=== PATIENT | female | born 1960 | race Caucasian/White ===

== ENCOUNTER 2019-02-24 19:37 | Emergency (ER) | payer OTHER ==
[2019-02-24 19:48] VITALS: BMI 23.4
[2019-02-24] MEDS ORDERED: MIDAZOLAM HCL 2 MG/2 ML SINGLE DOSE VIAL IVPUSH ONE (20:06)
--- NOTE | 2019-02-24 20:06 | PDOC ---
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 A [facility] aide is at bedside but was not present during the incidient. Per her report, the day program told her this evening that the pt had 2 episodes of vaginal bleeding this morning that have since resolved, and the program recommended calling an ambulance. The aide is not aware of the patient's history. Ms Foster's legal guardian, Julianna Howell ([phone]) was contacted via phone. She reports that the pt was recently diagnosed with bladder cancer, and she has not yet started treatment. Other than the CA and the TBI, she is unaware of any underlying medical conditions. Past History - Past Medical History Allergies/Adverse Reactions: Allergies Allergy/AdvReac Type Severity Reaction Status Date / Time No Known Allergies Allergy Verified 02/24/19 19:39 Home Medications: Ambulatory Orders Unobtainable Home Med List 0 dose .ROUTE UTDICT 03/06/12 Cephalexin [Keflex Suspension] 500 mg PO Q8H 10 Days #300 ml 02/24/19 - Psycho Social/Smoking Cessation Hx Smoking Status: No Smoking History: Unknown if ever smoked Have you smoked in the past 12 months: No Number of Cigarettes Smoked Daily: 0 Information on smoking cessation initiated: No Hx Alcohol Use: No Drug/Substance Use Hx: No Review of Systems - Review of Systems Comments:: Patient minimally verbal, s/p TBI, could not obtain *Physical Exam - Vital Signs Last Vital Signs Temp Pulse Resp BP Pulse Ox 97.9 F 110 H 18 138/70 96 02/24/19 19:39 02/24/19 19:39 02/24/19 19:39 02/24/19 19:39 02/24/19 19:39 - Physical Exam General: Comfortable, no acute distress. Brown-tinged urine soaking bedsheets HEENT: Atraumatic, PERRL, EOMI, adentulous Cards: RRR, no murmur appreciated Pulm: Comfortable on room air, clear to auscultation bilaterally Abd: Soft, nontender, nondistended : Normal external genitalia, no active bleeding or lesions. Blood-tinged physiologic discharge in vaginal canal without obvious source. Os not well visualized as pt became upset during exam. Rectal: Normal tone, no blood noted, no perianal lesions Ext: Atraumatic. No LE edema. Extremities contracted. WWP. Skin: Normal color, no rashes or lesions Neuro: Awake, nonverbal, CN grossly intact, extremities contracted. 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 The bleeding has since resolved. Ms Foster's legal guardian, Julianna Howell ([phone]) was contacted via phone for history. - Slightly tachycardic, but BP and temp WNL - No active bleeding noted externally; will attempt vaginal exam. - CBC to check H/H - Pt has follow up for her known bladder cancer arranged. If no active bleeding or significant anemia, will likely d/c home to follow up with her outpatient physicians 02/24/19 21:29 - Vaginal exam completed w/ aide at bedside. Blood-tinged discharge in vaginal canal. No obvious source. Os not well visualized - Diaper and bed soaked in brownish urine. Likely hematuria from known bladder CA but will check UA and culture to evaluate for possible infection - CBC w/ HBG 10.3. No baseline, but does not require intervention. No active bleeding appreciated on exam, unlikely to drop. 02/24/19 23:46 - UA grossly positive - Bleeding most likely due to hemorrhagic cystitis secondary to bladder cancer rather than vaginal bleeding - Will give keflex in ED - Written prescription for keflex TID for 10 days given as pharmacy is unknown; as pt is nonverbal cannot rule out pyelonephritis so will give longer course of antibiotics - Detailed instructions given to home appliance installer Discussed with Dr Dianna Dumont PGY2 Discharge - Discharge Information Problems reviewed: Yes Clinical Impression/Diagnosis: Hematuria Qualifiers: Hematuria type: gross Qualified Code(s): R31.0 - Gross hematuria UTI (urinary tract infection) Qualifiers: Urinary tract infection type: site unspecified Hematuria presence: with hematuria Qualified Code(s): N39.0 - Urinary tract infection, site not specified Condition: Stable Disposition: HOME - Admission No - Additional Discharge Information Prescriptions: Cephalexin [Keflex Suspension] 500 mg PO Q8H 10 Days #300 ml - Follow up/Referral Referrals: Sid Albrecht MD [Staff Physician] - - Patient Discharge Instructions Patient Printed Discharge Instructions: DI for Hematuria Additional Instructions: Discharge Instructions: You were seen in the emergency department for bloody urine. This may be related to your bladder cancer. You were also found to have a urinary tract infection and have been prescribed antibiotics. Home Care and follow up: - You have been precsribed an antibiotic called Keflex. This should be taken every 8 hours for 10 days total. Do not stop taking the antibiotic early. - Please follow up with your urologist as soon as possible. If you need a urologist, you have been given contact information for Dr Albrecht at [facility]. - Continue to take all medications at home as previously prescribed. - Seek immediate medical care for worsening symptoms, fever to 101F or higher, continued bleeding or bright red urine, or any other medical emergency. - Post Discharge Activity
--- NOTE | 2019-02-24 20:43 | PDOC ---
Attending Attestation - Resident Resident Name: Saniya Dumont - ED Attending Attestation I have performed the following: I have examined & evaluated the patient, The case was reviewed & discussed with the resident, I agree w/resident's findings & plan - HPI HPI: 02/24/19 20:41 Elsy Foster 58 YOF with TBI from correction, baseline nonverbal and contractures, bladder CA (planned for radiation tx) presenting with vaginal bleeding today. Pt is currently undergoing workup for bladder cancer. Per her report, the day program told her this evening that the pt had 2 episodes of vaginal bleeding this morning that have since resolved, and the program recommended calling an ambulance. The aide is not aware of the patient' s history. Ms Foster's legal guardian, Julianna Howell ([phone]) was contacted via phone. She reports that the pt was recently diagnosed with bladder cancer, and she has not yet started treatment. 02/24/19 23:46 02/24/19 23:52 02/25/19 00:59 - Physicial Exam PE: 02/24/19 20:41 Agree with the resident's HPI and PE as documented in the electronic medical record. NAD, nonverbal, EOMI, PERRL, nl conjunctiva, anicteric; neck supple. lungs clear, RRR, abdomen soft nontender. no rebound, guarding. Back nontender. DENNISON x4 , contracted extremities x4. No peripheral edema. normal color for ethnicity, WWP. malodorous urine no active bleeding. leaking brown urine onto sheet. normal external genitalia. 02/24/19 21:46 02/25/19 00:57 - Medical Decision Making 02/24/19 20:42 Vital Signs Temp Pulse Resp BP Pulse Ox 99.7 F H 110 H 18 138/70 96 02/24/19 20:36 02/24/19 19:39 02/24/19 19:39 02/24/19 19:39 02/24/19 19:39 Vital signs notable for tachycardia 110 bpm, no fevers, hemodynamically appropriate. nontoxic, not septic appearing. check CBC/H/H with mild anemia, not significant to warrant transfusion. leukocytosis noted 14K, no baseline. pelvic exam limited, no gross bleeding, suspecting hematuria. sedation as needed no significant bleeding/active bleed here. has outpatient workup pending for possible bladder ca. check UA for possible UTI with odorous urine, hematuria 02/24/19 23:34 Urinalysis with positive nitrites and copious leuk esterase as well as WBCs and RBCs treat with hemorrhagic cystitis, treat with Keflex x10-day course. repeat VS, HR down to 90s, afebrile at baseline status wbc ct likely from hemorrhagic cystitis. Discharged in stable condition, follow-up on the urine cultures. Continue with adequate hydration rx keflex written out with proper dosing for treatment. pcp followup return precautions 02/24/19 23:35 02/25/19 00:58 02/25/19 00:58
[2019-02-24 20:49] LABS: BASO % 0.3 % (0-2.0); EOS % 5.7 % (0-4.5); HEMATOCRIT 32.4 % (32.4-45.2); HEMOGLOBIN 10.3 GM/dL (10.7-15.3); LYMPH % 15.2 % (8-40); MCH 27.1 pg (25.7-33.7); MCHC 31.9 g/dl (32.0-36.0); MEAN PLT VOLUME 7.6 fl (7.5-11.1); MONO % 9.5 % (3.8-10.2); NEUT % 69.3 % (42.8-82.8); PLATELET COUNT 184 K/MM3 (134-434); RBC 3.81 M/mm3 (3.60-5.2); RDW 14.9 % (11.6-15.6)
[2019-02-24 21:31] VITALS: TEMP 99.7
[2019-02-24 22:55] LABS: URINE APPEARANCE CLOUDY; URINE COLOR RED
[2019-02-24 22:57] LABS: PH,URINE 6.5 (5.0-8.0); URINE BILIRUBIN LARGE (NEGATIVE); URINE GLUCOSE (UA) NEGATIVE (NEGATIVE); URINE KETONE NEGATIVE (NEGATIVE)
[2019-02-24 22:58] LABS: URINE LEUK ESTERASE 4+ (NEGATIVE); URINE NITRITE POSITIVE (NEGATIVE); URINE PROTEIN 100 (NEGATIVE); URINE UROBILINOGEN 0.2 mg/dL (0.2-1.0)
[2019-02-24 22:59] LABS: URINE RBC 1220 /hpf (0-4)
[2019-02-24 23:00] LABS: EPI CELLS 80.3 /HPF (0-5/HPF); HYALINE CASTS 2715.39 /lpf (0-8); URINE BACTERIA 459.9 /hpf (NEGATIVE); URINE WBC 1994.5 /hpf (0-5)
[2019-02-24] MEDS ORDERED: CEPHALEXIN 250 MG/5 ML ORAL SUSPENSION PEG ONE (23:26)
[2019-02-24 23:35] VITALS: BP 99/64; PULSE 76
[2019-02-24] MEDS ORDERED: PRESCRIPTION PAD 1 EACH EACH NR ONE (23:42)
[2019-02-25] MEDS ORDERED: CEPHALEXIN MONOHYDRATE 500 MG CAPSULE (UD) ONE (00:07)
--- NOTE | 2019-02-25 12:15 | PDOC ---
Patient Follow-up (Call Back) - Post ED Follow - Up Chief Complaint: RX Refill Condition at time of discharge: Stable Disposition at time of original discharge: HOME - Disposition Additional Instructions/Notes: recieved phone call from pt Guardian from family social work specialist of [facility], [facility] pt with h/o bladder cancer. did not get paper prescription. will send prescription for keflex over to [facility].
== END 2019-02-25 00:33 | disposition home or self-care (01) ==
LOC: JER 19:37
DX: R31.0 Gross hematuria (principal); N39.0 Urinary tract infection, site not specified
CPT/HCPCS: 36415; 81003; 85025; 87086; 87186; 99284-25

== ENCOUNTER 2019-03-14 09:27 | Inpatient (IN) | payer OTHER ==
[2019-03-14] MEDS ORDERED: SODIUM CHLORIDE 1,361 ML IV ONE (10:03)
--- NOTE | 2019-03-14 10:20 | PDOC ---
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 hx limited due to patients verbal difficulties at baseline. No other changes per aide at bedside. pt coming in with fever and tachycardia. 03/14/19 12:16 03/31/19 19:35 03/31/19 19:40 Past History - Past Medical History Allergies/Adverse Reactions: Allergies Allergy/AdvReac Type Severity Reaction Status Date / Time No Known Allergies Allergy Verified 02/24/19 19:39 Home Medications: Ambulatory Orders Calcium 250Mg/Vit-D 125 Units [Oscal 250 mg+D -] 1 combo PO BID 03/16/19 Carbidopa/Levodopa *Cr* 50/200 03/16/19 Divalproex Sodium [Depakote] 250 mg PO BID 03/16/19 Quetiapine Fumarate [Seroquel -] 50 mg PO TID 03/16/19 Ranitidine Oral Solution [Zantac Oral Solution -] 150 tab DAILY 03/16/19 Acetaminophen [Tylenol .Regular Strength -] 650 mg PO Q6H PRN tablet 03/24/19 Calcium 250Mg/Vit-D 125 Units [Oscal 250 mg+D -] 2 tab PO DAILY tab 03/24/19 Carbidopa/Levodopa *Cr* 50/200 [Sinemet *Cr* 50/200 -] 1 combo PO TID tablet.er 03/24/19 LORazepam [Ativan] 0.5 mg PO TID PRN #60 tablet MDD 1.5mg 03/24/19 Polyethylene Glycol 3350 [Miralax 119 gm Btl -] 17 gm PO DAILY #6 bottle Quetiapine Fumarate [Seroquel -] 50 mg PO TID tablet 03/24/19 Amox-Tr/K Cl [Augmentin 500-125mg Tablet -] 1 tab PO BID@0800,1730 #14 tablet - Reproductive History Cervical CA: Yes - Psycho Social/Smoking Cessation Hx Smoking Status: No Smoking History: Unknown if ever smoked Have you smoked in the past 12 months: No Number of Cigarettes Smoked Daily: 0 Information on smoking cessation initiated: No Hx Alcohol Use: No Drug/Substance Use Hx: No Review of Systems - Review of Systems Able to Perform ROS?: No (neurological deficits) *Physical Exam - Vital Signs Last Vital Signs Temp Pulse Resp BP Pulse Ox 102.6 F H 107 H 16 109/86 97 03/14/19 09:39 03/14/19 09:39 03/14/19 09:39 03/14/19 09:39 03/14/19 09:39 - Physical Exam General Appearance: Yes: Appropriately Dressed. No: Apparent Distress, Disheveled HEENT: negative: Scleral Icterus (R), Scleral Icterus (L), Lesions, Thibodeaux Neck: negative: Tender, Rigid Respiratory/Chest: positive: Lungs Clear, Normal Breath Sounds. negative: Respiratory Distress, Wheezing Cardiovascular: positive: Regular Rhythm, Regular Rate, S1, S2 Vascular Pulses: Dorsalis-Pedis (R): 2+, Doralis-Pedis (L): 2+ Gastrointestinal/Abdominal: positive: Normal Bowel Sounds, Soft. negative: Pulsatile Mass, Tenderness Musculoskeletal: positive: Other (contracted upper and lower extremities) Integumentary: positive: Normal Color, Dry, Warm Neurologic: positive: Alert, Other (hx of traumatic brain injury. 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 sepsis workup initiated EKG normal sinus rhythm, normal EKG Pt admitted for further management. received empiric antibiotics 03/31/19 19:41 04/21/19 12:16 Discharge - Discharge Information Problems reviewed: Yes Clinical Impression/Diagnosis: Hematuria Qualifiers: Hematuria type: gross Qualified Code(s): R31.0 - Gross hematuria Condition: Worsened Disposition: TRANSFER ACUTE CARE/OTHER HOSP - Follow up/Referral - Patient Discharge Instructions - Post Discharge Activity
[2019-03-14] MEDS ORDERED: ACETAMINOPHEN 1000 MG/100 ML VIAL (NON FORMULARY) IVPB ONE (10:25)
[2019-03-14] MEDS ORDERED: ACETAMINOPHEN INJECTION 100 ML IVPB ONE (10:25)
[2019-03-14] MEDS ORDERED: CEFEPIME HCL/D5W 1 GM/50 ML BAG IVPB ONE (10:30)
[2019-03-14] MEDS ORDERED: VANCOMYCIN 1,000 MG in DEXTROSE 5%-WATER - 250 ML IVPB ONE (10:36)
[2019-03-14] MEDS ORDERED: VANCOMYCIN 1 GRAM (PRE-DOCKED) 1,000 MG/250 ML BAG IVPB ONE (10:39)
[2019-03-14] MEDS ORDERED: CEFEPIME 1 GM/100 ML BAG IVPB ONE (10:40)
[2019-03-14 10:48] LABS: BASO % 0.2 % (0-2.0); EOS % 0.2 % (0-4.5); HEMATOCRIT 31.5 % (32.4-45.2); HEMOGLOBIN 10.2 GM/dL (10.7-15.3); LYMPH % 6.7 % (8-40); MCH 27.1 pg (25.7-33.7); MCHC 32.3 g/dl (32.0-36.0); MEAN CELL VOLUME 83.9 fl (80-96); MEAN PLT VOLUME 7.5 fl (7.5-11.1); MONO % 11.9 % (3.8-10.2); PLATELET COUNT 175 K/MM3 (134-434); RBC 3.76 M/mm3 (3.60-5.2); RDW 15.8 % (11.6-15.6); WHITE BLOOD COUNT 22.7 K/mm3 (4.0-10.0)
[2019-03-14 11:01] LABS: INR 1.18 (0.83-1.09)
[2019-03-14 11:04] LABS: ACTIVATED PTT 30.6 SECONDS (25.2-36.5)
[2019-03-14 11:24] LABS: ALBUMIN 2.7 g/dl (3.4-5.0); ALK PHOS 74 U/L (45-117); ANION GAP 6 MMOL/L (8-16); BILIRUBIN,TOTAL 0.4 mg/dL (0.2-1); BLOOD UREA NITROGEN 12.7 mg/dL (7-18); CHLORIDE 104 mmol/L (98-107); CO2 28 mmol/L (21-32); CREATININE 1.2 mg/dL (0.55-1.3); GLUCOSE,RANDOM 100 mg/dL (74-106); POTASSIUM 4.3 mmol/L (3.5-5.1); SGOT/AST 26 U/L (15-37); SGPT/ALT 11 U/L (13-61); SODIUM 139 mmol/L (136-145); TOT PROT 6.4 g/dl (6.4-8.2)
[2019-03-14 11:36] LABS: URINE APPEARANCE CLOUDY; URINE COLOR YELLOW
[2019-03-14 11:37] LABS: URINE BILIRUBIN NEGATIVE (NEGATIVE); URINE GLUCOSE (UA) NEGATIVE (NEGATIVE); URINE KETONE NEGATIVE (NEGATIVE)
[2019-03-14 11:39] LABS: URINE NITRITE NEGATIVE (NEGATIVE); URINE PROTEIN 3+ (NEGATIVE)
[2019-03-14 11:40] LABS: EPI CELLS 232.8 /HPF (0-5/HPF); HYALINE CASTS 1822.22 /lpf (0-8); URINE LEUK ESTERASE 3+ (NEGATIVE); URINE RBC 440.6 /hpf (0-4); URINE WBC 2443.5 /hpf (0-5)
--- NOTE | 2019-03-14 11:42 | PDOC ---
Documentation entered by Cuauhtemoc Simon SCRIBE, acting as scribe for Jose M Nava MD. Jose M Nava MD: This documentation has been prepared by the Alfred velez Daniel, SCRIBE, under my direction and personally reviewed by me in its entirety. I confirm that the documentation accurately reflects all work, treatment, procedures, and medical decision making performed by me. Attending Attestation - Resident Resident Name: RossDeon - ED Attending Attestation I have performed the following: I have examined & evaluated the patient, The case was reviewed & discussed with the resident, I agree w/resident's findings & plan, Exceptions are as noted - HPI HPI: 03/14/19 10:56 The patient is a 58 year old female with a past medical history of traumatic brain injury (baseline non verbal, contracted extremities) and bladder cancer ( on chemotherapy) here today for evaluation of unresponsiveness last night. As per patients aide, the patient was unresponsive last night. Patient unable to provide much history due to being non verbal. Allergies: NKA - Physicial Exam PE: 03/14/19 10:56 Agree with resident exam - Medical Decision Making 03/14/19 11:36 58-year-old female with a history of traumatic brain injury, resides in a skilled nursing, recent diagnosis of bladder cancer now on chemotherapy presents to the emergency department with report of unresponsiveness at the skilled nursing last night. Vitals on arrival remarkable for fever and tachycardia Unknown last chemo, aide at bed side no longer here Sepsis w/u initiated, given possible neutropenia, pt covered with Vanc and cefepime REcent barlow-sensitive UTI, pt was treated with keflex, unknown compliance as pt can not tell us Like UTI given cloudy appearance at bedside Anticipate admission 03/14/19 12:20 Case discussed in detail with admitting physician including history, physical exam and ancillary studies. Admitting physician has assumed care for the patient, will follow all pending diagnostics and will complete the evaluation and treatment. Heart Score/ECG Review #1 03/14/19 11:41 EKG read and int by me: NSR, rate 95, normal axis and intervals. No ISABELLE
--- NOTE | 2019-03-14 12:02 | HP ---
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: Other (TBI) Renal/: Yes: Cancer (bladder on chemotherapy) - Smoking History Smoking history: Unknown if ever smoked Have you smoked in the past 12 months: No Aproximately how many cigarettes per day: 0 - Alcohol/Substance Use Hx Alcohol Use: No - Social History Usual Living Arrangement: Yes: Other ([facility]) ADL: Support Services History of Recent Travel: No Home Medications - Allergies Allergies/Adverse Reactions: Allergies Allergy/AdvReac Type Severity Reaction Status Date / Time No Known Allergies Allergy Verified 02/24/19 19:39 - Home Medications Home Medications: Ambulatory Orders Unobtainable Home Med List 0 dose .ROUTE UTDICT 03/06/12 Cephalexin [Keflex Suspension] 500 mg PO Q8H 10 Days #300 ml 02/24/19 Family Medical History Family History: Unable to Obtain Review of Systems - Review of Systems Constitutional: reports: Fever Eyes: reports: No Symptoms HENT: reports: No Symptoms Neck: reports: No Symptoms Cardiovascular: reports: No Symptoms Respiratory: reports: No Symptoms Gastrointestinal: reports: No Symptoms Genitourinary: reports: No Symptoms Breasts: reports: No Symptoms Reported Musculoskeletal: reports: No Symptoms Integumentary: reports: No Symptoms Neurological: reports: Change in LOC (as per [facility]) Endocrine: reports: No Symptoms Hematology/Lymphatic: reports: No Symptoms Psychiatric: reports: No Symptoms Physical Examination Vital Signs: Vital Signs Temperature 102.6 F H 03/14/19 09:39 Pulse Rate 107 H 03/14/19 09:39 Respiratory Rate 16 03/14/19 09:39 Blood Pressure 109/86 03/14/19 09:39 O2 Sat by Pulse Oximetry (%) 97 03/14/19 09:39 Constitutional: Yes: Mild Distress, Thin Eyes: Yes: WNL, Conjunctiva Clear, EOM Intact HENT: Yes: WNL, Atraumatic, Normocephalic Neck: Yes: WNL, Supple, Trachea Midline Cardiovascular: Yes: Regular Rate and Rhythm, Tachycardia Respiratory: Yes: Regular, CTA Bilaterally, Diminished (at bases) Gastrointestinal: Yes: WNL, Normal Bowel Sounds ...Rectal Exam: Yes: Deferred Renal/: Yes: Thao Present Breast(s): Yes: WNL Musculoskeletal: Yes: Joint Stiffness, Muscle Weakness, Other (contractures to UE/LE BL) Extremities: Yes: WNL Edema: Yes Edema: LLE: Trace, RLE: Trace Peripheral Pulses WNL: Yes Peripheral Pulses: Left Radial: 2+, Right Radial: 2+, Left Doralis Pedis: 2+, Right Dorsalis Pedis: 2+, Left Femoral: 2+, Right Femoral: 2+ Integumentary: Yes: WNL Neurological: Yes: Alert, Aphasia ...Motor Strength: LUE, LLE, RUE, RLE (all extrem weak, UE stregth 3/5, LE 1/5) Psychiatric: Yes: Alert Labs: CBC, BMP 03/14/19 10:00 03/14/19 10:00 Imaging - Results Chest X-ray: Image Reviewed (NO EFFUSION/INFILTRATES) Problem List - Problems (1) TBI (traumatic brain injury) Assessment/Plan: TBI since Code(s): S06.9X9A - UNSP INTRACRANIAL INJURY W LOC OF UNSP DURATION, INIT (2) Bladder cancer Assessment/Plan: recent dx of bladder Ca started Chemotherapy-last treatment last weak UI APPLICATION DEVELOPER unsure where she receives treatment Code(s): C67.9 - MALIGNANT NEOPLASM OF BLADDER, UNSPECIFIED (3) Fever Assessment/Plan: Febrile to 102.6 defervesed with tylenol WBC 22.6 barlow cx decreased LOC reported by UI APPLICATION DEVELOPER, now awake and alert abx vanco/cefipime in ED ID consultation appreciates c/w cefipime pending cx trend temp/wbc Code(s): R50.9 - FEVER, UNSPECIFIED (4) Leukocytosis Code(s): D72.829 - ELEVATED WHITE BLOOD CELL COUNT, UNSPECIFIED (5) Hematuria Assessment/Plan: as reported by UI APPLICATION DEVELOPER urine clear here continue to monitor Code(s): R31.9 - HEMATURIA, UNSPECIFIED Qualifiers: Hematuria type: gross Qualified Code(s): R31.0 - Gross hematuria (6) UTI (urinary tract infection) Assessment/Plan: recent UTI with 2 weeks keflex most likely cause of fever/lekocutosis is urine source c/w cefipime penind cx cont to monitor Code(s): N39.0 - URINARY TRACT INFECTION, SITE NOT SPECIFIED Qualifiers: Urinary tract infection type: site unspecified Hematuria presence: with hematuria Qualified Code(s): N39.0 - Urinary tract infection, site not specified; R31.9 - Hematuria, unspecified (7) Prophylactic measure Assessment/Plan: FEN Fluids: adequate PO intake as per UI APPLICATION DEVELOPER Electrolytes: monitor & replete as needed Nutrition:soft diet, aspiration precautions DVT moderate risk sq heparin Dispo Maintain as inpatient full code discharge planning to home with services in place Code(s): Z29.9 - ENCOUNTER FOR PROPHYLACTIC MEASURES, UNSPECIFIED Visit type - Emergency Visit Emergency Visit: Yes ED Registration Date: 03/14/19 Care time: The patient presented to the Emergency Department on the above date and was hospitalized for further evaluation of their emergent condition. - New Patient This patient is new to me today: Yes Date on this admission: 03/14/19 - Critical Care Critical Care patient: No
[2019-03-14] MEDS ORDERED: ACETAMINOPHEN 1000 MG/100 ML VIAL (NON FORMULARY) IVPB PRN (12:06)
[2019-03-14 13:24] LABS: ANISOCYTOSIS 1+; MACROCYTOSIS 0; OVALOCYTE 1+; PLATELET ESTIMATE NORMAL
[2019-03-14 13:31] LABS: VENOUS PC02 43.9 mmHg (38-52); VENOUS PH 7.41 (7.31-7.41); VENOUS PO2 < 49 mmHg (28-48)
[2019-03-14 13:39] LABS: URINE BACTERIA MANY /hpf (NEGATIVE)
[2019-03-14 13:42] LABS: URINE CRYSTALS MODERATE /hpf
--- NOTE | 2019-03-14 15:25 | CON.ID ---
Consult - History of Present Illness History of Present Illness: 58 y.o. female with PMH of traumatic brain injury and bladder CA on chemotherapy was transferred from a senior care last night when she was found unresponsive. Reported that the patient was alert during the day but last night became lethargic. The patient is not a source of history. Last chemotherapy session was possibly about one week ago but where it is administered is unclear. In the ER Pt was found to be febrile with temp of 102.6F and noted to have leukocytosis with wbc of 22.7K. Currently she is alert and responsive and without distress. - History Source History Provided By: Medical Record Limitations to Obtaining History: Clinical Condition - Past Medical History TALENT REP: Yes: Other (TBI) Renal/: Yes: Cancer (bladder on chemotherapy) - Alcohol/Substance Use Hx Alcohol Use: No - Smoking History Smoking history: Unknown if ever smoked Have you smoked in the past 12 months: No Aproximately how many cigarettes per day: 0 - Social History ADL: Support Services History of Recent Travel: No Home Medications - Allergies Allergies/Adverse Reactions: Allergies Allergy/AdvReac Type Severity Reaction Status Date / Time No Known Allergies Allergy Verified 02/24/19 19:39 - Home Medications Home Medications: Ambulatory Orders Unobtainable Home Med List 0 dose .ROUTE UTDICT 03/06/12 Cephalexin [Keflex Suspension] 500 mg PO Q8H 10 Days #300 ml 02/24/19 Review of Systems Unable to obtain ROS, reason: pt with brain injury Physical Exam Vital Signs: Vital Signs Temperature 98.8 F 03/14/19 13:41 Pulse Rate 85 03/14/19 13:41 Respiratory Rate 18 03/14/19 13:41 Blood Pressure 101/84 03/14/19 13:41 O2 Sat by Pulse Oximetry (%) 98 03/14/19 13:41 Constitutional: Yes: No Distress, Calm. No: Well Nourished, Anxious, Ashen, Cachectic, Diaphoresis, Mild Distress, Moderate Distress, Severe Distress, Obese , Pallor, Poor Hygeine, Thin, Other Eyes: Yes: Conjunctiva Clear, EOM Intact HENT: Yes: Atraumatic Neck: Yes: Supple, Trachea Midline. No: WNL, Decreased ROM, Lymphadenopathy, Rigid, Tenderness, Thyromegaly, Other Cardiovascular: Yes: Regular Rate and Rhythm. No: WNL, Bradycardia, Tachycardia , Pulse Irregular, Bruit, JVD, Gallop, Murmur, Rub, S1, S2, S3, S4, Varicosities , Other Respiratory: Yes: CTA Bilaterally Gastrointestinal: Yes: Normal Bowel Sounds, Soft Renal/: Yes: WNL Musculoskeletal: Yes: Other (contracted) Edema: No Peripheral Pulses WNL: Yes Integumentary: Yes: WNL Neurological: Yes: Alert Psychiatric: Yes: Alert Labs: CBC, BMP 03/14/19 10:00 03/14/19 10:00 Laboratory Tests 03/14/19 03/14/19 03/14/19 10:00 10:00 10:00 WBC 22.7 H RBC 3.76 Hgb 10.2 L Hct 31.5 L MCV 83.9 MCH 27.1 MCHC 32.3 RDW 15.8 H Plt Count 175 MPV 7.5 Absolute Neuts (auto) 18.4 H Neutrophils % 81.0 Neutrophils % (Manual) 73.2 Band Neutrophils % 5.2 Lymphocytes % 6.7 L D Lymphocytes % (Manual) 5.2 L Monocytes % 11.9 H Monocytes % (Manual) 11 H Eosinophils % 0.2 D Eosinophils % (Manual) 0.0 Basophils % 0.2 Basophils % (Manual) 1.0 Myelocytes % (Man) 0 Promyelocytes % (Man) 0 Blast Cells % (Manual) 0 Nucleated RBC % 0 Metamyelocytes 0 Hypochromia 0 Platelet Estimate Normal Polychromasia 1+ Poikilocytosis 1+ Anisocytosis 1+ Microcytosis 1+ Macrocytosis 0 Ovalocytes 1+ Ruth Cells 1+ PT with INR 14.00 H INR 1.18 H PTT (Actin FS) 30.6 VBG pH POC VBG pCO2 POC VBG pO2 VBG HCO3 VBG O2 Sat (Maximo) VBG Base Excess Sodium Potassium Chloride Carbon Dioxide Anion Gap BUN Creatinine Est GFR (CKD-EPI)AfAm Est GFR (CKD-EPI)NonAf Random Glucose Lactic Acid Calcium Total Bilirubin AST ALT Alkaline Phosphatase Troponin I Total Protein Albumin Urine Color Yellow Urine Appearance Cloudy Urine pH 8.0 D Ur Specific [place] 1.011 Urine Protein 3+ H Urine Glucose (UA) Negative Urine Ketones Negative Urine Blood 3+ H Urine Nitrite Negative Urine Bilirubin Negative Urine Urobilinogen 1.0 Ur Leukocyte Esterase 3+ H Urine WBC (Auto) 2443.5 Urine RBC (Auto) 440.6 Urine Casts (Auto) 1822.22 U Epithel Cells (Auto) 232.8 Urine Crystals (Auto) Moderate Urine Bacteria (Auto) Many Calcium Oxalate Crystal Cancelled Uric Acid Crystals Cancelled Triple Phos Crystals Cancelled Amorphous Phosphates Cancelled Amorphous Urates Cancelled Amorphous Sediment Cancelled Hyaline Casts Cancelled Granular Casts Cancelled Waxy Casts Cancelled RBC Casts Cancelled WBC Casts Cancelled Urine Mucus Cancelled Urine Other Cancelled Urine Trichomonas Cancelled Influenza A (Rapid) Influenza B (Rapid) 03/14/19 03/14/19 03/14/19 10:00 10:00 13:00 WBC RBC Hgb Hct MCV MCH MCHC RDW Plt Count MPV Absolute Neuts (auto) Neutrophils % Neutrophils % (Manual) Band Neutrophils % Lymphocytes % Lymphocytes % (Manual) Monocytes % Monocytes % (Manual) Eosinophils % Eosinophils % (Manual) Basophils % Basophils % (Manual) Myelocytes % (Man) Promyelocytes % (Man) Blast Cells % (Manual) Nucleated RBC % Metamyelocytes Hypochromia Platelet Estimate Polychromasia Poikilocytosis Anisocytosis Microcytosis Macrocytosis Ovalocytes Ruth Cells PT with INR INR PTT (Actin FS) VBG pH 7.41 POC VBG pCO2 43.9 POC VBG pO2 < 49 H VBG HCO3 27.5 VBG O2 Sat (Maximo) 50.1 L VBG Base Excess 3.1 H Sodium 139 Potassium 4.3 Chloride 104 Carbon Dioxide 28 Anion Gap 6 L BUN 12.7 Creatinine 1.2 Est GFR (CKD-EPI)AfAm 57.29 Est GFR (CKD-EPI)NonAf 49.43 Random Glucose 100 Lactic Acid 2.3 H* Calcium 9.0 Total Bilirubin 0.4 AST 26 ALT 11 L Alkaline Phosphatase 74 Troponin I < 0.02 Total Protein 6.4 Albumin 2.7 L Urine Color Urine Appearance Urine pH Ur Specific [place] Urine Protein Urine Glucose (UA) Urine Ketones Urine Blood Urine Nitrite Urine Bilirubin Urine Urobilinogen Ur Leukocyte Esterase Urine WBC (Auto) Urine RBC (Auto) Urine Casts (Auto) U Epithel Cells (Auto) Urine Crystals (Auto) Urine Bacteria (Auto) Calcium Oxalate Crystal Uric Acid Crystals Triple Phos Crystals Amorphous Phosphates Amorphous Urates Amorphous Sediment Hyaline Casts Granular Casts Waxy Casts RBC Casts WBC Casts Urine Mucus Urine Other Urine Trichomonas Influenza A (Rapid) Influenza B (Rapid) 03/14/19 03/14/19 13:00 13:40 WBC RBC Hgb Hct MCV MCH MCHC RDW Plt Count MPV Absolute Neuts (auto) Neutrophils % Neutrophils % (Manual) Band Neutrophils % Lymphocytes % Lymphocytes % (Manual) Monocytes % Monocytes % (Manual) Eosinophils % Eosinophils % (Manual) Basophils % Basophils % (Manual) Myelocytes % (Man) Promyelocytes % (Man) Blast Cells % (Manual) Nucleated RBC % Metamyelocytes Hypochromia Platelet Estimate Polychromasia Poikilocytosis Anisocytosis Microcytosis Macrocytosis Ovalocytes Ruth Cells PT with INR INR PTT (Actin FS) VBG pH POC VBG pCO2 POC VBG pO2 VBG HCO3 VBG O2 Sat (Maximo) VBG Base Excess Sodium Potassium Chloride Carbon Dioxide Anion Gap BUN Creatinine Est GFR (CKD-EPI)AfAm Est GFR (CKD-EPI)NonAf Random Glucose Lactic Acid 1.6 Calcium Total Bilirubin AST ALT Alkaline Phosphatase Troponin I Total Protein Albumin Urine Color Urine Appearance Urine pH Ur Specific [place] Urine Protein Urine Glucose (UA) Urine Ketones Urine Blood Urine Nitrite Urine Bilirubin Urine Urobilinogen Ur Leukocyte Esterase Urine WBC (Auto) Urine RBC (Auto) Urine Casts (Auto) U Epithel Cells (Auto) Urine Crystals (Auto) Urine Bacteria (Auto) Calcium Oxalate Crystal Uric Acid Crystals Triple Phos Crystals Amorphous Phosphates Amorphous Urates Amorphous Sediment Hyaline Casts Granular Casts Waxy Casts RBC Casts WBC Casts Urine Mucus Urine Other Urine Trichomonas Influenza A (Rapid) Negative Influenza B (Rapid) Negative Imaging - Results Chest X-ray: Report Reviewed Problem List - Problems (1) Bladder cancer Code(s): C67.9 - MALIGNANT NEOPLASM OF BLADDER, UNSPECIFIED (2) Fever Code(s): R50.9 - FEVER, UNSPECIFIED (3) Leukocytosis Code(s): D72.829 - ELEVATED WHITE BLOOD CELL COUNT, UNSPECIFIED (4) TBI (traumatic brain injury) Code(s): S06.9X9A - UNSP INTRACRANIAL INJURY W LOC OF UNSP DURATION, INIT (5) Hematuria Code(s): R31.9 - HEMATURIA, UNSPECIFIED Qualifiers: Hematuria type: gross Qualified Code(s): R31.0 - Gross hematuria Assessment/Plan 58 y.o. female resident of a senior care with PMH of traumatic brain injury and bladder CA on chemotherapy sent to ER for unresponsiveness and found to be febrile and have an elevated wbc Fever Leukocytosis AMS R/O UTI Hx of TBI Bladder CA on chemotherapy -- continue Cefepime for now -- Urine/Blood cultures pending -- Influenza testing neg -- monitor wbc/temp trends -- Pt is currently alert, without distress Will follow Thank you
[2019-03-14] MEDS: HEPARIN NA (PORCINE) 5,000 UNITS/ML 1ML VIAL SQ SCH (21:47)
[2019-03-15 08:21] LABS: BASO % 0.3 % (0-2.0); EOS % 0.1 % (0-4.5); HEMATOCRIT 25.2 % (32.4-45.2); HEMOGLOBIN 8.2 GM/dL (10.7-15.3); MCH 27.1 pg (25.7-33.7); MCHC 32.3 g/dl (32.0-36.0); MEAN CELL VOLUME 83.8 fl (80-96); MEAN PLT VOLUME 7.3 fl (7.5-11.1); MONO % 11.3 % (3.8-10.2); NEUT % 78.3 % (42.8-82.8); PLATELET COUNT 118 K/MM3 (134-434); RBC 3.01 M/mm3 (3.60-5.2); RDW 15.5 % (11.6-15.6); WHITE BLOOD COUNT 16.8 K/mm3 (4.0-10.0)
[2019-03-15 08:35] LABS: ALBUMIN 2.2 g/dl (3.4-5.0); BILIRUBIN,TOTAL 0.6 mg/dL (0.2-1); BLOOD UREA NITROGEN 16.3 mg/dL (7-18); CALCIUM 8.3 mg/dL (8.5-10.1); CREATININE 1.1 mg/dL (0.55-1.3); MAGNESIUM 1.9 mg/dL (1.8-2.4); POTASSIUM 3.7 mmol/L (3.5-5.1); TOT PROT 5.2 g/dl (6.4-8.2)
[2019-03-15] MEDS ORDERED: CEFEPIME HCL 1 GM VIAL (RESTRICTED TO ID) ONE (09:37)
[2019-03-15] MEDS ORDERED: DEXTROSE 5%-WATER 100 ML IVPB ONE (09:37)
[2019-03-15] MEDS: HEPARIN NA (PORCINE) 5,000 UNITS/ML 1ML VIAL SQ SCH ×2 (09:56→21:26)
[2019-03-15] MEDS: ACETAMINOPHEN 1000 MG/100 ML VIAL (NON FORMULARY) IVPB PRN (09:56)
--- NOTE | 2019-03-15 10:03 | EKG ---
Test Reason : Blood Pressure : / mmHG Vent. Rate : 095 BPM Atrial Rate : 095 BPM P-R Int : 126 ms QRS Dur : 074 ms QT Int : 344 ms P-R-T Axes : 049 040 038 degrees QTc Int : 432 ms NORMAL SINUS RHYTHM NORMAL ECG WHEN COMPARED WITH ECG OF 21-JAN-2000 12:38, T-WAVE INVERSION IN ANTERIOR LEADS Confirmed by KATHERINE HOOVER MD ([id number]) on 03/15/2019 10:02:39 AM Referred By: Confirmed By:KATHERINE HOOVER MD
--- NOTE | 2019-03-15 10:04 | PN ---
Physical Exam: SUBJECTIVE: Patient seen and examined at the bedside. in no distress, looks comfortable, smiles and follows commands to move extremities. OBJECTIVE: Patient is a 58 year old female with a significant past medical history of TBI, with contractures and dysarthria at baseline, bladder cancer on chemotherapy, presents to the ED after aide had difficulty arousing patient and was brought in for altered mental status and unresponsiveness at the longterm. uc with non lactose ferment, awaiting sensititives blood cultures pending organism, will repeat blood cultures Vital Signs Period Temp Pulse Resp BP Sys/Morris Pulse Ox Last 24 Hr 98.6 F-100.3 F 71-116 14-20 82-125/48-84 94-99 GENERAL: The patient is awake, alert, in no acute distress. HEAD: Normal with no signs of trauma. EYES: PERRL, extraocular movements intact, sclera anicteric, conjunctiva clear. No ptosis. ENT: Ears normal, nares patent, oropharynx clear without exudates, moist mucous membranes. NECK: Trachea midline, full range of motion, supple. LUNGS: Breath sounds equal, clear to auscultation bilaterally, no wheezes HEART: Regular rate and rhythm ABDOMEN: Soft, nontender, nondistended, normoactive bowel sounds, no guarding, old healed surgical scar EXTREMITIES: no edema. NEUROLOGICAL: awake, alert, calm PSYCH: Normal mood, normal affect. SKIN: Warm, dry, normal turgor, no rashes or lesions noted Laboratory Results - last 24 hr 03/14/19 03/14/19 03/14/19 10:00 10:00 10:00 WBC 22.7 H RBC 3.76 Hgb 10.2 L Hct 31.5 L MCV 83.9 MCH 27.1 MCHC 32.3 RDW 15.8 H Plt Count 175 MPV 7.5 Absolute Neuts (auto) 18.4 H Neutrophils % 81.0 Neutrophils % (Manual) 73.2 Band Neutrophils % 5.2 Lymphocytes % 6.7 L D Lymphocytes % (Manual) 5.2 L Monocytes % 11.9 H Monocytes % (Manual) 11 H Eosinophils % 0.2 D Eosinophils % (Manual) 0.0 Basophils % 0.2 Basophils % (Manual) 1.0 Myelocytes % (Man) 0 Promyelocytes % (Man) 0 Blast Cells % (Manual) 0 Nucleated RBC % 0 Metamyelocytes 0 Hypochromia 0 Platelet Estimate Normal Polychromasia 1+ Poikilocytosis 1+ Anisocytosis 1+ Microcytosis 1+ Macrocytosis 0 Ovalocytes 1+ Wiseman Cells 1+ PT with INR 14.00 H INR 1.18 H PTT (Actin FS) 30.6 VBG pH POC VBG pCO2 POC VBG pO2 VBG HCO3 VBG O2 Sat (Maximo) VBG Base Excess Sodium Potassium Chloride Carbon Dioxide Anion Gap BUN Creatinine Est GFR (CKD-EPI)AfAm Est GFR (CKD-EPI)NonAf Random Glucose Lactic Acid Calcium Magnesium Total Bilirubin AST ALT Alkaline Phosphatase Troponin I Total Protein Albumin Urine Color Yellow Urine Appearance Cloudy Urine pH 8.0 D Ur Specific [place] 1.011 Urine Protein 3+ H Urine Glucose (UA) Negative Urine Ketones Negative Urine Blood 3+ H Urine Nitrite Negative Urine Bilirubin Negative Urine Urobilinogen 1.0 Ur Leukocyte Esterase 3+ H Urine WBC (Auto) 2443.5 Urine RBC (Auto) 440.6 Urine Casts (Auto) 1822.22 U Epithel Cells (Auto) 232.8 Urine Crystals (Auto) Moderate Urine Bacteria (Auto) Many Calcium Oxalate Crystal Cancelled Uric Acid Crystals Cancelled Triple Phos Crystals Cancelled Amorphous Phosphates Cancelled Amorphous Urates Cancelled Amorphous Sediment Cancelled Hyaline Casts Cancelled Granular Casts Cancelled Waxy Casts Cancelled RBC Casts Cancelled WBC Casts Cancelled Urine Mucus Cancelled Urine Other Cancelled Urine Trichomonas Cancelled Influenza A (Rapid) Influenza B (Rapid) 03/14/19 03/14/19 03/14/19 10:00 10:00 13:00 WBC RBC Hgb Hct MCV MCH MCHC RDW Plt Count MPV Absolute Neuts (auto) Neutrophils % Neutrophils % (Manual) Band Neutrophils % Lymphocytes % Lymphocytes % (Manual) Monocytes % Monocytes % (Manual) Eosinophils % Eosinophils % (Manual) Basophils % Basophils % (Manual) Myelocytes % (Man) Promyelocytes % (Man) Blast Cells % (Manual) Nucleated RBC % Metamyelocytes Hypochromia Platelet Estimate Polychromasia Poikilocytosis Anisocytosis Microcytosis Macrocytosis Ovalocytes Ruth Cells PT with INR INR PTT (Actin FS) VBG pH 7.41 POC VBG pCO2 43.9 POC VBG pO2 < 49 H VBG HCO3 27.5 VBG O2 Sat (Maximo) 50.1 L VBG Base Excess 3.1 H Sodium 139 Potassium 4.3 Chloride 104 Carbon Dioxide 28 Anion Gap 6 L BUN 12.7 Creatinine 1.2 Est GFR (CKD-EPI)AfAm 57.29 Est GFR (CKD-EPI)NonAf 49.43 Random Glucose 100 Lactic Acid 2.3 H* Calcium 9.0 Magnesium Total Bilirubin 0.4 AST 26 ALT 11 L Alkaline Phosphatase 74 Troponin I < 0.02 Total Protein 6.4 Albumin 2.7 L Urine Color Urine Appearance Urine pH Ur Specific [place] Urine Protein Urine Glucose (UA) Urine Ketones Urine Blood Urine Nitrite Urine Bilirubin Urine Urobilinogen Ur Leukocyte Esterase Urine WBC (Auto) Urine RBC (Auto) Urine Casts (Auto) U Epithel Cells (Auto) Urine Crystals (Auto) Urine Bacteria (Auto) Calcium Oxalate Crystal Uric Acid Crystals Triple Phos Crystals Amorphous Phosphates Amorphous Urates Amorphous Sediment Hyaline Casts Granular Casts Waxy Casts RBC Casts WBC Casts Urine Mucus Urine Other Urine Trichomonas Influenza A (Rapid) Influenza B (Rapid) 03/14/19 03/14/19 03/15/19 13:00 13:40 07:38 WBC 16.8 H RBC 3.01 L Hgb 8.2 L Hct 25.2 L D MCV 83.8 MCH 27.1 MCHC 32.3 RDW 15.5 Plt Count 118 L D MPV 7.3 L Absolute Neuts (auto) 13.1 H Neutrophils % 78.3 Neutrophils % (Manual) Band Neutrophils % Lymphocytes % 10.0 D Lymphocytes % (Manual) Monocytes % 11.3 H Monocytes % (Manual) Eosinophils % 0.1 Eosinophils % (Manual) Basophils % 0.3 Basophils % (Manual) Myelocytes % (Man) Promyelocytes % (Man) Blast Cells % (Manual) Nucleated RBC % 0 Metamyelocytes Hypochromia Platelet Estimate Polychromasia Poikilocytosis Anisocytosis Microcytosis Macrocytosis Ovalocytes Wiseman Cells PT with INR INR PTT (Actin FS) VBG pH POC VBG pCO2 POC VBG pO2 VBG HCO3 VBG O2 Sat (Maximo) VBG Base Excess Sodium Potassium Chloride Carbon Dioxide Anion Gap BUN Creatinine Est GFR (CKD-EPI)AfAm Est GFR (CKD-EPI)NonAf Random Glucose Lactic Acid 1.6 Calcium Magnesium Total Bilirubin AST ALT Alkaline Phosphatase Troponin I Total Protein Albumin Urine Color Urine Appearance Urine pH Ur Specific [place] Urine Protein Urine Glucose (UA) Urine Ketones Urine Blood Urine Nitrite Urine Bilirubin Urine Urobilinogen Ur Leukocyte Esterase Urine WBC (Auto) Urine RBC (Auto) Urine Casts (Auto) U Epithel Cells (Auto) Urine Crystals (Auto) Urine Bacteria (Auto) Calcium Oxalate Crystal Uric Acid Crystals Triple Phos Crystals Amorphous Phosphates Amorphous Urates Amorphous Sediment Hyaline Casts Granular Casts Waxy Casts RBC Casts WBC Casts Urine Mucus Urine Other Urine Trichomonas Influenza A (Rapid) Negative Influenza B (Rapid) Negative 03/15/19 07:38 WBC RBC Hgb Hct MCV MCH MCHC RDW Plt Count MPV Absolute Neuts (auto) Neutrophils % Neutrophils % (Manual) Band Neutrophils % Lymphocytes % Lymphocytes % (Manual) Monocytes % Monocytes % (Manual) Eosinophils % Eosinophils % (Manual) Basophils % Basophils % (Manual) Myelocytes % (Man) Promyelocytes % (Man) Blast Cells % (Manual) Nucleated RBC % Metamyelocytes Hypochromia Platelet Estimate Polychromasia Poikilocytosis Anisocytosis Microcytosis Macrocytosis Ovalocytes Wiseman Cells PT with INR INR PTT (Actin FS) VBG pH POC VBG pCO2 POC VBG pO2 VBG HCO3 VBG O2 Sat (Maximo) VBG Base Excess Sodium 141 Potassium 3.7 Chloride 110 H Carbon Dioxide 24 Anion Gap 7 L BUN 16.3 Creatinine 1.1 Est GFR (CKD-EPI)AfAm 63.64 Est GFR (CKD-EPI)NonAf 54.91 Random Glucose 86 Lactic Acid Calcium 8.3 L Magnesium 1.9 Total Bilirubin 0.6 AST 25 ALT 17 Alkaline Phosphatase 58 Troponin I Total Protein 5.2 L Albumin 2.2 L Urine Color Urine Appearance Urine pH Ur Specific [place] Urine Protein Urine Glucose (UA) Urine Ketones Urine Blood Urine Nitrite Urine Bilirubin Urine Urobilinogen Ur Leukocyte Esterase Urine WBC (Auto) Urine RBC (Auto) Urine Casts (Auto) U Epithel Cells (Auto) Urine Crystals (Auto) Urine Bacteria (Auto) Calcium Oxalate Crystal Uric Acid Crystals Triple Phos Crystals Amorphous Phosphates Amorphous Urates Amorphous Sediment Hyaline Casts Granular Casts Waxy Casts RBC Casts WBC Casts Urine Mucus Urine Other Urine Trichomonas Influenza A (Rapid) Influenza B (Rapid) Active Medications Generic Name Dose Route Start Last Admin Trade Name Freq PRN Reason Stop Dose Admin Acetaminophen 750 mg 03/14/19 14:28 03/15/19 09:56 Ofirmev Injection - IVPB 750 mg Q6H PRN Administration FEVER Heparin Sodium (Porcine) 5,000 unit 03/14/19 22:00 03/15/19 09:56 Heparin - SQ 5,000 unit BID [facility] Administration Cefepime HCl 1 gm/ Dextrose 100 mls @ 100 mls/hr 03/15/19 10:00 IVPB DAILY [facility] Protocol ASSESSMENT/PLAN: Problem List - Problems (1) Bacteremia Assessment/Plan: on cefepime repeated blood cultures pending ID following Code(s): R78.81 - BACTEREMIA (2) Fever Assessment/Plan: continues with fevers, leukocytosis blood cultures pending organism mental status improving abx vanco/cefipime in ED ID following monitor labs, vitals, fever curve Code(s): R50.9 - FEVER, UNSPECIFIED (3) Bladder cancer Assessment/Plan: recent dx of bladder Ca started Chemotherapy-last treatment last weak Code(s): C67.9 - MALIGNANT NEOPLASM OF BLADDER, UNSPECIFIED (4) Leukocytosis Assessment/Plan: wbc 22>16. now with pending organisms in blood culture blood cultures repeated to confirm continue antibiotics per ID (on cefepime) Code(s): D72.829 - ELEVATED WHITE BLOOD CELL COUNT, UNSPECIFIED (5) TBI (traumatic brain injury) Code(s): S06.9X9A - UNSP INTRACRANIAL INJURY W LOC OF UNSP DURATION, INIT (6) Hematuria Assessment/Plan: Code(s): R31.9 - HEMATURIA, UNSPECIFIED Qualifiers: Hematuria type: gross Qualified Code(s): R31.0 - Gross hematuria (7) UTI (urinary tract infection) Assessment/Plan: low colony count on urine culture, non lactuse fermenting per urine culture ( gram negative) blood cultures pending organism Code(s): N39.0 - URINARY TRACT INFECTION, SITE NOT SPECIFIED Qualifiers: Urinary tract infection type: site unspecified Hematuria presence: with hematuria Qualified Code(s): N39.0 - Urinary tract infection, site not specified; R31.9 - Hematuria, unspecified (8) Prophylactic measure Assessment/Plan: FEN Fluids: ns @ 42cc/hr Electrolytes: monitor & replete as needed Nutrition:soft diet, aspiration precautions DVT moderate risk sq heparin Dispo Maintain as inpatient full code discharge planning to home with services in place Code(s): Z29.9 - ENCOUNTER FOR PROPHYLACTIC MEASURES, UNSPECIFIED Visit type - Emergency Visit Emergency Visit: Yes ED Registration Date: 03/14/19 Care time: The patient presented to the Emergency Department on the above date and was hospitalized for further evaluation of their emergent condition. - New Patient This patient is new to me today: No - Critical Care Critical Care patient: No - Discharge Referral Referred to [facility] Med P.C.: No
[2019-03-15] MEDS: CEFEPIME 1 GM in DEXTROSE 5%-WATER 100 ML IVPB SCH (10:30)
--- NOTE | 2019-03-15 13:05 | PN ---
Progress Note, Physician History of Present Illness: complain of pain in the thumb - Current Medication List Current Medications: Active Medications Acetaminophen (Ofirmev Injection -) 750 mg IVPB Q6H PRN PRN Reason: FEVER Last Admin: 03/15/19 09:56 Dose: 750 mg Heparin Sodium (Porcine) (Heparin -) 5,000 unit SQ BID [facility] Last Admin: 03/15/19 09:56 Dose: 5,000 unit Cefepime HCl 1 gm/ Dextrose 100 mls @ 100 mls/hr IVPB DAILY [facility]; Protocol - Objective Vital Signs: Vital Signs Temperature 99.6 F 03/15/19 06:00 Pulse Rate 96 H 03/15/19 06:00 Respiratory Rate 18 03/15/19 06:00 Blood Pressure 103/58 L 03/15/19 06:00 O2 Sat by Pulse Oximetry (%) 97 03/15/19 04:00 Constitutional: Yes: Calm, Mild Distress Cardiovascular: Yes: S1, S2 Respiratory: Yes: Regular, CTA Bilaterally Gastrointestinal: Yes: Normal Bowel Sounds, Soft Musculoskeletal: Yes: WNL Extremities: Yes: WNL Neurological: Yes: Alert, Other Psychiatric: Yes: Alert, Other Labs: CBC, BMP 03/15/19 07:38 03/15/19 07:38 INR, PTT INR 1.18 (0.83-1.09) H 03/14/19 10:00 Assessment/Plan Problem List - Problems (1) Bladder cancer Code(s): C67.9 - MALIGNANT NEOPLASM OF BLADDER, UNSPECIFIED (2) Fever Code(s): R50.9 - FEVER, UNSPECIFIED (3) Leukocytosis Code(s): D72.829 - ELEVATED WHITE BLOOD CELL COUNT, UNSPECIFIED (4) TBI (traumatic brain injury) Code(s): S06.9X9A - UNSP INTRACRANIAL INJURY W LOC OF UNSP DURATION, INIT (5) Hematuria Code(s): R31.9 - HEMATURIA, UNSPECIFIED Qualifiers: Hematuria type: gross Qualified Code(s): R31.0 - Gross hematuria uti gm negative bacteremia Assessment/Plan 58 y.o. female resident of a senior living with PMH of traumatic brain injury and bladder CA on chemotherapy sent to ER for unresponsiveness and found to be febrile and have an elevated wbc Fever Leukocytosis AMS R/O UTI Hx of TBI Bladder CA on chemotherapy gm negative bacteremia plan continue abx will order repeat cx tomorrow rest as per the team
[2019-03-15] MEDS: SODIUM CHLORIDE 1,000 ML IV SCH (21:26)
[2019-03-16] MEDS: ACETAMINOPHEN 1000 MG/100 ML VIAL (NON FORMULARY) IVPB PRN (05:52)
[2019-03-16 08:31] LABS: BASO % 0.3 % (0-2.0); EOS % 1.7 % (0-4.5); HEMATOCRIT 22.9 % (32.4-45.2); HEMOGLOBIN 7.5 GM/dL (10.7-15.3); LYMPH % 10.2 % (8-40); MCH 27.4 pg (25.7-33.7); MCHC 32.9 g/dl (32.0-36.0); MEAN CELL VOLUME 83.2 fl (80-96); MEAN PLT VOLUME 7.6 fl (7.5-11.1); MONO % 10.9 % (3.8-10.2); NEUT % 76.9 % (42.8-82.8); PLATELET COUNT 131 K/MM3 (134-434); RBC 2.75 M/mm3 (3.60-5.2); RDW 15.7 % (11.6-15.6); WHITE BLOOD COUNT 12.7 K/mm3 (4.0-10.0)
[2019-03-16 08:59] LABS: BLOOD UREA NITROGEN 17.6 mg/dL (7-18); CALCIUM 8.3 mg/dL (8.5-10.1); CREATININE 0.9 mg/dL (0.55-1.3); POTASSIUM 3.5 mmol/L (3.5-5.1)
[2019-03-16] MEDS ORDERED: CEFEPIME HCL 1 GM VIAL (RESTRICTED TO ID) ONE (09:14)
[2019-03-16] MEDS ORDERED: DEXTROSE 5%-WATER 100 ML IVPB ONE (09:15)
[2019-03-16] MEDS: CEFEPIME 1 GM in DEXTROSE 5%-WATER 100 ML IVPB SCH (09:50)
[2019-03-16] MEDS: PANTOPRAZOLE 40 MG TABLET PO SCH (09:50)
[2019-03-16] MEDS: HEPARIN NA (PORCINE) 5,000 UNITS/ML 1ML VIAL SQ SCH ×2 (09:50→21:05)
--- NOTE | 2019-03-16 11:15 | PN ---
Progress Note, Physician History of Present Illness: stable generalized complaints - Current Medication List Current Medications: Active Medications Acetaminophen (Ofirmev Injection -) 750 mg IVPB Q6H PRN PRN Reason: FEVER Last Admin: 03/16/19 05:52 Dose: 750 mg Heparin Sodium (Porcine) (Heparin -) 5,000 unit SQ BID [facility] Last Admin: 03/16/19 09:50 Dose: 5,000 unit Cefepime HCl 1 gm/ Dextrose 100 mls @ 100 mls/hr IVPB DAILY [facility]; Protocol Last Admin: 03/16/19 09:50 Dose: 100 mls/hr Sodium Chloride (Normal Saline -) 1,000 mls @ 42 mls/hr IV ASDIR [facility] Last Admin: 03/15/19 21:26 Dose: 42 mls/hr Pantoprazole Sodium (Protonix -) 40 mg PO DAILY [facility] Last Admin: 03/16/19 09:50 Dose: 40 mg - Objective Vital Signs: Vital Signs Temperature 98.7 F 03/16/19 10:00 Pulse Rate 72 03/16/19 10:00 Respiratory Rate 03/16/19 10:00 Blood Pressure 99/55 L 03/16/19 10:00 O2 Sat by Pulse Oximetry (%) 99 03/16/19 09:00 Constitutional: Yes: Calm, Mild Distress Cardiovascular: Yes: S1, S2 Respiratory: Yes: Regular, CTA Bilaterally Gastrointestinal: Yes: Normal Bowel Sounds, Soft Musculoskeletal: Yes: WNL Extremities: Yes: Other Neurological: Yes: Alert, Other Psychiatric: Yes: Other Labs: CBC, BMP 03/16/19 07:33 03/16/19 07:33 INR, PTT INR 1.18 (0.83-1.09) H 03/14/19 10:00 Assessment/Plan Problem List - Problems (1) Bladder cancer Code(s): C67.9 - MALIGNANT NEOPLASM OF BLADDER, UNSPECIFIED (2) Fever Code(s): R50.9 - FEVER, UNSPECIFIED (3) Leukocytosis Code(s): D72.829 - ELEVATED WHITE BLOOD CELL COUNT, UNSPECIFIED (4) TBI (traumatic brain injury) Code(s): S06.9X9A - UNSP INTRACRANIAL INJURY W LOC OF UNSP DURATION, INIT (5) Hematuria Code(s): R31.9 - HEMATURIA, UNSPECIFIED Qualifiers: Hematuria type: gross Qualified Code(s): R31.0 - Gross hematuria uti gm negative bacteremia Assessment/Plan 58 y.o. female [facility] with PMH of traumatic brain injury and bladder CA on chemotherapy sent to ER for unresponsiveness and found to be febrile and have an elevated wbc Fever Leukocytosis AMS R/O UTI Hx of TBI Bladder CA on chemotherapy gm negative bacteremia plan continue abx await for identification of the organism monitor closely await for repeat cx rest as per the team
--- NOTE | 2019-03-16 11:18 | PN ---
Physical Exam: SUBJECTIVE: Patient seen and examined. awake and alert and able to verbalize her needs. denies pain. OBJECTIVE: Spoke to Meera Sarah RN at [employer] [phone]. This agency provides 16/09 home care for patient. medication list sent over to us by Meera and now have been reconciled in to our EMR. 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 Her other history includes seizures (on depakote), parkinsons (on levodopa) and found to have bladder cancer (started on RT). She had mapping 1 week ago and a small dose of radiation started. RT scheduled to start this week. Patient has not received chemotherapy. Per Meera, patient had a cat scan for bladder cancer but is not aware of results. For any consents, patient is under guardianship of [facility]. Guardian is Julianna Adhikari . Another contact at this facility is Josiane Villeda (reports to HCP). Patient's home services are through [facility]. ------- hmg/hct trending down, will repeat. iron panel ordered. send stool for occult blood and repeat ua/uc. can straight cath for samples. diet changed to soft medications reconciled will send for depakote levels Vital Signs Period Temp Pulse Resp BP Sys/Morris Pulse Ox Last 24 Hr 98.7 F-100.5 F 72-95 18-20 96-123/44-66 96-99 GENERAL: The patient is awake, alert, in no acute distress and able to answer questions appropriately. HEAD: Normal with no signs of trauma. EYES: PERRL, extraocular movements intact, sclera anicteric, conjunctiva clear. No ptosis. ENT: Ears normal, nares patent, oropharynx clear without exudates, moist mucous membranes. NECK: Trachea midline, full range of motion, supple. LUNGS: Breath sounds equal, clear to auscultation bilaterally, no wheezes HEART: Regular rate and rhythm ABDOMEN: Soft, nontender, nondistended, normoactive bowel sounds, no guarding, old healed surgical scar EXTREMITIES: no edema. NEUROLOGICAL: awake, alert, calm PSYCH: Normal mood, normal affect. SKIN: Warm, dry, normal turgor, no rashes or lesions noted Laboratory Results - last 24 hr 03/16/19 03/16/19 07:33 07:33 WBC 12.7 H RBC 2.75 L Hgb 7.5 L Hct 22.9 L MCV 83.2 MCH 27.4 MCHC 32.9 RDW 15.7 H Plt Count 131 L MPV 7.6 Absolute Neuts (auto) 9.8 H Neutrophils % 76.9 Lymphocytes % 10.2 Monocytes % 10.9 H Eosinophils % 1.7 D Basophils % 0.3 Nucleated RBC % 0 Sodium 139 Potassium 3.5 Chloride 108 H Carbon Dioxide 26 Anion Gap 6 L BUN 17.6 Creatinine 0.9 Est GFR (CKD-EPI)AfAm 81.11 Est GFR (CKD-EPI)NonAf 69.99 Random Glucose 84 Calcium 8.3 L Magnesium 2.0 Iron 8 L TIBC 184 L Iron Saturation 4 L Unsaturated IBC 176 L Ferritin 147.5 Total Bilirubin 1.0 AST 25 ALT 17 Alkaline Phosphatase 57 Total Protein 5.0 L Albumin 2.0 L Active Medications Generic Name Dose Route Start Last Admin Trade Name Freq PRN Reason Stop Dose Admin Acetaminophen 750 mg 03/14/19 14:28 03/16/19 05:52 Ofirmev Injection - IVPB 750 mg Q6H PRN Administration FEVER Heparin Sodium (Porcine) 5,000 unit 03/14/19 22:00 03/16/19 09:50 Heparin - SQ 5,000 unit BID [facility]RISTIAN Administration Cefepime HCl 1 gm/ Dextrose 100 mls @ 100 mls/hr 03/15/19 10:00 03/16/19 09: 50 IVPB 100 mls/hr DAILY [facility]STIAN Administration Protocol Sodium Chloride 1,000 mls @ 42 mls/hr 03/15/19 18:30 03/15/19 21:26 Normal Saline - IV 42 mls/hr ASDIR [facility]RISTIAN Administration Pantoprazole Sodium 40 mg 03/16/19 10:00 03/16/19 09:50 Protonix - PO 40 mg DAILY [facility]RISTIAN Administration ASSESSMENT/PLAN: Problem List - Problems (1) Bacteremia Assessment/Plan: on cefepime repeated blood cultures pending ID following Code(s): R78.81 - BACTEREMIA (2) Fever Assessment/Plan: continues with fevers, leukocytosis blood cultures pending organism mental status improving abx vanco/cefipime in ED ID following monitor labs, vitals, fever curve Code(s): R50.9 - FEVER, UNSPECIFIED (3) Bladder cancer Assessment/Plan: recent dx of bladder Ca started Chemotherapy-last treatment last weak Code(s): C67.9 - MALIGNANT NEOPLASM OF BLADDER, UNSPECIFIED (4) Leukocytosis Assessment/Plan: wbc trending down now with pending organisms in blood culture, urine cultures also with pending organism. blood cultures repeated to confirm continue antibiotics per ID (on cefepime) Code(s): D72.829 - ELEVATED WHITE BLOOD CELL COUNT, UNSPECIFIED (5) TBI (traumatic brain injury) Code(s): S06.9X9A - UNSP INTRACRANIAL INJURY W LOC OF UNSP DURATION, INIT (6) Hematuria Assessment/Plan: Code(s): R31.9 - HEMATURIA, UNSPECIFIED Qualifiers: Hematuria type: gross Qualified Code(s): R31.0 - Gross hematuria (7) UTI (urinary tract infection) Assessment/Plan: low colony count on urine culture, non lactuse fermenting per urine culture ( gram negative) blood/urine cultures pending organism Code(s): N39.0 - URINARY TRACT INFECTION, SITE NOT SPECIFIED Qualifiers: Urinary tract infection type: site unspecified Hematuria presence: with hematuria Qualified Code(s): N39.0 - Urinary tract infection, site not specified; R31.9 - Hematuria, unspecified (8) Functional quadriplegia Assessment/Plan: requires complete assistance with adls and has contractures. unable to feed herself and needs assistances with turning and positioning Code(s): R53.2 - FUNCTIONAL QUADRIPLEGIA (9) Parkinsons disease Assessment/Plan: on levadopa TID per home records Code(s): G20 - PARKINSON'S DISEASE (10) Seizures Assessment/Plan: on depakote bid low valporic acid levels patient did not get dose of depakote yesterday (meds reconciled today) Code(s): R56.9 - UNSPECIFIED CONVULSIONS (11) Anemia Assessment/Plan: hmg/hct down trending. stool for occult blood sent and pending given venofer one dose repeat hmg/hct today to confirm, but patient refused blood draw daily cbc no signs of bleeding and patient is asymptomatic and bed bound appreciate heme/oncology recommendations Code(s): D64.9 - ANEMIA, UNSPECIFIED (12) Prophylactic measure Assessment/Plan: FEN Fluids: ns @ 42cc/hr Electrolytes: monitor & replete as needed Nutrition:soft diet, aspiration precautions DVT moderate risk sq heparin Dispo Maintain as inpatient full code discharge planning to home with services in place Code(s): Z29.9 - ENCOUNTER FOR PROPHYLACTIC MEASURES, UNSPECIFIED Visit type - Emergency Visit Emergency Visit: Yes ED Registration Date: 03/14/19 Care time: The patient presented to the Emergency Department on the above date and was hospitalized for further evaluation of their emergent condition. - New Patient This patient is new to me today: No - Critical Care Critical Care patient: No - Discharge Referral Referred to [facility] Med P.C.: No
[2019-03-16] MEDS: MULTIVITAMINS (DAILY MVI) TABLET (FP) PO SCH (12:06)
[2019-03-16] MEDS: CALCIUM 250MG/VIT-D 125 UNITS 1 COMBO TABLET PO SCH (12:06)
[2019-03-16] MEDS: DIVALPROEX SODIUM 250 MG TABLET E.C. PO SCH ×2 (12:06→21:05)
[2019-03-16] MEDS ORDERED: IRON SUCROSE INJECTION 100 MG in SODIUM CHLORIDE 95 ML IVPB ONE (12:07)
[2019-03-16] MEDS ORDERED: PT OWN MED DRAWER 7, Y5N ONE ×2 (13:28→20:34)
[2019-03-16] MEDS: QUEtiapine FUMARATE 50 MG TABLET PO SCH ×2 (13:31→21:05)
[2019-03-16] MEDS: ACETAMINOPHEN 500 MG TABLET (FP) PO PRN (18:25)
[2019-03-16] MEDS: SODIUM CHLORIDE 1,000 ML IV SCH ×2 (18:51)
[2019-03-17] MEDS: QUEtiapine FUMARATE 50 MG TABLET PO SCH ×3 (05:02→22:05)
[2019-03-17] MEDS: ACETAMINOPHEN 500 MG TABLET (FP) PO PRN ×2 (05:02→15:27)
[2019-03-17 07:45] LABS: BASO % 0.4 % (0-2.0); EOS % 6.3 % (0-4.5); HEMATOCRIT 23.4 % (32.4-45.2); HEMOGLOBIN 7.7 GM/dL (10.7-15.3); LYMPH % 10.2 % (8-40); MCH 27.3 pg (25.7-33.7); MCHC 32.8 g/dl (32.0-36.0); MEAN CELL VOLUME 83.3 fl (80-96); MEAN PLT VOLUME 7.4 fl (7.5-11.1); MONO % 10.4 % (3.8-10.2); NEUT % 72.7 % (42.8-82.8); PLATELET COUNT 153 K/MM3 (134-434); RBC 2.81 M/mm3 (3.60-5.2); RDW 15.7 % (11.6-15.6); WHITE BLOOD COUNT 9.9 K/mm3 (4.0-10.0)
[2019-03-17 08:21] LABS: ALBUMIN 1.9 g/dl (3.4-5.0); ALK PHOS 60 U/L (45-117); ANION GAP 6 MMOL/L (8-16); BILIRUBIN,TOTAL 0.5 mg/dL (0.2-1); BLOOD UREA NITROGEN 15.6 mg/dL (7-18); CALCIUM 8.2 mg/dL (8.5-10.1); CHLORIDE 110 mmol/L (98-107); CO2 26 mmol/L (21-32); CREATININE 0.8 mg/dL (0.55-1.3); GLUCOSE,RANDOM 96 mg/dL (74-106); MAGNESIUM 1.8 mg/dL (1.8-2.4); POTASSIUM 3.6 mmol/L (3.5-5.1); SGOT/AST 23 U/L (15-37); SGPT/ALT < 6 U/L (13-61); SODIUM 141 mmol/L (136-145); TOT PROT 4.8 g/dl (6.4-8.2)
[2019-03-17] MEDS ORDERED: CEFEPIME HCL 1 GM VIAL (RESTRICTED TO ID) ONE (09:00)
[2019-03-17] MEDS ORDERED: DEXTROSE 5%-WATER 100 ML IVPB ONE (09:01)
[2019-03-17] MEDS: MULTIVITAMINS (DAILY MVI) TABLET (FP) PO SCH (09:26)
[2019-03-17] MEDS: DIVALPROEX SODIUM 250 MG TABLET E.C. PO SCH ×2 (09:26→22:06)
[2019-03-17] MEDS: CALCIUM 250MG/VIT-D 125 UNITS 1 COMBO TABLET PO SCH (09:26)
[2019-03-17] MEDS: CEFEPIME 1 GM in DEXTROSE 5%-WATER 100 ML IVPB SCH (09:27)
[2019-03-17] MEDS: PANTOPRAZOLE 40 MG TABLET PO SCH (09:27)
[2019-03-17] MEDS: HEPARIN NA (PORCINE) 5,000 UNITS/ML 1ML VIAL SQ SCH ×2 (09:28→22:06)
--- NOTE | 2019-03-17 10:08 | PN ---
Progress Note, Physician History of Present Illness: stable no new issues - Current Medication List Current Medications: Active Medications Acetaminophen (Tylenol -) 750 mg PO Q6H PRN PRN Reason: FEVER Last Admin: 03/17/19 05:02 Dose: 750 mg Calcium/Vitamin D (Oscal 250 Mg+D -) 2 tab PO DAILY [facility] Last Admin: 03/17/19 09:26 Dose: 2 tab Carbidopa/Levodopa (Sinemet *Cr* 50/200 -) 1 combo PO TID [facility] Last Admin: 03/17/19 05:02 Dose: 1 combo Divalproex Sodium (Depakote -) 250 mg PO BID [facility] Last Admin: 03/17/19 09:26 Dose: 250 mg Heparin Sodium (Porcine) (Heparin -) 5,000 unit SQ BID [facility] Last Admin: 03/17/19 09:28 Dose: 5,000 unit Cefepime HCl 1 gm/ Dextrose 100 mls @ 100 mls/hr IVPB DAILY [facility]; Protocol Last Admin: 03/17/19 09:27 Dose: 100 mls/hr Sodium Chloride (Normal Saline -) 1,000 mls @ 75 mls/hr IV ASDIR [facility] Last Admin: 03/16/19 18:51 Dose: 75 mls/hr Multivitamins/Minerals/Vitamin C (Tab-A-Vit -) 1 tab PO DAILY [facility] Last Admin: 03/17/19 09:26 Dose: 1 tab Pantoprazole Sodium (Protonix -) 40 mg PO DAILY [facility] Last Admin: 03/17/19 09:27 Dose: 40 mg Quetiapine Fumarate (Seroquel -) 50 mg PO TID [facility] Last Admin: 03/17/19 05:02 Dose: 50 mg - Objective Vital Signs: Vital Signs Temperature 101.2 F H 03/17/19 06:00 Pulse Rate 114 H 03/17/19 04:00 Respiratory Rate 18 03/17/19 04:00 Blood Pressure 102/63 03/17/19 04:00 O2 Sat by Pulse Oximetry (%) 95 03/16/19 21:00 Constitutional: Yes: No Distress, Calm Cardiovascular: Yes: S1, S2 Respiratory: Yes: Regular, CTA Bilaterally Gastrointestinal: Yes: Normal Bowel Sounds, Soft Musculoskeletal: Yes: Other Extremities: Yes: Other (contracted) Neurological: Yes: Alert, Other Labs: CBC, BMP 03/17/19 07:03 03/17/19 07:03 INR, PTT INR 1.18 (0.83-1.09) H 03/14/19 10:00 Assessment/Plan Problem List - Problems (1) Bladder cancer Code(s): C67.9 - MALIGNANT NEOPLASM OF BLADDER, UNSPECIFIED (2) Fever Code(s): R50.9 - FEVER, UNSPECIFIED (3) Leukocytosis Code(s): D72.829 - ELEVATED WHITE BLOOD CELL COUNT, UNSPECIFIED (4) TBI (traumatic brain injury) Code(s): S06.9X9A - UNSP INTRACRANIAL INJURY W LOC OF UNSP DURATION, INIT (5) Hematuria Code(s): R31.9 - HEMATURIA, UNSPECIFIED Qualifiers: Hematuria type: gross Qualified Code(s): R31.0 - Gross hematuria uti gm negative bacteremia Assessment/Plan 58 y.o. female resident of a senior living with PMH of traumatic brain injury and bladder CA on chemotherapy sent to ER for unresponsiveness and found to be febrile and have an elevated wbc Fever Leukocytosis AMS R/O UTI Hx of TBI Bladder CA on chemotherapy gm negative bacteremia plan continue abx await for identification of the organism monitor closely repeat cx noted rest as per the team
--- NOTE | 2019-03-17 10:55 | CONSULT ---
Consultation: REQUESTING PROVIDER:primary team CONSULT REQUEST: We have been asked to medically evaluate this patient for ( anemia , bladder cancer ). HISTORY OF PRESENT ILLNESS:history is taking from the chart as pt is not able yo provide history due to TBI 58 y.o. female with PMH of traumatic brain injury and bladder CA on chemotherapy was [place] last night when she was found unresponsive. Reported that the patient was alert during the day but last night became lethargic. The patient is not a source of history. Last radiation session was possibly last got only one session , but where it is administered at [facility] . In the ER Pt was found to be febrile with temp of 102.6F and noted to have leukocytosis with wbc of 22.7K. Currently she is alert and responsive and without distress. REVIEW OF SYSTEMS: not able to obtain PHYSICAL EXAMINATION Vital Signs - 24 hr 03/16/19 03/16/19 03/16/19 15:00 18:00 20:56 Temperature 99.2 F 102 F H 98.9 F Pulse Rate 83 91 H 84 Respiratory 20 20 18 Rate Blood Pressure 94/64 106/54 L 98/46 L O2 Sat by Pulse Oximetry (%) 03/16/19 03/17/19 03/17/19 21:00 04:00 06:00 Temperature 102.5 F H 101.2 F H Pulse Rate 114 H Respiratory 18 18 Rate Blood Pressure 102/63 O2 Sat by Pulse 95 Oximetry (%) 03/17/19 09:00 Temperature 100.0 F H Pulse Rate 89 Respiratory 18 Rate Blood Pressure 90/51 L O2 Sat by Pulse 95 Oximetry (%) GENERAL: Awake, alert, HEAD: Normal with no signs of trauma. former tarcheostomy scar EYES: Pupils equal, round and reactive to light, not able to open R eye ENT: dry mucous membranes. no teeth , no oral thrush NECK: supple without lymphadenopathy, left breast surgery scar , no masses was palpated , no axillat lymph node palptaed , start cryning when examine left side LUNGS: weak inspiratory efforts HEART: sinus tachy , normal S1 and S2 without murmur ABDOMEN: Soft, nontender, mild distended, normoactive bowel sounds, former PEG scar , longitudinal surgical scar upper ext : contracted hands B/L with some fingers defromity LOWER EXTREMITIES: 2+ pulses, warm, well-perfused. No calf tenderness. No peripheral edema.left ankle surgery scar NEUROLOGICAL: awake alert . Laboratory Results - last 24 hr 03/16/19 03/17/19 03/17/19 13:30 07:03 07:03 WBC 9.9 RBC 2.81 L Hgb 7.7 L Hct 23.4 L MCV 83.3 MCH 27.3 MCHC 32.8 RDW 15.7 H Plt Count 153 MPV 7.4 L Absolute Neuts (auto) 7.2 Neutrophils % 72.7 Lymphocytes % 10.2 Monocytes % 10.4 H Eosinophils % 6.3 H D Basophils % 0.4 Nucleated RBC % 0 Sodium 141 Potassium 3.6 Chloride 110 H Carbon Dioxide 26 Anion Gap 6 L BUN 15.6 Creatinine 0.8 Est GFR (CKD-EPI)AfAm 93.53 Est GFR (CKD-EPI)NonAf 80.70 Random Glucose 96 Calcium 8.2 L Magnesium 1.8 Total Bilirubin 0.5 AST 23 ALT < 6 L Alkaline Phosphatase 60 Total Protein 4.8 L Albumin 1.9 L Valproic Acid 22.5 L Active Medications Generic Name Dose Route Start Last Admin Trade Name Freq PRN Reason Stop Dose Admin Acetaminophen 750 mg 03/16/19 16:53 03/17/19 05:02 Tylenol - PO 750 mg Q6H PRN Administration FEVER Calcium/Vitamin D 2 tab 03/16/19 11:30 03/17/19 09:26 Oscal 250 Mg+D - PO 2 tab DAILY CHRISTIAN Administration Carbidopa/Levodopa 1 combo 03/16/19 14:00 03/17/19 05:02 Sinemet *Cr* 50/200 - PO 1 combo TID CHRISTIAN Administration Divalproex Sodium 250 mg 03/16/19 11:30 03/17/19 09:26 Depakote - PO 250 mg BID CHRISTIAN Administration Heparin Sodium (Porcine) 5,000 unit 03/14/19 22:00 03/17/19 09:28 Heparin - SQ 5,000 unit BID CHRISTIAN Administration Cefepime HCl 1 gm/ Dextrose 100 mls @ 100 mls/hr 03/15/19 10:00 03/17/19 09: 27 IVPB 100 mls/hr DAILY [facility]STIAN Administration Protocol Sodium Chloride 1,000 mls @ 75 mls/hr 03/16/19 18:45 03/16/19 18:51 Normal Saline - IV 75 mls/hr ASDIR CHRISTIAN Administration Multivitamins/Minerals/Vitamin C 1 tab 03/16/19 11:30 03/17/19 09:26 Tab-A-Vit - PO 1 tab DAILY [facility]IAN Administration Pantoprazole Sodium 40 mg 03/16/19 10:00 03/17/19 09:27 Protonix - PO 40 mg DAILY [facility]STIAN Administration Quetiapine Fumarate 50 mg 03/16/19 14:00 03/17/19 05:02 Seroquel - PO 50 mg TID CHRISTIAN Administration CBC, BMP 03/17/19 07:03 03/17/19 07:03 ASSESSMENT/PLAN: 58 y.o. female resident of [place] with PMH of traumatic brain injury and bladder CA on radiation therapy sent to ER for unresponsiveness and found to be febrile and have an elevated wbc Fever Leukocytosis follow up cx, cont abx , ID on case AMS R/O UTI Hx of TBI Bladder CA on radiation therapy plan Anemia normocytic normochromic likely due to chronic disease , R.O bleeding will send basic blood work , iron studies , ferritin very low iron will strat venofer every other day for 3 doses total and then iron oral , TSH , occult blood , b12, FA , monitor H/H daily maintain HGb > 7 transfuse as needed type and screen Bladder cancer started on radiation last week last week consider GI consult Dispo: We will continue to follow the patient. Thank you for this consultative opportunity. Visit type - Emergency Visit Emergency Visit: Yes ED Registration Date: 03/14/19 Care time: The patient presented to the Emergency Department on the above date and was hospitalized for further evaluation of their emergent condition. - New Patient This patient is new to me today: Yes Date on this admission: 03/16/19 - Critical Care Critical Care patient: No ATTENDING PHYSICIAN STATEMENT I saw and evaluated the patient. I reviewed the resident's note and discussed the case with the resident. I agree with the resident's findings and plan as documented. SUBJECTIVE: OBJECTIVE: ASSESSMENT AND PLAN:
--- NOTE | 2019-03-17 11:52 | PN ---
Physical Exam: SUBJECTIVE: Patient seen and examined at the bedside. anxious today and refused re-placement of iv site despite encouragement. OBJECTIVE: important phone numbers: Meera Sarah RN at [employer] [phone] (this agency provides 16/09 home care for patient). 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 Before age 17, patient was ambulatory and without any neurological deficits. Her other history includes seizures (on depakote), parkinsons (on levodopa) and found to have bladder cancer (started on RT). She had mapping 1 week ago and a small dose of radiation started. RT was to be scheduled to start this week. Patient has not yet received chemotherapy. Per Meera, patient had a cat scan for bladder cancer but is not aware of results. ------- Period Temp Pulse Resp BP Sys/Morris Pulse Ox Last 24 Hr 98.7 F-102.5 F 83-114 18-20 90-106/46-64 95-95 GENERAL: The patient is awake, alert, in no acute distress and able to answer questions appropriately. has episodes of anxiety. HEAD: Normal with no signs of trauma. EYES: PERRL, extraocular movements intact, sclera anicteric, conjunctiva clear. No ptosis. ENT: Ears normal, nares patent, oropharynx clear without exudates, moist mucous membranes. NECK: Trachea midline, full range of motion, supple. LUNGS: Breath sounds equal, clear to auscultation bilaterally, no wheezes HEART: Regular rate and rhythm ABDOMEN: Soft, nontender, nondistended, normoactive bowel sounds, no guarding, old healed surgical scar EXTREMITIES: no edema. NEUROLOGICAL: awake, alert, calm PSYCH: Normal mood, normal affect. SKIN: Warm, dry, normal turgor, no rashes or lesions noted Laboratory Results - last 24 hr 03/16/19 03/17/19 03/17/19 13:30 07:03 07:03 WBC 9.9 RBC 2.81 L Hgb 7.7 L Hct 23.4 L MCV 83.3 MCH 27.3 MCHC 32.8 RDW 15.7 H Plt Count 153 MPV 7.4 L Absolute Neuts (auto) 7.2 Neutrophils % 72.7 Lymphocytes % 10.2 Monocytes % 10.4 H Eosinophils % 6.3 H D Basophils % 0.4 Nucleated RBC % 0 Sodium 141 Potassium 3.6 Chloride 110 H Carbon Dioxide 26 Anion Gap 6 L BUN 15.6 Creatinine 0.8 Est GFR (CKD-EPI)AfAm 93.53 Est GFR (CKD-EPI)NonAf 80.70 Random Glucose 96 Calcium 8.2 L Magnesium 1.8 Total Bilirubin 0.5 AST 23 ALT < 6 L Alkaline Phosphatase 60 Total Protein 4.8 L Albumin 1.9 L Valproic Acid 22.5 L Active Medications Generic Name Dose Route Start Last Admin Trade Name Freq PRN Reason Stop Dose Admin Acetaminophen 750 mg 03/16/19 16:53 03/17/19 05:02 Tylenol - PO 750 mg Q6H PRN Administration FEVER Calcium/Vitamin D 2 tab 03/16/19 11:30 03/17/19 09:26 Oscal 250 Mg+D - PO 2 tab DAILY [facility]RISTIAN Administration Carbidopa/Levodopa 1 combo 03/16/19 14:00 03/17/19 05:02 Sinemet *Cr* 50/200 - PO 1 combo TID [facility]STIAN Administration Divalproex Sodium 250 mg 03/16/19 11:30 03/17/19 09:26 Depakote - PO 250 mg BID CHRISTIAN Administration Heparin Sodium (Porcine) 5,000 unit 03/14/19 22:00 03/17/19 09:28 Heparin - SQ 5,000 unit BID CH[facility]STIAN Administration Cefepime HCl 1 gm/ Dextrose 100 mls @ 100 mls/hr 03/15/19 10:00 03/17/19 09: 27 IVPB 100 mls/hr DAILY [facility]IAN Administration Protocol Sodium Chloride 1,000 mls @ 75 mls/hr 03/16/19 18:45 03/16/19 18:51 Normal Saline - IV 75 mls/hr ASDIR CHRISTIAN Administration Multivitamins/Minerals/Vitamin C 1 tab 03/16/19 11:30 03/17/19 09:26 Tab-A-Vit - PO 1 tab DAILY [facility] Administration Pantoprazole Sodium 40 mg 03/16/19 10:00 03/17/19 09:27 Protonix - PO 40 mg DAILY [facility]IAN Administration Quetiapine Fumarate 50 mg 03/16/19 14:00 03/17/19 05:02 Seroquel - PO 50 mg TID CHRISTIAN Administration ASSESSMENT/PLAN: Problem List - Problems (1) Bacteremia Assessment/Plan: on cefepime per ID repeated blood cultures with no growth to day elevated fevers at 102.5 today ID following Code(s): R78.81 - BACTEREMIA (2) Fever Assessment/Plan: Bacteriemia and UTI (ecoli) continues with high grade fevers, leukocytosis repeat blood cultures with no growth to date. monitor labs, vitals, fever curve Code(s): R50.9 - FEVER, UNSPECIFIED (3) Bladder cancer Assessment/Plan: recent dx of bladder Cancer. received RT last but only a small initial dose. Was to start RT this week and establish a schedule but has not been able to secondary to this hospitalization. Heme/onc consulted. Patient has only received one small dose of RT as outpatient. Has not received chemotherapy Code(s): C67.9 - MALIGNANT NEOPLASM OF BLADDER, UNSPECIFIED (4) Leukocytosis Assessment/Plan: resolved on today's labs. repeat cbc in a.m. Code(s): D72.829 - ELEVATED WHITE BLOOD CELL COUNT, UNSPECIFIED (5) TBI (traumatic brain injury) Code(s): S06.9X9A - UNSP INTRACRANIAL INJURY W LOC OF UNSP DURATION, INIT (6) Hematuria Assessment/Plan: repeat ua Code(s): R31.9 - HEMATURIA, UNSPECIFIED Qualifiers: Hematuria type: gross Qualified Code(s): R31.0 - Gross hematuria (7) UTI (urinary tract infection) Assessment/Plan: low colony count on urine culture but found to have ecoli. Code(s): N39.0 - URINARY TRACT INFECTION, SITE NOT SPECIFIED Qualifiers: Urinary tract infection type: site unspecified Hematuria presence: with hematuria Qualified Code(s): N39.0 - Urinary tract infection, site not specified; R31.9 - Hematuria, unspecified (8) Functional quadriplegia Assessment/Plan: requires complete assistance with adls and has contractures. unable to feed herself and needs assistances with turning and positioning turn and position q 2 to protect bony prominences Code(s): R53.2 - FUNCTIONAL QUADRIPLEGIA (9) Parkinsons disease Assessment/Plan: on levadopa TID per home records Code(s): G20 - PARKINSON'S DISEASE (10) Seizures Assessment/Plan: on depakote bid low valporic acid levels Code(s): R56.9 - UNSPECIFIED CONVULSIONS (11) Anemia Assessment/Plan: hmg/hct down trending. stool for occult blood sent and pending given venofer one dose no signs of bleeding and patient is asymptomatic and bed bound appreciate heme/oncology recommendations Code(s): D64.9 - ANEMIA, UNSPECIFIED (12) Prophylactic measure Assessment/Plan: FEN Fluids: ns @ 75cc/hr Electrolytes: monitor & replete as needed Nutrition:soft diet, aspiration precautions DVT moderate risk sq heparin Dispo Maintain as inpatient full code discharge planning to home with services in place Code(s): Z29.9 - ENCOUNTER FOR PROPHYLACTIC MEASURES, UNSPECIFIED Visit type - Emergency Visit Emergency Visit: Yes ED Registration Date: 03/14/19 Care time: The patient presented to the Emergency Department on the above date and was hospitalized for further evaluation of their emergent condition. - New Patient This patient is new to me today: No - Critical Care Critical Care patient: No - Discharge Referral Referred to [facility] Med P.C[facility] No
[2019-03-17] MEDS ORDERED: PT OWN MED DRAWER 7, Y5N ONE ×2 (14:21→22:02)
[2019-03-17] MEDS: LORazepam 0.5 MG TABLET PO PRN (17:07)
--- NOTE | 2019-03-17 18:56 | PN ---
Teaching Attending Note Name of Resident: Axel Bryan ATTENDING PHYSICIAN STATEMENT I saw and evaluated the patient. I reviewed the resident's note and discussed the case with the resident. I agree with the resident's findings and plan as documented. SUBJECTIVE: Patient seen and examined Reviewed notes from [facility] on 02/24/19 and 02/25/19. Presented to ER at that time which was felt to be vaginal bleeding. Had diaper filled with bronish urine and u/a with strongly positive blood noted. In view of bladder ca conclusion was that patient likely had hematuria rather than vaginal bleeding . On 02/24/19, pt had Hct 32% . Now presents with Hct of 23%. Has serum Fe++---> 8! TIBC -184 . Picture compatible with blood loss and chronic disease. Last Vital Signs Temp Pulse Resp BP Pulse Ox 100.0 F H 110 H 18 100/55 L 95 03/17/19 18:11 03/17/19 16:45 03/17/19 16:45 03/17/19 16:45 03/17/19 09:00 HEENT: [place], EOM Intact Oropharynx: No thrush, No mucositis Nodes: Without adenopathy Breasts: Without masses, surgical scar left breast Cor: RSR, No murmurs, No gallops Lungs: Clear to P&A Abd: Soft, Normal bowel sounds, No organomegaly, vertical scar mid abdomen Ext:No significant edema, contractures Skin: No rashes, Integument intact CBC, BMP 03/17/19 07:03 03/17/19 07:03 Current Medications Generic Name Dose Route Start Last Admin Trade Name Kennethq PRN Reason Stop Dose Admin Acetaminophen 650 mg 03/17/19 16:12 Tylenol - PO Q6H PRN FEVER Calcium/Vitamin D 2 tab 03/16/19 11:30 03/17/19 09:26 Oscal 250 Mg+D - PO 2 tab DAILY [facility]IAN Administration Carbidopa/Levodopa 1 combo 03/16/19 14:00 03/17/19 14:23 Sinemet *Cr* 50/200 - PO 1 combo TID [facility]STIAN Administration Divalproex Sodium 250 mg 03/16/19 11:30 03/17/19 09:26 Depakote - PO 250 mg BID [facility]IAN Administration Heparin Sodium (Porcine) 5,000 unit 03/14/19 22:00 03/17/19 09:28 Heparin - SQ 5,000 unit BID [facility]IAN Administration Cefepime HCl 1 gm/ Dextrose 100 mls @ 100 mls/hr 03/15/19 10:00 03/17/19 09: 27 IVPB 100 mls/hr DAILY [facility]IAN Administration Protocol Sodium Chloride 1,000 mls @ 75 mls/hr 03/16/19 18:45 03/16/19 18:51 Normal Saline - IV 75 mls/hr ASDIR [facility]RISTIAN Administration Iron Sucrose 200 mg/ Sodium 100 mls @ 100 mls/hr 03/18/19 10:00 Chloride IVPB 03/18/19 10:59 ONCE ONE Lorazepam 0.5 mg 03/17/19 16:52 03/17/19 17:07 Ativan - PO 0.5 mg BID PRN Administration ANXIETY Multivitamins/Minerals/Vitamin C 1 tab 03/16/19 11:30 03/17/19 09:26 Tab-A-Vit - PO 1 tab DAILY [facility]RISTIAN Administration Pantoprazole Sodium 40 mg 03/16/19 10:00 03/17/19 09:27 Protonix - PO 40 mg DAILY CHRISTIAN Administration Quetiapine Fumarate 50 mg 03/16/19 14:00 03/17/19 14:23 Seroquel - PO 50 mg TID CHRISTIAN Administration Impression: See above history February 24--Hct 32% Likely hematuria on several occasions rather than vaginal bleeding noted based upon u/a 02/24/2019 with gross blood and diaper filled with brownish colored urine. Hct has fallen over 3 weeks from 32% to 23%. Serum Fe++ ---8! This suggests component of blood loss. Not clear if this is bladder related/, vaginal bleeding which was initially thought or occult GI bleeding . For stool guaics. Will order hemolytic work up to exclude fall in Hct related to hemolysis rather than blood loss. Consider GI and follow up. RT apparently ongoing - need details. OBJECTIVE: ASSESSMENT AND PLAN:
[2019-03-17] MEDS ORDERED: INSULIN (NOVOLOG) ASPART 100 UNITS/ML 10ML VIAL ONE (20:56)
[2019-03-18] MEDS: ACETAMINOPHEN 325 MG TABLET (FP) PO PRN ×2 (01:03→17:17)
[2019-03-18 01:42] LABS: EPI CELLS 1.5 /HPF (0-5/HPF); HYALINE CASTS 487 /lpf (0-8); PH,URINE 6.5 (5.0-8.0); URINE APPEARANCE Cloudy; URINE BACTERIA 29.9 /hpf (NEGATIVE); URINE BILIRUBIN Negative (NEGATIVE); URINE COLOR Yellow; URINE GLUCOSE (UA) Negative (NEGATIVE); URINE KETONE Negative (NEGATIVE); URINE LEUK ESTERASE Moderate (NEGATIVE); URINE NITRITE Negative (NEGATIVE); URINE PROTEIN 100 (NEGATIVE); URINE RBC 2 /hpf (0-4); URINE UROBILINOGEN 0.2 mg/dL (0.2-1.0); URINE WBC 95 /hpf (0-5)
[2019-03-18] MEDS: QUEtiapine FUMARATE 50 MG TABLET PO SCH ×3 (05:50→21:14)
[2019-03-18 08:25] LABS: BASO % 0.4 % (0-2.0); EOS % 8.9 % (0-4.5); HEMATOCRIT 23.1 % (32.4-45.2); HEMOGLOBIN 7.6 GM/dL (10.7-15.3); LYMPH % 14.3 % (8-40); MCH 27.6 pg (25.7-33.7); MEAN CELL VOLUME 83.6 fl (80-96); MEAN PLT VOLUME 7.8 fl (7.5-11.1); MONO % 13.9 % (3.8-10.2); NEUT % 62.5 % (42.8-82.8); PLATELET COUNT 175 K/MM3 (134-434); RBC 2.76 M/mm3 (3.60-5.2); RDW 15.5 % (11.6-15.6); WHITE BLOOD COUNT 9.4 K/mm3 (4.0-10.0)
[2019-03-18] MEDS ORDERED: CEFEPIME HCL 1 GM VIAL (RESTRICTED TO ID) ONE (08:52)
[2019-03-18] MEDS ORDERED: DEXTROSE 5%-WATER 100 ML IVPB ONE (08:52)
[2019-03-18 09:13] LABS: ALBUMIN 1.9 g/dl (3.4-5.0); ALK PHOS 68 U/L (45-117); ANION GAP 6 MMOL/L (8-16); BILIRUBIN,TOTAL 0.4 mg/dL (0.2-1); BLOOD UREA NITROGEN 13.2 mg/dL (7-18); CALCIUM 7.8 mg/dL (8.5-10.1); CHLORIDE 106 mmol/L (98-107); CO2 27 mmol/L (21-32); CREATININE 0.8 mg/dL (0.55-1.3); GLUCOSE,RANDOM 83 mg/dL (74-106); MAGNESIUM 1.9 mg/dL (1.8-2.4); POTASSIUM 3.7 mmol/L (3.5-5.1); SGOT/AST 26 U/L (15-37); SGPT/ALT < 6 U/L (13-61); SODIUM 139 mmol/L (136-145); TOT PROT 4.9 g/dl (6.4-8.2)
--- NOTE | 2019-03-18 09:41 | PN ---
Progress Note, Physician History of Present Illness: stable no new issues - Current Medication List Current Medications: Active Medications Acetaminophen (Tylenol -) 650 mg PO Q6H PRN PRN Reason: FEVER Last Admin: 03/18/19 01:03 Dose: 650 mg Calcium/Vitamin D (Oscal 250 Mg+D -) 2 tab PO DAILY [facility] Last Admin: 03/17/19 09:26 Dose: 2 tab Carbidopa/Levodopa (Sinemet *Cr* 50/200 -) 1 combo PO TID [facility] Last Admin: 03/18/19 05:50 Dose: 1 combo Divalproex Sodium (Depakote -) 250 mg PO BID [facility] Last Admin: 03/17/19 22:06 Dose: 250 mg Heparin Sodium (Porcine) (Heparin -) 5,000 unit SQ BID [facility] Last Admin: 03/17/19 22:06 Dose: 5,000 unit Cefepime HCl 1 gm/ Dextrose 100 mls @ 100 mls/hr IVPB DAILY [facility]; Protocol Last Admin: 03/17/19 09:27 Dose: 100 mls/hr Sodium Chloride (Normal Saline -) 1,000 mls @ 75 mls/hr IV ASDIR CHRISTIAN Last Admin: 03/16/19 18:51 Dose: 75 mls/hr Iron Sucrose 200 mg/ Sodium (Chloride) 100 mls @ 100 mls/hr IVPB ONCE ONE Stop: 03/18/19 10:59 Lorazepam (Ativan -) 0.5 mg PO BID PRN PRN Reason: ANXIETY Last Admin: 03/17/19 17:07 Dose: 0.5 mg Multivitamins/Minerals/Vitamin C (Tab-A-Vit -) 1 tab PO DAILY [facility] Last Admin: 03/17/19 09:26 Dose: 1 tab Pantoprazole Sodium (Protonix -) 40 mg PO DAILY [facility] Last Admin: 03/17/19 09:27 Dose: 40 mg Quetiapine Fumarate (Seroquel -) 50 mg PO TID [facility] Last Admin: 03/18/19 05:50 Dose: 50 mg - Objective Vital Signs: Vital Signs Temperature 98.3 F 03/18/19 09:03 Pulse Rate 85 03/18/19 09:03 Respiratory Rate 20 03/18/19 09:03 Blood Pressure 99/55 L 03/18/19 09:03 O2 Sat by Pulse Oximetry (%) 97 03/17/19 21:00 Constitutional: Yes: No Distress, Calm Cardiovascular: Yes: S1, S2 Respiratory: Yes: Regular, CTA Bilaterally Gastrointestinal: Yes: Normal Bowel Sounds, Soft Musculoskeletal: Yes: WNL Extremities: Yes: Other Neurological: Yes: Alert, Other Labs: CBC, BMP 03/18/19 07:07 03/18/19 07:07 INR, PTT INR 1.18 (0.83-1.09) H 03/14/19 10:00 Assessment/Plan Problem List - Problems (1) Bladder cancer Code(s): C67.9 - MALIGNANT NEOPLASM OF BLADDER, UNSPECIFIED (2) Fever Code(s): R50.9 - FEVER, UNSPECIFIED (3) Leukocytosis Code(s): D72.829 - ELEVATED WHITE BLOOD CELL COUNT, UNSPECIFIED (4) TBI (traumatic brain injury) Code(s): S06.9X9A - UNSP INTRACRANIAL INJURY W LOC OF UNSP DURATION, INIT (5) Hematuria Code(s): R31.9 - HEMATURIA, UNSPECIFIED Qualifiers: Hematuria type: gross Qualified Code(s): R31.0 - Gross hematuria uti gm negative bacteremia Assessment/Plan 58 y.o. female [facility] a [facility] with PMH of traumatic brain injury and bladder CA on chemotherapy sent to ER for unresponsiveness and found to be febrile and have an elevated wbc Fever Leukocytosis AMS R/O UTI Hx of TBI Bladder CA on chemotherapy gm negative bacteremia plan continue abx rest as per the team
[2019-03-18] MEDS ORDERED: IRON SUCROSE INJECTION 200 MG in SODIUM CHLORIDE 90 ML IVPB ONE (10:00)
[2019-03-18] MEDS: HEPARIN NA (PORCINE) 5,000 UNITS/ML 1ML VIAL SQ SCH ×2 (10:13→21:13)
[2019-03-18] MEDS: LORazepam 0.5 MG TABLET PO PRN ×2 (10:14→21:14)
[2019-03-18] MEDS: MULTIVITAMINS (DAILY MVI) TABLET (FP) PO SCH (10:14)
[2019-03-18] MEDS: CALCIUM 250MG/VIT-D 125 UNITS 1 COMBO TABLET PO SCH (10:14)
[2019-03-18] MEDS: PANTOPRAZOLE 40 MG TABLET PO SCH ×2 (10:14→21:14)
[2019-03-18] MEDS: DIVALPROEX SODIUM 250 MG TABLET E.C. PO SCH ×2 (10:15→21:14)
[2019-03-18] MEDS: SODIUM CHLORIDE 1,000 ML IV SCH ×2 (10:17→21:15)
[2019-03-18] MEDS: CEFEPIME 1 GM in DEXTROSE 5%-WATER 100 ML IVPB SCH (10:41)
[2019-03-18] MEDS: AMOX TR/POT CLAV 875MG/125MG TABLETS (FP) PO SCH ×2 (11:25→16:35)
--- NOTE | 2019-03-18 11:25 | PN ---
Physical Exam: SUBJECTIVE: Patient seen and examined fever 101 over night refused IV line per nurse seems comfortable follow commands start on Augmentine per ID OBJECTIVE: Vital Signs Period Temp Pulse Resp BP Sys/Morris Pulse Ox Last 24 Hr 98.3 F-102.8 F 84-116 18-24 94-108/52-64 97 GENERAL: Awake, alert, HEAD: Normal with no signs of trauma. former tarcheostomy scar EYES: Pupils equal, round and reactive to light, not able to open R eye ENT: dry mucous membranes. no teeth , no oral thrush NECK: supple without lymphadenopathy, left breast surgery scar , no masses was palpated , no axillaary lymph node palptaed , start cryning when examine left side LUNGS: weak inspirator efforts CTA HEART: sinus tachy , normal S1 and S2 without murmur ABDOMEN: Soft, nontender, mild distended, normoactive bowel sounds, former PEG scar , longitudinal surgical scar upper ext : contracted hands B/L with some fingers defromity LOWER EXTREMITIES: 2+ pulses, warm, well-perfused. No calf tenderness. No peripheral edema.left ankle surgery scar NEUROLOGICAL: awake alert . Laboratory Results - last 24 hr 03/18/19 03/18/19 03/18/19 00:50 07:07 07:07 WBC 9.4 RBC 2.76 L Hgb 7.6 L Hct 23.1 L MCV 83.6 MCH 27.6 MCHC 33.0 RDW 15.5 Plt Count 175 MPV 7.8 Absolute Neuts (auto) 5.9 Neutrophils % 62.5 Lymphocytes % 14.3 D Monocytes % 13.9 H Eosinophils % 8.9 H Basophils % 0.4 Nucleated RBC % 0 Retic Count Sodium 139 Potassium 3.7 Chloride 106 Carbon Dioxide 27 Anion Gap 6 L BUN 13.2 Creatinine 0.8 Est GFR (CKD-EPI)AfAm 93.53 Est GFR (CKD-EPI)NonAf 80.70 Random Glucose 83 Calcium 7.8 L Magnesium 1.9 Iron TIBC Iron Saturation Unsaturated IBC Ferritin Total Bilirubin 0.4 AST 26 ALT < 6 L Alkaline Phosphatase 68 LD Total Total Protein 4.9 L Albumin 1.9 L Vitamin B12 Serum Folate TSH 4.40 H Urine Color Yellow Urine Appearance Cloudy Urine pH 6.5 Ur Specific [place] 1.010 Urine Protein 100 Urine Glucose (UA) Negative Urine Ketones Negative Urine Blood Moderate Urine Nitrite Negative Urine Bilirubin Negative Urine Urobilinogen 0.2 Ur Leukocyte Esterase Moderate Urine WBC (Auto) 95 Urine RBC (Auto) 2 Urine Casts (Auto) 487 U Pathogenic Cast Auto None seen U Epithel Cells (Auto) 1.5 Urine Bacteria (Auto) 29.9 03/18/19 03/18/19 03/18/19 07:07 07:07 07:07 WBC RBC Hgb Hct MCV MCH MCHC RDW Plt Count MPV Absolute Neuts (auto) Neutrophils % Lymphocytes % Monocytes % Eosinophils % Basophils % Nucleated RBC % Retic Count 1.62 H Sodium Potassium Chloride Carbon Dioxide Anion Gap BUN Creatinine Est GFR (CKD-EPI)AfAm Est GFR (CKD-EPI)NonAf Random Glucose Calcium Magnesium Iron 9 L TIBC 175 L Iron Saturation 5 L Unsaturated IBC 166 L Ferritin 255.5 Total Bilirubin AST ALT Alkaline Phosphatase LD Total 178 Total Protein Albumin Vitamin B12 1312 H Serum Folate 20 H TSH Urine Color Urine Appearance Urine pH Ur Specific [place] Urine Protein Urine Glucose (UA) Urine Ketones Urine Blood Urine Nitrite Urine Bilirubin Urine Urobilinogen Ur Leukocyte Esterase Urine WBC (Auto) Urine RBC (Auto) Urine Casts (Auto) U Pathogenic Cast Auto U Epithel Cells (Auto) Urine Bacteria (Auto) Active Medications Generic Name Dose Route Start Last Admin Trade Name Freq PRN Reason Stop Dose Admin Acetaminophen 650 mg 03/17/19 16:12 03/18/19 01:03 Tylenol - PO 650 mg Q6H PRN Administration FEVER Amoxicillin/Clavulanate Potassium 1 tab 03/18/19 10:45 Augmentin - 875mg Tablet PO BID@0800,1730 [facility]IAN Calcium/Vitamin D 2 tab 03/16/19 11:30 03/18/19 10:14 Oscal 250 Mg+D - PO 2 tab DAILY [facility] Administration Carbidopa/Levodopa 1 combo 03/16/19 14:00 03/18/19 05:50 Sinemet *Cr* 50/200 - PO 1 combo TID [facility] Administration Divalproex Sodium 250 mg 03/16/19 11:30 03/18/19 10:15 Depakote - PO 250 mg BID [facility] Administration Heparin Sodium (Porcine) 5,000 unit 03/14/19 22:00 03/18/19 10:13 Heparin - SQ 5,000 unit BID [facility] Administration Sodium Chloride 1,000 mls @ 75 mls/hr 03/16/19 18:45 03/18/19 10:17 Normal Saline - IV Not Given ASDIR CHRISTIAN Lorazepam 0.5 mg 03/17/19 16:52 03/18/19 10:14 Ativan - PO 0.5 mg BID PRN Administration ANXIETY Multivitamins/Minerals/Vitamin C 1 tab 03/16/19 11:30 03/18/19 10:14 Tab-A-Vit - PO 1 tab DAILY [facility]IAN Administration Pantoprazole Sodium 40 mg 03/18/19 22:00 Protonix - PO BID [facility]IAN Quetiapine Fumarate 50 mg 03/16/19 14:00 03/18/19 05:50 Seroquel - PO 50 mg TID [facility]RISTIAN Administration CBC, BMP 03/18/19 07:07 03/18/19 07:07 ASSESSMENT/PLAN: 58 y.o. female resident of a [facility] with PMH of traumatic brain injury and bladder CA on radiation therapy x1 session last sent to ER for unresponsiveness and found to be febrile and have an elevated wbc and UTI gram negative bacteremia Fever Leukocytosis follow up cx, cont abx , ID on case , wbc trening down AMS, UTI Gram negative bacteremia Hx of TBI Bladder CA on radiation therapy x1 session last week plan Anemia normocytic normochromic likely due to chronic disease , R.O bleeding will send basic blood work , iron studies , ferritin very low iron will strat venofer every other day for 3 doses total and then iron oral , TSH 4.5 , occult blood pending , b12, FA elevated , reticulocytes 1.6 monitor H/H daily maintain HGb > 7 transfuse as needed type and screen Bladder cancer started on radiation last week x1 session , at [facility] [phone] .... [phone].....[phone] radiation oncology and oncology clinic she follow up with , number got from Josiane the certified social workers in health care at her facility [phone] consider GI consult Dispo: We will continue to follow the patient. Thank you for this consultative opportunity. Visit type - Emergency Visit Emergency Visit: Yes ED Registration Date: 03/14/19 Care time: The patient presented to the Emergency Department on the above date and was hospitalized for further evaluation of their emergent condition. - New Patient This patient is new to me today: No - Critical Care Critical Care patient: No - Discharge Referral Referred to [facility] Med P.C.: No ATTENDING PHYSICIAN STATEMENT I saw and evaluated the patient. I reviewed the resident's note and discussed the case with the resident. I agree with the resident's findings and plan as documented. SUBJECTIVE: OBJECTIVE: ASSESSMENT AND PLAN:
--- NOTE | 2019-03-18 13:09 | PN ---
Physical Exam: SUBJECTIVE: Patient seen and examined at the bedside. refuses iv placement and gets very anxious and fearful. discussed with ID and per Dr. Muhammad, can switch to oral antibiotics. OBJECTIVE: important phone numbers: Meera Sarah RN at [facility] [phone] (this agency provides 16/09 home care for patient). Julianna Adhikari HCP and Guardian/or Josiane Abreur - [facility] (call to obtain any consents) Patient is a 58 year old female with a significant past medical history of TBI, seizures, parkinsons and recent bladder cancer diagnosis. Patient presents to the ED on 03/14/2019 from home after [employer] found patient to have worsening mental status. Patient found to have bacteremia on admission and was being treated with Cefepime IV. Period Temp Pulse Resp BP Sys/Morris Pulse Ox Last 24 Hr 98.3 F-102.8 F 84-116 18-24 94-108/52-64 97-98 GENERAL: The patient is awake, alert, in no acute distress and able to answer questions appropriately. has episodes of anxiety and at times can be combative with care. HEAD: Normal with no signs of trauma. EYES: PERRL, extraocular movements intact, sclera anicteric, conjunctiva clear. No ptosis. ENT: Ears normal, nares patent, oropharynx clear without exudates, moist mucous membranes. NECK: Trachea midline, full range of motion, supple. LUNGS: Breath sounds equal, clear to auscultation bilaterally, no wheezes HEART: Regular rate and rhythm ABDOMEN: Soft, nontender, nondistended, normoactive bowel sounds, no guarding, old healed surgical scar EXTREMITIES: no edema. NEUROLOGICAL: awake, alert, calm PSYCH: Normal mood, normal affect. SKIN: Warm, dry, normal turgor, no rashes or lesions noted Laboratory Results - last 24 hr 03/18/19 03/18/19 03/18/19 00:50 07:07 07:07 WBC 9.4 RBC 2.76 L Hgb 7.6 L Hct 23.1 L MCV 83.6 MCH 27.6 MCHC 33.0 RDW 15.5 Plt Count 175 MPV 7.8 Absolute Neuts (auto) 5.9 Neutrophils % 62.5 Lymphocytes % 14.3 D Monocytes % 13.9 H Eosinophils % 8.9 H Basophils % 0.4 Nucleated RBC % 0 Retic Count Sodium 139 Potassium 3.7 Chloride 106 Carbon Dioxide 27 Anion Gap 6 L BUN 13.2 Creatinine 0.8 Est GFR (CKD-EPI)AfAm 93.53 Est GFR (CKD-EPI)NonAf 80.70 Random Glucose 83 Calcium 7.8 L Magnesium 1.9 Iron TIBC Iron Saturation Unsaturated IBC Ferritin Total Bilirubin 0.4 AST 26 ALT < 6 L Alkaline Phosphatase 68 LD Total Total Protein 4.9 L Albumin 1.9 L Vitamin B12 Serum Folate TSH 4.40 H Urine Color Yellow Urine Appearance Cloudy Urine pH 6.5 Ur Specific [place] 1.010 Urine Protein 100 Urine Glucose (UA) Negative Urine Ketones Negative Urine Blood Moderate Urine Nitrite Negative Urine Bilirubin Negative Urine Urobilinogen 0.2 Ur Leukocyte Esterase Moderate Urine WBC (Auto) 95 Urine RBC (Auto) 2 Urine Casts (Auto) 487 U Pathogenic Cast Auto None seen U Epithel Cells (Auto) 1.5 Urine Bacteria (Auto) 29.9 03/18/19 03/18/19 03/18/19 07:07 07:07 07:07 WBC RBC Hgb Hct MCV MCH MCHC RDW Plt Count MPV Absolute Neuts (auto) Neutrophils % Lymphocytes % Monocytes % Eosinophils % Basophils % Nucleated RBC % Retic Count 1.62 H Sodium Potassium Chloride Carbon Dioxide Anion Gap BUN Creatinine Est GFR (CKD-EPI)AfAm Est GFR (CKD-EPI)NonAf Random Glucose Calcium Magnesium Iron 9 L TIBC 175 L Iron Saturation 5 L Unsaturated IBC 166 L Ferritin 255.5 Total Bilirubin AST ALT Alkaline Phosphatase LD Total 178 Total Protein Albumin Vitamin B12 1312 H Serum Folate 20 H TSH Urine Color Urine Appearance Urine pH Ur Specific [place] Urine Protein Urine Glucose (UA) Urine Ketones Urine Blood Urine Nitrite Urine Bilirubin Urine Urobilinogen Ur Leukocyte Esterase Urine WBC (Auto) Urine RBC (Auto) Urine Casts (Auto) U Pathogenic Cast Auto U Epithel Cells (Auto) Urine Bacteria (Auto) Active Medications Generic Name Dose Route Start Last Admin Trade Name Freq PRN Reason Stop Dose Admin Acetaminophen 650 mg 03/17/19 16:12 03/18/19 01:03 Tylenol - PO 650 mg Q6H PRN Administration FEVER Amoxicillin/Clavulanate Potassium 1 tab 03/18/19 10:45 03/18/19 11:25 Augmentin - 875mg Tablet PO 1 tab BID@0800,1730 CHRISTIAN Administration Calcium/Vitamin D 2 tab 03/16/19 11:30 03/18/19 10:14 Oscal 250 Mg+D - PO 2 tab DAILY [facility] Administration Carbidopa/Levodopa 1 combo 03/16/19 14:00 03/18/19 05:50 Sinemet *Cr* 50/200 - PO 1 combo TID [facility]STIAN Administration Divalproex Sodium 250 mg 03/16/19 11:30 03/18/19 10:15 Depakote - PO 250 mg BID [facility]IAN Administration Heparin Sodium (Porcine) 5,000 unit 03/14/19 22:00 03/18/19 10:13 Heparin - SQ 5,000 unit BID [facility]STIAN Administration Sodium Chloride 1,000 mls @ 75 mls/hr 03/16/19 18:45 03/18/19 10:17 Normal Saline - IV Not Given ASDIR CHRISTIAN Lorazepam 0.5 mg 03/17/19 16:52 03/18/19 10:14 Ativan - PO 0.5 mg BID PRN Administration ANXIETY Multivitamins/Minerals/Vitamin C 1 tab 03/16/19 11:30 03/18/19 10:14 Tab-A-Vit - PO 1 tab DAILY [facility]IAN Administration Pantoprazole Sodium 40 mg 03/18/19 22:00 Protonix - PO BID [facility]IAN Quetiapine Fumarate 50 mg 03/16/19 14:00 03/18/19 05:50 Seroquel - PO 50 mg TID CHRISTIAN Administration ASSESSMENT/PLAN: Problem List - Problems (1) Bacteremia Assessment/Plan: on cefepime per ID and switched to augmentin 875mg BID today since patient adamantly refuses iv placement. Repeat blood cultures negative. still febrile with a tmax 101F ID following monitor fever curve, vitals and labs. Code(s): R78.81 - BACTEREMIA (2) Fever Assessment/Plan: Bacteriemia and UTI (ecoli) continues with fevers, leukocytosis now resolved. repeat blood cultures with no growth to date. monitor labs, vitals, fever curve Code(s): R50.9 - FEVER, UNSPECIFIED (3) Bladder cancer Assessment/Plan: recent dx of bladder Cancer. received RT last but only a small initial dose. Was to start RT this week and establish a schedule but has not been able to secondary to this hospitalization. Heme/onc consulted. Patient has only received one small dose of RT as outpatient. Has not received chemotherapy Code(s): C67.9 - MALIGNANT NEOPLASM OF BLADDER, UNSPECIFIED (4) Leukocytosis Assessment/Plan: resolved on today's labs. repeat cbc in a.m. Code(s): D72.829 - ELEVATED WHITE BLOOD CELL COUNT, UNSPECIFIED (5) TBI (traumatic brain injury) Code(s): S06.9X9A - UNSP INTRACRANIAL INJURY W LOC OF UNSP DURATION, INIT (6) Hematuria Assessment/Plan: UA negative for blood Code(s): R31.9 - HEMATURIA, UNSPECIFIED Qualifiers: Hematuria type: gross Qualified Code(s): R31.0 - Gross hematuria (7) UTI (urinary tract infection) Assessment/Plan: low colony count on urine culture but found to have ecoli. on Augmenin 875mg bid Code(s): N39.0 - URINARY TRACT INFECTION, SITE NOT SPECIFIED Qualifiers: Urinary tract infection type: site unspecified Hematuria presence: with hematuria Qualified Code(s): N39.0 - Urinary tract infection, site not specified; R31.9 - Hematuria, unspecified (8) Functional quadriplegia Assessment/Plan: requires complete assistance with adls and has contractures. unable to feed herself and needs assistances with turning and positioning turn and position q 2 to protect bony prominences Code(s): R53.2 - FUNCTIONAL QUADRIPLEGIA (9) Parkinsons disease Assessment/Plan: on levadopa TID per home records Code(s): G20 - PARKINSON'S DISEASE (10) Seizures Assessment/Plan: on depakote bid low valporic acid levels Code(s): R56.9 - UNSPECIFIED CONVULSIONS (11) Anemia Assessment/Plan: hmg/hct down trending. stool for occult blood pending has received two doses of venofer appreciate heme/oncology recommendations GI consulted Code(s): D64.9 - ANEMIA, UNSPECIFIED (12) Prophylactic measure Assessment/Plan: FEN Fluids: tolerating po Electrolytes: monitor & replete as needed Nutrition:soft diet, aspiration precautions DVT moderate risk sq heparin Dispo Maintain as inpatient full code discharge planning to home with services in place Code(s): Z29.9 - ENCOUNTER FOR PROPHYLACTIC MEASURES, UNSPECIFIED Visit type - Emergency Visit Emergency Visit: Yes ED Registration Date: 03/14/19 Care time: The patient presented to the Emergency Department on the above date and was hospitalized for further evaluation of their emergent condition. - New Patient This patient is new to me today: No - Critical Care Critical Care patient: No - Discharge Referral Referred to [facility] Med P.C.: No
[2019-03-18] MEDS: POLYETHYLENE GLYCOL 3350 119 GM BTL PO SCH (17:27)
--- NOTE | 2019-03-18 18:53 | CON.GI ---
Consult Consult Specialty:: GI Referred by:: Hospitalist Service Reason for Consultation:: Anemia - History of Present Illness Chief Complaint: Patient was unresponsive at care home History of Present Illness: History from chart as patient unable to give history. 58 y.o. female with was transferred from a care home when she was found unresponsive. Recently diagnosed bladder Ca, Last chemotherapy session was possibly about one week ago but where it is administered is unclear. In the ER Pt was found to be febrile with temp of 102.6F and noted to have leukocytosis with wbc of 22.7K. Asked to evaluate anemia. Had recent ER visit erlier this month for vaginal bleeding. No melena/rectal bleeding reported. 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) Renal/: Yes: Cancer (bladder on chemotherapy) - Past Surgical History Additional Surgical History: Unclear but has long vertical midline surgical scar - Alcohol/Substance Use Hx Alcohol Use: No - Smoking History Smoking history: Unknown if ever smoked Have you smoked in the past 12 months: No Aproximately how many cigarettes per day: 0 - Social History ADL: Support Services History of Recent Travel: No Home Medications - Allergies Allergies/Adverse Reactions: Allergies Allergy/AdvReac Type Severity Reaction Status Date / Time No Known Allergies Allergy Verified 02/24/19 19:39 - Home Medications Home Medications: Ambulatory Orders Unobtainable Home Med List 0 dose .ROUTE UTDICT 03/06/12 Cephalexin [Keflex Suspension] 500 mg PO Q8H 10 Days #300 ml 02/24/19 Calcium 250Mg/Vit-D 125 Units [Oscal 250 mg+D -] 1 combo PO BID 03/16/19 Carbidopa/Levodopa *Cr* 50/200 03/16/19 Divalproex Sodium [Depakote] 250 mg PO BID 03/16/19 Quetiapine Fumarate [Seroquel -] 50 mg PO TID 03/16/19 Ranitidine Oral Solution [Zantac Oral Solution -] 150 tab DAILY 03/16/19 Family Medical History Family History: Unable to Obtain Review of Systems - Review of Systems Constitutional: reports: Fever Gastrointestinal: denies: Diarrhea, Melena, Rectal Bleeding, Vomiting, Vomiting Blood Physical Exam-GI Vital Signs: Vital Signs Temperature 98.8 F 03/18/19 18:26 Pulse Rate 99 H 03/18/19 17:12 Respiratory Rate 18 03/18/19 17:12 Blood Pressure 92/54 L 03/18/19 17:12 O2 Sat by Pulse Oximetry (%) 98 03/18/19 09:00 Constitutional: Yes: Calm Eyes: No: Sclera Icterus Cardiovascular: Yes: Regular Rate and Rhythm. No: Murmur Respiratory: Yes: Diminished (at bases bilaterally) Gastrointestinal Inspection: Yes: Scars (long midline vertical surgical scar) ...Auscultate: Yes: Normoactive Bowel Sounds ...Palpate: No: Hepatomegaly, Splenomegaly, Tenderness ...Percussion: No: Tympanitic ...Rectal Exam: Yes: Other (Formed light brown stool, guaiac negative. No masses palpated.) Edema: No (No LE edema) Neurological: Yes: Alert Labs: CBC, BMP 03/18/19 07:07 03/18/19 07:07 INR, PTT INR 1.18 (0.83-1.09) H 03/14/19 10:00 Problem List - Problems (1) Anemia Assessment/Plan: Normocytic No evidence of overt of occult GI bleeding Still with fevers of unclear etiology Evaluate for alternate sources of anemia per primary team. Heme eval Fever work-up per primary team No GI procedures plannned at this time. Can be referred for elective evaluation when acute issues are resolved with decision maker involved in conversation regarding endoscopic evaluations. Recall as needed. Will sign off. Code(s): D64.9 - ANEMIA, UNSPECIFIED
--- NOTE | 2019-03-18 20:00 | PN ---
Progress Note (short form) - Note Progress Note: Pt seen and examined with Dr. Esparza. Agree with note and plan SUBJECTIVE: Pleasant. Non verbal. Cannot provide history Febrile 101 ON. refused IV line per nurse seems comfortable follow commands start on Augmentine per ID OBJECTIVE: Last Vital Signs Temp Pulse Resp BP Pulse Ox 98.8 F 99 H 18 92/54 L 98 03/18/19 18:26 03/18/19 17:12 03/18/19 17:12 03/18/19 17:12 03/18/19 09:00 General: NAD. Pleasant HEENT. MMM CVS: S1, S2 Lungs: Ant CTAB Extremities: Hands with significant contractures ASSESSMENT/PLAN: 58 y.o. lady resident of a snf with PMH of traumatic brain injury and bladder CA on radiation therapy x1 session last sent to ER for unresponsiveness and found to be febrile and have an elevated wbc and UTI gram negative bacteremia Recommend: 1) Leukocytosis. Antibiotic therapy. 2) Anemia, Iron deficiency. Significant ferropenia. Plan for Iron Sucrose for 3 doses on alternative days and oral ferrous sulfate afterwards. FOBT and GI evaluation. UA 3+ and later moderate blood present in urine. 3) Bladder Cancer. S/p 1 session of RT at [facility]. Will continue to follow-up with them upon discharge. 4) Rest per Dr. Esparza's note.
[2019-03-19] MEDS: QUEtiapine FUMARATE 50 MG TABLET PO SCH ×3 (06:32→23:40)
[2019-03-19] MEDS: ACETAMINOPHEN 325 MG TABLET (FP) PO PRN ×2 (06:33→16:48)
[2019-03-19 06:57] LABS: BASO % 0.5 % (0-2.0); EOS % 9.5 % (0-4.5); HEMATOCRIT 27.7 % (32.4-45.2); HEMOGLOBIN 8.8 GM/dL (10.7-15.3); MCH 26.6 pg (25.7-33.7); MCHC 31.7 g/dl (32.0-36.0); MEAN CELL VOLUME 83.7 fl (80-96); MEAN PLT VOLUME 7.6 fl (7.5-11.1); MONO % 10.9 % (3.8-10.2); NEUT % 70.1 % (42.8-82.8); PLATELET COUNT 216 K/MM3 (134-434); RBC 3.31 M/mm3 (3.60-5.2); RDW 16.2 % (11.6-15.6); WHITE BLOOD COUNT 13.9 K/mm3 (4.0-10.0)
[2019-03-19 07:27] LABS: ALBUMIN 2.3 g/dl (3.4-5.0); ALK PHOS 85 U/L (45-117); ANION GAP 9 MMOL/L (8-16); BILIRUBIN,TOTAL 0.6 mg/dL (0.2-1); CALCIUM 8.8 mg/dL (8.5-10.1); CHLORIDE 104 mmol/L (98-107); CO2 26 mmol/L (21-32); CREATININE 0.9 mg/dL (0.55-1.3); GLUCOSE,RANDOM 83 mg/dL (74-106); MAGNESIUM 2.1 mg/dL (1.8-2.4); POTASSIUM 3.9 mmol/L (3.5-5.1); SGOT/AST 28 U/L (15-37); SGPT/ALT < 6 U/L (13-61); SODIUM 140 mmol/L (136-145); TOT PROT 6.1 g/dl (6.4-8.2)
--- NOTE | 2019-03-19 10:18 | PN ---
Physical Exam: SUBJECTIVE: Patient seen and examined. in no acute distress. OBJECTIVE: important phone numbers: Meera Sarah RN at [employer] [phone] (this agency provides 16/09 home care for patient). Julianna Adhikari HCP and Guardian/or Josiane Villeda - [facility] (call to obtain any consents) Patient is a 58 year old female with a significant past medical history of TBI, seizures, parkinsons and recent bladder cancer diagnosis. Patient presents to the ED on 03/14/2019 from home after TENT ASSEMBLER found patient to have worsening mental status. Patient found to have bacteremia on admission and was being treated with Cefepime IV. resumed iv cefepime as patient has IV established. was given augmentin overnight after she lost iv access and refused re-placement. continues to have high grade fevers. Vital Signs Period Temp Pulse Resp BP Sys/Morris Pulse Ox Last 24 Hr 97.2 F-102.3 F 67-103 18-20 87-106/54-70 98-98 GENERAL: The patient is awake, alert, in no acute distress and able to answer questions appropriately. has episodes of anxiety and at times can be combative with care. HEAD: Normal with no signs of trauma. EYES: PERRL, extraocular movements intact, sclera anicteric, conjunctiva clear. No ptosis. ENT: Ears normal, nares patent, oropharynx clear without exudates, moist mucous membranes. NECK: Trachea midline, full range of motion, supple. LUNGS: Breath sounds equal, clear to auscultation bilaterally, no wheezes HEART: Regular rate and rhythm ABDOMEN: Soft, nontender, nondistended, normoactive bowel sounds, no guarding, old healed surgical scar EXTREMITIES: no edema. NEUROLOGICAL: awake, alert, calm PSYCH: Normal mood, normal affect. SKIN: Warm, dry, normal turgor, no rashes or lesions noted Laboratory Results - last 24 hr 03/18/19 03/19/19 03/19/19 07:07 02:00 06:00 WBC 13.9 H RBC 3.31 L Hgb 8.8 L Hct 27.7 L D MCV 83.7 MCH 26.6 MCHC 31.7 L RDW 16.2 H Plt Count 216 D MPV 7.6 Absolute Neuts (auto) 9.7 H Neutrophils % 70.1 Lymphocytes % 9.0 D Monocytes % 10.9 H Eosinophils % 9.5 H Basophils % 0.5 Nucleated RBC % 0 Haptoglobin 258 Sodium Potassium Chloride Carbon Dioxide Anion Gap BUN Creatinine Est GFR (CKD-EPI)AfAm Est GFR (CKD-EPI)NonAf Random Glucose Calcium Magnesium Total Bilirubin AST ALT Alkaline Phosphatase Total Protein Albumin Stool Occult Blood Negative 03/19/19 06:00 WBC RBC Hgb Hct MCV MCH MCHC RDW Plt Count MPV Absolute Neuts (auto) Neutrophils % Lymphocytes % Monocytes % Eosinophils % Basophils % Nucleated RBC % Haptoglobin Sodium 140 Potassium 3.9 Chloride 104 Carbon Dioxide 26 Anion Gap 9 BUN 17.0 Creatinine 0.9 Est GFR (CKD-EPI)AfAm 81.11 Est GFR (CKD-EPI)NonAf 69.99 Random Glucose 83 Calcium 8.8 Magnesium 2.1 Total Bilirubin 0.6 AST 28 ALT < 6 L Alkaline Phosphatase 85 Total Protein 6.1 L Albumin 2.3 L Stool Occult Blood Active Medications Generic Name Dose Route Start Last Admin Trade Name Freq PRN Reason Stop Dose Admin Acetaminophen 650 mg 03/17/19 16:12 03/19/19 06:33 Tylenol - PO 650 mg Q6H PRN Administration FEVER Amoxicillin/Clavulanate Potassium 1 tab 03/18/19 10:45 03/18/19 16:35 Augmentin - 875mg Tablet PO 1 tab BID@0800,1730 [facility]STIAN Administration Calcium/Vitamin D 2 tab 03/16/19 11:30 03/18/19 10:14 Oscal 250 Mg+D - PO 2 tab DAILY [facility]IAN Administration Carbidopa/Levodopa 1 combo 03/16/19 14:00 03/19/19 06:32 Sinemet *Cr* 50/200 - PO 1 combo TID [facility]STIAN Administration Divalproex Sodium 250 mg 03/16/19 11:30 03/18/19 21:14 Depakote - PO 250 mg BID [facility]STIAN Administration Heparin Sodium (Porcine) 5,000 unit 03/14/19 22:00 03/18/19 21:13 Heparin - SQ 5,000 unit BID [facility]STIAN Administration Sodium Chloride 1,000 mls @ 75 mls/hr 03/16/19 18:45 03/18/19 21:15 Normal Saline - IV Not Given ASDIR [facility]IAN Lorazepam 0.5 mg 03/17/19 16:52 03/18/19 21:14 Ativan - PO 0.5 mg BID PRN Administration ANXIETY Multivitamins/Minerals/Vitamin C 1 tab 03/16/19 11:30 03/18/19 10:14 Tab-A-Vit - PO 1 tab DAILY [facility]STIAN Administration Pantoprazole Sodium 40 mg 03/18/19 22:00 03/18/19 21:14 Protonix - PO 40 mg BID [facility]STIAN Administration Polyethylene Glycol 17 gm 03/18/19 17:15 03/18/19 17:27 Miralax (For Daily Use) - PO 17 grams DAILY [facility]IAN Administration Quetiapine Fumarate 50 mg 03/16/19 14:00 03/19/19 06:32 Seroquel - PO 50 mg TID CH[facility]STIAN Administration ASSESSMENT/PLAN: Problem List - Problems (1) Bacteremia Assessment/Plan: on cefepime per ID Repeat blood cultures negative. still febrile with a tmax 101F ID following monitor fever curve, vitals and labs. Code(s): R78.81 - BACTEREMIA (2) Fever Assessment/Plan: Bacteriemia and UTI (ecoli) continues with fevers, leukocytosis now resolved. repeat blood cultures with no growth to date. monitor labs, vitals, fever curve Code(s): R50.9 - FEVER, UNSPECIFIED (3) Bladder cancer Assessment/Plan: recent dx of bladder Cancer. received RT last but only a small initial dose. Was to start RT this week and establish a schedule but has not been able to secondary to this hospitalization. Heme/onc consulted. Patient has only received one small dose of RT as outpatient. Has not received chemotherapy Code(s): C67.9 - MALIGNANT NEOPLASM OF BLADDER, UNSPECIFIED (4) Leukocytosis Assessment/Plan: resolved on today's labs. repeat cbc in a.m. Code(s): D72.829 - ELEVATED WHITE BLOOD CELL COUNT, UNSPECIFIED (5) TBI (traumatic brain injury) Code(s): S06.9X9A - UNSP INTRACRANIAL INJURY W LOC OF UNSP DURATION, INIT (6) Hematuria Assessment/Plan: UA negative for blood Code(s): R31.9 - HEMATURIA, UNSPECIFIED Qualifiers: Hematuria type: gross Qualified Code(s): R31.0 - Gross hematuria (7) UTI (urinary tract infection) Assessment/Plan: on cefepime. Code(s): N39.0 - URINARY TRACT INFECTION, SITE NOT SPECIFIED Qualifiers: Urinary tract infection type: site unspecified Hematuria presence: with hematuria Qualified Code(s): N39.0 - Urinary tract infection, site not specified; R31.9 - Hematuria, unspecified (8) Functional quadriplegia Assessment/Plan: requires complete assistance with adls and has contractures. unable to feed herself and needs assistances with turning and positioning turn and position q 2 to protect bony prominences Code(s): R53.2 - FUNCTIONAL QUADRIPLEGIA (9) Parkinsons disease Assessment/Plan: on levadopa TID per home records Code(s): G20 - PARKINSON'S DISEASE (10) Seizures Assessment/Plan: on depakote bid low valporic acid levels Code(s): R56.9 - UNSPECIFIED CONVULSIONS (11) Anemia Assessment/Plan: hmg/hct down trending. stool for occult blood negative. has received two doses of venofer appreciate heme/oncology recommendations GI consulted, note reviewed and appreciated stool for occult blood negative Code(s): D64.9 - ANEMIA, UNSPECIFIED (12) Prophylactic measure Assessment/Plan: FEN Fluids: tolerating po Electrolytes: monitor & replete as needed Nutrition:soft diet, aspiration precautions DVT moderate risk sq heparin Dispo Maintain as inpatient full code discharge planning to home with services in place Code(s): Z29.9 - ENCOUNTER FOR PROPHYLACTIC MEASURES, UNSPECIFIED Visit type - Emergency Visit Emergency Visit: Yes ED Registration Date: 03/14/19 Care time: The patient presented to the Emergency Department on the above date and was hospitalized for further evaluation of their emergent condition. - New Patient This patient is new to me today: No - Critical Care Critical Care patient: No - Discharge Referral Referred to [facility] No
--- NOTE | 2019-03-19 10:49 | PN ---
Progress Note, Physician History of Present Illness: stable no new issues retaining urine - Current Medication List Current Medications: Active Medications Acetaminophen (Tylenol -) 650 mg PO Q6H PRN PRN Reason: FEVER Last Admin: 03/19/19 06:33 Dose: 650 mg Calcium/Vitamin D (Oscal 250 Mg+D -) 2 tab PO DAILY [facility] Last Admin: 03/18/19 10:14 Dose: 2 tab Carbidopa/Levodopa (Sinemet *Cr* 50/200 -) 1 combo PO TID [facility] Last Admin: 03/19/19 06:32 Dose: 1 combo Divalproex Sodium (Depakote -) 250 mg PO BID [facility] Last Admin: 03/18/19 21:14 Dose: 250 mg Heparin Sodium (Porcine) (Heparin -) 5,000 unit SQ BID [facility] Last Admin: 03/18/19 21:13 Dose: 5,000 unit Sodium Chloride (Normal Saline -) 1,000 mls @ 75 mls/hr IV ASDIR [facility] Last Admin: 03/18/19 21:15 Dose: Not Given Cefepime HCl 1 gm/ Dextrose 100 mls @ 100 mls/hr IVPB Q8H-IV CHRISTIAN; Protocol Lorazepam (Ativan -) 0.5 mg PO BID PRN PRN Reason: ANXIETY Last Admin: 03/18/19 21:14 Dose: 0.5 mg Multivitamins/Minerals/Vitamin C (Tab-A-Vit -) 1 tab PO DAILY [facility] Last Admin: 03/18/19 10:14 Dose: 1 tab Pantoprazole Sodium (Protonix -) 40 mg PO BID [facility] Last Admin: 03/18/19 21:14 Dose: 40 mg Polyethylene Glycol (Miralax (For Daily Use) -) 17 gm PO DAILY [facility] Last Admin: 03/18/19 17:27 Dose: 17 grams Quetiapine Fumarate (Seroquel -) 50 mg PO TID [facility] Last Admin: 03/19/19 06:32 Dose: 50 mg - Objective Vital Signs: Vital Signs Temperature 102.3 F H 03/19/19 06:18 Pulse Rate 97 H 03/19/19 06:18 Respiratory Rate 20 03/19/19 08:29 Blood Pressure 97/70 03/19/19 06:18 O2 Sat by Pulse Oximetry (%) 98 03/19/19 08:29 Constitutional: Yes: No Distress, Calm Cardiovascular: Yes: S1, S2 Respiratory: Yes: Regular, CTA Bilaterally Gastrointestinal: Yes: Normal Bowel Sounds, Soft Genitourinary: Yes: Other (bladder distension) Musculoskeletal: Yes: WNL Extremities: Yes: WNL Neurological: Yes: Alert Labs: CBC, BMP 03/19/19 06:00 03/19/19 06:00 INR, PTT INR 1.18 (0.83-1.09) H 03/14/19 10:00 Assessment/Plan Problem List - Problems (1) Bladder cancer Code(s): C67.9 - MALIGNANT NEOPLASM OF BLADDER, UNSPECIFIED (2) Fever Code(s): R50.9 - FEVER, UNSPECIFIED (3) Leukocytosis Code(s): D72.829 - ELEVATED WHITE BLOOD CELL COUNT, UNSPECIFIED (4) TBI (traumatic brain injury) Code(s): S06.9X9A - UNSP INTRACRANIAL INJURY W LOC OF UNSP DURATION, INIT (5) Hematuria Code(s): R31.9 - HEMATURIA, UNSPECIFIED Qualifiers: Hematuria type: gross Qualified Code(s): R31.0 - Gross hematuria uti gm negative bacteremia Assessment/Plan 58 y.o. female resident of a correction with PMH of traumatic brain injury and bladder CA on chemotherapy sent to ER for unresponsiveness and found to be febrile and have an elevated wbc Fever Leukocytosis AMS R/O UTI Hx of TBI Bladder CA on chemotherapy gm negative bacteremia plan continue abx rest as per the team monitor fevers rest as per the team foleys if needed
[2019-03-19] MEDS: AMOX TR/POT CLAV 875MG/125MG TABLETS (FP) PO SCH (11:05)
[2019-03-19] MEDS ORDERED: PT OWN MED DRAWER 7, Y5N ONE ×2 (11:16→20:32)
[2019-03-19] MEDS: PANTOPRAZOLE 40 MG TABLET PO SCH ×2 (11:27→23:40)
[2019-03-19] MEDS: DIVALPROEX SODIUM 250 MG TABLET E.C. PO SCH ×2 (11:27→23:39)
[2019-03-19] MEDS: MULTIVITAMINS (DAILY MVI) TABLET (FP) PO SCH (11:28)
[2019-03-19] MEDS: CALCIUM 250MG/VIT-D 125 UNITS 1 COMBO TABLET PO SCH (11:28)
[2019-03-19] MEDS: HEPARIN NA (PORCINE) 5,000 UNITS/ML 1ML VIAL SQ SCH (11:29)
--- NOTE | 2019-03-19 11:58 | PN ---
Progress Note (short form) - Note Progress Note: Patient seen and examined Urosepsis with E.Coli etiology of leucocytosis Last Vital Signs Temp Pulse Resp BP Pulse Ox 102.3 F H 97 H 20 97/70 98 03/19/19 06:18 03/19/19 06:18 03/19/19 08:29 03/19/19 06:18 03/19/19 08:29 Lungs clear Cor-RSR Abd- soft Ext- upper contracted CBC, BMP 03/19/19 06:00 03/19/19 06:00 Microbiology 03/16/19 07:33 Blood - Peripheral Venous Blood Culture - Preliminary NO GROWTH OBTAINED AFTER 72 HOURS, INCUBATION TO CONTINUE FOR 2 DAYS. 03/16/19 07:40 Blood - Peripheral Venous Blood Culture - Preliminary NO GROWTH OBTAINED AFTER 72 HOURS, INCUBATION TO CONTINUE FOR 2 DAYS. 03/14/19 10:00 Blood - Peripheral Venous Blood Culture - Final Non Lactose Fermenting Gnb 03/14/19 10:30 Blood - Peripheral Venous Blood Culture - Final Escherichia Coli 03/14/19 10:00 Urine - Urine - Catheterized Urine Culture - Final Escherichia Coli Current Medications Generic Name Dose Route Start Last Admin Trade Name Freq PRN Reason Stop Dose Admin Acetaminophen 650 mg 03/17/19 16:12 03/19/19 06:33 Tylenol - PO 650 mg Q6H PRN Administration FEVER Calcium/Vitamin D 2 tab 03/16/19 11:30 03/19/19 11:28 Oscal 250 Mg+D - PO 2 tab DAILY [facility] Administration Carbidopa/Levodopa 1 combo 03/16/19 14:00 03/19/19 06:32 Sinemet *Cr* 50/200 - PO 1 combo TID [facility]IAN Administration Divalproex Sodium 250 mg 03/16/19 11:30 03/19/19 11:27 Depakote - PO Not Given BID [facility] Heparin Sodium (Porcine) 5,000 unit 03/14/19 22:00 03/19/19 11:29 Heparin - SQ 5,000 unit BID [facility] Administration Sodium Chloride 1,000 mls @ 75 mls/hr 03/16/19 18:45 03/18/19 21:15 Normal Saline - IV Not Given ASDIR [facility]STIAN Cefepime HCl 1 gm/ Dextrose 100 mls @ 100 mls/hr 03/19/19 10:30 IVPB Q8H-IV [facility] Protocol Lorazepam 0.5 mg 03/17/19 16:52 03/18/19 21:14 Ativan - PO 0.5 mg BID PRN Administration ANXIETY Multivitamins/Minerals/Vitamin C 1 tab 03/16/19 11:30 03/19/19 11:28 Tab-A-Vit - PO 1 tab DAILY [facility] Administration Pantoprazole Sodium 40 mg 03/18/19 22:00 03/19/19 11:27 Protonix - PO Not Given BID [facility] Polyethylene Glycol 17 gm 03/18/19 17:15 03/18/19 17:27 Miralax (For Daily Use) - PO 17 grams DAILY [facility] Administration Quetiapine Fumarate 50 mg 03/16/19 14:00 03/19/19 06:32 Seroquel - PO 50 mg TID [facility]STIAN Administration Impression Leucocytosi- urosepsis with E.coli Anemia- component of Fe++ deficiency and chronic disease.
[2019-03-19] MEDS: POLYETHYLENE GLYCOL 3350 119 GM BTL PO SCH (12:10)
[2019-03-19] MEDS ORDERED: CEFEPIME HCL 1 GM VIAL (RESTRICTED TO ID) ONE ×2 (12:12→16:46)
[2019-03-19] MEDS ORDERED: DEXTROSE 5%-WATER 100 ML IVPB ONE ×2 (12:12→16:46)
[2019-03-19] MEDS: CEFEPIME 1 GM in DEXTROSE 5%-WATER 100 ML IVPB SCH ×2 (12:13→18:10)
[2019-03-19] MEDS: SODIUM CHLORIDE 1,000 ML IV SCH ×2 (16:50→23:38)
[2019-03-19 20:35] LABS: BASO % 0.3 % (0-2.0); EOS % 6.9 % (0-4.5); HEMATOCRIT 21.2 % (32.4-45.2); LYMPH % 13.2 % (8-40); MCH 27.3 pg (25.7-33.7); MCHC 32.5 g/dl (32.0-36.0); MEAN CELL VOLUME 83.9 fl (80-96); MEAN PLT VOLUME 8.3 fl (7.5-11.1); MONO % 13.1 % (3.8-10.2); NEUT % 66.5 % (42.8-82.8); PLATELET COUNT 172 K/MM3 (134-434); RBC 2.52 M/mm3 (3.60-5.2); RDW 15.8 % (11.6-15.6); WHITE BLOOD COUNT 9.5 K/mm3 (4.0-10.0)
[2019-03-19 20:39] LABS: HEMOGLOBIN 6.9 GM/dL (10.7-15.3)
[2019-03-20] MEDS ORDERED: CEFEPIME HCL 1 GM VIAL (RESTRICTED TO ID) ONE ×3 (03:04→17:56)
[2019-03-20] MEDS ORDERED: DEXTROSE 5%-WATER 100 ML IVPB ONE ×3 (03:04→17:56)
[2019-03-20] MEDS: CEFEPIME 1 GM in DEXTROSE 5%-WATER 100 ML IVPB SCH ×3 (03:14→17:59)
[2019-03-20] MEDS: QUEtiapine FUMARATE 50 MG TABLET PO SCH ×3 (05:49→23:18)
[2019-03-20] MEDS ORDERED: PT OWN MED DRAWER 7, Y5N ONE ×2 (09:27→11:08)
[2019-03-20] MEDS: DIVALPROEX SODIUM 250 MG TABLET E.C. PO SCH (09:48)
[2019-03-20] MEDS: POLYETHYLENE GLYCOL 3350 119 GM BTL PO SCH (09:49)
[2019-03-20] MEDS: MULTIVITAMINS (DAILY MVI) TABLET (FP) PO SCH (09:49)
[2019-03-20] MEDS: PANTOPRAZOLE 40 MG TABLET PO SCH (09:49)
--- NOTE | 2019-03-20 09:49 | PN ---
Physical Exam: SUBJECTIVE: Patient seen and examined at the bedside. bean inserted overnight and now with gross hematuria. had to be transfused 2 units of prbc overnight. OBJECTIVE: Meera Sarah RN at [facility] [phone] (this agency provides 16/09 home care for patient). Julianna Adhikari HCP and Guardian/or Josiane Villeda - [facility] (call to obtain any consents) Patient is a 58 year old female with a significant past medical history of TBI, seizures, parkinsons and recent bladder cancer diagnosis. 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 Patient found to have bacteremia on admission and was being treated with Cefepime IV. resumed iv cefepime as patient has IV established. overnght she developed gross hematuria, given 2 units of prbc will consult urology Vital Signs Period Temp Pulse Resp BP Sys/Morris Pulse Ox Last 24 Hr 99.0 F-102.4 F 88-100 18-18 100-112/53-65 98-98 GENERAL: The patient is awake, alert, in no acute distress HEAD: Normal with no signs of trauma. EYES: PERRL, extraocular movements intact, sclera anicteric, conjunctiva clear. No ptosis. ENT: Ears normal, nares patent, oropharynx clear without exudates, moist mucous membranes. NECK: Trachea midline, full range of motion, supple. LUNGS: Breath sounds equal, clear to auscultation bilaterally, no wheezes HEART: Regular rate and rhythm ABDOMEN: Soft, nontender, nondistended, normoactive bowel sounds, no guarding, old healed surgical scar EXTREMITIES: no edema. NEUROLOGICAL: awake, alert, calm PSYCH: Normal mood, normal affect. SKIN: Warm, dry, normal turgor, no rashes or lesions noted Laboratory Results - last 24 hr 03/19/19 03/19/19 19:45 22:10 WBC 9.5 RBC 2.52 L Hgb 6.9 L* Hct 21.2 L D MCV 83.9 MCH 27.3 MCHC 32.5 RDW 15.8 H Plt Count 172 D MPV 8.3 Absolute Neuts (auto) 6.3 Neutrophils % 66.5 Lymphocytes % 13.2 D Monocytes % 13.1 H Eosinophils % 6.9 H Basophils % 0.3 Nucleated RBC % 0 Blood Type O POSITIVE Antibody Screen Negative Crossmatch See Detail Active Medications Generic Name Dose Route Start Last Admin Trade Name Freq PRN Reason Stop Dose Admin Acetaminophen 650 mg 03/17/19 16:12 03/19/19 16:48 Tylenol - PO 650 mg Q6H PRN Administration FEVER Calcium/Vitamin D 2 tab 03/16/19 11:30 03/19/19 11:28 Oscal 250 Mg+D - PO 2 tab DAILY [facility] Administration Carbidopa/Levodopa 1 combo 03/16/19 14:00 03/20/19 05:50 Sinemet *Cr* 50/200 - PO 1 combo TID [facility] Administration Sodium Chloride 1,000 mls @ 75 mls/hr 03/16/19 18:45 03/19/19 23:38 Normal Saline - IV Not Given ASDIR [facility] Cefepime HCl 1 gm/ Dextrose 100 mls @ 100 mls/hr 03/19/19 10:30 03/20/19 03: 14 IVPB 100 mls/hr Q8H-IV [facility] Administration Protocol Lorazepam 0.5 mg 03/17/19 16:52 03/18/19 21:14 Ativan - PO 0.5 mg BID PRN Administration ANXIETY Multivitamins/Minerals/Vitamin C 1 tab 03/16/19 11:30 03/19/19 11:28 Tab-A-Vit - PO 1 tab DAILY [facility] Administration Pantoprazole Sodium 40 mg 03/18/19 22:00 03/19/19 23:40 Protonix - PO 40 mg BID [facility] Administration Pantoprazole Sodium 40 mg 03/20/19 10:00 Protonix Iv IVPUSH DAILY [facility] Polyethylene Glycol 17 gm 03/18/19 17:15 03/19/19 12:10 Miralax (For Daily Use) - PO Not Given DAILY [facility] Quetiapine Fumarate 50 mg 03/16/19 14:00 03/20/19 05:49 Seroquel - PO 50 mg TID [facility] Administration Valproate Sodium 250 mg 03/20/19 10:00 Depacon Injection - IVPB BID [facility] ASSESSMENT/PLAN: Problem List - Problems (1) Bacteremia Assessment/Plan: on cefepime per ID Repeat blood cultures negative. still febrile with a tmax 101F ID following monitor fever curve, vitals and labs. Code(s): R78.81 - BACTEREMIA (2) Fever Assessment/Plan: Bacteriemia and UTI (ecoli) continues with fevers, leukocytosis now resolved. repeat blood cultures with no growth to date. monitor labs, vitals, fever curve Code(s): R50.9 - FEVER, UNSPECIFIED (3) Bladder cancer Assessment/Plan: recent dx of bladder Cancer. received RT last but only a small initial dose. Was to start RT this week and establish a schedule but has not been able to secondary to this hospitalization. Heme/onc consulted. Patient has only received one small dose of RT as outpatient. Has not received chemotherapy Code(s): C67.9 - MALIGNANT NEOPLASM OF BLADDER, UNSPECIFIED (4) Leukocytosis Assessment/Plan: resolved on today's labs. repeat cbc in a.m. Code(s): D72.829 - ELEVATED WHITE BLOOD CELL COUNT, UNSPECIFIED (5) TBI (traumatic brain injury) Code(s): S06.9X9A - UNSP INTRACRANIAL INJURY W LOC OF UNSP DURATION, INIT (6) Hematuria Assessment/Plan: developed gross hematuria after bean placed, some clots noted for renal pelvic ultrasound s/p 2 units of prbc overnight urology consulted Code(s): R31.9 - HEMATURIA, UNSPECIFIED Qualifiers: Hematuria type: gross Qualified Code(s): R31.0 - Gross hematuria (7) UTI (urinary tract infection) Assessment/Plan: on cefepime. Code(s): N39.0 - URINARY TRACT INFECTION, SITE NOT SPECIFIED Qualifiers: Urinary tract infection type: site unspecified Hematuria presence: with hematuria Qualified Code(s): N39.0 - Urinary tract infection, site not specified; R31.9 - Hematuria, unspecified (8) Functional quadriplegia Assessment/Plan: requires complete assistance with adls and has contractures. unable to feed herself and needs assistances with turning and positioning turn and position q 2 to protect bony prominences Code(s): R53.2 - FUNCTIONAL QUADRIPLEGIA (9) Parkinsons disease Assessment/Plan: on levadopa TID per home records Code(s): G20 - PARKINSON'S DISEASE (10) Seizures Assessment/Plan: on depakote bid low valporic acid levels Code(s): R56.9 - UNSPECIFIED CONVULSIONS (11) Anemia Assessment/Plan: hmg/hct down trending. stool for occult blood negative. has received two doses of venofer appreciate heme/oncology recommendations GI consulted, note reviewed and appreciated stool for occult blood negative Code(s): D64.9 - ANEMIA, UNSPECIFIED (12) Acute blood loss anemia Assessment/Plan: s/p 2 unit of prbc overnight repeat cbc Code(s): D62 - ACUTE POSTHEMORRHAGIC ANEMIA (13) Prophylactic measure Assessment/Plan: FEN Fluids: tolerating po/start ivf Electrolytes: monitor & replete as needed Nutrition:soft diet, aspiration precautions DVT moderate risk, scds. heparin d/c after developed hematuria Dispo Maintain as inpatient full code Code(s): Z29.9 - ENCOUNTER FOR PROPHYLACTIC MEASURES, UNSPECIFIED Visit type - Emergency Visit Emergency Visit: Yes ED Registration Date: 03/14/19 Care time: The patient presented to the Emergency Department on the above date and was hospitalized for further evaluation of their emergent condition. - New Patient This patient is new to me today: No - Critical Care Critical Care patient: No - Discharge Referral Referred to [facility] Med P.C.: No
[2019-03-20] MEDS: CALCIUM 250MG/VIT-D 125 UNITS 1 COMBO TABLET PO SCH (09:50)
--- NOTE | 2019-03-20 10:33 | PN ---
Progress Note, Physician History of Present Illness: had urinary retention fole[facility] place hematuria noted drop in h and h was transfused 2 units still with some hematuria - Current Medication List Current Medications: Active Medications Acetaminophen (Tylenol -) 650 mg PO Q6H PRN PRN Reason: FEVER Last Admin: 03/19/19 16:48 Dose: 650 mg Calcium/Vitamin D (Oscal 250 Mg+D -) 2 tab PO DAILY [facility] Last Admin: 03/20/19 09:50 Dose: 2 tab Carbidopa/Levodopa (Sinemet *Cr* 50/200 -) 1 combo PO TID [facility] Last Admin: 03/20/19 05:50 Dose: 1 combo Cefepime HCl 1 gm/ Dextrose 100 mls @ 100 mls/hr IVPB Q8H-IV [facility]; Protocol Last Admin: 03/20/19 09:50 Dose: 100 mls/hr Sodium Chloride (Normal Saline -) 1,000 mls @ 100 mls/hr IV ASDIR [facility] Lorazepam (Ativan -) 0.5 mg PO BID PRN PRN Reason: ANXIETY Last Admin: 03/18/19 21:14 Dose: 0.5 mg Multivitamins/Minerals/Vitamin C (Tab-A-Vit -) 1 tab PO DAILY [facility] Last Admin: 03/20/19 09:49 Dose: 1 tab Pantoprazole Sodium (Protonix Iv) 40 mg IVPUSH DAILY [facility] Polyethylene Glycol (Miralax (For Daily Use) -) 17 gm PO DAILY [facility] Last Admin: 03/20/19 09:49 Dose: 17 grams Quetiapine Fumarate (Seroquel -) 50 mg PO TID [facility] Last Admin: 03/20/19 05:49 Dose: 50 mg Valproate Sodium (Depacon Injection -) 250 mg IVPB BID [facility] - Objective Vital Signs: Vital Signs Temperature 97.9 F 03/20/19 09:53 Pulse Rate 91 H 03/20/19 09:53 Respiratory Rate 18 03/20/19 09:53 Blood Pressure 91/49 L 03/20/19 09:53 O2 Sat by Pulse Oximetry (%) 98 03/20/19 08:54 Constitutional: Yes: Calm, Mild Distress Cardiovascular: Yes: S1, S2 Respiratory: Yes: Regular, CTA Bilaterally Genitourinary: Yes: Thao Present, Hematuria Musculoskeletal: Yes: WNL Extremities: Yes: WNL Neurological: Yes: Alert, Oriented Psychiatric: Yes: Alert, Oriented Labs: CBC, BMP 03/19/19 19:45 03/19/19 06:00 INR, PTT INR 1.18 (0.83-1.09) H 03/14/19 10:00 Assessment/Plan Problem List - Problems (1) Bladder cancer Code(s): C67.9 - MALIGNANT NEOPLASM OF BLADDER, UNSPECIFIED (2) Fever Code(s): R50.9 - FEVER, UNSPECIFIED (3) Leukocytosis Code(s): D72.829 - ELEVATED WHITE BLOOD CELL COUNT, UNSPECIFIED (4) TBI (traumatic brain injury) Code(s): S06.9X9A - UNSP INTRACRANIAL INJURY W LOC OF UNSP DURATION, INIT (5) Hematuria Code(s): R31.9 - HEMATURIA, UNSPECIFIED Qualifiers: Hematuria type: gross Qualified Code(s): R31.0 - Gross hematuria uti gm negative bacteremia Assessment/Plan 58 y.o. female resident of a [facility] with PMH of traumatic brain injury and bladder CA on chemotherapy sent to ER for unresponsiveness and found to be febrile and have an elevated wbc Fever Leukocytosis AMS R/O UTI Hx of TBI Bladder CA on chemotherapy gm negative bacteremia plan continue abx urine culture monitor h and h rest as per the team
[2019-03-20] MEDS: PANTOPRAZOLE SODIUM 40 MG VIAL IVPUSH SCH (11:11)
[2019-03-20] MEDS: VALPROATE SODIUM 500 MG/5 ML VIAL IVPB SCH ×2 (11:12→23:19)
[2019-03-20] MEDS: SODIUM CHLORIDE 1,000 ML IV SCH (11:13)
[2019-03-20 11:35] LABS: BASO % 0.4 % (0-2.0); EOS % 7.1 % (0-4.5); HEMATOCRIT 28.2 % (32.4-45.2); HEMOGLOBIN 9.1 GM/dL (10.7-15.3); MCH 27.6 pg (25.7-33.7); MCHC 32.4 g/dl (32.0-36.0); MEAN CELL VOLUME 85.4 fl (80-96); MEAN PLT VOLUME 7.9 fl (7.5-11.1); NEUT % 63.5 % (42.8-82.8); PLATELET COUNT 179 K/MM3 (134-434); RDW 16.1 % (11.6-15.6); WHITE BLOOD COUNT 8.5 K/mm3 (4.0-10.0)
[2019-03-20 12:01] LABS: ALBUMIN 1.9 g/dl (3.4-5.0); BILIRUBIN,TOTAL 0.3 mg/dL (0.2-1); BLOOD UREA NITROGEN 15.4 mg/dL (7-18); CALCIUM 8.4 mg/dL (8.5-10.1); CREATININE 0.8 mg/dL (0.55-1.3); MAGNESIUM 2.2 mg/dL (1.8-2.4); TOT PROT 5.1 g/dl (6.4-8.2)
[2019-03-20] MEDS: ACETAMINOPHEN 325 MG TABLET (FP) PO PRN (18:21)
[2019-03-21] MEDS ORDERED: CEFEPIME HCL 1 GM VIAL (RESTRICTED TO ID) ONE ×3 (01:08→17:04)
[2019-03-21] MEDS ORDERED: DEXTROSE 5%-WATER 100 ML IVPB ONE ×3 (01:08→17:05)
[2019-03-21] MEDS: CEFEPIME 1 GM in DEXTROSE 5%-WATER 100 ML IVPB SCH ×3 (01:46→17:30)
[2019-03-21] MEDS: QUEtiapine FUMARATE 50 MG TABLET PO SCH ×3 (05:41→21:35)
[2019-03-21] MEDS: SODIUM CHLORIDE 1,000 ML IV SCH ×3 (06:30→21:34)
[2019-03-21 07:00] LABS: BASO % 0.4 % (0-2.0); EOS % 9.5 % (0-4.5); HEMATOCRIT 32.5 % (32.4-45.2); HEMOGLOBIN 10.8 GM/dL (10.7-15.3); MCH 28.2 pg (25.7-33.7); MCHC 33.2 g/dl (32.0-36.0); MEAN CELL VOLUME 84.9 fl (80-96); MEAN PLT VOLUME 7.7 fl (7.5-11.1); MONO % 11.8 % (3.8-10.2); NEUT % 64.3 % (42.8-82.8); PLATELET COUNT 217 K/MM3 (134-434); RBC 3.82 M/mm3 (3.60-5.2); RDW 15.9 % (11.6-15.6); WHITE BLOOD COUNT 12.6 K/mm3 (4.0-10.0)
[2019-03-21 07:31] LABS: ALBUMIN 1.9 g/dl (3.4-5.0); ALK PHOS 74 U/L (45-117); ANION GAP 5 MMOL/L (8-16); BILIRUBIN,TOTAL 0.6 mg/dL (0.2-1); BLOOD UREA NITROGEN 13.6 mg/dL (7-18); CALCIUM 8.4 mg/dL (8.5-10.1); CHLORIDE 105 mmol/L (98-107); CO2 27 mmol/L (21-32); CREATININE 0.8 mg/dL (0.55-1.3); GLUCOSE,RANDOM 85 mg/dL (74-106); MAGNESIUM 1.9 mg/dL (1.8-2.4); POTASSIUM 4.6 mmol/L (3.5-5.1); SGOT/AST 51 U/L (15-37); SGPT/ALT < 6 U/L (13-61); SODIUM 136 mmol/L (136-145); TOT PROT 5.4 g/dl (6.4-8.2)
[2019-03-21] MEDS: VALPROATE SODIUM 500 MG/5 ML VIAL IVPB SCH ×2 (10:24→21:54)
[2019-03-21] MEDS: POLYETHYLENE GLYCOL 3350 119 GM BTL PO SCH (10:25)
[2019-03-21] MEDS: PANTOPRAZOLE SODIUM 40 MG VIAL IVPUSH SCH (10:25)
[2019-03-21] MEDS: MULTIVITAMINS (DAILY MVI) TABLET (FP) PO SCH (10:25)
[2019-03-21] MEDS: CALCIUM 250MG/VIT-D 125 UNITS 1 COMBO TABLET PO SCH (10:25)
--- NOTE | 2019-03-21 11:09 | PN ---
Physical Exam: SUBJECTIVE: Patient seen and examined at the bedside. comfortable at rest. OBJECTIVE: important phone numbers: Meera Sarah RN at [facility] [phone] (this agency provides 16/09 home care for patient). Julianna Adhikari HCP and Guardian/or Josiane Villeda - [facility] Services [facility] (call to obtain any consents) Patient is a 58 year old female with a significant past medical history of TBI, seizures, parkinsons and recent bladder cancer diagnosis. Patient presents to the ED on 03/14/2019 from home after FORMULATION TECHNICIAN found patient to have worsening mental status. Patient found to have bacteremia on admission and was being treated with Cefepime IV. Patient now with bean and gross hematuria. s/p 2 units of prbc with urology consult. fever curve improving. Vital Signs Period Temp Pulse Resp BP Sys/Morris Pulse Ox Last 24 Hr 98.0 F-100.3 F 75-79 20-20 97-120/61-73 98 GENERAL: The patient is awake, alert, in no acute distress HEAD: Normal with no signs of trauma. EYES: PERRL, extraocular movements intact, sclera anicteric, conjunctiva clear. No ptosis. ENT: Ears normal, nares patent, oropharynx clear without exudates, moist mucous membranes. NECK: Trachea midline, full range of motion, supple. LUNGS: Breath sounds equal, clear to auscultation bilaterally, no wheezes HEART: Regular rate and rhythm ABDOMEN: Soft, nontender, nondistended, normoactive bowel sounds, no guarding, old healed surgical scar EXTREMITIES: no edema. NEUROLOGICAL: awake, alert, calm PSYCH: Normal mood, normal affect. SKIN: Warm, dry, normal turgor, no rashes or lesions noted Laboratory Results - last 24 hr 03/19/19 03/20/19 03/20/19 22:10 10:15 10:15 WBC 8.5 RBC 3.30 L Hgb 9.1 L Hct 28.2 L D MCV 85.4 MCH 27.6 MCHC 32.4 RDW 16.1 H Plt Count 179 MPV 7.9 Absolute Neuts (auto) 5.4 Neutrophils % 63.5 Lymphocytes % 16.0 D Monocytes % 13.0 H Eosinophils % 7.1 H Basophils % 0.4 Nucleated RBC % 0 Sodium 139 Potassium 4.0 Chloride 106 Carbon Dioxide 27 Anion Gap 6 L BUN 15.4 Creatinine 0.8 Est GFR (CKD-EPI)AfAm 93.53 Est GFR (CKD-EPI)NonAf 80.70 Random Glucose 129 H Calcium 8.4 L Magnesium 2.2 Total Bilirubin 0.3 AST 55 H ALT 8 L Alkaline Phosphatase 70 Total Protein 5.1 L Albumin 1.9 L Blood Type O POSITIVE Antibody Screen Negative Crossmatch See Detail 03/21/19 03/21/19 06:00 06:00 WBC 12.6 H RBC 3.82 Hgb 10.8 Hct 32.5 D MCV 84.9 MCH 28.2 MCHC 33.2 RDW 15.9 H Plt Count 217 D MPV 7.7 Absolute Neuts (auto) 8.1 H Neutrophils % 64.3 Lymphocytes % 14.0 Monocytes % 11.8 H Eosinophils % 9.5 H Basophils % 0.4 Nucleated RBC % 0 Sodium 136 Potassium 4.6 Chloride 105 Carbon Dioxide 27 Anion Gap 5 L BUN 13.6 Creatinine 0.8 Est GFR (CKD-EPI)AfAm 93.53 Est GFR (CKD-EPI)NonAf 80.70 Random Glucose 85 Calcium 8.4 L Magnesium 1.9 Total Bilirubin 0.6 AST 51 H ALT < 6 L Alkaline Phosphatase 74 Total Protein 5.4 L Albumin 1.9 L Blood Type Antibody Screen Crossmatch Active Medications Generic Name Dose Route Start Last Admin Trade Name Freq PRN Reason Stop Dose Admin Acetaminophen 650 mg 03/17/19 16:12 03/20/19 18:21 Tylenol - PO 650 mg Q6H PRN Administration FEVER Calcium/Vitamin D 2 tab 03/16/19 11:30 03/21/19 10:25 Oscal 250 Mg+D - PO 2 tab DAILY [facility] Administration Carbidopa/Levodopa 1 combo 03/16/19 14:00 03/21/19 05:41 Sinemet *Cr* 50/200 - PO 1 combo TID [facility] Administration Cefepime HCl 1 gm/ Dextrose 100 mls @ 100 mls/hr 03/19/19 10:30 03/21/19 10: 24 IVPB 100 mls/hr Q8H-IV [facility] Administration Protocol Sodium Chloride 1,000 mls @ 100 mls/hr 03/20/19 09:53 03/21/19 10:24 Normal Saline - IV 100 mls/hr ASDIR [facility] Administration Lorazepam 0.5 mg 03/17/19 16:52 03/18/19 21:14 Ativan - PO 0.5 mg BID PRN Administration ANXIETY Multivitamins/Minerals/Vitamin C 1 tab 03/16/19 11:30 03/21/19 10:25 Tab-A-Vit - PO 1 tab DAILY [facility] Administration Pantoprazole Sodium 40 mg 03/20/19 10:00 03/21/19 10:25 Protonix Iv IVPUSH 40 mg DAILY [facility] Administration Polyethylene Glycol 17 gm 03/18/19 17:15 03/21/19 10:25 Miralax (For Daily Use) - PO 17 grams DAILY [facility] Administration Quetiapine Fumarate 50 mg 03/16/19 14:00 03/21/19 05:41 Seroquel - PO 50 mg TID [facility] Administration Valproate Sodium 250 mg 03/20/19 10:00 03/21/19 10:24 Depacon Injection - IVPB 250 mg BID [facility] Administration ASSESSMENT/PLAN: Problem List - Problems (1) Bacteremia Assessment/Plan: on cefepime per ID Repeat blood cultures negative. fever curve improving ID following monitor fever curve, vitals and labs. Code(s): R78.81 - BACTEREMIA (2) Fever Assessment/Plan: Bacteriemia and UTI (ecoli) continues with fevers, leukocytosis now resolved. repeat blood cultures with no growth to date. monitor labs, vitals, fever curve Code(s): R50.9 - FEVER, UNSPECIFIED (3) Bladder cancer Assessment/Plan: recent dx of bladder Cancer. received RT last but only a small initial dose. Was to start RT this week and establish a schedule but has not been able to secondary to this hospitalization. Heme/onc consulted. Patient has only received one small dose of RT as outpatient. Has not received chemotherapy Code(s): C67.9 - MALIGNANT NEOPLASM OF BLADDER, UNSPECIFIED (4) Leukocytosis Assessment/Plan: slightly trending up, on cefepime. daily labs Code(s): D72.829 - ELEVATED WHITE BLOOD CELL COUNT, UNSPECIFIED (5) TBI (traumatic brain injury) Assessment/Plan: supportive care Code(s): S06.9X9A - UNSP INTRACRANIAL INJURY W LOC OF UNSP DURATION, INIT (6) Hematuria Assessment/Plan: developed gross hematuria after bean placed, some clots noted for renal pelvic ultrasound s/p 2 units of prbc urology consulted for further workup/recommendations d/c anticoagulation Code(s): R31.9 - HEMATURIA, UNSPECIFIED Qualifiers: Hematuria type: gross Qualified Code(s): R31.0 - Gross hematuria (7) UTI (urinary tract infection) Assessment/Plan: on cefepime. Code(s): N39.0 - URINARY TRACT INFECTION, SITE NOT SPECIFIED Qualifiers: Urinary tract infection type: site unspecified Hematuria presence: with hematuria Qualified Code(s): N39.0 - Urinary tract infection, site not specified; R31.9 - Hematuria, unspecified (8) Functional quadriplegia Assessment/Plan: requires complete assistance with adls and has contractures. unable to feed herself and needs assistances with turning and positioning turn and position q 2 to protect bony prominences Code(s): R53.2 - FUNCTIONAL QUADRIPLEGIA (9) Parkinsons disease Assessment/Plan: on levadopa TID per home records Code(s): G20 - PARKINSON'S DISEASE (10) Seizures Assessment/Plan: on depakote bid low valporic acid levels Code(s): R56.9 - UNSPECIFIED CONVULSIONS (11) Anemia Assessment/Plan: hmg/hct down trending. stool for occult blood negative. has received two doses of venofer appreciate heme/oncology recommendations GI consulted, note reviewed and appreciated stool for occult blood negative Code(s): D64.9 - ANEMIA, UNSPECIFIED (12) Acute blood loss anemia Assessment/Plan: s/p 2 unit of prbc overnight repeat cbc Code(s): D62 - ACUTE POSTHEMORRHAGIC ANEMIA (13) Prophylactic measure Assessment/Plan: FEN Fluids: tolerating po/start ivf Electrolytes: monitor & replete as needed Nutrition:soft diet, aspiration precautions DVT moderate risk, scds. heparin d/c after developed hematuria Dispo Maintain as inpatient full code Code(s): Z29.9 - ENCOUNTER FOR PROPHYLACTIC MEASURES, UNSPECIFIED Visit type - Emergency Visit Emergency Visit: Yes ED Registration Date: 03/14/19 Care time: The patient presented to the Emergency Department on the above date and was hospitalized for further evaluation of their emergent condition. - New Patient This patient is new to me today: No - Critical Care Critical Care patient: No - Discharge Referral Referred to [facility] Med P.C.: No
--- NOTE | 2019-03-21 11:21 | PN ---
Progress Note, Physician History of Present Illness: stable low grade fever still with hematuria - Current Medication List Current Medications: Active Medications Acetaminophen (Tylenol -) 650 mg PO Q6H PRN PRN Reason: FEVER Last Admin: 03/20/19 18:21 Dose: 650 mg Calcium/Vitamin D (Oscal 250 Mg+D -) 2 tab PO DAILY [facility] Last Admin: 03/21/19 10:25 Dose: 2 tab Carbidopa/Levodopa (Sinemet *Cr* 50/200 -) 1 combo PO TID [facility] Last Admin: 03/21/19 05:41 Dose: 1 combo Cefepime HCl 1 gm/ Dextrose 100 mls @ 100 mls/hr IVPB Q8H-IV [facility]; Protocol Last Admin: 03/21/19 10:24 Dose: 100 mls/hr Sodium Chloride (Normal Saline -) 1,000 mls @ 100 mls/hr IV ASDIR [facility] Last Admin: 03/21/19 10:24 Dose: 100 mls/hr Lorazepam (Ativan -) 0.5 mg PO BID PRN PRN Reason: ANXIETY Last Admin: 03/18/19 21:14 Dose: 0.5 mg Multivitamins/Minerals/Vitamin C (Tab-A-Vit -) 1 tab PO DAILY [facility] Last Admin: 03/21/19 10:25 Dose: 1 tab Pantoprazole Sodium (Protonix Iv) 40 mg IVPUSH DAILY [facility] Last Admin: 03/21/19 10:25 Dose: 40 mg Polyethylene Glycol (Miralax (For Daily Use) -) 17 gm PO DAILY [facility] Last Admin: 03/21/19 10:25 Dose: 17 grams Quetiapine Fumarate (Seroquel -) 50 mg PO TID [facility] Last Admin: 03/21/19 05:41 Dose: 50 mg Valproate Sodium (Depacon Injection -) 250 mg IVPB BID [facility] Last Admin: 03/21/19 10:24 Dose: 250 mg - Objective Vital Signs: Vital Signs Temperature 98.2 F 03/21/19 06:00 Pulse Rate 76 03/21/19 06:00 Respiratory Rate 20 03/21/19 06:00 Blood Pressure 102/62 03/21/19 06:00 O2 Sat by Pulse Oximetry (%) 98 03/20/19 21:00 Constitutional: Yes: No Distress, Calm Cardiovascular: Yes: S1, S2 Respiratory: Yes: Regular, CTA Bilaterally Gastrointestinal: Yes: Normal Bowel Sounds, Soft Genitourinary: Yes: Thao Present, Hematuria Musculoskeletal: Yes: WNL Extremities: Yes: WNL Neurological: Yes: Alert, Oriented Psychiatric: Yes: Alert, Oriented Labs: CBC, BMP 03/21/19 06:00 03/21/19 06:00 INR, PTT INR 1.18 (0.83-1.09) H 03/14/19 10:00 Assessment/Plan Problem List - Problems (1) Bladder cancer Code(s): C67.9 - MALIGNANT NEOPLASM OF BLADDER, UNSPECIFIED (2) Fever Code(s): R50.9 - FEVER, UNSPECIFIED (3) Leukocytosis Code(s): D72.829 - ELEVATED WHITE BLOOD CELL COUNT, UNSPECIFIED (4) TBI (traumatic brain injury) Code(s): S06.9X9A - UNSP INTRACRANIAL INJURY W LOC OF UNSP DURATION, INIT (5) Hematuria Code(s): R31.9 - HEMATURIA, UNSPECIFIED Qualifiers: Hematuria type: gross Qualified Code(s): R31.0 - Gross hematuria uti gm negative bacteremia Assessment/Plan 58 y.o. female resident of a nursing home with PMH of traumatic brain injury and bladder CA on chemotherapy sent to ER for unresponsiveness and found to be febrile and have an elevated wbc Fever Leukocytosis AMS R/O UTI Hx of TBI Bladder CA on chemotherapy gm negative bacteremia plan continue abx await for urology rest as per team
[2019-03-21] MEDS ORDERED: PT OWN MED DRAWER 7, Y5N ONE (15:35)
[2019-03-22] MEDS ORDERED: DEXTROSE 5%-WATER 100 ML IVPB ONE ×3 (01:54→17:34)
[2019-03-22] MEDS ORDERED: CEFEPIME HCL 1 GM VIAL (RESTRICTED TO ID) ONE ×3 (01:54→17:34)
[2019-03-22] MEDS: CEFEPIME 1 GM in DEXTROSE 5%-WATER 100 ML IVPB SCH ×3 (02:05→17:38)
[2019-03-22] MEDS: QUEtiapine FUMARATE 50 MG TABLET PO SCH ×3 (05:13→21:10)
[2019-03-22 07:55] LABS: BASO % 0.4 % (0-2.0); EOS % 9.5 % (0-4.5); HEMATOCRIT 32.1 % (32.4-45.2); HEMOGLOBIN 10.2 GM/dL (10.7-15.3); LYMPH % 12.9 % (8-40); MCH 27.8 pg (25.7-33.7); MCHC 31.9 g/dl (32.0-36.0); MEAN CELL VOLUME 87.4 fl (80-96); MEAN PLT VOLUME 7.8 fl (7.5-11.1); MONO % 11.2 % (3.8-10.2); PLATELET COUNT 219 K/MM3 (134-434); RBC 3.68 M/mm3 (3.60-5.2); RDW 16.1 % (11.6-15.6); WHITE BLOOD COUNT 14.2 K/mm3 (4.0-10.0)
--- NOTE | 2019-03-22 08:05 | PN ---
Progress Note, Physician Chief Complaint: Pt states she wants to go home. Pending urology evaluation. History of Present Illness: Patient is a 58 year old female with a significant past medical history of TBI, seizures, parkinsons and recent bladder cancer diagnosis. Patient presents to the ED on 03/14/2019 from home after CONSULTANT DIETITIAN found patient to have worsening mental status. Patient found to have bacteremia on admission and was being treated with Cefepime IV. Meera Sarah RN at [facility] [phone] (this agency provides 16/09 home care for patient). Julianna Adhikari HCP and Guardian/or Josiane Villeda - [facility] (call to obtain any consents) - Current Medication List Current Medications: Active Medications Acetaminophen (Tylenol -) 650 mg PO Q6H PRN PRN Reason: FEVER Last Admin: 03/20/19 18:21 Dose: 650 mg Calcium/Vitamin D (Oscal 250 Mg+D -) 2 tab PO DAILY [facility] Last Admin: 03/21/19 10:25 Dose: 2 tab Carbidopa/Levodopa (Sinemet *Cr* 50/200 -) 1 combo PO TID [facility] Last Admin: 03/22/19 05:13 Dose: 1 combo Cefepime HCl 1 gm/ Dextrose 100 mls @ 100 mls/hr IVPB Q8H-IV [facility]; Protocol Last Admin: 03/22/19 02:05 Dose: 100 mls/hr Sodium Chloride (Normal Saline -) 1,000 mls @ 100 mls/hr IV ASDIR [facility] Last Admin: 03/21/19 21:34 Dose: 100 mls/hr Lorazepam (Ativan -) 0.5 mg PO BID PRN PRN Reason: ANXIETY Last Admin: 03/18/19 21:14 Dose: 0.5 mg Multivitamins/Minerals/Vitamin C (Tab-A-Vit -) 1 tab PO DAILY [facility] Last Admin: 03/21/19 10:25 Dose: 1 tab Pantoprazole Sodium (Protonix Iv) 40 mg IVPUSH DAILY [facility] Last Admin: 03/21/19 10:25 Dose: 40 mg Polyethylene Glycol (Miralax (For Daily Use) -) 17 gm PO DAILY [facility] Last Admin: 03/21/19 10:25 Dose: 17 grams Quetiapine Fumarate (Seroquel -) 50 mg PO TID [facility] Last Admin: 03/22/19 05:13 Dose: 50 mg Valproate Sodium (Depacon Injection -) 250 mg IVPB BID [facility] Last Admin: 03/21/19 21:54 Dose: 250 mg - Objective Vital Signs: Vital Signs Temperature 99.8 F H 03/22/19 06:00 Pulse Rate 102 H 03/22/19 06:00 Respiratory Rate 03/22/19 06:00 Blood Pressure 123/65 03/22/19 06:00 O2 Sat by Pulse Oximetry (%) 96 03/21/19 21:00 Additional Findings/Remarks: Constitutional: Yes: Mild Distress, Thin Eyes: Yes: WNL, Conjunctiva Clear, EOM Intact HENT: Yes: WNL, Atraumatic, Normocephalic Neck: Yes: WNL, Supple, Trachea Midline Cardiovascular: Yes: Regular Rate and Rhythm, Tachycardia Respiratory: Yes: Regular, CTA Bilaterally, Diminished (at bases) Gastrointestinal: Yes: WNL, Normal Bowel Sounds ...Rectal Exam: Yes: Deferred Renal/: Yes: Bean Present with sediment Breast(s): Yes: WNL Musculoskeletal: Yes: Joint Stiffness, Muscle Weakness, Other (contractures to UE/LE BL) Extremities: Yes: WNL Edema: Yes Edema: LLE: Trace, RLE: Trace Peripheral Pulses WNL: Yes Peripheral Pulses: Left Radial: 2+, Right Radial: 2+, Left Doralis Pedis: 2+, Right Dorsalis Pedis: 2+, Left Femoral: 2+, Right Femoral: 2+ Integumentary: Yes: WNL Neurological: Yes: Alert, Aphasia ...Motor Strength: LUE, LLE, RUE, RLE (all extrem weak, UE stregth 3/5, LE 1/5) Psychiatric: Yes: Alert Labs: CBC, BMP 03/22/19 07:17 INR, PTT INR 1.18 (0.83-1.09) H 03/14/19 10:00 Problem List - Problems (1) TBI (traumatic brain injury) Assessment/Plan: TBI since Code(s): S06.9X9A - UNSP INTRACRANIAL INJURY W LOC OF UNSP DURATION, INIT (2) Bladder cancer Assessment/Plan: recent dx of bladder Ca started Chemotherapy-last treatment 1 week prior to admission will resume care at [facility] on dc home Code(s): C67.9 - MALIGNANT NEOPLASM OF BLADDER, UNSPECIFIED (3) Fever Assessment/Plan: afebrile, last spike 03/21 @ 1630 ID consultation appreciates c/w cefipime Bacteriemia and UTI (ecoli) repeat blood cultures with no growth to date. monitor labs, vitals, fever curve Code(s): R50.9 - FEVER, UNSPECIFIED (4) Leukocytosis Assessment/Plan: WBC 14.2 ID following c/w cefipime Code(s): D72.829 - ELEVATED WHITE BLOOD CELL COUNT, UNSPECIFIED (5) Hematuria Assessment/Plan: urine clear with some sediment seen by and no intervention at this time bean recently chamged will keep current bean in place as per Dr Rojas recommendation unless spikes again then will change flush bean PRN continue to monitor Code(s): R31.9 - HEMATURIA, UNSPECIFIED Qualifiers: Hematuria type: gross Qualified Code(s): R31.0 - Gross hematuria (6) UTI (urinary tract infection) Assessment/Plan: c/w cefipime cont to monitor Code(s): N39.0 - URINARY TRACT INFECTION, SITE NOT SPECIFIED Qualifiers: Urinary tract infection type: site unspecified Hematuria presence: with hematuria Qualified Code(s): N39.0 - Urinary tract infection, site not specified; R31.9 - Hematuria, unspecified (7) Prophylactic measure Assessment/Plan: FEN Fluids: adequate PO intake Electrolytes: monitor & replete as needed Nutrition:soft diet, aspiration precautions DVT moderate risk scds, no heparin given hematuria Dispo Maintain as inpatient full code discharge planning to home with services in place after completion on IV abx Code(s): Z29.9 - ENCOUNTER FOR PROPHYLACTIC MEASURES, UNSPECIFIED (8) Functional quadriplegia Assessment/Plan: r/t TBI requires assistance with all ADLs turn and reposition q 2h c/w speciality mattress Code(s): R53.2 - FUNCTIONAL QUADRIPLEGIA Visit type - Emergency Visit Emergency Visit: Yes ED Registration Date: 03/14/19 Care time: The patient presented to the Emergency Department on the above date and was hospitalized for further evaluation of their emergent condition. - New Patient This patient is new to me today: No - Critical Care Critical Care patient: No - Discharge Referral Referred to [facility] Med P.C.: No
[2019-03-22 08:24] LABS: ALBUMIN 1.9 g/dl (3.4-5.0); ALK PHOS 74 U/L (45-117); ANION GAP 7 MMOL/L (8-16); BILIRUBIN,TOTAL 0.6 mg/dL (0.2-1); BLOOD UREA NITROGEN 13.6 mg/dL (7-18); CALCIUM 8.5 mg/dL (8.5-10.1); CHLORIDE 106 mmol/L (98-107); CO2 26 mmol/L (21-32); CREATININE 0.7 mg/dL (0.55-1.3); GLUCOSE,RANDOM 82 mg/dL (74-106); MAGNESIUM 2.1 mg/dL (1.8-2.4); POTASSIUM 4.3 mmol/L (3.5-5.1); SGOT/AST 42 U/L (15-37); SGPT/ALT < 6 U/L (13-61); SODIUM 138 mmol/L (136-145); TOT PROT 5.5 g/dl (6.4-8.2)
[2019-03-22] MEDS: MULTIVITAMINS (DAILY MVI) TABLET (FP) PO SCH ×2 (08:44→11:04)
[2019-03-22] MEDS: CALCIUM 250MG/VIT-D 125 UNITS 1 COMBO TABLET PO SCH (09:57)
--- NOTE | 2019-03-22 10:34 | PN ---
Progress Note, Physician History of Present Illness: stable still with hematuria wbc trending up - Current Medication List Current Medications: Active Medications Acetaminophen (Tylenol -) 650 mg PO Q6H PRN PRN Reason: FEVER Last Admin: 03/20/19 18:21 Dose: 650 mg Calcium/Vitamin D (Oscal 250 Mg+D -) 2 tab PO DAILY [facility] Last Admin: 03/22/19 09:57 Dose: 2 tab Carbidopa/Levodopa (Sinemet *Cr* 50/200 -) 1 combo PO TID [facility] Last Admin: 03/22/19 05:13 Dose: 1 combo Cefepime HCl 1 gm/ Dextrose 100 mls @ 100 mls/hr IVPB Q8H-IV [facility]; Protocol Last Admin: 03/22/19 02:05 Dose: 100 mls/hr Sodium Chloride (Normal Saline -) 1,000 mls @ 100 mls/hr IV ASDIR [facility] Last Admin: 03/21/19 21:34 Dose: 100 mls/hr Lorazepam (Ativan -) 0.5 mg PO BID PRN PRN Reason: ANXIETY Last Admin: 03/18/19 21:14 Dose: 0.5 mg Multivitamins/Minerals/Vitamin C (Tab-A-Vit -) 1 tab PO DAILY [facility] Last Admin: 03/22/19 08:44 Dose: 1 tab Pantoprazole Sodium (Protonix Iv) 40 mg IVPUSH DAILY [facility] Last Admin: 03/21/19 10:25 Dose: 40 mg Polyethylene Glycol (Miralax (For Daily Use) -) 17 gm PO DAILY [facility] Last Admin: 03/21/19 10:25 Dose: 17 grams Quetiapine Fumarate (Seroquel -) 50 mg PO TID [facility] Last Admin: 03/22/19 05:13 Dose: 50 mg Valproate Sodium (Depacon Injection -) 250 mg IVPB BID [facility] Last Admin: 03/21/19 21:54 Dose: 250 mg - Objective Vital Signs: Vital Signs Temperature 97.6 F 03/22/19 09:29 Pulse Rate 77 03/22/19 09:29 Respiratory Rate 16 03/22/19 09:29 Blood Pressure 125/58 L 03/22/19 09:29 O2 Sat by Pulse Oximetry (%) 96 03/21/19 21:00 Constitutional: Yes: Calm Eyes: Yes: Conjunctiva Clear Cardiovascular: Yes: Regular Rate and Rhythm Respiratory: Yes: Regular, CTA Bilaterally Gastrointestinal: Yes: Normal Bowel Sounds, Soft Genitourinary: Yes: Thao Present, Hematuria Musculoskeletal: Yes: WNL Extremities: Yes: WNL Labs: CBC, BMP 03/22/19 07:17 03/22/19 07:17 INR, PTT INR 1.18 (0.83-1.09) H 03/14/19 10:00 Assessment/Plan Problem List - Problems (1) Bladder cancer Code(s): C67.9 - MALIGNANT NEOPLASM OF BLADDER, UNSPECIFIED (2) Fever Code(s): R50.9 - FEVER, UNSPECIFIED (3) Leukocytosis Code(s): D72.829 - ELEVATED WHITE BLOOD CELL COUNT, UNSPECIFIED (4) TBI (traumatic brain injury) Code(s): S06.9X9A - UNSP INTRACRANIAL INJURY W LOC OF UNSP DURATION, INIT (5) Hematuria Code(s): R31.9 - HEMATURIA, UNSPECIFIED Qualifiers: Hematuria type: gross Qualified Code(s): R31.0 - Gross hematuria uti gm negative bacteremia Assessment/Plan 58 y.o. female resident of a skilled nursing with PMH of traumatic brain injury and bladder CA on chemotherapy sent to ER for unresponsiveness and found to be febrile and have an elevated wbc Fever Leukocytosis AMS R/O UTI Hx of TBI Bladder CA on chemotherapy gm negative bacteremia plan continue abx await for urology rest as per team change to foleys catheter
--- NOTE | 2019-03-22 10:41 | CONS ---
DATE OF CONSULTATION: DATE OF DICTATION: 03/21/2019 HISTORY: Patient is a 58-year-old female admitted via the emergency room on March 14, 2019. She does have history of traumatic brain injury. Also has history of bladder cancer for which she is undergoing chemotherapy at [facility]. The patient was unresponsive at a [facility] and was brought to the emergency room in a lethargic state. She did have 1 course of chemotherapy 1 week prior to coming to the emergency room. She was found to be febrile with a temperature of 102.6. She also had a white count of 22,700. 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 There is no history of diabetes or chemical exposure. There is no history of any allergies. PHYSICAL EXAMINATION: General: In the emergency room, she is 98.8, blood pressure 105/84. Abdomen: Soft. There is no CVA tenderness. Her white count was 22,700, BUN 12.7, creatinine 1.2. IMPRESSION: The patient is admitted to the hospital with history of invasive bladder cancer, fever, elevated white count, intracranial injury with loss of consciousness, and hematuria. Must rule out urosepsis. PLAN: We will continue patient on IV cefepime. We will obtain a renal and pelvic ultrasound. We will see if there is any active tumor in the bladder. If this is the case, patient should undergo a transurethral resection of tumor for debulking reasons. We will follow with you. PANCHO PUGA M.D. [id number]
[2019-03-22] MEDS: PANTOPRAZOLE SODIUM 40 MG VIAL IVPUSH SCH (11:37)
[2019-03-22] MEDS: VALPROATE SODIUM 500 MG/5 ML VIAL IVPB SCH ×2 (11:37→21:09)
[2019-03-22] MEDS: ACETAMINOPHEN 325 MG TABLET (FP) PO PRN (13:46)
--- NOTE | 2019-03-22 14:45 | PN ---
Progress Note (short form) - Note Progress Note: Patient seen and examined Feels ok Last Vital Signs Temp Pulse Resp BP Pulse Ox 97.6 F 77 16 125/58 L 94 L 03/22/19 09:29 03/22/19 09:29 03/22/19 09:29 03/22/19 09:29 03/22/19 09:00 Cor: RSR, No murmurs, No gallops Lungs: Clear to P&A Abd: Soft, Normal bowel sounds, No organomegaly Ext:No significant edema Skin: No rashes, Integument intact Abnormal Lab Results 03/22/19 03/22/19 07:17 07:17 WBC 14.2 H Hgb 10.2 L Hct 32.1 L MCHC 31.9 L RDW 16.1 H Absolute Neuts (auto) 9.3 H Monocytes % 11.2 H Eosinophils % 9.5 H Anion Gap 7 L AST 42 H ALT < 6 L Total Protein 5.5 L Albumin 1.9 L Active Medications Generic Name Dose Route Start Last Admin Trade Name Freq PRN Reason Stop Dose Admin Acetaminophen 650 mg 03/17/19 16:12 03/22/19 13:46 Tylenol - PO 650 mg Q6H PRN Administration FEVER Calcium/Vitamin D 2 tab 03/16/19 11:30 03/22/19 09:57 Oscal 250 Mg+D - PO 2 tab DAILY [facility] Administration Carbidopa/Levodopa 1 combo 03/16/19 14:00 03/22/19 05:13 Sinemet *Cr* 50/200 - PO 1 combo TID [facility] Administration Cefepime HCl 1 gm/ Dextrose 100 mls @ 100 mls/hr 03/19/19 10:30 03/22/19 11: 04 IVPB 100 mls/hr Q8H-IV [facility] Administration Protocol Sodium Chloride 1,000 mls @ 100 mls/hr 03/20/19 09:53 03/21/19 21:34 Normal Saline - IV 100 mls/hr ASDIR [facility] Administration Lorazepam 0.5 mg 03/17/19 16:52 03/18/19 21:14 Ativan - PO 0.5 mg BID PRN Administration ANXIETY Multivitamins/Minerals/Vitamin C 1 tab 03/16/19 11:30 03/22/19 11:04 Tab-A-Vit - PO Not Given DAILY [facility] Pantoprazole Sodium 40 mg 03/20/19 10:00 03/22/19 11:37 Protonix Iv IVPUSH 40 mg DAILY [facility] Administration Polyethylene Glycol 17 gm 03/18/19 17:15 03/21/19 10:25 Miralax (For Daily Use) - PO 17 grams DAILY [facility] Administration Quetiapine Fumarate 50 mg 03/16/19 14:00 03/22/19 05:13 Seroquel - PO 50 mg TID [facility] Administration Valproate Sodium 250 mg 03/20/19 10:00 03/22/19 11:37 Depacon Injection - IVPB 250 mg BID [facility] Administration A/P 58 y.o. lady [facility] with PMH of traumatic brain injury and bladder CA on radiation therapy x1 session last sent to ER for unresponsiveness and found to be febrile and have an elevated wbc and UTI E.coli bacteremia Recommend: 1) Leukocytosis. Antibiotic therapy. 2) Anemia, Iron deficiency. Plan for Iron Sucrose for 3 doses on alternative days and oral ferrous sulfate afterwards. FOBT and GI evaluation. UA 3+ and later moderate blood present in urine. 3) Bladder Cancer. S/p 1 session of RT at [facility]. Will need to coordinaate follow- up with them upon discharge. discussed with Dr. Tony Rojas from urology
[2019-03-22] MEDS: POLYETHYLENE GLYCOL 3350 119 GM BTL PO SCH (17:03)
[2019-03-22] MEDS: SODIUM CHLORIDE 1,000 ML IV SCH (17:04)
[2019-03-22] MEDS ORDERED: PT OWN MED DRAWER 7, Y5N ONE (17:35)
[2019-03-22] MEDS: LORazepam 0.5 MG TABLET PO PRN (21:10)
[2019-03-23] MEDS ORDERED: DEXTROSE 5%-WATER 100 ML IVPB ONE ×3 (00:15→17:15)
[2019-03-23] MEDS ORDERED: CEFEPIME HCL 1 GM VIAL (RESTRICTED TO ID) ONE ×3 (00:15→17:14)
[2019-03-23] MEDS: CEFEPIME 1 GM in DEXTROSE 5%-WATER 100 ML IVPB SCH ×3 (01:33→17:20)
[2019-03-23] MEDS: QUEtiapine FUMARATE 50 MG TABLET PO SCH ×3 (05:26→21:08)
[2019-03-23] MEDS: SODIUM CHLORIDE 1,000 ML IV SCH ×3 (05:26→17:35)
[2019-03-23 07:09] LABS: BASO % 0.2 % (0-2.0); LYMPH % 11.8 % (8-40); MCH 27.9 pg (25.7-33.7); MCHC 32.3 g/dl (32.0-36.0); MEAN CELL VOLUME 86.5 fl (80-96); MONO % 8.4 % (3.8-10.2); NEUT % 68.6 % (42.8-82.8); RBC 3.93 M/mm3 (3.60-5.2); RDW 15.8 % (11.6-15.6)
[2019-03-23 07:28] LABS: BILIRUBIN,TOTAL 0.9 mg/dL (0.2-1); BLOOD UREA NITROGEN 11.3 mg/dL (7-18); CALCIUM 8.8 mg/dL (8.5-10.1); CREATININE 0.8 mg/dL (0.55-1.3); MAGNESIUM 2.2 mg/dL (1.8-2.4); POTASSIUM 4.9 mmol/L (3.5-5.1); TOT PROT 5.7 g/dl (6.4-8.2)
--- NOTE | 2019-03-23 09:19 | CONS ---
DATE OF CONSULTATION: 03/22/2019 DATE OF DICTATION: 03/22/2019 The patient is a 58-year-old female with a history of traumatic brain injury, also has history of bladder cancer for which she is undergoing chemotherapy at [facility]. Patient presents with gross hematuria pelvic ultrasound revealed an 8 x 5 cm vascular mass in the bladder. This most likely is recurrent bladder tumor. If patient continues to bleed, will recommend a TUR bladder tumor and fulguration of bleeders to control her hemoglobin, hematocrit. PANCHO PUGA M.D. [id number]
--- NOTE | 2019-03-23 09:44 | OP ---
DATE OF DICTATION: 03/21/2019 Patient has a Thao catheter. The urine is bloody. The abdomen is soft. An ultrasound of the bladder reveals an 8-cm x 7.5-cm x 4.8-cm of a moderate, vascular mass within the posterior wall of the bladder. With the history of bladder cancer, this most likely is a transitional cell carcinoma. Due to the persistent hematuria, patient should undergo TUR of bladder tumor when medically stable. We will follow with you. Hood [id number]
[2019-03-23] MEDS: VALPROATE SODIUM 500 MG/5 ML VIAL IVPB SCH ×2 (09:55→21:09)
[2019-03-23] MEDS: PANTOPRAZOLE SODIUM 40 MG VIAL IVPUSH SCH (09:55)
[2019-03-23] MEDS: CALCIUM 250MG/VIT-D 125 UNITS 1 COMBO TABLET PO SCH (09:56)
[2019-03-23] MEDS: MULTIVITAMINS (DAILY MVI) TABLET (FP) PO SCH (09:57)
[2019-03-23] MEDS: POLYETHYLENE GLYCOL 3350 119 GM BTL PO SCH (10:45)
--- NOTE | 2019-03-23 11:38 | PN ---
Progress Note, Physician History of Present Illness: stable remained afebrile wbc still increasing - Current Medication List Current Medications: Active Medications Acetaminophen (Tylenol -) 650 mg PO Q6H PRN PRN Reason: FEVER Last Admin: 03/22/19 13:46 Dose: 650 mg Calcium/Vitamin D (Oscal 250 Mg+D -) 2 tab PO DAILY [facility] Last Admin: 03/23/19 09:56 Dose: 2 tab Carbidopa/Levodopa (Sinemet *Cr* 50/200 -) 1 combo PO TID [facility] Last Admin: 03/23/19 05:26 Dose: 1 combo Cefepime HCl 1 gm/ Dextrose 100 mls @ 100 mls/hr IVPB Q8H-IV [facility]; Protocol Last Admin: 03/23/19 09:53 Dose: 100 mls/hr Sodium Chloride (Normal Saline -) 1,000 mls @ 100 mls/hr IV ASDIR [facility] Last Admin: 03/23/19 09:57 Dose: Not Given Lorazepam (Ativan -) 0.5 mg PO BID PRN PRN Reason: ANXIETY Last Admin: 03/22/19 21:10 Dose: 0.5 mg Multivitamins/Minerals/Vitamin C (Tab-A-Vit -) 1 tab PO DAILY [facility] Last Admin: 03/23/19 09:57 Dose: 1 tab Pantoprazole Sodium (Protonix Iv) 40 mg IVPUSH DAILY [facility] Last Admin: 03/23/19 09:55 Dose: 40 mg Polyethylene Glycol (Miralax (For Daily Use) -) 17 gm PO DAILY [facility] Last Admin: 03/23/19 10:45 Dose: 17 grams Quetiapine Fumarate (Seroquel -) 50 mg PO TID [facility] Last Admin: 03/23/19 05:26 Dose: 50 mg Valproate Sodium (Depacon Injection -) 250 mg IVPB BID [facility] Last Admin: 03/23/19 09:55 Dose: 250 mg - Objective Vital Signs: Vital Signs Temperature 99.0 F 03/23/19 09:07 Pulse Rate 79 03/23/19 09:07 Respiratory Rate 18 03/23/19 09:07 Blood Pressure 97/56 L 03/23/19 09:07 O2 Sat by Pulse Oximetry (%) 95 03/22/19 21:00 Constitutional: Yes: No Distress, Calm Cardiovascular: Yes: S1, S2 Respiratory: Yes: Regular, CTA Bilaterally Gastrointestinal: Yes: Normal Bowel Sounds, Soft Genitourinary: Yes: Thao Present Musculoskeletal: Yes: WNL Extremities: Yes: Other Neurological: Yes: Alert Labs: CBC, BMP 03/23/19 06:20 03/23/19 06:20 INR, PTT INR 1.18 (0.83-1.09) H 03/14/19 10:00 Assessment/Plan Problem List - Problems (1) Bladder cancer Code(s): C67.9 - MALIGNANT NEOPLASM OF BLADDER, UNSPECIFIED (2) Fever Code(s): R50.9 - FEVER, UNSPECIFIED (3) Leukocytosis Code(s): D72.829 - ELEVATED WHITE BLOOD CELL COUNT, UNSPECIFIED (4) TBI (traumatic brain injury) Code(s): S06.9X9A - UNSP INTRACRANIAL INJURY W LOC OF UNSP DURATION, INIT (5) Hematuria Code(s): R31.9 - HEMATURIA, UNSPECIFIED Qualifiers: Hematuria type: gross Qualified Code(s): R31.0 - Gross hematuria uti gm negative bacteremia Assessment/Plan 58 y.o. female [facility] with PMH of traumatic brain injury and bladder CA on chemotherapy sent to ER for unresponsiveness and found to be febrile and have an elevated wbc Fever Leukocytosis AMS R/O UTI Hx of TBI Bladder CA on chemotherapy gm negative bacteremia plan continue abx urology monitor wbc await for repeat blood cx
[2019-03-23 13:15] LABS: MEAN PLT VOLUME 8.7 fl (7.5-11.1); PLATELET COUNT 201 K/MM3 (134-434)
--- NOTE | 2019-03-23 16:56 | PN ---
Physical Exam: SUBJECTIVE: Patient seen and examined at the bedside. tells me she wants to go home. reassured her that we are working on a d/c plan once she is medically cleared. OBJECTIVE: Meera Sarah RN at [employer] [phone] (this agency provides 16/09 home care for patient). Julianna Adhikari HCP and Guardian/or Josiane Abreur - [facility] (call to obtain any consents) Patient is a 58 year old female with a significant past medical history of TBI, seizures, parkinsons and recent bladder cancer diagnosis. Patient presents to the ED on 03/14/2019 from home after DIESEL BUS MECHANIC found patient to have worsening mental status. Patient found to have bacteremia on admission and was being treated with Cefepime IV. Vital Signs Period Temp Pulse Resp BP Sys/Morris Pulse Ox Last 24 Hr 98.8 F-99.6 F 59-79 18-20 84-111/50-68 95-96 GENERAL: The patient is awake, alert, in no acute distress HEAD: Normal with no signs of trauma. EYES: PERRL, extraocular movements intact, sclera anicteric, conjunctiva clear. No ptosis. ENT: Ears normal, nares patent, oropharynx clear without exudates, moist mucous membranes. NECK: Trachea midline, full range of motion, supple. LUNGS: Breath sounds equal, clear to auscultation bilaterally, no wheezes HEART: Regular rate and rhythm ABDOMEN: Soft, nontender, nondistended, normoactive bowel sounds, no guarding, old healed surgical scar EXTREMITIES: no edema. NEUROLOGICAL: awake, alert, calm PSYCH: Normal mood, normal affect. SKIN: Warm, dry, normal turgor, no rashes or lesions noted Laboratory Results - last 24 hr 03/19/19 03/23/19 03/23/19 22:10 06:20 06:20 WBC 17.0 H RBC 3.93 Hgb 11.0 Hct 34.0 MCV 86.5 MCH 27.9 MCHC 32.3 RDW 15.8 H Plt Count 201 MPV 8.7 D Absolute Neuts (auto) 11.7 H Neutrophils % 68.6 Lymphocytes % 11.8 Monocytes % 8.4 Eosinophils % 11.0 H Basophils % 0.2 Nucleated RBC % 0 Sodium 138 Potassium 4.9 Chloride 106 Carbon Dioxide 26 Anion Gap 6 L BUN 11.3 Creatinine 0.8 Est GFR (CKD-EPI)AfAm 93.53 Est GFR (CKD-EPI)NonAf 80.70 Random Glucose 83 Calcium 8.8 Magnesium 2.2 Total Bilirubin 0.9 AST 41 H ALT 24 Alkaline Phosphatase 82 Total Protein 5.7 L Albumin 2.0 L Blood Type O POSITIVE Antibody Screen Negative Crossmatch See Detail Active Medications Generic Name Dose Route Start Last Admin Trade Name Freq PRN Reason Stop Dose Admin Acetaminophen 650 mg 03/17/19 16:12 03/22/19 13:46 Tylenol - PO 650 mg Q6H PRN Administration FEVER Calcium/Vitamin D 2 tab 03/16/19 11:30 03/23/19 09:56 Oscal 250 Mg+D - PO 2 tab DAILY [facility] Administration Carbidopa/Levodopa 1 combo 03/16/19 14:00 03/23/19 14:26 Sinemet *Cr* 50/200 - PO 1 combo TID [facility] Administration Cefepime HCl 1 gm/ Dextrose 100 mls @ 100 mls/hr 03/19/19 10:30 03/23/19 09: 53 IVPB 100 mls/hr Q8H-IV [facility] Administration Protocol Sodium Chloride 1,000 mls @ 100 mls/hr 03/20/19 09:53 03/23/19 09:57 Normal Saline - IV Not Given ASDIR [facility] Lorazepam 0.5 mg 03/17/19 16:52 03/22/19 21:10 Ativan - PO 0.5 mg BID PRN Administration ANXIETY Multivitamins/Minerals/Vitamin C 1 tab 03/16/19 11:30 03/23/19 09:57 Tab-A-Vit - PO 1 tab DAILY [facility] Administration Pantoprazole Sodium 40 mg 03/20/19 10:00 03/23/19 09:55 Protonix Iv IVPUSH 40 mg DAILY [facility] Administration Polyethylene Glycol 17 gm 03/18/19 17:15 03/23/19 10:45 Miralax (For Daily Use) - PO 17 grams DAILY [facility] Administration Quetiapine Fumarate 50 mg 03/16/19 14:00 03/23/19 14:26 Seroquel - PO 50 mg TID [facility] Administration Valproate Sodium 250 mg 03/20/19 10:00 03/23/19 09:55 Depacon Injection - IVPB 250 mg BID [facility] Administration ASSESSMENT/PLAN: Problem List - Problems (1) Hematuria Assessment/Plan: bean with hematuria pelvic ultrasound revealed a 8x5cm vascular mass in the bladder. per urology, patient may need a TUR bladder tumor and filguration of bleeder. maintain bean and monitor output further plans per urology Code(s): R31.9 - HEMATURIA, UNSPECIFIED Qualifiers: Hematuria type: gross Qualified Code(s): R31.0 - Gross hematuria (2) Bacteremia Assessment/Plan: on cefepime per ID, blood cultures repeated for increase of WBC. no fevers ID following and notes appreciated. Code(s): R78.81 - BACTEREMIA (3) Fever Assessment/Plan: Bacteriemia and UTI (ecoli) on cefepime blood cultures repeated for elevated WBC Code(s): R50.9 - FEVER, UNSPECIFIED (4) Bladder cancer Assessment/Plan: recent dx of bladder Cancer. received RT last but only a small initial dose. Was to start RT this week and establish a schedule but has not been able to secondary to this hospitalization. Heme/onc consulted. Patient has only received one small dose of RT as outpatient. Has not received chemotherapy Code(s): C67.9 - MALIGNANT NEOPLASM OF BLADDER, UNSPECIFIED (5) Leukocytosis Assessment/Plan: repeated blood cultures Code(s): D72.829 - ELEVATED WHITE BLOOD CELL COUNT, UNSPECIFIED (6) TBI (traumatic brain injury) Assessment/Plan: supportive care Code(s): S06.9X9A - UNSP INTRACRANIAL INJURY W LOC OF UNSP DURATION, INIT (7) UTI (urinary tract infection) Assessment/Plan: on cefepime. Code(s): N39.0 - URINARY TRACT INFECTION, SITE NOT SPECIFIED Qualifiers: Urinary tract infection type: site unspecified Hematuria presence: with hematuria Qualified Code(s): N39.0 - Urinary tract infection, site not specified; R31.9 - Hematuria, unspecified (8) Functional quadriplegia Assessment/Plan: requires complete assistance with adls and has contractures. unable to feed herself and needs assistances with turning and positioning turn and position q 2 to protect bony prominences Code(s): R53.2 - FUNCTIONAL QUADRIPLEGIA (9) Parkinsons disease Assessment/Plan: on levadopa TID per home records Code(s): G20 - PARKINSON'S DISEASE (10) Seizures Assessment/Plan: on depakote bid low valporic acid levels Code(s): R56.9 - UNSPECIFIED CONVULSIONS (11) Anemia Assessment/Plan: hmg/hct down trending. stool for occult blood negative. has received two doses of venofer appreciate heme/oncology recommendations GI consulted, note reviewed and appreciated stool for occult blood negative Code(s): D64.9 - ANEMIA, UNSPECIFIED (12) Acute blood loss anemia Assessment/Plan: s/p 2 unit of prbc overnight repeat cbc Code(s): D62 - ACUTE POSTHEMORRHAGIC ANEMIA (13) Prophylactic measure Assessment/Plan: FEN Fluids: tolerating po/start ivf Electrolytes: monitor & replete as needed Nutrition:soft diet, aspiration precautions DVT moderate risk, scds. heparin d/c after developed hematuria Dispo Maintain as inpatient full code Code(s): Z29.9 - ENCOUNTER FOR PROPHYLACTIC MEASURES, UNSPECIFIED Visit type - Emergency Visit Emergency Visit: Yes ED Registration Date: 03/14/19 Care time: The patient presented to the Emergency Department on the above date and was hospitalized for further evaluation of their emergent condition. - New Patient This patient is new to me today: No - Critical Care Critical Care patient: No - Discharge Referral Referred to [facility] Med P.C.: No
[2019-03-23] MEDS: LORazepam 0.5 MG TABLET PO PRN (21:07)
[2019-03-24] MEDS ORDERED: CEFEPIME HCL 1 GM VIAL (RESTRICTED TO ID) ONE ×3 (01:18→16:47)
[2019-03-24] MEDS ORDERED: DEXTROSE 5%-WATER 100 ML IVPB ONE ×3 (01:18→16:48)
[2019-03-24] MEDS: CEFEPIME 1 GM in DEXTROSE 5%-WATER 100 ML IVPB SCH ×3 (01:51→17:01)
[2019-03-24] MEDS: QUEtiapine FUMARATE 50 MG TABLET PO SCH ×3 (05:19→21:40)
--- NOTE | 2019-03-24 08:21 | PN ---
Progress Note, Physician Chief Complaint: Pt states she wants to go home. Remains on abx. Asking for ice cream. History of Present Illness: Patient is a 58 year old female with a significant past medical history of TBI, seizures, parkinsons and recent bladder cancer diagnosis. Patient presents to the ED on 03/14/2019 from home after PILLOWCASE MAKER found patient to have worsening mental status. Patient found to have bacteremia on admission and was being treated with Cefepime IV. Meera Sarah RN at [employer] [phone] (this agency provides 16/09 home care for patient). Julianna Adhikari HCP and Guardian/or Josiane Villeda - [facility] (call to obtain any consents) - Current Medication List Current Medications: Active Medications Acetaminophen (Tylenol -) 650 mg PO Q6H PRN PRN Reason: FEVER Last Admin: 03/22/19 13:46 Dose: 650 mg Calcium/Vitamin D (Oscal 250 Mg+D -) 2 tab PO DAILY [facility] Last Admin: 03/23/19 09:56 Dose: 2 tab Carbidopa/Levodopa (Sinemet *Cr* 50/200 -) 1 combo PO TID [facility] Last Admin: 03/24/19 05:19 Dose: 1 combo Cefepime HCl 1 gm/ Dextrose 100 mls @ 100 mls/hr IVPB Q8H-IV [facility]; Protocol Last Admin: 03/24/19 01:51 Dose: 100 mls/hr Sodium Chloride (Normal Saline -) 1,000 mls @ 100 mls/hr IV ASDIR [facility] Last Admin: 03/23/19 17:35 Dose: 100 mls/hr Lorazepam (Ativan -) 0.5 mg PO BID PRN PRN Reason: ANXIETY Last Admin: 03/23/19 21:07 Dose: 0.5 mg Multivitamins/Minerals/Vitamin C (Tab-A-Vit -) 1 tab PO DAILY [facility] Last Admin: 03/23/19 09:57 Dose: 1 tab Pantoprazole Sodium (Protonix Iv) 40 mg IVPUSH DAILY [facility] Last Admin: 03/23/19 09:55 Dose: 40 mg Polyethylene Glycol (Miralax (For Daily Use) -) 17 gm PO DAILY [facility] Last Admin: 03/23/19 10:45 Dose: 17 grams Quetiapine Fumarate (Seroquel -) 50 mg PO TID [facility] Last Admin: 03/24/19 05:19 Dose: 50 mg Valproate Sodium (Depacon Injection -) 250 mg IVPB BID [facility] Last Admin: 03/23/19 21:09 Dose: 250 mg - Objective Vital Signs: Vital Signs Temperature 98.2 F 03/24/19 08:18 Pulse Rate 75 03/24/19 08:18 Respiratory Rate 18 03/24/19 08:18 Blood Pressure 109/65 03/24/19 08:18 O2 Sat by Pulse Oximetry (%) 96 03/23/19 21:00 Additional Findings/Remarks: Constitutional: Yes: Mild Distress, Thin Eyes: Yes: WNL, Conjunctiva Clear, EOM Intact HENT: Yes: WNL, Atraumatic, Normocephalic Neck: Yes: WNL, Supple, Trachea Midline Cardiovascular: Yes: Regular Rate and Rhythm, Tachycardia Respiratory: Yes: Regular, CTA Bilaterally Gastrointestinal: Yes: WNL, Normal Bowel Sounds ...Rectal Exam: Yes: Deferred Renal/: Yes: Bean Present with sediment, no hematuria Breast(s): Yes: WNL Musculoskeletal: Yes: Joint Stiffness, Muscle Weakness, Other (contractures to UE/LE BL) Extremities: Yes: WNL Edema: Yes Edema: LLE: Trace, RLE: Trace Peripheral Pulses WNL: Yes Peripheral Pulses: Left Radial: 2+, Right Radial: 2+, Left Doralis Pedis: 2+, Right Dorsalis Pedis: 2+, Left Femoral: 2+, Right Femoral: 2+ Integumentary: Yes: WNL Neurological: Yes: Alert, Aphasia ...Motor Strength: LUE, LLE, RUE, RLE (all extrem weak, UE stregth 3/5, LE 1/5) Psychiatric: Yes: Alert Labs: CBC, BMP 03/23/19 06:20 03/23/19 06:20 INR, PTT INR 1.18 (0.83-1.09) H 03/14/19 10:00 Problem List - Problems (1) TBI (traumatic brain injury) Assessment/Plan: TBI since Code(s): S06.9X9A - UNSP INTRACRANIAL INJURY W LOC OF UNSP DURATION, INIT (2) Bladder cancer Assessment/Plan: recent dx of bladder Ca Had radiation mapping but no treatments as of yet will resume care at [facility] on dc home Code(s): C67.9 - MALIGNANT NEOPLASM OF BLADDER, UNSPECIFIED (3) Fever Assessment/Plan: afebrile, last spike 03/21 @ 1630 ID consultation appreciates c/w cefipime Bacteriemia and UTI (ecoli) repeat blood cultures with no growth to date. monitor labs, vitals, fever curve Code(s): R50.9 - FEVER, UNSPECIFIED (4) Leukocytosis Assessment/Plan: WBC 17.0 ID following c/w cefipime Code(s): D72.829 - ELEVATED WHITE BLOOD CELL COUNT, UNSPECIFIED (5) Hematuria Assessment/Plan: urine madi color with some sediment seen by and no intervention at this time bean recently chamged flush bean PRN continue to monitor f/u with [facility] as outpt Code(s): R31.9 - HEMATURIA, UNSPECIFIED Qualifiers: Hematuria type: gross Qualified Code(s): R31.0 - Gross hematuria (6) UTI (urinary tract infection) Assessment/Plan: c/w cefipime cont to monitor can by Dc'd when abx complete Code(s): N39.0 - URINARY TRACT INFECTION, SITE NOT SPECIFIED Qualifiers: Urinary tract infection type: site unspecified Hematuria presence: with hematuria Qualified Code(s): N39.0 - Urinary tract infection, site not specified; R31.9 - Hematuria, unspecified (7) Prophylactic measure Assessment/Plan: FEN Fluids: adequate PO intake Electrolytes: monitor & replete as needed Nutrition:soft diet, aspiration precautions DVT moderate risk scds, no heparin given hematuria Dispo Maintain as inpatient full code discharge planning to home with services in place after completion on IV abx Code(s): Z29.9 - ENCOUNTER FOR PROPHYLACTIC MEASURES, UNSPECIFIED (8) Functional quadriplegia Assessment/Plan: r/t TBI requires assistance with all ADLs turn and reposition q 2h c/w speciality mattress Code(s): R53.2 - FUNCTIONAL QUADRIPLEGIA Visit type - Emergency Visit Emergency Visit: Yes ED Registration Date: 03/14/19 Care time: The patient presented to the Emergency Department on the above date and was hospitalized for further evaluation of their emergent condition. - New Patient This patient is new to me today: No - Critical Care Critical Care patient: No - Discharge Referral Referred to [facility] Med P.C.: No
[2019-03-24] MEDS ORDERED: PT OWN MED DRAWER 7, Y5N ONE ×3 (09:07→21:37)
[2019-03-24] MEDS: PANTOPRAZOLE SODIUM 40 MG VIAL IVPUSH SCH (09:16)
--- NOTE | 2019-03-24 09:58 | PN ---
Progress Note, Physician History of Present Illness: stable no new issues still wiht hematuria - Current Medication List Current Medications: Active Medications Acetaminophen (Tylenol -) 650 mg PO Q6H PRN PRN Reason: FEVER Last Admin: 03/22/19 13:46 Dose: 650 mg Calcium/Vitamin D (Oscal 250 Mg+D -) 2 tab PO DAILY [facility] Last Admin: 03/23/19 09:56 Dose: 2 tab Carbidopa/Levodopa (Sinemet *Cr* 50/200 -) 1 combo PO TID [facility] Last Admin: 03/24/19 05:19 Dose: 1 combo Cefepime HCl 1 gm/ Dextrose 100 mls @ 100 mls/hr IVPB Q8H-IV [facility]; Protocol Last Admin: 03/24/19 09:16 Dose: 100 mls/hr Sodium Chloride (Normal Saline -) 1,000 mls @ 100 mls/hr IV ASDIR [facility] Last Admin: 03/23/19 17:35 Dose: 100 mls/hr Lorazepam (Ativan -) 0.5 mg PO BID PRN PRN Reason: ANXIETY Last Admin: 03/23/19 21:07 Dose: 0.5 mg Multivitamins/Minerals/Vitamin C (Tab-A-Vit -) 1 tab PO DAILY [facility] Last Admin: 03/23/19 09:57 Dose: 1 tab Pantoprazole Sodium (Protonix Iv) 40 mg IVPUSH DAILY [facility] Last Admin: 03/24/19 09:16 Dose: 40 mg Polyethylene Glycol (Miralax (For Daily Use) -) 17 gm PO DAILY [facility] Last Admin: 03/23/19 10:45 Dose: 17 grams Quetiapine Fumarate (Seroquel -) 50 mg PO TID [facility] Last Admin: 03/24/19 05:19 Dose: 50 mg Valproate Sodium (Depacon Injection -) 250 mg IVPB BID [facility] Last Admin: 03/23/19 21:09 Dose: 250 mg - Objective Vital Signs: Vital Signs Temperature 98.2 F 03/24/19 08:18 Pulse Rate 75 03/24/19 08:18 Respiratory Rate 18 03/24/19 08:18 Blood Pressure 109/65 03/24/19 08:18 O2 Sat by Pulse Oximetry (%) 95 03/24/19 08:28 Constitutional: Yes: No Distress, Calm Cardiovascular: Yes: S1, S2 Respiratory: Yes: Regular, CTA Bilaterally Gastrointestinal: Yes: Normal Bowel Sounds, Soft Genitourinary: Yes: Thao Present, Hematuria Musculoskeletal: Yes: WNL Extremities: Yes: WNL Neurological: Yes: Alert, Oriented Psychiatric: Yes: Alert, Oriented Labs: CBC, BMP 03/23/19 06:20 03/23/19 06:20 INR, PTT INR 1.18 (0.83-1.09) H 03/14/19 10:00 Assessment/Plan Problem List - Problems (1) Bladder cancer Code(s): C67.9 - MALIGNANT NEOPLASM OF BLADDER, UNSPECIFIED (2) Fever Code(s): R50.9 - FEVER, UNSPECIFIED (3) Leukocytosis Code(s): D72.829 - ELEVATED WHITE BLOOD CELL COUNT, UNSPECIFIED (4) TBI (traumatic brain injury) Code(s): S06.9X9A - UNSP INTRACRANIAL INJURY W LOC OF UNSP DURATION, INIT (5) Hematuria Code(s): R31.9 - HEMATURIA, UNSPECIFIED Qualifiers: Hematuria type: gross Qualified Code(s): R31.0 - Gross hematuria uti gm negative bacteremia Assessment/Plan 58 y.o. female resident of a intermediate with PMH of traumatic brain injury and bladder CA on chemotherapy sent to ER for unresponsiveness and found to be febrile and have an elevated wbc Fever Leukocytosis AMS R/O UTI Hx of TBI Bladder CA on chemotherapy gm negative bacteremia plan continue abx urology monitor wbc await for repeat repeat cbc
[2019-03-24] MEDS: LORazepam 0.5 MG TABLET PO PRN ×2 (10:01→21:40)
[2019-03-24] MEDS: MULTIVITAMINS (DAILY MVI) TABLET (FP) PO SCH (10:02)
[2019-03-24] MEDS: SODIUM CHLORIDE 1,000 ML IV SCH ×2 (10:26→14:51)
[2019-03-24] MEDS: VALPROATE SODIUM 500 MG/5 ML VIAL IVPB SCH ×2 (10:28→21:41)
[2019-03-24] MEDS: POLYETHYLENE GLYCOL 3350 119 GM BTL PO SCH (10:28)
[2019-03-24] MEDS: CALCIUM 250MG/VIT-D 125 UNITS 1 COMBO TABLET PO SCH (10:29)
[2019-03-24 14:34] LABS: HEMATOCRIT 32.6 % (32.4-45.2); HEMOGLOBIN 10.5 GM/dL (10.7-15.3); MCH 27.9 pg (25.7-33.7); MCHC 32.1 g/dl (32.0-36.0); MEAN CELL VOLUME 86.8 fl (80-96); MEAN PLT VOLUME 7.9 fl (7.5-11.1); PLATELET COUNT 195 K/MM3 (134-434); RBC 3.76 M/mm3 (3.60-5.2); WHITE BLOOD COUNT 14.4 K/mm3 (4.0-10.0)
[2019-03-25] MEDS ORDERED: CEFEPIME HCL 1 GM VIAL (RESTRICTED TO ID) ONE ×2 (01:05→08:48)
[2019-03-25] MEDS ORDERED: DEXTROSE 5%-WATER 100 ML IVPB ONE ×2 (01:06→08:48)
[2019-03-25] MEDS: CEFEPIME 1 GM in DEXTROSE 5%-WATER 100 ML IVPB SCH ×2 (01:08→09:50)
[2019-03-25] MEDS: SODIUM CHLORIDE 1,000 ML IV SCH (01:08)
[2019-03-25] MEDS: QUEtiapine FUMARATE 50 MG TABLET PO SCH ×3 (05:21→22:13)
[2019-03-25 07:44] LABS: BASO % 0.2 % (0-2.0); HEMATOCRIT 33.1 % (32.4-45.2); HEMOGLOBIN 10.7 GM/dL (10.7-15.3); MCHC 32.5 g/dl (32.0-36.0); MEAN CELL VOLUME 86.1 fl (80-96); MONO % 6.6 % (3.8-10.2); NEUT % 73.2 % (42.8-82.8); PLATELET COUNT 199 K/MM3 (134-434); RBC 3.84 M/mm3 (3.60-5.2); RDW 16.4 % (11.6-15.6); WHITE BLOOD COUNT 14.7 K/mm3 (4.0-10.0)
[2019-03-25 08:04] LABS: ALBUMIN 2.1 g/dl (3.4-5.0); ALK PHOS 79 U/L (45-117); ANION GAP 6 MMOL/L (8-16); BILIRUBIN,TOTAL 0.7 mg/dL (0.2-1); BLOOD UREA NITROGEN 12.6 mg/dL (7-18); CALCIUM 8.6 mg/dL (8.5-10.1); CHLORIDE 104 mmol/L (98-107); CO2 25 mmol/L (21-32); CREATININE 0.8 mg/dL (0.55-1.3); GLUCOSE,RANDOM 79 mg/dL (74-106); MAGNESIUM 2.3 mg/dL (1.8-2.4); POTASSIUM 4.3 mmol/L (3.5-5.1); SGOT/AST 32 U/L (15-37); SGPT/ALT < 6 U/L (13-61); SODIUM 135 mmol/L (136-145); TOT PROT 5.6 g/dl (6.4-8.2)
[2019-03-25] MEDS: POLYETHYLENE GLYCOL 3350 119 GM BTL PO SCH (09:50)
[2019-03-25] MEDS: PANTOPRAZOLE SODIUM 40 MG VIAL IVPUSH SCH (09:51)
[2019-03-25] MEDS: MULTIVITAMINS (DAILY MVI) TABLET (FP) PO SCH (09:53)
[2019-03-25] MEDS: CALCIUM 250MG/VIT-D 125 UNITS 1 COMBO TABLET PO SCH (09:57)
[2019-03-25] MEDS: VALPROATE SODIUM 500 MG/5 ML VIAL IVPB SCH (11:25)
--- NOTE | 2019-03-25 11:50 | PN ---
Progress Note, Physician History of Present Illness: stable still with hematuria calm afebrile wbc still high - Current Medication List Current Medications: Active Medications Acetaminophen (Tylenol -) 650 mg PO Q6H PRN PRN Reason: FEVER Last Admin: 03/22/19 13:46 Dose: 650 mg Amoxicillin/Clavulanate Potassium (Augmentin - 500mg Tablet) 1 tab PO BID@0800, 1730 [facility] Calcium/Vitamin D (Oscal 250 Mg+D -) 2 tab PO DAILY [facility] Last Admin: 03/25/19 09:57 Dose: 2 tab Carbidopa/Levodopa (Sinemet *Cr* 50/200 -) 1 combo PO TID [facility] Last Admin: 03/25/19 05:21 Dose: 1 combo Lorazepam (Ativan -) 0.5 mg PO TID PRN PRN Reason: ANXIETY Last Admin: 03/24/19 21:40 Dose: 0.5 mg Multivitamins/Minerals/Vitamin C (Tab-A-Vit -) 1 tab PO DAILY [facility] Last Admin: 03/25/19 09:53 Dose: 1 tab Pantoprazole Sodium (Protonix Iv) 40 mg IVPUSH DAILY [facility] Last Admin: 03/25/19 09:51 Dose: 40 mg Polyethylene Glycol (Miralax (For Daily Use) -) 17 gm PO DAILY [facility] Last Admin: 03/25/19 09:50 Dose: 17 grams Quetiapine Fumarate (Seroquel -) 50 mg PO TID [facility] Last Admin: 03/25/19 05:21 Dose: 50 mg Valproate Sodium (Depacon Injection -) 250 mg IVPB BID [facility] Last Admin: 03/25/19 11:25 Dose: 250 mg - Objective Vital Signs: Vital Signs Temperature 98.9 F 03/25/19 10:00 Pulse Rate 73 03/25/19 10:00 Respiratory Rate 20 03/25/19 10:00 Blood Pressure 90/59 L 03/25/19 10:00 O2 Sat by Pulse Oximetry (%) 96 03/25/19 09:00 Constitutional: Yes: No Distress, Calm Cardiovascular: Yes: S1, S2 Respiratory: Yes: Regular, CTA Bilaterally Gastrointestinal: Yes: Normal Bowel Sounds, Soft Genitourinary: Yes: Thao Present, Hematuria Musculoskeletal: Yes: WNL Extremities: Yes: WNL Neurological: Yes: Alert, Oriented Psychiatric: Yes: Alert, Oriented Labs: CBC, BMP 03/25/19 06:41 03/25/19 06:00 INR, PTT INR 1.18 (0.83-1.09) H 03/14/19 10:00 Assessment/Plan Problem List - Problems (1) Bladder cancer Code(s): C67.9 - MALIGNANT NEOPLASM OF BLADDER, UNSPECIFIED (2) Fever Code(s): R50.9 - FEVER, UNSPECIFIED (3) Leukocytosis Code(s): D72.829 - ELEVATED WHITE BLOOD CELL COUNT, UNSPECIFIED (4) TBI (traumatic brain injury) Code(s): S06.9X9A - UNSP INTRACRANIAL INJURY W LOC OF UNSP DURATION, INIT (5) Hematuria Code(s): R31.9 - HEMATURIA, UNSPECIFIED Qualifiers: Hematuria type: gross Qualified Code(s): R31.0 - Gross hematuria uti gm negative bacteremia Assessment/Plan 58 y.o. female resident of a nursing home with PMH of traumatic brain injury and bladder CA on chemotherapy sent to ER for unresponsiveness and found to be febrile and have an elevated wbc Fever Leukocytosis AMS R/O UTI Hx of TBI Bladder CA on chemotherapy gm negative bacteremia plan will change to oral and see urology monitor wbc await for repeat repeat cbc
--- NOTE | 2019-03-25 12:19 | DS ---
Physical Exam: SUBJECTIVE: Patient seen and examined Patient is a 58 year old female with a significant past medical history of TBI, seizures, parkinsons and recent bladder cancer diagnosis. Patient presents to the ED on 03/14/2019 from home after PROPOSAL REP found patient to have worsening mental status. Patient found to have bacteremia on admission and was being treated with Cefepime IV. Meera Sarah RN at [facility] [phone] (this agency provides 24/ home care for patient). Julianna Adhikari HCP and Guardian/or Josiane Abreur - [facility] (call to obtain any consents) OBJECTIVE: Vital Signs Period Temp Pulse Resp BP Sys/Morris Pulse Ox Last 24 Hr 98.3 F-100.3 F 73-84 18-20 90-122/57-86 95-96 PHYSICAL EXAM Constitutional: Yes: Mild Distress, Thin Eyes: Yes: WNL, Conjunctiva Clear, EOM Intact HENT: Yes: WNL, Atraumatic, Normocephalic Neck: Yes: WNL, Supple, Trachea Midline Cardiovascular: Yes: Regular Rate and Rhythm, Tachycardia Respiratory: Yes: Regular, CTA Bilaterally Gastrointestinal: Yes: WNL, Normal Bowel Sounds ...Rectal Exam: Yes: Deferred Renal/: Yes: Bean Present with sediment, no hematuria Breast(s): Yes: WNL Musculoskeletal: Yes: Joint Stiffness, Muscle Weakness, Other (contractures to UE/LE BL) Extremities: Yes: WNL Edema: Yes Edema: LLE: Trace, RLE: Trace Peripheral Pulses WNL: Yes Peripheral Pulses: Left Radial: 2+, Right Radial: 2+, Left Doralis Pedis: 2+, Right Dorsalis Pedis: 2+, Left Femoral: 2+, Right Femoral: 2+ Integumentary: Yes: WNL Neurological: Yes: Alert, Aphasia ...Motor Strength: LUE, LLE, RUE, RLE (all extrem weak, UE stregth 3/5, LE 1/5) Psychiatric: Yes: Alert LABS Laboratory Results - last 24 hr 03/24/19 03/25/19 03/25/19 13:30 06:00 06:41 WBC 14.4 H 14.7 H RBC 3.76 3.84 Hgb 10.5 L 10.7 Hct 32.6 33.1 MCV 86.8 86.1 MCH 27.9 28.0 MCHC 32.1 32.5 RDW 16.0 H 16.4 H Plt Count 195 199 MPV 7.9 8.0 Absolute Neuts (auto) 10.7 H Neutrophils % 73.2 Lymphocytes % 11.0 Monocytes % 6.6 Eosinophils % 9.0 H Basophils % 0.2 Nucleated RBC % 0 Sodium 135 L Potassium 4.3 Chloride 104 Carbon Dioxide 25 Anion Gap 6 L BUN 12.6 Creatinine 0.8 Est GFR (CKD-EPI)AfAm 93.53 Est GFR (CKD-EPI)NonAf 80.70 Random Glucose 79 Calcium 8.6 Magnesium 2.3 Total Bilirubin 0.7 AST 32 ALT < 6 L Alkaline Phosphatase 79 Total Protein 5.6 L Albumin 2.1 L HOSPITAL COURSE: Date of Admission:03/14/19 Date of Discharge: 03/25/19 Problem List - Problems (1) TBI (traumatic brain injury) Assessment/Plan: TBI since Code(s): S06.9X9A - UNSP INTRACRANIAL INJURY W LOC OF UNSP DURATION, INIT (2) Bladder cancer Assessment/Plan: recent dx of bladder Ca Had radiation mapping but no treatments as of yet will resume care at [facility] on dc home follow up with /oncologist at home on removal of bean Code(s): C67.9 - MALIGNANT NEOPLASM OF BLADDER, UNSPECIFIED (3) Fever Assessment/Plan: afebrile, last spike 03/21 @ 1630 completed course of cefipime. To c/w augmentin x 7 days Bacteriemia and UTI (ecoli) repeat blood cultures with no growth to date, Ucx ngtd (4) Leukocytosis Assessment/Plan: stable afebrile Code(s): D72.829 - ELEVATED WHITE BLOOD CELL COUNT, UNSPECIFIED (5) Hematuria Assessment/Plan: urine madi color with some sediment seen by and no intervention at this time bean recently changed flush bean PRN continue to monitor f/u with [facility] as outpt Code(s): R31.9 - HEMATURIA, UNSPECIFIED Qualifiers: Hematuria type: gross Qualified Code(s): R31.0 - Gross hematuria (6) UTI (urinary tract infection) Assessment/Plan: c/w augmentin Code(s): N39.0 - URINARY TRACT INFECTION, SITE NOT SPECIFIED Qualifiers: Urinary tract infection type: site unspecified Hematuria presence: with hematuria Qualified Code(s): N39.0 - Urinary tract infection, site not specified; R31.9 - Hematuria, unspecified (7) Prophylactic measure Assessment/Plan: FEN Fluids: adequate PO intake Electrolytes: stable Nutrition:soft diet, aspiration precautions DVT no s/s of dvt Dispo diascharge to home with services in place Code(s): Z29.9 - ENCOUNTER FOR PROPHYLACTIC MEASURES, UNSPECIFIED (8) Functional quadriplegia Assessment/Plan: r/t TBI requires assistance with all ADLs turn and reposition q 2h c/w speciality mattress Code(s): R53.2 - FUNCTIONAL QUADRIPLEGIA Minutes to complete discharge: 45 Discharge Summary Problems reviewed: Yes Reason For Visit: SEPSIS Current Active Problems Acute blood loss anemia (Acute) Anemia (Acute) Bacteremia (Acute) Bladder cancer (Acute) Fever (Acute) Functional quadriplegia (Acute) Leukocytosis (Acute) Parkinsons disease (Acute) Prophylactic measure (Acute) Seizures (Acute) TBI (traumatic brain injury) (Acute) Hospital Course: HOSPITAL COURSE: Date of Admission:03/14/19 Date of Discharge: 03/25/19 Problem List - Problems (1) TBI (traumatic brain injury) Assessment/Plan: TBI since Code(s): S06.9X9A - UNSP INTRACRANIAL INJURY W LOC OF UNSP DURATION, INIT (2) Bladder cancer Assessment/Plan: recent dx of bladder Ca Had radiation mapping but no treatments as of yet will resume care at [facility] home follow up with /oncologist at home on removal of bean Code(s): C67.9 - MALIGNANT NEOPLASM OF BLADDER, UNSPECIFIED (3) Fever Assessment/Plan: afebrile, last spike 03/21 @ 1630 completed course of cefipime. To c/w augmentin x 7 days Bacteriemia and UTI (ecoli) repeat blood cultures with no growth to date, Ucx ngtd (4) Leukocytosis Assessment/Plan: stable afebrile Code(s): D72.829 - ELEVATED WHITE BLOOD CELL COUNT, UNSPECIFIED (5) Hematuria Assessment/Plan: urine madi color with some sediment seen by and no intervention at this time bean recently changed flush bean PRN continue to monitor f/u with [facility] as outpt Code(s): R31.9 - HEMATURIA, UNSPECIFIED Qualifiers: Hematuria type: gross Qualified Code(s): R31.0 - Gross hematuria (6) UTI (urinary tract infection) Assessment/Plan: c/w augmentin Code(s): N39.0 - URINARY TRACT INFECTION, SITE NOT SPECIFIED Qualifiers: Urinary tract infection type: site unspecified Hematuria presence: with hematuria Qualified Code(s): N39.0 - Urinary tract infection, site not specified; R31.9 - Hematuria, unspecified (7) Prophylactic measure Assessment/Plan: FEN Fluids: adequate PO intake Electrolytes: stable Nutrition:soft diet, aspiration precautions DVT no s/s of dvt Dispo diascharge to home with services in place Code(s): Z29.9 - ENCOUNTER FOR PROPHYLACTIC MEASURES, UNSPECIFIED (8) Functional quadriplegia Assessment/Plan: r/t TBI requires assistance with all ADLs turn and reposition q 2h c/w speciality mattress Code(s): R53.2 - FUNCTIONAL QUADRIPLEGIA Condition: Improved - Instructions Diet, Activity, Other Instructions: DISCHARGE YOUR VISIT You came to the hospital because you had fevers and your home health aid could not wake you up. You were found to have an infection in your blood and was treated with antiobiotics. The urologist saw you and a urine catheter was placed. Follow uo with your oncologist/ doctor on when it can be removed. MEDICATIONS Please continue to take your home medications as prescribed. There was no changes Continue taking: Oscol Sinemet Multivitamins Zantac Seroquel Depakote Miralax DIET Continue your home diet ADDITIONAL CARE Please make an appointment to see your primary care provider, Dr Fu 1 week from today. ADDITIONAL INFORMATION Please call 911 or come directly to the emergency department if you experience unusual headache, vision change, shortness of breath, chest pain, numbness, tingling, loss of alertness/awareness, loss of function, unusual bleeding or any alarming symptoms. Thank you for allowing me to care for you. Omar Hsieh, WESLYP, [facility] [phone] Referrals: Varsha Fu MD [Staff Physician] - 1 Week Disposition: VNS/HOME HEALTH CARE - Home Medications Comprehensive Discharge Medication List: Ambulatory Orders Calcium 250Mg/Vit-D 125 Units [Oscal 250 mg+D -] 1 combo PO BID 03/16/19 Carbidopa/Levodopa *Cr* 50/200 03/16/19 Divalproex Sodium [Depakote] 250 mg PO BID 03/16/19 Quetiapine Fumarate [Seroquel -] 50 mg PO TID 03/16/19 Ranitidine Oral Solution [Zantac Oral Solution -] 150 tab DAILY 03/16/19 Acetaminophen [Tylenol .Regular Strength -] 650 mg PO Q6H PRN tablet 03/24/19 Calcium 250Mg/Vit-D 125 Units [Oscal 250 mg+D -] 2 tab PO DAILY tab 03/24/19 Carbidopa/Levodopa *Cr* 50/200 [Sinemet *Cr* 50/200 -] 1 combo PO TID tablet.er 03/24/19 LORazepam [Ativan] 0.5 mg PO TID PRN #60 tablet MDD 1.5mg 03/24/19 Polyethylene Glycol 3350 [Miralax 119 gm Btl -] 17 gm PO DAILY #6 bottle Quetiapine Fumarate [Seroquel -] 50 mg PO TID tablet 03/24/19 Problem List - Problems (1) TBI (traumatic brain injury) Code(s): S06.9X9A - UNSP INTRACRANIAL INJURY W LOC OF UNSP DURATION, INIT (2) Bladder cancer Code(s): C67.9 - MALIGNANT NEOPLASM OF BLADDER, UNSPECIFIED (3) Fever Code(s): R50.9 - FEVER, UNSPECIFIED (4) Leukocytosis Code(s): D72.829 - ELEVATED WHITE BLOOD CELL COUNT, UNSPECIFIED (5) Hematuria Code(s): R31.9 - HEMATURIA, UNSPECIFIED Qualifiers: Hematuria type: gross Qualified Code(s): R31.0 - Gross hematuria (6) UTI (urinary tract infection) Code(s): N39.0 - URINARY TRACT INFECTION, SITE NOT SPECIFIED Qualifiers: Urinary tract infection type: site unspecified Hematuria presence: with hematuria Qualified Code(s): N39.0 - Urinary tract infection, site not specified; R31.9 - Hematuria, unspecified (7) Prophylactic measure Code(s): Z29.9 - ENCOUNTER FOR PROPHYLACTIC MEASURES, UNSPECIFIED (8) Functional quadriplegia Code(s): R53.2 - FUNCTIONAL QUADRIPLEGIA This patient is new to me today: No Emergency Visit: Yes ED Registration Date: 03/14/19 Care time: The patient presented to the Emergency Department on the above date and was hospitalized for further evaluation of their emergent condition. Critical Care patient: No - Discharge Referral Referred to [facility] Med P.C.: No
[2019-03-25 13:45] LABS: URINE APPEARANCE TURBID; URINE BILIRUBIN NEGATIVE (NEGATIVE); URINE COLOR RED; URINE GLUCOSE (UA) NEGATIVE (NEGATIVE)
[2019-03-25 13:46] LABS: URINE KETONE NEGATIVE (NEGATIVE)
[2019-03-25 13:47] LABS: URINE LEUK ESTERASE MODERATE (NEGATIVE); URINE NITRITE NEGATIVE (NEGATIVE); URINE RBC 733.3 /hpf (0-4); URINE UROBILINOGEN 0.2 mg/dL (0.2-1.0); URINE WBC 868.4 /hpf (0-5)
[2019-03-25 13:48] LABS: EPI CELLS 16.4 /HPF (0-5/HPF); HYALINE CASTS 403.22 /lpf (0-8); URINE BACTERIA 28.2 /hpf (NEGATIVE); URINE PROTEIN 300 (NEGATIVE)
[2019-03-25] MEDS: ACETAMINOPHEN 325 MG TABLET (FP) PO PRN (16:36)
[2019-03-25] MEDS ORDERED: CEFAZOLIN 1 GM/D5W 1 GM/50 ML BAG IVPB SCH (17:00)
--- NOTE | 2019-03-25 17:00 | HOSP ---
Subjective - Review of Symptoms Events since last encounter: Fever to 101.2. Discharge on hold General: Yes: Chills Physical Examination Vital Signs: Vital Signs Temperature 101.2 F H 03/25/19 16:36 Pulse Rate 79 03/25/19 14:22 Respiratory Rate 20 03/25/19 14:22 Blood Pressure 119/69 03/25/19 14:22 O2 Sat by Pulse Oximetry (%) 96 03/25/19 09:00 Constitutional: Yes: No Distress, Calm Cardiovascular: Yes: WNL, Regular Rate and Rhythm Respiratory: Yes: WNL, Regular, CTA Bilaterally Gastrointestinal: Yes: WNL Renal/: Yes: Thao Present Labs: CBC, BMP 03/25/19 06:41 03/25/19 06:00 Hospitalist Encounter Assessment: Kd to 101.2. Discharge on hold. Cole cultured. Cefipime restarted.
[2019-03-25] MEDS ORDERED: AMOX TR/POT CLAV 500MG/125MG TABLETS (FP) PO SCH (17:30)
[2019-03-25] MEDS ORDERED: DEXTROSE 5%-WATER - 50 ML IVPB ONE (17:30)
[2019-03-25] MEDS ORDERED: ceFAZolin SODIUM 1 GM VIAL ONE (17:30)
[2019-03-25] MEDS: CEFAZOLIN 1 GM in DEXTROSE 5%-WATER - 50 ML IVPB SCH (17:34)
[2019-03-25] MEDS ORDERED: PT OWN MED DRAWER 7, Y5N ONE (21:45)
[2019-03-25] MEDS: LORazepam 0.5 MG TABLET PO PRN (22:13)
[2019-03-25] MEDS: DIVALPROEX SODIUM 250 MG TABLET E.C. PO SCH (22:14)
[2019-03-26] MEDS ORDERED: ceFAZolin SODIUM 1 GM VIAL ONE (01:48)
[2019-03-26] MEDS ORDERED: DEXTROSE 5%-WATER - 50 ML IVPB ONE ×3 (01:49→17:18)
[2019-03-26] MEDS: CEFAZOLIN 1 GM in DEXTROSE 5%-WATER - 50 ML IVPB SCH (02:00)
[2019-03-26] MEDS ORDERED: PT OWN MED DRAWER 7, Y5N ONE ×4 (05:27→21:40)
[2019-03-26] MEDS: QUEtiapine FUMARATE 50 MG TABLET PO SCH ×3 (05:33→22:06)
[2019-03-26] MEDS: ACETAMINOPHEN 325 MG TABLET (FP) PO PRN ×2 (05:33→18:40)
[2019-03-26] MEDS ORDERED: SODIUM CHLORIDE 0.9% 1000 ML INFUS.BAG IV SCH (09:30)
[2019-03-26] MEDS ORDERED: CEFTRIAXONE 1,000 MG in DEXTROSE 5%-WATER - 50 ML IVPB SCH (10:00)
--- NOTE | 2019-03-26 10:25 | PN ---
Progress Note, Physician History of Present Illness: started spiking again repeat cx send - Current Medication List Current Medications: Active Medications Acetaminophen (Tylenol -) 650 mg PO Q6H PRN PRN Reason: FEVER Last Admin: 03/26/19 05:33 Dose: 650 mg Calcium/Vitamin D (Oscal 250 Mg+D -) 2 tab PO DAILY [facility] Last Admin: 03/25/19 09:57 Dose: 2 tab Carbidopa/Levodopa (Sinemet *Cr* 50/200 -) 1 combo PO TID [facility] Last Admin: 03/26/19 05:33 Dose: 1 combo Divalproex Sodium (Depakote -) 250 mg PO BID [facility] Last Admin: 03/25/19 22:14 Dose: 250 mg Piperacillin Sod/Tazobactam (Sod 3.375 gm/ Dextrose) 50 mls @ 100 mls/hr IVPB Q8H-IV [facility]IAN; Protocol Multivitamins/Minerals/Vitamin C (Tab-A-Vit -) 1 tab PO DAILY [facility] Last Admin: 03/25/19 09:53 Dose: 1 tab Pantoprazole Sodium (Protonix Iv) 40 mg IVPUSH DAILY [facility] Last Admin: 03/25/19 09:51 Dose: 40 mg Polyethylene Glycol (Miralax (For Daily Use) -) 17 gm PO DAILY [facility] Last Admin: 03/25/19 09:50 Dose: 17 grams Quetiapine Fumarate (Seroquel -) 50 mg PO TID [facility] Last Admin: 03/26/19 05:33 Dose: 50 mg Sodium Chloride (Normal Saline -) 100 ml IV NOW [facility] - Objective Vital Signs: Vital Signs Temperature 100.1 F H 03/26/19 06:39 Pulse Rate 90 03/26/19 06:00 Respiratory Rate 18 03/26/19 06:00 Blood Pressure 105/60 03/26/19 06:00 O2 Sat by Pulse Oximetry (%) 97 03/25/19 21:00 Constitutional: Yes: No Distress, Calm Cardiovascular: Yes: S1, S2 Respiratory: Yes: Regular, CTA Bilaterally Gastrointestinal: Yes: Normal Bowel Sounds, Soft Genitourinary: Yes: Thao Present Musculoskeletal: Yes: WNL Extremities: Yes: WNL Neurological: Yes: Alert Psychiatric: Yes: Alert, Other Labs: CBC, BMP 03/25/19 06:41 03/25/19 06:00 INR, PTT INR 1.18 (0.83-1.09) H 03/14/19 10:00 Assessment/Plan Problem List - Problems (1) Bladder cancer Code(s): C67.9 - MALIGNANT NEOPLASM OF BLADDER, UNSPECIFIED (2) Fever Code(s): R50.9 - FEVER, UNSPECIFIED (3) Leukocytosis Code(s): D72.829 - ELEVATED WHITE BLOOD CELL COUNT, UNSPECIFIED (4) TBI (traumatic brain injury) Code(s): S06.9X9A - UNSP INTRACRANIAL INJURY W LOC OF UNSP DURATION, INIT (5) Hematuria Code(s): R31.9 - HEMATURIA, UNSPECIFIED Qualifiers: Hematuria type: gross Qualified Code(s): R31.0 - Gross hematuria uti gm negative bacteremia Assessment/Plan 58 y.o. female resident of a skilled nursing with PMH of traumatic brain injury and bladder CA on chemotherapy sent to ER for unresponsiveness and found to be febrile and have an elevated wbc Fever Leukocytosis AMS R/O UTI Hx of TBI Bladder CA on chemotherapy gm negative bacteremia plan continue current mgmt monitor fevers await for cx reports rest as per the team
[2019-03-26] MEDS: MULTIVITAMINS (DAILY MVI) TABLET (FP) PO SCH (10:28)
[2019-03-26] MEDS: DIVALPROEX SODIUM 250 MG TABLET E.C. PO SCH ×2 (10:28→22:06)
[2019-03-26] MEDS: CALCIUM 250MG/VIT-D 125 UNITS 1 COMBO TABLET PO SCH (10:28)
[2019-03-26] MEDS: PANTOPRAZOLE SODIUM 40 MG VIAL IVPUSH SCH (10:29)
[2019-03-26] MEDS: POLYETHYLENE GLYCOL 3350 119 GM BTL PO SCH (10:35)
[2019-03-26] MEDS ORDERED: PIPERACILLIN/TAZOBACTAM 3.375 GM VIAL IVPB ONE ×2 (10:42→17:18)
[2019-03-26] MEDS: PIPERACILLIN/TAZOB 3.375 GM 3.375 GM in DEXTROSE 5%-WATER - 50 ML IVPB SCH ×2 (10:46→17:30)
[2019-03-26] MEDS: SODIUM CHLORIDE 1,000 ML IV SCH (14:00)
[2019-03-26] MEDS ORDERED: HEPARIN NA (PORCINE) 5,000 UNITS/ML 1ML VIAL SQ SCH (14:15)
--- NOTE | 2019-03-26 14:16 | PN ---
Physical Exam: 58 F h/o TBI, seizures, bedbound, Parkinsons and recent bladder cancer diagnosis. Patient presents to the ED on 03/14/2019 from home after TRANSCRIPT EVALUATOR found patient to have worsening mental status. Patient found to have bacteremia on admission and was being treated with Cefepime IV for urosepsis due to bladder mass. Patient was scheduled for discharged to SNF yesterday until she spiked fevers Tmax 101.8F. Currently active, restarted on Zosyn, barlow-cultures sent. PE Constitutional: Yes: Mild Distress, Thin Eyes: Yes: WNL, Conjunctiva Clear, EOM Intact HENT: Yes: WNL, Atraumatic, Normocephalic Neck: Yes: WNL, Supple, Trachea Midline Cardiovascular: Yes: Regular Rate and Rhythm, Tachycardia Respiratory: Yes: Regular, CTA Bilaterally Gastrointestinal: Yes: WNL, Normal Bowel Sounds Renal/: Yes: Bean Present with sediment, no hematuria Breast(s): Yes: WNL Musculoskeletal: Yes: Joint Stiffness, Muscle Weakness, Other (contractures to UE/LE BL) Extremities: Yes: WNL Edema: Yes Edema: LLE: Trace, RLE: Trace Peripheral Pulses WNL: Yes Peripheral Pulses: Left Radial: 2+, Right Radial: 2+, Left Doralis Pedis: 2+, Right Dorsalis Pedis: 2+, Left Femoral: 2+, Right Femoral: 2+ Integumentary: Yes: WNL Neurological: Yes: Alert, Aphasia ...Motor Strength: LUE, LLE, RUE, RLE (all extrem weak, UE stregth 3/5, LE 1/5) Psychiatric: Yes: Alert Vital Signs - 24 hr 03/25/19 03/25/19 03/25/19 14:22 16:36 17:53 Temperature 98.5 F 101.2 F H 99.9 F H Pulse Rate 79 Respiratory 20 Rate Blood Pressure 119/69 O2 Sat by Pulse Oximetry (%) 03/25/19 03/25/19 03/25/19 18:00 21:00 22:00 Temperature 98.0 F Pulse Rate Respiratory 20 18 17 Rate Blood Pressure 98/61 90/60 O2 Sat by Pulse 97 Oximetry (%) 03/26/19 03/26/19 03/26/19 02:00 06:00 06:39 Temperature 99.4 F 101.8 F H 100.1 F H Pulse Rate 90 Respiratory 18 18 Rate Blood Pressure 96/57 L 105/60 O2 Sat by Pulse Oximetry (%) 03/26/19 10:00 Temperature 98.2 F Pulse Rate 70 Respiratory 20 Rate Blood Pressure 93/58 L O2 Sat by Pulse 97 Oximetry (%) Microbiology 03/23/19 08:20 Blood - Peripheral Venous Blood Culture - Preliminary NO GROWTH OBTAINED AFTER 72 HOURS, INCUBATION TO CONTINUE FOR 2 DAYS. 03/23/19 08:20 Blood - Peripheral Venous Blood Culture - Preliminary NO GROWTH OBTAINED AFTER 72 HOURS, INCUBATION TO CONTINUE FOR 2 DAYS. 03/25/19 08:30 Urine - Urine Bean Urine Culture - Final NO GROWTH OBTAINED 03/16/19 07:33 Blood - Peripheral Venous Blood Culture - Final NO GROWTH AFTER 5 DAYS INCUBATION 03/16/19 07:40 Blood - Peripheral Venous Blood Culture - Final NO GROWTH AFTER 5 DAYS INCUBATION 03/14/19 10:00 Blood - Peripheral Venous Blood Culture - Final Non Lactose Fermenting Gnb 03/14/19 10:30 Blood - Peripheral Venous Blood Culture - Final Escherichia Coli 03/14/19 10:00 Urine - Urine - Catheterized Urine Culture - Final Escherichia Coli Home Medications Medication Instructions Recorded Calcium 250Mg/Vit-D 125 Units 1 combo PO BID 03/16/19 [Oscal 250 mg+D -] Carbidopa/Levodopa *Cr* 50/200 03/16/19 Divalproex Sodium [Depakote] 250 mg PO BID 03/16/19 Quetiapine Fumarate [Seroquel -] 50 mg PO TID 03/16/19 Ranitidine Oral Solution [Zantac 150 tab DAILY 03/16/19 Oral Solution -] Acetaminophen [Tylenol .Regular 650 mg PO Q6H PRN tablet 03/24/19 Strength -] Calcium 250Mg/Vit-D 125 Units 2 tab PO DAILY tab 03/24/19 [Oscal 250 mg+D -] Carbidopa/Levodopa *Cr* 50/200 1 combo PO TID tablet.er 03/24/19 [Sinemet *Cr* 50/200 -] LORazepam [Ativan] 0.5 mg PO TID PRN #60 tablet MDD 03/24/19 1.5mg Polyethylene Glycol 3350 [Miralax 17 gm PO DAILY #6 bottle 03/24/19 119 gm Btl -] Quetiapine Fumarate [Seroquel -] 50 mg PO TID tablet 03/24/19 Amox-Tr/K Cl [Augmentin 500-125mg 1 tab PO BID@0800,1730 #14 tablet 03/25/19 Tablet -] Current Medications Generic Name Dose Route Start Last Admin Trade Name Freq PRN Reason Stop Dose Admin Acetaminophen 650 mg 03/17/19 16:12 03/26/19 05:33 Tylenol - PO 650 mg Q6H PRN Administration FEVER Calcium/Vitamin D 2 tab 03/16/19 11:30 03/26/19 10:28 Oscal 250 Mg+D - PO 2 tab DAILY [facility] Administration Carbidopa/Levodopa 1 combo 03/16/19 14:00 03/26/19 05:33 Sinemet *Cr* 50/200 - PO 1 combo TID [facility] Administration Divalproex Sodium 250 mg 03/25/19 22:00 03/26/19 10:28 Depakote - PO 250 mg BID [facility] Administration Heparin Sodium (Porcine) 5,000 unit 03/26/19 14:15 Heparin - SQ TID [facility] Piperacillin Sod/Tazobactam 50 mls @ 100 mls/hr 03/26/19 10:00 Sod 3.375 gm/ Dextrose IVPB Q8H-IV [facility] Protocol Piperacillin Sod/Tazobactam 50 mls @ 100 mls/hr 03/26/19 10:30 03/26/19 10:46 Sod 3.375 gm/ Dextrose IVPB 03/27/19 10:29 100 mls/hr Q8H-IV [facility] Administration Protocol Multivitamins/Minerals/Vitamin C 1 tab 03/16/19 11:30 03/26/19 10:28 Tab-A-Vit - PO 1 tab DAILY [facility] Administration Pantoprazole Sodium 40 mg 03/20/19 10:00 03/26/19 10:29 Protonix Iv IVPUSH 40 mg DAILY [facility] Administration Polyethylene Glycol 17 gm 03/18/19 17:15 03/26/19 10:35 Miralax (For Daily Use) - PO 17 grams DAILY [facility] Administration Quetiapine Fumarate 50 mg 03/16/19 14:00 03/26/19 05:33 Seroquel - PO 50 mg TID [facility] Administration Sodium Chloride 100 ml 03/26/19 09:30 Normal Saline - IV NOW [facility] A/P: 58 F h/o TBI, seizures, bedbound, Parkinsons and recent bladder cancer diagnosis admitted for urosepsis, resolved, now spiking fevers again since last night. Zosyn started, pending barlow-culture. Urosepsis IVF, restart abx with Zosyn pending cultures, obtain barlow-cultures, repeat CXR showing ?LLL infiltrate v.s. atelectasis change bean catheter if more than [address] Muhammad Bladder cancer has follow up at [facility] prone to repeat UTIs in view of bladder tumor Urology consult: Dr. Mik Rojas TBI with seizure disorder Cont. Seizure meds, no active seizures during admission Parkinson's disease cont. Sinemet 50/200mg daily DVT ppx: SCD/ESPERANZA for now until hematuria clears FEN IVF/daily lytes/soft diet Visit type - Emergency Visit Emergency Visit: Yes ED Registration Date: 03/14/19 Care time: The patient presented to the Emergency Department on the above date and was hospitalized for further evaluation of their emergent condition. - New Patient This patient is new to me today: Yes Date on this admission: 03/26/19 - Critical Care Critical Care patient: No - Discharge Referral Referred to [facility] Med P.C.: No
[2019-03-26] MEDS ORDERED: LORazepam 0.5 MG TABLET PO PRN (18:48)
[2019-03-27] MEDS ORDERED: PIPERACILLIN/TAZOBACTAM 3.375 GM VIAL IVPB ONE ×3 (00:09→20:46)
[2019-03-27] MEDS ORDERED: DEXTROSE 5%-WATER - 50 ML IVPB ONE ×3 (00:09→20:47)
[2019-03-27] MEDS: PIPERACILLIN/TAZOB 3.375 GM 3.375 GM in DEXTROSE 5%-WATER - 50 ML IVPB SCH ×4 (02:08→20:58)
[2019-03-27] MEDS: QUEtiapine FUMARATE 50 MG TABLET PO SCH ×3 (06:41→21:03)
[2019-03-27] MEDS: ACETAMINOPHEN 325 MG TABLET (FP) PO PRN ×2 (07:44→22:24)
[2019-03-27] MEDS: SODIUM CHLORIDE 1,000 ML IV SCH ×2 (07:44→11:49)
[2019-03-27] MEDS: PANTOPRAZOLE SODIUM 40 MG VIAL IVPUSH SCH (09:42)
[2019-03-27] MEDS: MULTIVITAMINS (DAILY MVI) TABLET (FP) PO SCH (09:42)
[2019-03-27] MEDS: CALCIUM 250MG/VIT-D 125 UNITS 1 COMBO TABLET PO SCH (09:43)
[2019-03-27] MEDS: DIVALPROEX SODIUM 250 MG TABLET E.C. PO SCH ×2 (09:43→21:03)
[2019-03-27] MEDS: POLYETHYLENE GLYCOL 3350 119 GM BTL PO SCH (09:44)
--- NOTE | 2019-03-27 17:32 | PN ---
Progress Note, Physician History of Present Illness: Pt is arousable, without distress. Temp of 101.5F this a.m. but afebrile since. +bloody urine in bean. - Current Medication List Current Medications: Active Medications Acetaminophen (Tylenol -) 650 mg PO Q6H PRN PRN Reason: FEVER Last Admin: 03/27/19 07:44 Dose: 650 mg Calcium/Vitamin D (Oscal 250 Mg+D -) 2 tab PO DAILY [facility] Last Admin: 03/27/19 09:43 Dose: 2 tab Carbidopa/Levodopa (Sinemet *Cr* 50/200 -) 1 combo PO TID [facility] Last Admin: 03/27/19 14:48 Dose: 1 combo Divalproex Sodium (Depakote -) 250 mg PO BID [facility] Last Admin: 03/27/19 09:43 Dose: 250 mg Piperacillin Sod/Tazobactam (Sod 3.375 gm/ Dextrose) 50 mls @ 100 mls/hr IVPB Q8H-IV [facility]; Protocol Sodium Chloride (Normal Saline -) 1,000 mls @ 125 mls/hr IV ASDIR [facility] Last Admin: 03/27/19 11:49 Dose: 125 mls/hr Multivitamins/Minerals/Vitamin C (Tab-A-Vit -) 1 tab PO DAILY [facility] Last Admin: 03/27/19 09:42 Dose: 1 tab Pantoprazole Sodium (Protonix Iv) 40 mg IVPUSH DAILY [facility] Last Admin: 03/27/19 09:42 Dose: 40 mg Polyethylene Glycol (Miralax (For Daily Use) -) 17 gm PO DAILY [facility] Last Admin: 03/27/19 09:44 Dose: 17 grams Quetiapine Fumarate (Seroquel -) 50 mg PO TID [facility] Last Admin: 03/27/19 14:48 Dose: 50 mg - Objective Vital Signs: Vital Signs Temperature 98.0 F 03/27/19 14:41 Pulse Rate 76 03/27/19 14:41 Respiratory Rate 18 03/27/19 14:41 Blood Pressure 94/58 L 03/27/19 14:41 O2 Sat by Pulse Oximetry (%) 97 03/27/19 09:00 Constitutional: Yes: No Distress Cardiovascular: Yes: Regular Rate and Rhythm Respiratory: Yes: Other (poor inspiratory effort, anterior clear) Gastrointestinal: Yes: Normal Bowel Sounds, Soft Genitourinary: Yes: Bean Present, Hematuria Edema: No Integumentary: Yes: WNL Neurological: Yes: Alert Labs: CBC, BMP 03/25/19 06:41 03/25/19 06:00 INR, PTT INR 1.18 (0.83-1.09) H 03/14/19 10:00 Microbiology 03/23/19 08:20 Blood - Peripheral Venous Blood Culture - Preliminary NO GROWTH OBTAINED AFTER 96 HOURS, INCUBATION TO CONTINUE FOR 1 DAYS. 03/23/19 08:20 Blood - Peripheral Venous Blood Culture - Preliminary NO GROWTH OBTAINED AFTER 96 HOURS, INCUBATION TO CONTINUE FOR 1 DAYS. 03/25/19 18:40 Blood - Peripheral Venous Blood Culture - Preliminary NO GROWTH OBTAINED AFTER 24 HOURS, INCUBATION TO CONTINUE FOR 4 DAYS. 03/25/19 18:40 Blood - Peripheral Venous Blood Culture - Preliminary NO GROWTH OBTAINED AFTER 24 HOURS, INCUBATION TO CONTINUE FOR 4 DAYS. 03/25/19 08:30 Urine - Urine Bean Urine Culture - Final NO GROWTH OBTAINED 03/16/19 07:33 Blood - Peripheral Venous Blood Culture - Final NO GROWTH AFTER 5 DAYS INCUBATION 03/16/19 07:40 Blood - Peripheral Venous Blood Culture - Final NO GROWTH AFTER 5 DAYS INCUBATION 03/14/19 10:00 Blood - Peripheral Venous Blood Culture - Final Non Lactose Fermenting Gnb 03/14/19 10:30 Blood - Peripheral Venous Blood Culture - Final Escherichia Coli 03/14/19 10:00 Urine - Urine - Catheterized Urine Culture - Final Escherichia Coli - ....Imaging Chest X-ray: Report Reviewed (? Lt basilar atelectasis vs infiltrate) Problem List - Problems (1) Bladder cancer Code(s): C67.9 - MALIGNANT NEOPLASM OF BLADDER, UNSPECIFIED (2) Fever Code(s): R50.9 - FEVER, UNSPECIFIED (3) Leukocytosis Code(s): D72.829 - ELEVATED WHITE BLOOD CELL COUNT, UNSPECIFIED (4) TBI (traumatic brain injury) Code(s): S06.9X9A - UNSP INTRACRANIAL INJURY W LOC OF UNSP DURATION, INIT (5) Hematuria Code(s): R31.9 - HEMATURIA, UNSPECIFIED Qualifiers: Hematuria type: gross Qualified Code(s): R31.0 - Gross hematuria Assessment/Plan Fever Leukocytosis AMS R/O UTI Hx of TBI Bladder CA on chemotherapy hematuria -- Pt with recurrence of fever yesterday, wbc elevated -- started on Zosyn empirically -- ? developing PNA -- blood cultures neg 24h, urine culture neg -- monitor wbc/temp trends, monitor vitals closely, currently on IVFs
--- NOTE | 2019-03-27 18:13 | PN ---
Physical Exam: 58 F h/o TBI, seizures, bedbound, Parkinsons and recent bladder cancer diagnosis. Patient presents to the ED on 03/14/2019 from home after MATERNAL FETAL PHYSICIAN found patient to have worsening mental status. Patient found to have bacteremia on admission and was being treated with Cefepime IV for urosepsis due to bladder mass. Patient was scheduled for discharged to SNF until she spiked fevers Tmax 101.8F. Currently active, restarted on Zosyn for ?developing PNA, barlow-cultures negative so far. VS otherwise stable. PE Constitutional: Yes: thin, deconditioned, contracted Eyes: Yes: WNL, Conjunctiva Clear, EOM Intact HENT: Yes: WNL, Atraumatic, Normocephalic Neck: Yes: WNL, Supple, Trachea Midline Cardiovascular: Yes: Regular Rate and Rhythm, Tachycardia Respiratory: Yes: Regular, CTA Bilaterally Gastrointestinal: Yes: WNL, Normal Bowel Sounds Renal/: Yes: Bean Present with sediment, no hematuria Breast(s): Yes: WNL Musculoskeletal: Yes: Joint Stiffness, Muscle Weakness, Other (contractures to UE/LE BL) Extremities: Yes: WNL Edema: Yes Edema: LLE: Trace, RLE: Trace Peripheral Pulses WNL: Yes Peripheral Pulses: Left Radial: 2+, Right Radial: 2+, Left Doralis Pedis: 2+, Right Dorsalis Pedis: 2+, Left Femoral: 2+, Right Femoral: 2+ Integumentary: Yes: WNL Neurological: Yes: Alert, Aphasia ...Motor Strength: LUE, LLE, RUE, RLE (all extrem weak, UE stregth 3/5, LE 1/5) Psychiatric: Yes: Alert Vital Signs - 24 hr 03/26/19 03/27/19 03/27/19 21:00 01:52 06:00 Temperature 98.7 F 101.5 F H Pulse Rate 79 94 H Respiratory 20 20 20 Rate Blood Pressure 97/61 94/58 L O2 Sat by Pulse 97 Oximetry (%) 03/27/19 03/27/19 03/27/19 09:00 09:40 14:41 Temperature 98.8 F 98.0 F Pulse Rate 81 76 Respiratory 18 18 18 Rate Blood Pressure 84/52 L 94/58 L O2 Sat by Pulse 97 Oximetry (%) Microbiology 03/23/19 08:20 Blood - Peripheral Venous Blood Culture - Preliminary NO GROWTH OBTAINED AFTER 96 HOURS, INCUBATION TO CONTINUE FOR 1 DAYS. 03/23/19 08:20 Blood - Peripheral Venous Blood Culture - Preliminary NO GROWTH OBTAINED AFTER 96 HOURS, INCUBATION TO CONTINUE FOR 1 DAYS. 03/25/19 18:40 Blood - Peripheral Venous Blood Culture - Preliminary NO GROWTH OBTAINED AFTER 24 HOURS, INCUBATION TO CONTINUE FOR 4 DAYS. 03/25/19 18:40 Blood - Peripheral Venous Blood Culture - Preliminary NO GROWTH OBTAINED AFTER 24 HOURS, INCUBATION TO CONTINUE FOR 4 DAYS. 03/25/19 08:30 Urine - Urine Bean Urine Culture - Final NO GROWTH OBTAINED 03/16/19 07:33 Blood - Peripheral Venous Blood Culture - Final NO GROWTH AFTER 5 DAYS INCUBATION 03/16/19 07:40 Blood - Peripheral Venous Blood Culture - Final NO GROWTH AFTER 5 DAYS INCUBATION 03/14/19 10:00 Blood - Peripheral Venous Blood Culture - Final Non Lactose Fermenting Gnb 03/14/19 10:30 Blood - Peripheral Venous Blood Culture - Final Escherichia Coli 03/14/19 10:00 Urine - Urine - Catheterized Urine Culture - Final Escherichia Coli Laboratory Tests 03/14/19 03/14/19 03/14/19 10:00 10:00 10:00 WBC 22.7 H RBC 3.76 Hgb 10.2 L Hct 31.5 L MCV 83.9 MCH 27.1 MCHC 32.3 RDW 15.8 H Plt Count 175 MPV 7.5 Absolute Neuts (auto) 18.4 H Neutrophils % 81.0 Neutrophils % (Manual) 73.2 Band Neutrophils % 5.2 Lymphocytes % 6.7 L D Lymphocytes % (Manual) 5.2 L Monocytes % 11.9 H Monocytes % (Manual) 11 H Eosinophils % 0.2 D Eosinophils % (Manual) 0.0 Basophils % 0.2 Basophils % (Manual) 1.0 Myelocytes % (Man) 0 Promyelocytes % (Man) 0 Blast Cells % (Manual) 0 Nucleated RBC % 0 Metamyelocytes 0 Hypochromia 0 Platelet Estimate Normal Polychromasia 1+ Poikilocytosis 1+ Anisocytosis 1+ Microcytosis 1+ Macrocytosis 0 Ovalocytes 1+ [place] Cells 1+ Retic Count Haptoglobin PT with INR 14.00 H INR 1.18 H PTT (Actin FS) 30.6 VBG pH POC VBG pCO2 POC VBG pO2 VBG HCO3 VBG O2 Sat (Maximo) VBG Base Excess Sodium Potassium Chloride Carbon Dioxide Anion Gap BUN Creatinine Est GFR (CKD-EPI)AfAm Est GFR (CKD-EPI)NonAf Random Glucose Lactic Acid Calcium Magnesium Iron TIBC Iron Saturation Unsaturated IBC Ferritin Total Bilirubin AST ALT Alkaline Phosphatase LD Total Troponin I Total Protein Albumin Vitamin B12 Serum Folate TSH Urine Color Yellow Urine Appearance Cloudy Urine pH 8.0 D Ur Specific [place] 1.011 Urine Protein 3+ H Urine Glucose (UA) Negative Urine Ketones Negative Urine Blood 3+ H Urine Nitrite Negative Urine Bilirubin Negative Urine Urobilinogen 1.0 Ur Leukocyte Esterase 3+ H Urine WBC (Auto) 2443.5 Urine RBC (Auto) 440.6 Urine Casts (Auto) 1822.22 U Pathogenic Cast Auto U Epithel Cells (Auto) 232.8 Urine Crystals (Auto) Moderate Urine Bacteria (Auto) Many Calcium Oxalate Crystal Cancelled Uric Acid Crystals Cancelled Triple Phos Crystals Cancelled Amorphous Phosphates Cancelled Amorphous Urates Cancelled Amorphous Sediment Cancelled Hyaline Casts Cancelled Granular Casts Cancelled Waxy Casts Cancelled RBC Casts Cancelled WBC Casts Cancelled Urine Mucus Cancelled Urine Other Cancelled Urine Trichomonas Cancelled Stool Occult Blood Valproic Acid Influenza A (Rapid) Influenza B (Rapid) Blood Type Antibody Screen Crossmatch 03/14/19 03/14/19 03/14/19 10:00 10:00 13:00 WBC RBC Hgb Hct MCV MCH MCHC RDW Plt Count MPV Absolute Neuts (auto) Neutrophils % Neutrophils % (Manual) Band Neutrophils % Lymphocytes % Lymphocytes % (Manual) Monocytes % Monocytes % (Manual) Eosinophils % Eosinophils % (Manual) Basophils % Basophils % (Manual) Myelocytes % (Man) Promyelocytes % (Man) Blast Cells % (Manual) Nucleated RBC % Metamyelocytes Hypochromia Platelet Estimate Polychromasia Poikilocytosis Anisocytosis Microcytosis Macrocytosis Ovalocytes [place] Cells Retic Count Haptoglobin PT with INR INR PTT (Actin FS) VBG pH 7.41 POC VBG pCO2 43.9 POC VBG pO2 < 49 H VBG HCO3 27.5 VBG O2 Sat (Maximo) 50.1 L VBG Base Excess 3.1 H Sodium 139 Potassium 4.3 Chloride 104 Carbon Dioxide 28 Anion Gap 6 L BUN 12.7 Creatinine 1.2 Est GFR (CKD-EPI)AfAm 57.29 Est GFR (CKD-EPI)NonAf 49.43 Random Glucose 100 Lactic Acid 2.3 H* Calcium 9.0 Magnesium Iron TIBC Iron Saturation Unsaturated IBC Ferritin Total Bilirubin 0.4 AST 26 ALT 11 L Alkaline Phosphatase 74 LD Total Troponin I < 0.02 Total Protein 6.4 Albumin 2.7 L Vitamin B12 Serum Folate TSH Urine Color Urine Appearance Urine pH Ur Specific [place] Urine Protein Urine Glucose (UA) Urine Ketones Urine Blood Urine Nitrite Urine Bilirubin Urine Urobilinogen Ur Leukocyte Esterase Urine WBC (Auto) Urine RBC (Auto) Urine Casts (Auto) U Pathogenic Cast Auto U Epithel Cells (Auto) Urine Crystals (Auto) Urine Bacteria (Auto) Calcium Oxalate Crystal Uric Acid Crystals Triple Phos Crystals Amorphous Phosphates Amorphous Urates Amorphous Sediment Hyaline Casts Granular Casts Waxy Casts RBC Casts WBC Casts Urine Mucus Urine Other Urine Trichomonas Stool Occult Blood Valproic Acid Influenza A (Rapid) Influenza B (Rapid) Blood Type Antibody Screen Crossmatch 03/14/19 03/14/19 03/15/19 13:00 13:40 07:38 WBC 16.8 H RBC 3.01 L Hgb 8.2 L Hct 25.2 L D MCV 83.8 MCH 27.1 MCHC 32.3 RDW 15.5 Plt Count 118 L D MPV 7.3 L Absolute Neuts (auto) 13.1 H Neutrophils % 78.3 Neutrophils % (Manual) Band Neutrophils % Lymphocytes % 10.0 D Lymphocytes % (Manual) Monocytes % 11.3 H Monocytes % (Manual) Eosinophils % 0.1 Eosinophils % (Manual) Basophils % 0.3 Basophils % (Manual) Myelocytes % (Man) Promyelocytes % (Man) Blast Cells % (Manual) Nucleated RBC % 0 Metamyelocytes Hypochromia Platelet Estimate Polychromasia Poikilocytosis Anisocytosis Microcytosis Macrocytosis Ovalocytes [place] Cells Retic Count Haptoglobin PT with INR INR PTT (Actin FS) VBG pH POC VBG pCO2 POC VBG pO2 VBG HCO3 VBG O2 Sat (Maximo) VBG Base Excess Sodium Potassium Chloride Carbon Dioxide Anion Gap BUN Creatinine Est GFR (CKD-EPI)AfAm Est GFR (CKD-EPI)NonAf Random Glucose Lactic Acid 1.6 Calcium Magnesium Iron TIBC Iron Saturation Unsaturated IBC Ferritin Total Bilirubin AST ALT Alkaline Phosphatase LD Total Troponin I Total Protein Albumin Vitamin B12 Serum Folate TSH Urine Color Urine Appearance Urine pH Ur Specific [place] Urine Protein Urine Glucose (UA) Urine Ketones Urine Blood Urine Nitrite Urine Bilirubin Urine Urobilinogen Ur Leukocyte Esterase Urine WBC (Auto) Urine RBC (Auto) Urine Casts (Auto) U Pathogenic Cast Auto U Epithel Cells (Auto) Urine Crystals (Auto) Urine Bacteria (Auto) Calcium Oxalate Crystal Uric Acid Crystals Triple Phos Crystals Amorphous Phosphates Amorphous Urates Amorphous Sediment Hyaline Casts Granular Casts Waxy Casts RBC Casts WBC Casts Urine Mucus Urine Other Urine Trichomonas Stool Occult Blood Valproic Acid Influenza A (Rapid) Negative Influenza B (Rapid) Negative Blood Type Antibody Screen Crossmatch 03/15/19 03/16/19 03/16/19 07:38 07:33 07:33 WBC 12.7 H RBC 2.75 L Hgb 7.5 L Hct 22.9 L MCV 83.2 MCH 27.4 MCHC 32.9 RDW 15.7 H Plt Count 131 L MPV 7.6 Absolute Neuts (auto) 9.8 H Neutrophils % 76.9 Neutrophils % (Manual) Band Neutrophils % Lymphocytes % 10.2 Lymphocytes % (Manual) Monocytes % 10.9 H Monocytes % (Manual) Eosinophils % 1.7 D Eosinophils % (Manual) Basophils % 0.3 Basophils % (Manual) Myelocytes % (Man) Promyelocytes % (Man) Blast Cells % (Manual) Nucleated RBC % 0 Metamyelocytes Hypochromia Platelet Estimate Polychromasia Poikilocytosis Anisocytosis Microcytosis Macrocytosis Ovalocytes [place] Cells Retic Count Haptoglobin PT with INR INR PTT (Actin FS) VBG pH POC VBG pCO2 POC VBG pO2 VBG HCO3 VBG O2 Sat (Maximo) VBG Base Excess Sodium 141 139 Potassium 3.7 3.5 Chloride 110 H 108 H Carbon Dioxide 24 26 Anion Gap 7 L 6 L BUN 16.3 17.6 Creatinine 1.1 0.9 Est GFR (CKD-EPI)AfAm 63.64 81.11 Est GFR (CKD-EPI)NonAf 54.91 69.99 Random Glucose 86 84 Lactic Acid Calcium 8.3 L 8.3 L Magnesium 1.9 2.0 Iron 8 L TIBC 184 L Iron Saturation 4 L Unsaturated IBC 176 L Ferritin 147.5 Total Bilirubin 0.6 1.0 AST 25 25 ALT 17 17 Alkaline Phosphatase 58 57 LD Total Troponin I Total Protein 5.2 L 5.0 L Albumin 2.2 L 2.0 L Vitamin B12 Serum Folate TSH Urine Color Urine Appearance Urine pH Ur Specific [place] Urine Protein Urine Glucose (UA) Urine Ketones Urine Blood Urine Nitrite Urine Bilirubin Urine Urobilinogen Ur Leukocyte Esterase Urine WBC (Auto) Urine RBC (Auto) Urine Casts (Auto) U Pathogenic Cast Auto U Epithel Cells (Auto) Urine Crystals (Auto) Urine Bacteria (Auto) Calcium Oxalate Crystal Uric Acid Crystals Triple Phos Crystals Amorphous Phosphates Amorphous Urates Amorphous Sediment Hyaline Casts Granular Casts Waxy Casts RBC Casts WBC Casts Urine Mucus Urine Other Urine Trichomonas Stool Occult Blood Valproic Acid Influenza A (Rapid) Influenza B (Rapid) Blood Type Antibody Screen Crossmatch 03/16/19 03/17/19 03/17/19 13:30 07:03 07:03 WBC 9.9 RBC 2.81 L Hgb 7.7 L Hct 23.4 L MCV 83.3 MCH 27.3 MCHC 32.8 RDW 15.7 H Plt Count 153 MPV 7.4 L Absolute Neuts (auto) 7.2 Neutrophils % 72.7 Neutrophils % (Manual) Band Neutrophils % Lymphocytes % 10.2 Lymphocytes % (Manual) Monocytes % 10.4 H Monocytes % (Manual) Eosinophils % 6.3 H D Eosinophils % (Manual) Basophils % 0.4 Basophils % (Manual) Myelocytes % (Man) Promyelocytes % (Man) Blast Cells % (Manual) Nucleated RBC % 0 Metamyelocytes Hypochromia Platelet Estimate Polychromasia Poikilocytosis Anisocytosis Microcytosis Macrocytosis Ovalocytes [place] Cells Retic Count Haptoglobin PT with INR INR PTT (Actin FS) VBG pH POC VBG pCO2 POC VBG pO2 VBG HCO3 VBG O2 Sat (Maximo) VBG Base Excess Sodium 141 Potassium 3.6 Chloride 110 H Carbon Dioxide 26 Anion Gap 6 L BUN 15.6 Creatinine 0.8 Est GFR (CKD-EPI)AfAm 93.53 Est GFR (CKD-EPI)NonAf 80.70 Random Glucose 96 Lactic Acid Calcium 8.2 L Magnesium 1.8 Iron TIBC Iron Saturation Unsaturated IBC Ferritin Total Bilirubin 0.5 AST 23 ALT < 6 L Alkaline Phosphatase 60 LD Total Troponin I Total Protein 4.8 L Albumin 1.9 L Vitamin B12 Serum Folate TSH Urine Color Urine Appearance Urine pH Ur Specific [place] Urine Protein Urine Glucose (UA) Urine Ketones Urine Blood Urine Nitrite Urine Bilirubin Urine Urobilinogen Ur Leukocyte Esterase Urine WBC (Auto) Urine RBC (Auto) Urine Casts (Auto) U Pathogenic Cast Auto U Epithel Cells (Auto) Urine Crystals (Auto) Urine Bacteria (Auto) Calcium Oxalate Crystal Uric Acid Crystals Triple Phos Crystals Amorphous Phosphates Amorphous Urates Amorphous Sediment Hyaline Casts Granular Casts Waxy Casts RBC Casts WBC Casts Urine Mucus Urine Other Urine Trichomonas Stool Occult Blood Valproic Acid 22.5 L Influenza A (Rapid) Influenza B (Rapid) Blood Type Antibody Screen Crossmatch 03/18/19 03/18/19 03/18/19 00:50 07:07 07:07 WBC 9.4 RBC 2.76 L Hgb 7.6 L Hct 23.1 L MCV 83.6 MCH 27.6 MCHC 33.0 RDW 15.5 Plt Count 175 MPV 7.8 Absolute Neuts (auto) 5.9 Neutrophils % 62.5 Neutrophils % (Manual) Band Neutrophils % Lymphocytes % 14.3 D Lymphocytes % (Manual) Monocytes % 13.9 H Monocytes % (Manual) Eosinophils % 8.9 H Eosinophils % (Manual) Basophils % 0.4 Basophils % (Manual) Myelocytes % (Man) Promyelocytes % (Man) Blast Cells % (Manual) Nucleated RBC % 0 Metamyelocytes Hypochromia Platelet Estimate Polychromasia Poikilocytosis Anisocytosis Microcytosis Macrocytosis Ovalocytes Ruth Cells Retic Count Haptoglobin PT with INR INR PTT (Actin FS) VBG pH POC VBG pCO2 POC VBG pO2 VBG HCO3 VBG O2 Sat (Maximo) VBG Base Excess Sodium 139 Potassium 3.7 Chloride 106 Carbon Dioxide 27 Anion Gap 6 L BUN 13.2 Creatinine 0.8 Est GFR (CKD-EPI)AfAm 93.53 Est GFR (CKD-EPI)NonAf 80.70 Random Glucose 83 Lactic Acid Calcium 7.8 L Magnesium 1.9 Iron TIBC Iron Saturation Unsaturated IBC Ferritin Total Bilirubin 0.4 AST 26 ALT < 6 L Alkaline Phosphatase 68 LD Total Troponin I Total Protein 4.9 L Albumin 1.9 L Vitamin B12 Serum Folate TSH 4.40 H Urine Color Yellow Urine Appearance Cloudy Urine pH 6.5 Ur Specific [place] 1.010 Urine Protein 100 Urine Glucose (UA) Negative Urine Ketones Negative Urine Blood Moderate Urine Nitrite Negative Urine Bilirubin Negative Urine Urobilinogen 0.2 Ur Leukocyte Esterase Moderate Urine WBC (Auto) 95 Urine RBC (Auto) 2 Urine Casts (Auto) 487 U Pathogenic Cast Auto None seen U Epithel Cells (Auto) 1.5 Urine Crystals (Auto) Urine Bacteria (Auto) 29.9 Calcium Oxalate Crystal Uric Acid Crystals Triple Phos Crystals Amorphous Phosphates Amorphous Urates Amorphous Sediment Hyaline Casts Granular Casts Waxy Casts RBC Casts WBC Casts Urine Mucus Urine Other Urine Trichomonas Stool Occult Blood Valproic Acid Influenza A (Rapid) Influenza B (Rapid) Blood Type Antibody Screen Crossmatch 03/18/19 03/18/19 03/18/19 07:07 07:07 07:07 WBC RBC Hgb Hct MCV MCH MCHC RDW Plt Count MPV Absolute Neuts (auto) Neutrophils % Neutrophils % (Manual) Band Neutrophils % Lymphocytes % Lymphocytes % (Manual) Monocytes % Monocytes % (Manual) Eosinophils % Eosinophils % (Manual) Basophils % Basophils % (Manual) Myelocytes % (Man) Promyelocytes % (Man) Blast Cells % (Manual) Nucleated RBC % Metamyelocytes Hypochromia Platelet Estimate Polychromasia Poikilocytosis Anisocytosis Microcytosis Macrocytosis Ovalocytes Ruth Cells Retic Count 1.62 H Haptoglobin PT with INR INR PTT (Actin FS) VBG pH POC VBG pCO2 POC VBG pO2 VBG HCO3 VBG O2 Sat (Maximo) VBG Base Excess Sodium Potassium Chloride Carbon Dioxide Anion Gap BUN Creatinine Est GFR (CKD-EPI)AfAm Est GFR (CKD-EPI)NonAf Random Glucose Lactic Acid Calcium Magnesium Iron 9 L TIBC 175 L Iron Saturation 5 L Unsaturated IBC 166 L Ferritin 255.5 Total Bilirubin AST ALT Alkaline Phosphatase LD Total 178 Troponin I Total Protein Albumin Vitamin B12 1312 H Serum Folate 20 H TSH Urine Color Urine Appearance Urine pH Ur Specific [place] Urine Protein Urine Glucose (UA) Urine Ketones Urine Blood Urine Nitrite Urine Bilirubin Urine Urobilinogen Ur Leukocyte Esterase Urine WBC (Auto) Urine RBC (Auto) Urine Casts (Auto) U Pathogenic Cast Auto U Epithel Cells (Auto) Urine Crystals (Auto) Urine Bacteria (Auto) Calcium Oxalate Crystal Uric Acid Crystals Triple Phos Crystals Amorphous Phosphates Amorphous Urates Amorphous Sediment Hyaline Casts Granular Casts Waxy Casts RBC Casts WBC Casts Urine Mucus Urine Other Urine Trichomonas Stool Occult Blood Valproic Acid Influenza A (Rapid) Influenza B (Rapid) Blood Type Antibody Screen Crossmatch 03/18/19 03/19/19 03/19/19 07:07 02:00 06:00 WBC 13.9 H RBC 3.31 L Hgb 8.8 L Hct 27.7 L D MCV 83.7 MCH 26.6 MCHC 31.7 L RDW 16.2 H Plt Count 216 D MPV 7.6 Absolute Neuts (auto) 9.7 H Neutrophils % 70.1 Neutrophils % (Manual) Band Neutrophils % Lymphocytes % 9.0 D Lymphocytes % (Manual) Monocytes % 10.9 H Monocytes % (Manual) Eosinophils % 9.5 H Eosinophils % (Manual) Basophils % 0.5 Basophils % (Manual) Myelocytes % (Man) Promyelocytes % (Man) Blast Cells % (Manual) Nucleated RBC % 0 Metamyelocytes Hypochromia Platelet Estimate Polychromasia Poikilocytosis Anisocytosis Microcytosis Macrocytosis Ovalocytes [place] Cells Retic Count Haptoglobin 258 PT with INR INR PTT (Actin FS) VBG pH POC VBG pCO2 POC VBG pO2 VBG HCO3 VBG O2 Sat (Maximo) VBG Base Excess Sodium Potassium Chloride Carbon Dioxide Anion Gap BUN Creatinine Est GFR (CKD-EPI)AfAm Est GFR (CKD-EPI)NonAf Random Glucose Lactic Acid Calcium Magnesium Iron TIBC Iron Saturation Unsaturated IBC Ferritin Total Bilirubin AST ALT Alkaline Phosphatase LD Total Troponin I Total Protein Albumin Vitamin B12 Serum Folate TSH Urine Color Urine Appearance Urine pH Ur Specific [place] Urine Protein Urine Glucose (UA) Urine Ketones Urine Blood Urine Nitrite Urine Bilirubin Urine Urobilinogen Ur Leukocyte Esterase Urine WBC (Auto) Urine RBC (Auto) Urine Casts (Auto) U Pathogenic Cast Auto U Epithel Cells (Auto) Urine Crystals (Auto) Urine Bacteria (Auto) Calcium Oxalate Crystal Uric Acid Crystals Triple Phos Crystals Amorphous Phosphates Amorphous Urates Amorphous Sediment Hyaline Casts Granular Casts Waxy Casts RBC Casts WBC Casts Urine Mucus Urine Other Urine Trichomonas Stool Occult Blood Negative Valproic Acid Influenza A (Rapid) Influenza B (Rapid) Blood Type Antibody Screen Crossmatch 03/19/19 03/19/19 03/19/19 06:00 19:45 22:10 WBC 9.5 RBC 2.52 L Hgb 6.9 L* Hct 21.2 L D MCV 83.9 MCH 27.3 MCHC 32.5 RDW 15.8 H Plt Count 172 D MPV 8.3 Absolute Neuts (auto) 6.3 Neutrophils % 66.5 Neutrophils % (Manual) Band Neutrophils % Lymphocytes % 13.2 D Lymphocytes % (Manual) Monocytes % 13.1 H Monocytes % (Manual) Eosinophils % 6.9 H Eosinophils % (Manual) Basophils % 0.3 Basophils % (Manual) Myelocytes % (Man) Promyelocytes % (Man) Blast Cells % (Manual) Nucleated RBC % 0 Metamyelocytes Hypochromia Platelet Estimate Polychromasia Poikilocytosis Anisocytosis Microcytosis Macrocytosis Ovalocytes Ruth Cells Retic Count Haptoglobin PT with INR INR PTT (Actin FS) VBG pH POC VBG pCO2 POC VBG pO2 VBG HCO3 VBG O2 Sat (Maximo) VBG Base Excess Sodium 140 Potassium 3.9 Chloride 104 Carbon Dioxide 26 Anion Gap 9 BUN 17.0 Creatinine 0.9 Est GFR (CKD-EPI)AfAm 81.11 Est GFR (CKD-EPI)NonAf 69.99 Random Glucose 83 Lactic Acid Calcium 8.8 Magnesium 2.1 Iron TIBC Iron Saturation Unsaturated IBC Ferritin Total Bilirubin 0.6 AST 28 ALT < 6 L Alkaline Phosphatase 85 LD Total Troponin I Total Protein 6.1 L Albumin 2.3 L Vitamin B12 Serum Folate TSH Urine Color Urine Appearance Urine pH Ur Specific [place] Urine Protein Urine Glucose (UA) Urine Ketones Urine Blood Urine Nitrite Urine Bilirubin Urine Urobilinogen Ur Leukocyte Esterase Urine WBC (Auto) Urine RBC (Auto) Urine Casts (Auto) U Pathogenic Cast Auto U Epithel Cells (Auto) Urine Crystals (Auto) Urine Bacteria (Auto) Calcium Oxalate Crystal Uric Acid Crystals Triple Phos Crystals Amorphous Phosphates Amorphous Urates Amorphous Sediment Hyaline Casts Granular Casts Waxy Casts RBC Casts WBC Casts Urine Mucus Urine Other Urine Trichomonas Stool Occult Blood Valproic Acid Influenza A (Rapid) Influenza B (Rapid) Blood Type O POSITIVE Antibody Screen Negative Crossmatch See Detail 03/20/19 03/20/19 03/21/19 10:15 10:15 06:00 WBC 8.5 12.6 H RBC 3.30 L 3.82 Hgb 9.1 L 10.8 Hct 28.2 L D 32.5 D MCV 85.4 84.9 MCH 27.6 28.2 MCHC 32.4 33.2 RDW 16.1 H 15.9 H Plt Count 179 217 D MPV 7.9 7.7 Absolute Neuts (auto) 5.4 8.1 H Neutrophils % 63.5 64.3 Neutrophils % (Manual) Band Neutrophils % Lymphocytes % 16.0 D 14.0 Lymphocytes % (Manual) Monocytes % 13.0 H 11.8 H Monocytes % (Manual) Eosinophils % 7.1 H 9.5 H Eosinophils % (Manual) Basophils % 0.4 0.4 Basophils % (Manual) Myelocytes % (Man) Promyelocytes % (Man) Blast Cells % (Manual) Nucleated RBC % 0 0 Metamyelocytes Hypochromia Platelet Estimate Polychromasia Poikilocytosis Anisocytosis Microcytosis Macrocytosis Ovalocytes Ruth Cells Retic Count Haptoglobin PT with INR INR PTT (Actin FS) VBG pH POC VBG pCO2 POC VBG pO2 VBG HCO3 VBG O2 Sat (Maximo) VBG Base Excess Sodium 139 Potassium 4.0 Chloride 106 Carbon Dioxide 27 Anion Gap 6 L BUN 15.4 Creatinine 0.8 Est GFR (CKD-EPI)AfAm 93.53 Est GFR (CKD-EPI)NonAf 80.70 Random Glucose 129 H Lactic Acid Calcium 8.4 L Magnesium 2.2 Iron TIBC Iron Saturation Unsaturated IBC Ferritin Total Bilirubin 0.3 AST 55 H ALT 8 L Alkaline Phosphatase 70 LD Total Troponin I Total Protein 5.1 L Albumin 1.9 L Vitamin B12 Serum Folate TSH Urine Color Urine Appearance Urine pH Ur Specific [place] Urine Protein Urine Glucose (UA) Urine Ketones Urine Blood Urine Nitrite Urine Bilirubin Urine Urobilinogen Ur Leukocyte Esterase Urine WBC (Auto) Urine RBC (Auto) Urine Casts (Auto) U Pathogenic Cast Auto U Epithel Cells (Auto) Urine Crystals (Auto) Urine Bacteria (Auto) Calcium Oxalate Crystal Uric Acid Crystals Triple Phos Crystals Amorphous Phosphates Amorphous Urates Amorphous Sediment Hyaline Casts Granular Casts Waxy Casts RBC Casts WBC Casts Urine Mucus Urine Other Urine Trichomonas Stool Occult Blood Valproic Acid Influenza A (Rapid) Influenza B (Rapid) Blood Type Antibody Screen Crossmatch 03/21/19 03/22/19 03/22/19 06:00 07:17 07:17 WBC 14.2 H RBC 3.68 Hgb 10.2 L Hct 32.1 L MCV 87.4 MCH 27.8 MCHC 31.9 L RDW 16.1 H Plt Count 219 MPV 7.8 Absolute Neuts (auto) 9.3 H Neutrophils % 66.0 Neutrophils % (Manual) Band Neutrophils % Lymphocytes % 12.9 Lymphocytes % (Manual) Monocytes % 11.2 H Monocytes % (Manual) Eosinophils % 9.5 H Eosinophils % (Manual) Basophils % 0.4 Basophils % (Manual) Myelocytes % (Man) Promyelocytes % (Man) Blast Cells % (Manual) Nucleated RBC % 0 Metamyelocytes Hypochromia Platelet Estimate Polychromasia Poikilocytosis Anisocytosis Microcytosis Macrocytosis Ovalocytes Ruth Cells Retic Count Haptoglobin PT with INR INR PTT (Actin FS) VBG pH POC VBG pCO2 POC VBG pO2 VBG HCO3 VBG O2 Sat (Maximo) VBG Base Excess Sodium 136 138 Potassium 4.6 4.3 Chloride 105 106 Carbon Dioxide 27 26 Anion Gap 5 L 7 L BUN 13.6 13.6 Creatinine 0.8 0.7 Est GFR (CKD-EPI)AfAm 93.53 109.91 Est GFR (CKD-EPI)NonAf 80.70 94.84 Random Glucose 85 82 Lactic Acid Calcium 8.4 L 8.5 Magnesium 1.9 2.1 Iron TIBC Iron Saturation Unsaturated IBC Ferritin Total Bilirubin 0.6 0.6 AST 51 H 42 H ALT < 6 L < 6 L Alkaline Phosphatase 74 74 LD Total Troponin I Total Protein 5.4 L 5.5 L Albumin 1.9 L 1.9 L Vitamin B12 Serum Folate TSH Urine Color Urine Appearance Urine pH Ur Specific [place] Urine Protein Urine Glucose (UA) Urine Ketones Urine Blood Urine Nitrite Urine Bilirubin Urine Urobilinogen Ur Leukocyte Esterase Urine WBC (Auto) Urine RBC (Auto) Urine Casts (Auto) U Pathogenic Cast Auto U Epithel Cells (Auto) Urine Crystals (Auto) Urine Bacteria (Auto) Calcium Oxalate Crystal Uric Acid Crystals Triple Phos Crystals Amorphous Phosphates Amorphous Urates Amorphous Sediment Hyaline Casts Granular Casts Waxy Casts RBC Casts WBC Casts Urine Mucus Urine Other Urine Trichomonas Stool Occult Blood Valproic Acid Influenza A (Rapid) Influenza B (Rapid) Blood Type Antibody Screen Crossmatch 03/23/19 03/23/19 03/24/19 06:20 06:20 13:30 WBC 17.0 H 14.4 H RBC 3.93 3.76 Hgb 11.0 10.5 L Hct 34.0 32.6 MCV 86.5 86.8 MCH 27.9 27.9 MCHC 32.3 32.1 RDW 15.8 H 16.0 H Plt Count 201 195 MPV 8.7 D 7.9 Absolute Neuts (auto) 11.7 H Neutrophils % 68.6 Neutrophils % (Manual) Band Neutrophils % Lymphocytes % 11.8 Lymphocytes % (Manual) Monocytes % 8.4 Monocytes % (Manual) Eosinophils % 11.0 H Eosinophils % (Manual) Basophils % 0.2 Basophils % (Manual) Myelocytes % (Man) Promyelocytes % (Man) Blast Cells % (Manual) Nucleated RBC % 0 Metamyelocytes Hypochromia Platelet Estimate Polychromasia Poikilocytosis Anisocytosis Microcytosis Macrocytosis Ovalocytes [place] Cells Retic Count Haptoglobin PT with INR INR PTT (Actin FS) VBG pH POC VBG pCO2 POC VBG pO2 VBG HCO3 VBG O2 Sat (Maximo) VBG Base Excess Sodium 138 Potassium 4.9 Chloride 106 Carbon Dioxide 26 Anion Gap 6 L BUN 11.3 Creatinine 0.8 Est GFR (CKD-EPI)AfAm 93.53 Est GFR (CKD-EPI)NonAf 80.70 Random Glucose 83 Lactic Acid Calcium 8.8 Magnesium 2.2 Iron TIBC Iron Saturation Unsaturated IBC Ferritin Total Bilirubin 0.9 AST 41 H ALT 24 Alkaline Phosphatase 82 LD Total Troponin I Total Protein 5.7 L Albumin 2.0 L Vitamin B12 Serum Folate TSH Urine Color Urine Appearance Urine pH Ur Specific [place] Urine Protein Urine Glucose (UA) Urine Ketones Urine Blood Urine Nitrite Urine Bilirubin Urine Urobilinogen Ur Leukocyte Esterase Urine WBC (Auto) Urine RBC (Auto) Urine Casts (Auto) U Pathogenic Cast Auto U Epithel Cells (Auto) Urine Crystals (Auto) Urine Bacteria (Auto) Calcium Oxalate Crystal Uric Acid Crystals Triple Phos Crystals Amorphous Phosphates Amorphous Urates Amorphous Sediment Hyaline Casts Granular Casts Waxy Casts RBC Casts WBC Casts Urine Mucus Urine Other Urine Trichomonas Stool Occult Blood Valproic Acid Influenza A (Rapid) Influenza B (Rapid) Blood Type Antibody Screen Crossmatch 03/25/19 03/25/19 03/25/19 06:00 06:41 08:30 WBC 14.7 H RBC 3.84 Hgb 10.7 Hct 33.1 MCV 86.1 MCH 28.0 MCHC 32.5 RDW 16.4 H Plt Count 199 MPV 8.0 Absolute Neuts (auto) 10.7 H Neutrophils % 73.2 Neutrophils % (Manual) Band Neutrophils % Lymphocytes % 11.0 Lymphocytes % (Manual) Monocytes % 6.6 Monocytes % (Manual) Eosinophils % 9.0 H Eosinophils % (Manual) Basophils % 0.2 Basophils % (Manual) Myelocytes % (Man) Promyelocytes % (Man) Blast Cells % (Manual) Nucleated RBC % 0 Metamyelocytes Hypochromia Platelet Estimate Polychromasia Poikilocytosis Anisocytosis Microcytosis Macrocytosis Ovalocytes [place] Cells Retic Count Haptoglobin PT with INR INR PTT (Actin FS) VBG pH POC VBG pCO2 POC VBG pO2 VBG HCO3 VBG O2 Sat (Maximo) VBG Base Excess Sodium 135 L Potassium 4.3 Chloride 104 Carbon Dioxide 25 Anion Gap 6 L BUN 12.6 Creatinine 0.8 Est GFR (CKD-EPI)AfAm 93.53 Est GFR (CKD-EPI)NonAf 80.70 Random Glucose 79 Lactic Acid Calcium 8.6 Magnesium 2.3 Iron TIBC Iron Saturation Unsaturated IBC Ferritin Total Bilirubin 0.7 AST 32 ALT < 6 L Alkaline Phosphatase 79 LD Total Troponin I Total Protein 5.6 L Albumin 2.1 L Vitamin B12 Serum Folate TSH Urine Color Red Urine Appearance Turbid Urine pH 6.0 Ur Specific [place] 1.014 Urine Protein 300 Urine Glucose (UA) Negative Urine Ketones Negative Urine Blood Large Urine Nitrite Negative Urine Bilirubin Negative Urine Urobilinogen 0.2 Ur Leukocyte Esterase Moderate Urine WBC (Auto) 868.4 Urine RBC (Auto) 733.3 Urine Casts (Auto) 403.22 U Pathogenic Cast Auto U Epithel Cells (Auto) 16.4 Urine Crystals (Auto) Urine Bacteria (Auto) 28.2 Calcium Oxalate Crystal Uric Acid Crystals Triple Phos Crystals Amorphous Phosphates Amorphous Urates Amorphous Sediment Hyaline Casts Granular Casts Waxy Casts RBC Casts WBC Casts Urine Mucus Urine Other Urine Trichomonas Stool Occult Blood Valproic Acid Influenza A (Rapid) Influenza B (Rapid) Blood Type Antibody Screen Crossmatch Current Medications Generic Name Dose Route Start Last Admin Trade Name Freq PRN Reason Stop Dose Admin Acetaminophen 650 mg 03/17/19 16:12 03/27/19 07:44 Tylenol - PO 650 mg Q6H PRN Administration FEVER Calcium/Vitamin D 2 tab 03/16/19 11:30 03/27/19 09:43 Oscal 250 Mg+D - PO 2 tab DAILY [facility] Administration Carbidopa/Levodopa 1 combo 03/16/19 14:00 03/27/19 14:48 Sinemet *Cr* 50/200 - PO 1 combo TID [facility] Administration Divalproex Sodium 250 mg 03/25/19 22:00 03/27/19 09:43 Depakote - PO 250 mg BID [facility] Administration Piperacillin Sod/Tazobactam 50 mls @ 100 mls/hr 03/26/19 10:00 Sod 3.375 gm/ Dextrose IVPB Q8H-IV [facility] Protocol Sodium Chloride 1,000 mls @ 125 mls/hr 03/27/19 11:49 03/27/19 11:49 Normal Saline - IV 125 mls/hr ASDIR [facility] Administration Multivitamins/Minerals/Vitamin C 1 tab 03/16/19 11:30 03/27/19 09:42 Tab-A-Vit - PO 1 tab DAILY [facility] Administration Pantoprazole Sodium 40 mg 03/20/19 10:00 03/27/19 09:42 Protonix Iv IVPUSH 40 mg DAILY [facility] Administration Polyethylene Glycol 17 gm 03/18/19 17:15 03/27/19 09:44 Miralax (For Daily Use) - PO 17 grams DAILY [facility] Administration Quetiapine Fumarate 50 mg 03/16/19 14:00 03/27/19 14:48 Seroquel - PO 50 mg TID [facility] Administration A/P: 58 F h/o TBI, seizures, bedbound, Parkinsons and recent bladder cancer diagnosis admitted for urosepsis, resolved, still spiking fevers, Zosyn started for ?developing PNA, cultures so far unremarkable. Urosepsis IVF, restart abx with Zosyn pending cultures, barlow-cultures negative will send legionella/RSV/FLU/strep, repeat CXR showing ?LLL infiltrate v.s. atelectasis change bean catheter if more than [address] Muhammad Bladder cancer has follow up at [facility] prone to repeat UTIs in view of bladder tumor Urology consult: Dr. Mik Rojas TBI with seizure disorder Cont. Seizure meds, no active seizures during admission Parkinson's disease cont. Sinemet 50/200mg daily DVT ppx: SCD/ESPERANZA for now until hematuria clears FEN IVF/daily lytes/soft diet Visit type - Emergency Visit Emergency Visit: Yes ED Registration Date: 03/14/19 Care time: The patient presented to the Emergency Department on the above date and was hospitalized for further evaluation of their emergent condition. - New Patient This patient is new to me today: No - Critical Care Critical Care patient: No - Discharge Referral Referred to [facility] Med P.C.: No
[2019-03-27] MEDS ORDERED: PIPERACILLIN/TAZOB 3.375 GM 3.375 GM in DEXTROSE 5%-WATER - 50 ML IVPB SCH (19:15)
[2019-03-27] MEDS ORDERED: PT OWN MED DRAWER 7, Y5N ONE (19:49)
[2019-03-28] MEDS ORDERED: PIPERACILLIN/TAZOBACTAM 3.375 GM VIAL IVPB ONE ×3 (02:01→17:21)
[2019-03-28] MEDS ORDERED: DEXTROSE 5%-WATER - 50 ML IVPB ONE ×3 (02:01→17:21)
[2019-03-28] MEDS: PIPERACILLIN/TAZOB 3.375 GM 3.375 GM in DEXTROSE 5%-WATER - 50 ML IVPB SCH ×3 (02:42→17:37)
[2019-03-28] MEDS: QUEtiapine FUMARATE 50 MG TABLET PO SCH ×3 (05:14→21:45)
[2019-03-28 09:09] LABS: BASO % 0.5 % (0-2.0); EOS % 7.5 % (0-4.5); HEMATOCRIT 28.9 % (32.4-45.2); HEMOGLOBIN 9.2 GM/dL (10.7-15.3); LYMPH % 8.5 % (8-40); MCH 27.6 pg (25.7-33.7); MCHC 31.7 g/dl (32.0-36.0); MEAN CELL VOLUME 86.9 fl (80-96); MEAN PLT VOLUME 7.9 fl (7.5-11.1); MONO % 6.4 % (3.8-10.2); NEUT % 77.1 % (42.8-82.8); PLATELET COUNT 179 K/MM3 (134-434); RBC 3.33 M/mm3 (3.60-5.2); RDW 15.9 % (11.6-15.6); WHITE BLOOD COUNT 12.5 K/mm3 (4.0-10.0)
[2019-03-28 09:25] LABS: BLOOD UREA NITROGEN 14.7 mg/dL (7-18); CALCIUM 8.7 mg/dL (8.5-10.1); CREATININE 0.7 mg/dL (0.55-1.3); POTASSIUM 4.7 mmol/L (3.5-5.1)
[2019-03-28] MEDS: POLYETHYLENE GLYCOL 3350 119 GM BTL PO SCH (10:01)
[2019-03-28] MEDS: PANTOPRAZOLE SODIUM 40 MG VIAL IVPUSH SCH (10:06)
[2019-03-28] MEDS: DIVALPROEX SODIUM 250 MG TABLET E.C. PO SCH ×2 (10:07→21:45)
[2019-03-28] MEDS: CALCIUM 250MG/VIT-D 125 UNITS 1 COMBO TABLET PO SCH (10:12)
[2019-03-28] MEDS: MULTIVITAMINS (DAILY MVI) TABLET (FP) PO SCH (10:13)
[2019-03-28] MEDS: SODIUM CHLORIDE 1,000 ML IV SCH ×2 (12:52→21:48)
[2019-03-28] MEDS: ACETAMINOPHEN 325 MG TABLET (FP) PO PRN (17:44)
--- NOTE | 2019-03-28 17:59 | PN ---
Progress Note, Physician History of Present Illness: Pt febrile to >102F but alert, without distress. +hematuria. - Current Medication List Current Medications: Active Medications Acetaminophen (Tylenol -) 650 mg PO Q6H PRN PRN Reason: FEVER Last Admin: 03/28/19 17:44 Dose: 650 mg Calcium/Vitamin D (Oscal 250 Mg+D -) 2 tab PO DAILY [facility] Last Admin: 03/28/19 10:12 Dose: 2 tab Carbidopa/Levodopa (Sinemet *Cr* 50/200 -) 1 combo PO TID [facility] Last Admin: 03/28/19 15:23 Dose: 1 combo Divalproex Sodium (Depakote -) 250 mg PO BID [facility] Last Admin: 03/28/19 10:07 Dose: 250 mg Sodium Chloride (Normal Saline -) 1,000 mls @ 125 mls/hr IV ASDIR [facility] Last Admin: 03/28/19 12:52 Dose: 125 mls/hr Piperacillin Sod/Tazobactam (Sod 3.375 gm/ Dextrose) 50 mls @ 100 mls/hr IVPB Q8H-IV [facility]; Protocol Last Admin: 03/28/19 17:37 Dose: 100 mls/hr Multivitamins/Minerals/Vitamin C (Tab-A-Vit -) 1 tab PO DAILY [facility] Last Admin: 03/28/19 10:13 Dose: 1 tab Pantoprazole Sodium (Protonix Iv) 40 mg IVPUSH DAILY [facility] Last Admin: 03/28/19 10:06 Dose: 40 mg Polyethylene Glycol (Miralax (For Daily Use) -) 17 gm PO DAILY [facility] Last Admin: 03/28/19 10:01 Dose: Not Given Quetiapine Fumarate (Seroquel -) 50 mg PO TID [facility] Last Admin: 03/28/19 15:23 Dose: 50 mg - Objective Vital Signs: Vital Signs Temperature 102.8 F H 03/28/19 15:21 Pulse Rate 92 H 03/28/19 15:02 Respiratory Rate 20 03/28/19 15:02 Blood Pressure 102/66 03/28/19 15:02 O2 Sat by Pulse Oximetry (%) 97 03/28/19 09:00 Constitutional: Yes: No Distress, Calm Cardiovascular: Yes: Tachycardia Respiratory: Yes: CTA Bilaterally Gastrointestinal: Yes: Normal Bowel Sounds, Soft Genitourinary: Yes: Thao Present, Hematuria Extremities: Yes: WNL Edema: No Integumentary: Yes: WNL Neurological: Yes: Alert Labs: CBC, BMP 03/28/19 08:40 03/28/19 08:40 INR, PTT INR 1.18 (0.83-1.09) H 03/14/19 10:00 Microbiology 03/27/19 18:30 Urine For Antigen Detection Legionella Antigen - Final 03/27/19 18:30 Urine For Antigen Detection Streptococcus pneumoniae Antigen (M - Final 03/23/19 08:20 Blood - Peripheral Venous Blood Culture - Final NO GROWTH AFTER 5 DAYS INCUBATION 03/23/19 08:20 Blood - Peripheral Venous Blood Culture - Final NO GROWTH AFTER 5 DAYS INCUBATION 03/25/19 18:40 Blood - Peripheral Venous Blood Culture - Preliminary NO GROWTH OBTAINED AFTER 48 HOURS, INCUBATION TO CONTINUE FOR 3 DAYS. 03/25/19 18:40 Blood - Peripheral Venous Blood Culture - Preliminary NO GROWTH OBTAINED AFTER 48 HOURS, INCUBATION TO CONTINUE FOR 3 DAYS. 03/25/19 08:30 Urine - Urine Thao Urine Culture - Final NO GROWTH OBTAINED 03/16/19 07:33 Blood - Peripheral Venous Blood Culture - Final NO GROWTH AFTER 5 DAYS INCUBATION 03/16/19 07:40 Blood - Peripheral Venous Blood Culture - Final NO GROWTH AFTER 5 DAYS INCUBATION 03/14/19 10:00 Blood - Peripheral Venous Blood Culture - Final Non Lactose Fermenting Gnb 03/14/19 10:30 Blood - Peripheral Venous Blood Culture - Final Escherichia Coli 03/14/19 10:00 Urine - Urine - Catheterized Urine Culture - Final Escherichia Coli - ....Imaging Chest X-ray: Report Reviewed Problem List - Problems (1) Bladder cancer Code(s): C67.9 - MALIGNANT NEOPLASM OF BLADDER, UNSPECIFIED (2) Fever Code(s): R50.9 - FEVER, UNSPECIFIED (3) Leukocytosis Code(s): D72.829 - ELEVATED WHITE BLOOD CELL COUNT, UNSPECIFIED (4) TBI (traumatic brain injury) Code(s): S06.9X9A - UNSP INTRACRANIAL INJURY W LOC OF UNSP DURATION, INIT (5) Hematuria Code(s): R31.9 - HEMATURIA, UNSPECIFIED Qualifiers: Hematuria type: gross Qualified Code(s): R31.0 - Gross hematuria Assessment/Plan Fever Leukocytosis AMS R/O UTI Hx of TBI Bladder CA on chemotherapy hematuria -- Pt with recurrent fever, leukocytosis slightly improved -- continue Zosyn for now -- Blood Cx neg 48hr, Urine Cx neg -- +hematuria -- Pt is alert, without obvious distress -- monitor wbc/temp trends, monitor vitals closely
--- NOTE | 2019-03-28 18:41 | PN ---
Physical Exam: 58 F h/o TBI, seizures, bedbound, Parkinsons and recent bladder cancer diagnosis. Patient presents to the ED on 03/14/2019 from home after CULINARY WORKER found patient to have worsening mental status. Patient found to have bacteremia on admission and was being treated with Cefepime IV for urosepsis due to bladder mass. Still spiking fevers, ID recommending to continue current regimen, otherwise pt. denies complaints, tolerating PO, asking to go home. PE Constitutional: Yes: thin, deconditioned, contracted Eyes: Yes: WNL, Conjunctiva Clear, EOM Intact HENT: Yes: WNL, Atraumatic, Normocephalic Neck: Yes: WNL, Supple, Trachea Midline Cardiovascular: Yes: Regular Rate and Rhythm, Tachycardia Respiratory: Yes: Regular, CTA Bilaterally Gastrointestinal: Yes: WNL, Normal Bowel Sounds Renal/: Yes: Thao Present with sediment, no hematuria Breast(s): Yes: WNL Musculoskeletal: Yes: Joint Stiffness, Muscle Weakness, Other (contractures to UE/LE BL) Extremities: Yes: WNL Edema: Yes Edema: LLE: Trace, RLE: Trace Peripheral Pulses WNL: Yes Peripheral Pulses: Left Radial: 2+, Right Radial: 2+, Left Doralis Pedis: 2+, Right Dorsalis Pedis: 2+, Left Femoral: 2+, Right Femoral: 2+ Integumentary: Yes: WNL Neurological: Yes: Alert, Aphasia ...Motor Strength: LUE, LLE, RUE, RLE (all extrem weak, UE stregth 3/5, LE 1/5) Psychiatric: Yes: Alert Microbiology 03/27/19 18:30 Urine For Antigen Detection Legionella Antigen - Final 03/27/19 18:30 Urine For Antigen Detection Streptococcus pneumoniae Antigen (M - Final 03/23/19 08:20 Blood - Peripheral Venous Blood Culture - Final NO GROWTH AFTER 5 DAYS INCUBATION 03/23/19 08:20 Blood - Peripheral Venous Blood Culture - Final NO GROWTH AFTER 5 DAYS INCUBATION 03/25/19 18:40 Blood - Peripheral Venous Blood Culture - Preliminary NO GROWTH OBTAINED AFTER 48 HOURS, INCUBATION TO CONTINUE FOR 3 DAYS. 03/25/19 18:40 Blood - Peripheral Venous Blood Culture - Preliminary NO GROWTH OBTAINED AFTER 48 HOURS, INCUBATION TO CONTINUE FOR 3 DAYS. 03/25/19 08:30 Urine - Urine Thao Urine Culture - Final NO GROWTH OBTAINED 03/16/19 07:33 Blood - Peripheral Venous Blood Culture - Final NO GROWTH AFTER 5 DAYS INCUBATION 03/16/19 07:40 Blood - Peripheral Venous Blood Culture - Final NO GROWTH AFTER 5 DAYS INCUBATION 03/14/19 10:00 Blood - Peripheral Venous Blood Culture - Final Non Lactose Fermenting Gnb 03/14/19 10:30 Blood - Peripheral Venous Blood Culture - Final Escherichia Coli 03/14/19 10:00 Urine - Urine - Catheterized Urine Culture - Final Escherichia Coli Vital Signs - 24 hr 03/27/19 03/27/19 03/28/19 21:00 22:00 02:00 Temperature 98.5 F 97.5 F L Pulse Rate 97 H 88 Respiratory 20 20 18 Rate Blood Pressure 109/61 118/59 L O2 Sat by Pulse 97 Oximetry (%) 03/28/19 03/28/19 03/28/19 05:16 08:37 09:00 Temperature 98.2 F 98.1 F Pulse Rate 72 85 Respiratory 20 20 Rate Blood Pressure 100/64 121/67 O2 Sat by Pulse 97 Oximetry (%) 03/28/19 03/28/19 15:02 15:21 Temperature 101 F H 102.8 F H Pulse Rate 92 H Respiratory 20 Rate Blood Pressure 102/66 O2 Sat by Pulse Oximetry (%) Laboratory Results - last 24 hr 03/27/19 03/27/19 03/28/19 18:30 18:30 08:40 WBC 12.5 H RBC 3.33 L Hgb 9.2 L Hct 28.9 L MCV 86.9 MCH 27.6 MCHC 31.7 L RDW 15.9 H Plt Count 179 MPV 7.9 Absolute Neuts (auto) 9.7 H Neutrophils % 77.1 Lymphocytes % 8.5 D Monocytes % 6.4 Eosinophils % 7.5 H Basophils % 0.5 Nucleated RBC % 0 Sodium Potassium Chloride Carbon Dioxide Anion Gap BUN Creatinine Est GFR (CKD-EPI)AfAm Est GFR (CKD-EPI)NonAf Random Glucose Calcium Influenza A (Rapid) Negative Influenza B (Rapid) Negative RSV Rapid Negative 03/28/19 08:40 WBC RBC Hgb Hct MCV MCH MCHC RDW Plt Count MPV Absolute Neuts (auto) Neutrophils % Lymphocytes % Monocytes % Eosinophils % Basophils % Nucleated RBC % Sodium 140 Potassium 4.7 Chloride 110 H Carbon Dioxide 25 Anion Gap 6 L BUN 14.7 Creatinine 0.7 Est GFR (CKD-EPI)AfAm 109.91 Est GFR (CKD-EPI)NonAf 94.84 Random Glucose 89 Calcium 8.7 Influenza A (Rapid) Influenza B (Rapid) RSV Rapid Current Medications Generic Name Dose Route Start Last Admin Trade Name Freq PRN Reason Stop Dose Admin Acetaminophen 650 mg 03/17/19 16:12 03/28/19 17:44 Tylenol - PO 650 mg Q6H PRN Administration FEVER Calcium/Vitamin D 2 tab 03/16/19 11:30 03/28/19 10:12 Oscal 250 Mg+D - PO 2 tab DAILY [facility] Administration Carbidopa/Levodopa 1 combo 03/16/19 14:00 03/28/19 15:23 Sinemet *Cr* 50/200 - PO 1 combo TID [facility] Administration Divalproex Sodium 250 mg 03/25/19 22:00 03/28/19 10:07 Depakote - PO 250 mg BID [facility] Administration Sodium Chloride 1,000 mls @ 125 mls/hr 03/27/19 11:49 03/28/19 12:52 Normal Saline - IV 125 mls/hr ASDIR [facility] Administration Piperacillin Sod/Tazobactam 50 mls @ 100 mls/hr 03/27/19 20:30 03/28/19 17:37 Sod 3.375 gm/ Dextrose IVPB 100 mls/hr Q8H-IV [facility] Administration Protocol Multivitamins/Minerals/Vitamin C 1 tab 03/16/19 11:30 03/28/19 10:13 Tab-A-Vit - PO 1 tab DAILY [facility] Administration Pantoprazole Sodium 40 mg 03/20/19 10:00 03/28/19 10:06 Protonix Iv IVPUSH 40 mg DAILY [facility] Administration Polyethylene Glycol 17 gm 03/18/19 17:15 03/28/19 10:01 Miralax (For Daily Use) - PO Not Given DAILY [facility] Quetiapine Fumarate 50 mg 03/16/19 14:00 03/28/19 15:23 Seroquel - PO 50 mg TID [facility] Administration A/P: 58 F h/o TBI, seizures, bedbound, Parkinsons and recent bladder cancer diagnosis admitted for urosepsis, resolved, still spiking fevers, Zosyn started for ?developing PNA, cultures so far unremarkable. Urosepsis IVF, restart abx with Zosyn negative cultures so far, barlow-cultures negative , repeat CXR showing ?LLL infiltrate v.s. atelectasis ID consult Dr Muhammad Bladder cancer has follow up at [facility] prone to repeat UTIs in view of bladder tumor Urology consult: Dr. Mik Rojas TBI with seizure disorder Cont. Seizure meds, no active seizures during admission Parkinson's disease cont. Sinemet 50/200mg daily DVT ppx: SCD/ESPERANZA for now until hematuria clears FEN IVF/daily lytes/soft diet Visit type - Emergency Visit Emergency Visit: Yes ED Registration Date: 03/14/19 Care time: The patient presented to the Emergency Department on the above date and was hospitalized for further evaluation of their emergent condition. - New Patient This patient is new to me today: No - Critical Care Critical Care patient: No - Discharge Referral Referred to [facility] Med P.C.: No
[2019-03-28] MEDS ORDERED: PT OWN MED DRAWER 7, Y5N ONE (20:39)
[2019-03-29] MEDS ORDERED: DEXTROSE 5%-WATER - 50 ML IVPB ONE ×2 (00:44→17:47)
[2019-03-29] MEDS ORDERED: PIPERACILLIN/TAZOBACTAM 3.375 GM VIAL IVPB ONE ×3 (00:44→17:46)
[2019-03-29] MEDS: PIPERACILLIN/TAZOB 3.375 GM 3.375 GM in DEXTROSE 5%-WATER - 50 ML IVPB SCH ×3 (01:21→17:50)
[2019-03-29] MEDS: QUEtiapine FUMARATE 50 MG TABLET PO SCH ×3 (05:34→21:47)
[2019-03-29] MEDS: ACETAMINOPHEN 325 MG TABLET (FP) PO PRN ×2 (05:41→21:47)
[2019-03-29] MEDS: SODIUM CHLORIDE 1,000 ML IV SCH ×3 (05:46→22:29)
[2019-03-29] MEDS: PANTOPRAZOLE SODIUM 40 MG VIAL IVPUSH SCH (09:30)
[2019-03-29] MEDS: POLYETHYLENE GLYCOL 3350 119 GM BTL PO SCH (09:31)
[2019-03-29] MEDS: DIVALPROEX SODIUM 250 MG TABLET E.C. PO SCH ×2 (09:31→21:47)
[2019-03-29] MEDS: CALCIUM 250MG/VIT-D 125 UNITS 1 COMBO TABLET PO SCH (09:31)
[2019-03-29] MEDS: MULTIVITAMINS (DAILY MVI) TABLET (FP) PO SCH (09:32)
--- NOTE | 2019-03-29 12:51 | PN ---
Progress Note, Physician Chief Complaint: Afebrile since spike yesterday @ 1520 to 102.8. Pt states she wants to go home. Remains on abx. Discharge on hold History of Present Illness: Patient is a 58 year old female with a significant past medical history of TBI, seizures, parkinsons and recent bladder cancer diagnosis. Patient presents to the ED on 03/14/2019 from home after COMMERCIAL UNDERWRITER found patient to have worsening mental status. Patient found to have bacteremia on admission and was being treated with Cefepime IV. Meera Sarah RN at [facility] [phone] (this agency provides 16/09 home care for patient). Julianna Adhikari HCP and Guardian/or Josiane Villeda - [facility] (call to obtain any consents) - Current Medication List Current Medications: Active Medications Acetaminophen (Tylenol -) 650 mg PO Q6H PRN PRN Reason: FEVER Last Admin: 03/29/19 05:41 Dose: 650 mg Calcium/Vitamin D (Oscal 250 Mg+D -) 2 tab PO DAILY [facility] Last Admin: 03/29/19 09:31 Dose: 2 tab Carbidopa/Levodopa (Sinemet *Cr* 50/200 -) 1 combo PO TID [facility] Last Admin: 03/29/19 05:34 Dose: 1 combo Divalproex Sodium (Depakote -) 250 mg PO BID [facility] Last Admin: 03/29/19 09:31 Dose: 250 mg Sodium Chloride (Normal Saline -) 1,000 mls @ 125 mls/hr IV ASDIR [facility] Last Admin: 03/29/19 05:46 Dose: 125 mls/hr Piperacillin Sod/Tazobactam (Sod 3.375 gm/ Dextrose) 50 mls @ 100 mls/hr IVPB Q8H-IV [facility]; Protocol Last Admin: 03/29/19 09:30 Dose: 100 mls/hr Multivitamins/Minerals/Vitamin C (Tab-A-Vit -) 1 tab PO DAILY [facility] Last Admin: 03/29/19 09:32 Dose: 1 tab Pantoprazole Sodium (Protonix Iv) 40 mg IVPUSH DAILY [facility] Last Admin: 03/29/19 09:30 Dose: 40 mg Polyethylene Glycol (Miralax (For Daily Use) -) 17 gm PO DAILY [facility] Last Admin: 03/29/19 09:31 Dose: Not Given Quetiapine Fumarate (Seroquel -) 50 mg PO TID [facility] Last Admin: 03/29/19 05:34 Dose: 50 mg - Objective Vital Signs: Vital Signs Temperature 97.1 F L 03/29/19 09:29 Pulse Rate 79 03/29/19 09:29 Respiratory Rate 18 03/29/19 09:29 Blood Pressure 99/47 L 03/29/19 09:29 O2 Sat by Pulse Oximetry (%) 97 03/29/19 09:00 Additional Findings/Remarks: Constitutional: Yes: Mild Distress, Thin Eyes: Yes: WNL, Conjunctiva Clear, EOM Intact HENT: Yes: WNL, Atraumatic, Normocephalic Neck: Yes: WNL, Supple, Trachea Midline Cardiovascular: Yes: Regular Rate and Rhythm, Tachycardia Respiratory: Yes: Regular, CTA Bilaterally, decreased at bases Gastrointestinal: Yes: WNL, Normal Bowel Sounds ...Rectal Exam: Yes: Deferred Renal/: Yes: Bean Present with sediment, no hematuria Breast(s): Yes: WNL Musculoskeletal: Yes: Joint Stiffness, Muscle Weakness, Other (contractures to UE/LE BL) Extremities: Yes: WNL Edema: Yes Edema: LLE: Trace, RLE: Trace Peripheral Pulses WNL: Yes Peripheral Pulses: Left Radial: 2+, Right Radial: 2+, Left Doralis Pedis: 2+, Right Dorsalis Pedis: 2+, Left Femoral: 2+, Right Femoral: 2+ Integumentary: Yes: WNL Neurological: Yes: Alert, Aphasia ...Motor Strength: LUE, LLE, RUE, RLE (all extrem weak, UE stregth 3/5, LE 1/5) Psychiatric: Yes: Alert Labs: CBC, BMP 03/28/19 08:40 03/28/19 08:40 INR, PTT INR 1.18 (0.83-1.09) H 03/14/19 10:00 Problem List - Problems (1) TBI (traumatic brain injury) Assessment/Plan: TBI since Code(s): S06.9X9A - UNSP INTRACRANIAL INJURY W LOC OF UNSP DURATION, INIT (2) Bladder cancer Assessment/Plan: recent dx of bladder Ca hematuria less Had radiation mapping but no treatments as of yet will resume care at [facility] on dc home Code(s): C67.9 - MALIGNANT NEOPLASM OF BLADDER, UNSPECIFIED (3) Fever Assessment/Plan: afebrile, last spike 03/21 @ 1630 ID consultation appreciates c/w cefipime Bacteriemia and UTI (ecoli) repeat blood cultures with no growth to date. monitor labs, vitals, fever curve Code(s): R50.9 - FEVER, UNSPECIFIED (4) Leukocytosis Assessment/Plan: WBC 12.0 ID following c/w zosyn Code(s): D72.829 - ELEVATED WHITE BLOOD CELL COUNT, UNSPECIFIED (5) Hematuria Assessment/Plan: urine madi color seen by and no intervention at this time bean maintained flush bean PRN continue to monitor f/u with [facility] as outpt Code(s): R31.9 - HEMATURIA, UNSPECIFIED Qualifiers: Hematuria type: gross Qualified Code(s): R31.0 - Gross hematuria (6) UTI (urinary tract infection) Assessment/Plan: c/w zosyn cont to monitor Code(s): N39.0 - URINARY TRACT INFECTION, SITE NOT SPECIFIED Qualifiers: Urinary tract infection type: site unspecified Hematuria presence: with hematuria Qualified Code(s): N39.0 - Urinary tract infection, site not specified; R31.9 - Hematuria, unspecified (7) Prophylactic measure Assessment/Plan: FEN Fluids: adequate PO intake Electrolytes: monitor & replete as needed Nutrition:soft diet, aspiration precautions DVT moderate risk scds, no heparin given hematuria Dispo Maintain as inpatient full code discharge planning to home with services in place after completion on IV abx & afebrile Code(s): Z29.9 - ENCOUNTER FOR PROPHYLACTIC MEASURES, UNSPECIFIED (8) Functional quadriplegia Assessment/Plan: r/t TBI requires assistance with all ADLs turn and reposition q 2h c/w speciality mattress Code(s): R53.2 - FUNCTIONAL QUADRIPLEGIA Visit type - Emergency Visit Emergency Visit: Yes ED Registration Date: 03/14/19 Care time: The patient presented to the Emergency Department on the above date and was hospitalized for further evaluation of their emergent condition. - New Patient This patient is new to me today: No - Critical Care Critical Care patient: No - Discharge Referral Referred to [facility] No
--- NOTE | 2019-03-29 15:12 | PN ---
Progress Note, Physician History of Present Illness: spiked fever foleys catheter,hematuria - Current Medication List Current Medications: Active Medications Acetaminophen (Tylenol -) 650 mg PO Q6H PRN PRN Reason: FEVER Last Admin: 03/29/19 05:41 Dose: 650 mg Calcium/Vitamin D (Oscal 250 Mg+D -) 2 tab PO DAILY [facility] Last Admin: 03/29/19 09:31 Dose: 2 tab Carbidopa/Levodopa (Sinemet *Cr* 50/200 -) 1 combo PO TID [facility] Last Admin: 03/29/19 13:37 Dose: 1 combo Divalproex Sodium (Depakote -) 250 mg PO BID [facility] Last Admin: 03/29/19 09:31 Dose: 250 mg Sodium Chloride (Normal Saline -) 1,000 mls @ 125 mls/hr IV ASDIR [facility] Last Admin: 03/29/19 13:38 Dose: 125 mls/hr Piperacillin Sod/Tazobactam (Sod 3.375 gm/ Dextrose) 50 mls @ 100 mls/hr IVPB Q8H-IV [facility]; Protocol Last Admin: 03/29/19 09:30 Dose: 100 mls/hr Multivitamins/Minerals/Vitamin C (Tab-A-Vit -) 1 tab PO DAILY [facility] Last Admin: 03/29/19 09:32 Dose: 1 tab Pantoprazole Sodium (Protonix Iv) 40 mg IVPUSH DAILY [facility] Last Admin: 03/29/19 09:30 Dose: 40 mg Polyethylene Glycol (Miralax (For Daily Use) -) 17 gm PO DAILY [facility] Last Admin: 03/29/19 09:31 Dose: Not Given Quetiapine Fumarate (Seroquel -) 50 mg PO TID [facility] Last Admin: 03/29/19 13:37 Dose: 50 mg - Objective Vital Signs: Vital Signs Temperature 98.9 F 03/29/19 14:24 Pulse Rate 79 03/29/19 14:24 Respiratory Rate 20 03/29/19 14:24 Blood Pressure 100/64 03/29/19 14:24 O2 Sat by Pulse Oximetry (%) 97 03/29/19 09:00 Constitutional: Yes: Calm, Anxious Cardiovascular: Yes: S1, S2 Respiratory: Yes: Regular, CTA Bilaterally Gastrointestinal: Yes: Normal Bowel Sounds, Soft Genitourinary: Yes: Thao Present Musculoskeletal: Yes: WNL Extremities: Yes: Other Neurological: Yes: Alert, Oriented Psychiatric: Yes: Alert, Oriented Labs: CBC, BMP 03/28/19 08:40 03/28/19 08:40 INR, PTT INR 1.18 (0.83-1.09) H 03/14/19 10:00 Assessment/Plan Problem List - Problems (1) Bladder cancer Code(s): C67.9 - MALIGNANT NEOPLASM OF BLADDER, UNSPECIFIED (2) Fever Code(s): R50.9 - FEVER, UNSPECIFIED (3) Leukocytosis Code(s): D72.829 - ELEVATED WHITE BLOOD CELL COUNT, UNSPECIFIED (4) TBI (traumatic brain injury) Code(s): S06.9X9A - UNSP INTRACRANIAL INJURY W LOC OF UNSP DURATION, INIT (5) Hematuria Code(s): R31.9 - HEMATURIA, UNSPECIFIED Qualifiers: Hematuria type: gross Qualified Code(s): R31.0 - Gross hematuria uti gm negative bacteremia Assessment/Plan 58 y.o. female resident of a snf with PMH of traumatic brain injury and bladder CA on chemotherapy sent to ER for unresponsiveness and found to be febrile and have an elevated wbc Fever Leukocytosis AMS R/O UTI Hx of TBI Bladder CA on chemotherapy gm negative bacteremia plan continue current mgmt monitor fevers await for cx reports rest as per the team
[2019-03-29] MEDS ORDERED: INSULIN (NOVOLOG) ASPART 100 UNITS/ML 10ML VIAL ONE (18:47)
[2019-03-29] MEDS ORDERED: PT OWN MED DRAWER 7, Y5N ONE (20:49)
[2019-03-30] MEDS ORDERED: DEXTROSE 5%-WATER - 50 ML IVPB ONE ×3 (00:53→17:32)
[2019-03-30] MEDS ORDERED: PIPERACILLIN/TAZOBACTAM 3.375 GM VIAL IVPB ONE ×3 (00:53→17:32)
[2019-03-30] MEDS: PIPERACILLIN/TAZOB 3.375 GM 3.375 GM in DEXTROSE 5%-WATER - 50 ML IVPB SCH ×3 (01:01→17:51)
[2019-03-30] MEDS: QUEtiapine FUMARATE 50 MG TABLET PO SCH ×3 (05:25→21:25)
[2019-03-30] MEDS ORDERED: PT OWN MED DRAWER 7, Y5N ONE (08:48)
[2019-03-30] MEDS: SODIUM CHLORIDE 1,000 ML IV SCH ×2 (09:00→21:24)
--- NOTE | 2019-03-30 09:18 | PN ---
Physical Exam: SUBJECTIVE: Patient seen and examined at the bedside. tearful, denies pain. states she feels well and wants to go home. OBJECTIVE: important phone numbers: Meera Sarah RN at [employer] [phone] (this agency provides 16/09 home care for patient). Julianna Adhikari HCP and Guardian/or Josiane Abreur - [facility] (call to obtain any consents) Patient is a 58 year old female with a significant past medical history of TBI, seizures, parkinsons and recent bladder cancer diagnosis (was mapped at [facility] but no RT yet started). 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 Patient found to have bacteremia on admission and was being treated IV antibiotics. Discharge on hold secondary to fevers. bean catheter continues with gross hematuria. Vital Signs Period Temp Pulse Resp BP Sys/Morris Pulse Ox Last 24 Hr 97.1 F-102.6 F 75-98 18-22 97-124/47-64 97 GENERAL: The patient is awake, alert, in no acute distress HEAD: Normal with no signs of trauma. EYES: PERRL, extraocular movements intact, sclera anicteric, conjunctiva clear. No ptosis. ENT: Ears normal, nares patent, oropharynx clear without exudates, moist mucous membranes. NECK: Trachea midline, full range of motion, supple. LUNGS: Breath sounds equal, clear to auscultation bilaterally, no wheezes HEART: Regular rate and rhythm ABDOMEN: Soft, nontender, nondistended, normoactive bowel sounds, no guarding, old healed surgical scar EXTREMITIES: no edema. NEUROLOGICAL: awake, alert, calm PSYCH: Normal mood, normal affect. SKIN: Warm, dry, normal turgor, no rashes or lesions noted Active Medications Generic Name Dose Route Start Last Admin Trade Name Freq PRN Reason Stop Dose Admin Acetaminophen 650 mg 03/17/19 16:12 03/29/19 21:47 Tylenol - PO 650 mg Q6H PRN Administration FEVER Calcium/Vitamin D 2 tab 03/16/19 11:30 03/29/19 09:31 Oscal 250 Mg+D - PO 2 tab DAILY [facility] Administration Carbidopa/Levodopa 1 combo 03/16/19 14:00 03/30/19 05:24 Sinemet *Cr* 50/200 - PO 1 combo TID [facility] Administration Divalproex Sodium 250 mg 03/25/19 22:00 03/29/19 21:47 Depakote - PO 250 mg BID [facility] Administration Sodium Chloride 1,000 mls @ 125 mls/hr 03/27/19 11:49 03/29/19 22:29 Normal Saline - IV 125 mls/hr ASDIR [facility] Administration Piperacillin Sod/Tazobactam 50 mls @ 100 mls/hr 03/27/19 20:30 03/30/19 01:01 Sod 3.375 gm/ Dextrose IVPB 100 mls/hr Q8H-IV [facility] Administration Protocol Multivitamins/Minerals/Vitamin C 1 tab 03/16/19 11:30 03/29/19 09:32 Tab-A-Vit - PO 1 tab DAILY [facility] Administration Pantoprazole Sodium 40 mg 03/20/19 10:00 03/29/19 09:30 Protonix Iv IVPUSH 40 mg DAILY [facility] Administration Polyethylene Glycol 17 gm 03/18/19 17:15 03/29/19 09:31 Miralax (For Daily Use) - PO Not Given DAILY [facility] Quetiapine Fumarate 50 mg 03/16/19 14:00 03/30/19 05:25 Seroquel - PO 50 mg TID [facility] Administration ASSESSMENT/PLAN: Problem List - Problems (1) Hematuria Assessment/Plan: bean with gross hematuria pelvic ultrasound revealed a 8x5cm vascular mass in the bladder. per urology, patient may need a TUR bladder tumor and filguration of bleeder. maintain bean and monitor output further plans per urology Code(s): R31.9 - HEMATURIA, UNSPECIFIED Qualifiers: Hematuria type: gross Qualified Code(s): R31.0 - Gross hematuria (2) Bacteremia Assessment/Plan: on zosyn per ID for fevers ID following and notes appreciated. blood cultures negative Code(s): R78.81 - BACTEREMIA (3) Fever Assessment/Plan: monitor fever curve pancultures Code(s): R50.9 - FEVER, UNSPECIFIED (4) Bladder cancer Assessment/Plan: recent dx of bladder Cancer. received RT last but only a small initial dose. Was to start RT this week and establish a schedule but has not been able to secondary to this hospitalization. Heme/onc consulted. Patient has only received one small dose of RT as outpatient. Has not received chemotherapy Code(s): C67.9 - MALIGNANT NEOPLASM OF BLADDER, UNSPECIFIED (5) Leukocytosis Code(s): D72.829 - ELEVATED WHITE BLOOD CELL COUNT, UNSPECIFIED (6) TBI (traumatic brain injury) Assessment/Plan: supportive care Code(s): S06.9X9A - UNSP INTRACRANIAL INJURY W LOC OF UNSP DURATION, INIT (7) UTI (urinary tract infection) Assessment/Plan: completed course of antibiotics Code(s): N39.0 - URINARY TRACT INFECTION, SITE NOT SPECIFIED Qualifiers: Urinary tract infection type: site unspecified Hematuria presence: with hematuria Qualified Code(s): N39.0 - Urinary tract infection, site not specified; R31.9 - Hematuria, unspecified (8) Functional quadriplegia Assessment/Plan: requires complete assistance with adls and has contractures. unable to feed herself and needs assistances with turning and positioning turn and position q 2 to protect bony prominences Code(s): R53.2 - FUNCTIONAL QUADRIPLEGIA (9) Parkinsons disease Assessment/Plan: on levadopa TID per home records Code(s): G20 - PARKINSON'S DISEASE (10) Seizures Assessment/Plan: on depakote bid low valporic acid levels Code(s): R56.9 - UNSPECIFIED CONVULSIONS (11) Anemia Assessment/Plan: hmg/hct down trending. stool for occult blood negative. has received two doses of venofer appreciate heme/oncology recommendations GI consulted, note reviewed and appreciated stool for occult blood negative Code(s): D64.9 - ANEMIA, UNSPECIFIED (12) Acute blood loss anemia Assessment/Plan: s/p 2 unit of prbc repeat cbc Code(s): D62 - ACUTE POSTHEMORRHAGIC ANEMIA (13) Prophylactic measure Assessment/Plan: FEN Fluids: tolerating po Electrolytes: monitor & replete as needed Nutrition:soft diet, aspiration precautions DVT moderate risk, scds. Dispo Maintain as inpatient full code Code(s): Z29.9 - ENCOUNTER FOR PROPHYLACTIC MEASURES, UNSPECIFIED Visit type - Emergency Visit Emergency Visit: Yes ED Registration Date: 03/14/19 Care time: The patient presented to the Emergency Department on the above date and was hospitalized for further evaluation of their emergent condition. - New Patient This patient is new to me today: No - Critical Care Critical Care patient: No - Discharge Referral Referred to [facility] Med P.C.: No
[2019-03-30] MEDS: MULTIVITAMINS (DAILY MVI) TABLET (FP) PO SCH (10:05)
[2019-03-30] MEDS: CALCIUM 250MG/VIT-D 125 UNITS 1 COMBO TABLET PO SCH (10:05)
[2019-03-30] MEDS: DIVALPROEX SODIUM 250 MG TABLET E.C. PO SCH ×2 (10:05→21:26)
[2019-03-30] MEDS: PANTOPRAZOLE SODIUM 40 MG VIAL IVPUSH SCH (10:05)
[2019-03-30] MEDS: POLYETHYLENE GLYCOL 3350 119 GM BTL PO SCH (10:06)
--- NOTE | 2019-03-30 13:34 | PN ---
Progress Note, Physician History of Present Illness: foleys getting blocked still with hematuria - Current Medication List Current Medications: Active Medications Acetaminophen (Tylenol -) 650 mg PO Q6H PRN PRN Reason: FEVER Last Admin: 03/29/19 21:47 Dose: 650 mg Calcium/Vitamin D (Oscal 250 Mg+D -) 2 tab PO DAILY [facility] Last Admin: 03/30/19 10:05 Dose: 2 tab Carbidopa/Levodopa (Sinemet *Cr* 50/200 -) 1 combo PO TID [facility] Last Admin: 03/30/19 05:24 Dose: 1 combo Divalproex Sodium (Depakote -) 250 mg PO BID [facility] Last Admin: 03/30/19 10:05 Dose: 250 mg Sodium Chloride (Normal Saline -) 1,000 mls @ 125 mls/hr IV ASDIR [facility] Last Admin: 03/29/19 22:29 Dose: 125 mls/hr Piperacillin Sod/Tazobactam (Sod 3.375 gm/ Dextrose) 50 mls @ 100 mls/hr IVPB Q8H-IV [facility]; Protocol Last Admin: 03/30/19 10:05 Dose: 100 mls/hr Multivitamins/Minerals/Vitamin C (Tab-A-Vit -) 1 tab PO DAILY [facility] Last Admin: 03/30/19 10:05 Dose: 1 tab Pantoprazole Sodium (Protonix Iv) 40 mg IVPUSH DAILY [facility] Last Admin: 03/30/19 10:05 Dose: 40 mg Polyethylene Glycol (Miralax (For Daily Use) -) 17 gm PO DAILY [facility] Last Admin: 03/30/19 10:06 Dose: Not Given Quetiapine Fumarate (Seroquel -) 50 mg PO TID [facility] Last Admin: 03/30/19 05:25 Dose: 50 mg - Objective Vital Signs: Vital Signs Temperature 99.1 F 03/30/19 10:13 Pulse Rate 98 H 03/30/19 10:13 Respiratory Rate 20 03/30/19 10:13 Blood Pressure 113/63 03/30/19 10:13 O2 Sat by Pulse Oximetry (%) 97 03/30/19 09:00 Constitutional: Yes: No Distress, Calm Cardiovascular: Yes: S1, S2 Respiratory: Yes: Regular, CTA Bilaterally Gastrointestinal: Yes: Normal Bowel Sounds, Soft Genitourinary: Yes: Thao Present, Hematuria Musculoskeletal: Yes: WNL Extremities: Yes: WNL Neurological: Yes: Alert Labs: CBC, BMP 03/28/19 08:40 03/28/19 08:40 INR, PTT INR 1.18 (0.83-1.09) H 03/14/19 10:00 Assessment/Plan Problem List - Problems (1) Bladder cancer Code(s): C67.9 - MALIGNANT NEOPLASM OF BLADDER, UNSPECIFIED (2) Fever Code(s): R50.9 - FEVER, UNSPECIFIED (3) Leukocytosis Code(s): D72.829 - ELEVATED WHITE BLOOD CELL COUNT, UNSPECIFIED (4) TBI (traumatic brain injury) Code(s): S06.9X9A - UNSP INTRACRANIAL INJURY W LOC OF UNSP DURATION, INIT (5) Hematuria Code(s): R31.9 - HEMATURIA, UNSPECIFIED Qualifiers: Hematuria type: gross Qualified Code(s): R31.0 - Gross hematuria uti gm negative bacteremia Assessment/Plan 58 y.o. female resident of a assisted with PMH of traumatic brain injury and bladder CA on chemotherapy sent to ER for unresponsiveness and found to be febrile and have an elevated wbc Fever Leukocytosis AMS R/O UTI Hx of TBI Bladder CA on chemotherapy gm negative bacteremia plan patients foleys continues to get blocked urology to have a look at the patient abx
[2019-03-30] MEDS: ACETAMINOPHEN 325 MG TABLET (FP) PO PRN (16:41)
--- NOTE | 2019-03-30 18:19 | PN ---
Progress Note (short form) - Note Progress Note: Radiation Oncology Pt seen, chart/films reviewed, dictated consult to follow 58 yo woman w hx of brain injury requiring total care transferred from halfway after AMS. Admitted with bacteremia, UTI, hematuria. Recently dx'd with bladder ca and apparently had planning for RT at [facility], was to start RT. U/S demonstrates large bladder mass. Gross hematuria by bean. Urology recommending TURBT/fulguration to help control bleeding. Monitor hemogram and hemodynamics. Pt can return to [facility] for RT when medically stable. If bleeding worsens, will reevaluate for RT here. Will reach out to rad oncs.
[2019-03-30 19:24] LABS: URINE APPEARANCE TURBID; URINE BILIRUBIN NEGATIVE (NEGATIVE); URINE COLOR RED; URINE GLUCOSE (UA) NEGATIVE (NEGATIVE); URINE KETONE NEGATIVE (NEGATIVE)
[2019-03-30 19:25] LABS: HYALINE CASTS 1050.29 /lpf (0-8); URINE BACTERIA 4.1 /hpf (NEGATIVE); URINE LEUK ESTERASE 1+ (NEGATIVE); URINE NITRITE NEGATIVE (NEGATIVE); URINE PROTEIN 300 (NEGATIVE); URINE UROBILINOGEN 0.2 mg/dL (0.2-1.0); URINE WBC 67.9 /hpf (0-5)
--- NOTE | 2019-03-30 19:26 | PN ---
Progress Note (short form) - Note Progress Note: Patient seen and examined Still with hematuria Last Vital Signs Temp Pulse Resp BP Pulse Ox 101.9 F H 113 H 18 136/75 97 03/30/19 18:44 03/30/19 16:40 03/30/19 16:40 03/30/19 16:40 03/30/19 09:00 Contracted Lungs: Clear to P&A Abd: Soft, Normal bowel sounds, No organomegaly Ext:No significant edema Skin: No rashes, Integument intact Thao catheter- hematuria , clots CBC, BMP 03/28/19 08:40 03/28/19 08:40 Current Medications Generic Name Dose Route Start Last Admin Trade Name Freq PRN Reason Stop Dose Admin Acetaminophen 650 mg 03/17/19 16:12 03/30/19 16:41 Tylenol - PO 650 mg Q6H PRN Administration FEVER Calcium/Vitamin D 2 tab 03/16/19 11:30 03/30/19 10:05 Oscal 250 Mg+D - PO 2 tab DAILY [facility] Administration Carbidopa/Levodopa 1 combo 03/16/19 14:00 03/30/19 13:43 Sinemet *Cr* 50/200 - PO 1 combo TID [facility] Administration Divalproex Sodium 250 mg 03/25/19 22:00 03/30/19 10:05 Depakote - PO 250 mg BID [facility] Administration Sodium Chloride 1,000 mls @ 125 mls/hr 03/27/19 11:49 03/30/19 09:00 Normal Saline - IV 125 mls/hr ASDIR [facility] Administration Piperacillin Sod/Tazobactam 50 mls @ 100 mls/hr 03/27/19 20:30 03/30/19 17:51 Sod 3.375 gm/ Dextrose IVPB 100 mls/hr Q8H-IV [facility] Administration Protocol Multivitamins/Minerals/Vitamin C 1 tab 03/16/19 11:30 03/30/19 10:05 Tab-A-Vit - PO 1 tab DAILY [facility] Administration Pantoprazole Sodium 40 mg 03/20/19 10:00 03/30/19 10:05 Protonix Iv IVPUSH 40 mg DAILY [facility] Administration Polyethylene Glycol 17 gm 03/18/19 17:15 03/30/19 10:06 Miralax (For Daily Use) - PO Not Given DAILY [facility] Quetiapine Fumarate 50 mg 03/16/19 14:00 03/30/19 13:43 Seroquel - PO 50 mg TID [facility] Administration Impression: Bladder ca hematuia Urosepsis- antiibiotics Plan : Per RT at [facility] in future.
[2019-03-31] MEDS ORDERED: DEXTROSE 5%-WATER - 50 ML IVPB ONE ×3 (01:15→15:35)
[2019-03-31] MEDS ORDERED: PIPERACILLIN/TAZOBACTAM 3.375 GM VIAL IVPB ONE ×3 (01:15→15:35)
[2019-03-31] MEDS: PIPERACILLIN/TAZOB 3.375 GM 3.375 GM in DEXTROSE 5%-WATER - 50 ML IVPB SCH ×3 (01:17→18:06)
[2019-03-31] MEDS: ACETAMINOPHEN 325 MG TABLET (FP) PO PRN ×2 (01:18→13:30)
[2019-03-31] MEDS: QUEtiapine FUMARATE 50 MG TABLET PO SCH ×3 (05:15→21:22)
[2019-03-31] MEDS: SODIUM CHLORIDE 1,000 ML IV SCH ×3 (09:59→15:06)
[2019-03-31] MEDS: MULTIVITAMINS (DAILY MVI) TABLET (FP) PO SCH (10:30)
[2019-03-31] MEDS: CALCIUM 250MG/VIT-D 125 UNITS 1 COMBO TABLET PO SCH (10:31)
[2019-03-31] MEDS: DIVALPROEX SODIUM 250 MG TABLET E.C. PO SCH ×2 (10:31→21:22)
[2019-03-31] MEDS: PANTOPRAZOLE SODIUM 40 MG VIAL IVPUSH SCH (10:38)
[2019-03-31] MEDS: POLYETHYLENE GLYCOL 3350 119 GM BTL PO SCH (10:40)
--- NOTE | 2019-03-31 10:51 | PN ---
Physical Exam: SUBJECTIVE: Patient seen and examined at the bedside. pallorous today, awaiting cbc. OBJECTIVE: important phone numbers: Meera Sarah RN at [employer] [phone] (this agency provides 16/09 home care for patient). Juliannaangela Adhikari or [phone]), HCP and Guardian/or Josiane Villeda - [facility] (call to obtain any consents) Patient continues to have fevers and gross hematuria despite antibiotics and irrigation of bean catheter. She has not progressed clinically in the last few days and at this time she requires a higher level of care. She has her oncologist and her radiation oncologist at [place] and will be transferred to [facility] pending bed availability. She may need radiation therapy to be started for her bladder tumor. Urology at [facility] to see patient today for further recommendations. Discussed with her HCP Josiane Deutsch and HCP Julianna Adhikari ([phone]) and both agree to transfer to [place]. They provided me with the names of Elsy Cardiollo doctors at [facility]: Dr. Jhonatan Arroyo (oncologist/ car wash manager) and Dr. Diaz (radiation oncologist). Patient has also seen by a urologist in the community, Dr. Ethan Moulton. Contacted [facility] transfer center and discussed case with Dr. Munoz ( medicine) who is accepting patient. Face sheet and labs sent to [facility]. Reason for transfer: requires higher level of care for bladder tumor and possible inpatient radiation at [facility]. She is an established patient at [facility]. Accepting physician: Dr. Munoz (medicine) Patient is a 58 year old female with a significant past medical history of TBI, seizures, parkinsons and recent bladder cancer diagnosis (was mapped at [place] but no RT yet started). 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 Patient found to have bacteremia on admission and was being treated IV antibiotics. Blood cultures are now negative. She continues to have fever despite Zosyn therapy and continues to have gross hematuria. Vital Signs Period Temp Pulse Resp BP Sys/Morris Pulse Ox Last 24 Hr 97.7 F-102.9 F 78-113 16-20 93-136/56-79 97 GENERAL: The patient is awake, alert, anxious HEAD: Normal with no signs of trauma. EYES: PERRL, extraocular movements intact, sclera anicteric, conjunctiva clear. No ptosis. ENT: Ears normal, nares patent, oropharynx clear without exudates, moist mucous membranes. NECK: Trachea midline, full range of motion, supple. LUNGS: Breath sounds equal, clear to auscultation bilaterally, no wheezes HEART: Regular rate and rhythm ABDOMEN: Soft, nontender, normoactive bowel sounds, no guarding, old healed surgical scar EXTREMITIES: trace bilateral lower ext edema NEUROLOGICAL: awake, alert, anxious PSYCH: Normal mood, normal affect. SKIN: Warm, dry, normal turgor, no rashes or lesions noted Laboratory Results - last 24 hr 03/30/19 03/31/19 17:45 09:10 Urine Color Red Urine Appearance Turbid Urine pH 6.0 Ur Specific [place] 1.011 Urine Protein 300 Urine Glucose (UA) Negative Urine Ketones Negative Urine Blood 4+ H Urine Nitrite Negative Urine Bilirubin Negative Urine Urobilinogen 0.2 Ur Leukocyte Esterase 1+ H Urine WBC (Auto) 67.9 Urine RBC (Auto) 3522.0 Urine Casts (Auto) 1050.29 U Pathogenic Cast Auto None U Epithel Cells (Auto) 50.0 U Sm Round Cell (Auto) None Urine Bacteria (Auto) 4.1 Urine Yeast (Auto) None Influenza A (Rapid) Negative Influenza B (Rapid) Negative Active Medications Generic Name Dose Route Start Last Admin Trade Name Freq PRN Reason Stop Dose Admin Acetaminophen 650 mg 03/17/19 16:12 03/31/19 01:18 Tylenol - PO 650 mg Q6H PRN Administration FEVER Calcium/Vitamin D 2 tab 03/16/19 11:30 03/31/19 10:31 Oscal 250 Mg+D - PO 2 tab DAILY [facility] Administration Carbidopa/Levodopa 1 combo 03/16/19 14:00 03/31/19 05:15 Sinemet *Cr* 50/200 - PO 1 combo TID [facility] Administration Divalproex Sodium 250 mg 03/25/19 22:00 03/31/19 10:31 Depakote - PO 250 mg BID [facility] Administration Sodium Chloride 1,000 mls @ 125 mls/hr 03/27/19 11:49 03/31/19 09:59 Normal Saline - IV 125 mls/hr ASDIR [facility] Administration Piperacillin Sod/Tazobactam 50 mls @ 100 mls/hr 03/27/19 20:30 03/31/19 10:02 Sod 3.375 gm/ Dextrose IVPB 100 mls/hr Q8H-IV [facility] Administration Protocol Multivitamins/Minerals/Vitamin C 1 tab 03/16/19 11:30 03/31/19 10:30 Tab-A-Vit - PO 1 tab DAILY [facility] Administration Pantoprazole Sodium 40 mg 03/20/19 10:00 03/31/19 10:38 Protonix Iv IVPUSH 40 mg DAILY [facility] Administration Polyethylene Glycol 17 gm 03/18/19 17:15 03/31/19 10:40 Miralax (For Daily Use) - PO Not Given DAILY [facility] Quetiapine Fumarate 50 mg 03/16/19 14:00 03/31/19 05:15 Seroquel - PO 50 mg TID [facility] Administration ASSESSMENT/PLAN: Problem List - Problems (1) Hematuria Assessment/Plan: bean with gross hematuria, bean catheter changed today by urology. pelvic ultrasound revealed a 8x5cm vascular mass in the bladder. per urology, patient may need a TUR bladder tumor and filguration of bleeder. maintain bean and monitor output for abd/pelvis ct today to further evaluate further plans per urology patient for transfer to [place]. Code(s): R31.9 - HEMATURIA, UNSPECIFIED Qualifiers: Hematuria type: gross Qualified Code(s): R31.0 - Gross hematuria (2) Bacteremia Assessment/Plan: on zosyn per ID for fevers ID following and notes appreciated. repeat blood cultures negative Code(s): R78.81 - BACTEREMIA (3) Fever Assessment/Plan: continues to have high grade fevers despite antibiotics. Code(s): R50.9 - FEVER, UNSPECIFIED (4) Bladder cancer Assessment/Plan: recent dx of bladder Cancer. received RT at [place], but only a small initial dose. Was to start RT at [place] and establish a schedule but has not been able to secondary to this hospitalization. Heme/onc consulted. Patient has only received one small dose of RT as outpatient. Has not received chemotherapy Patient for transfer to [place] for possible initiation of radiation. Code(s): C67.9 - MALIGNANT NEOPLASM OF BLADDER, UNSPECIFIED (5) Leukocytosis Assessment/Plan: repeated blood cultures are negative Code(s): D72.829 - ELEVATED WHITE BLOOD CELL COUNT, UNSPECIFIED (6) TBI (traumatic brain injury) Assessment/Plan: supportive care Code(s): S06.9X9A - UNSP INTRACRANIAL INJURY W LOC OF UNSP DURATION, INIT (7) UTI (urinary tract infection) Assessment/Plan: repeat UC sent and pending Code(s): N39.0 - URINARY TRACT INFECTION, SITE NOT SPECIFIED Qualifiers: Urinary tract infection type: site unspecified Hematuria presence: with hematuria Qualified Code(s): N39.0 - Urinary tract infection, site not specified; R31.9 - Hematuria, unspecified (8) Functional quadriplegia Assessment/Plan: requires complete assistance with adls and has contractures. unable to feed herself and needs assistances with turning and positioning turn and position q 2 to protect bony prominences Code(s): R53.2 - FUNCTIONAL QUADRIPLEGIA (9) Parkinsons disease Assessment/Plan: on levadopa TID per home records Code(s): G20 - PARKINSON'S DISEASE (10) Seizures Assessment/Plan: on depakote bid low valporic acid levels Code(s): R56.9 - UNSPECIFIED CONVULSIONS (11) Anemia Assessment/Plan: hmg/hct down trending. stool for occult blood negative. has received two doses of venofer appreciate heme/oncology recommendations GI consulted, note reviewed and appreciated stool for occult blood negative Code(s): D64.9 - ANEMIA, UNSPECIFIED (12) Acute blood loss anemia Assessment/Plan: s/p 2 unit of prbc repeat cbc Code(s): D62 - ACUTE POSTHEMORRHAGIC ANEMIA (13) Prophylactic measure Assessment/Plan: FEN Fluids: tolerating po Electrolytes: monitor & replete as needed Nutrition:soft diet, aspiration precautions DVT moderate risk, scds. Dispo Maintain as inpatient full code Code(s): Z29.9 - ENCOUNTER FOR PROPHYLACTIC MEASURES, UNSPECIFIED Visit type - Emergency Visit Emergency Visit: Yes ED Registration Date: 03/14/19 Care time: The patient presented to the Emergency Department on the above date and was hospitalized for further evaluation of their emergent condition. - New Patient This patient is new to me today: No - Critical Care Critical Care patient: No - Discharge Referral Referred to [facility] Med P.C.: No
[2019-03-31] MEDS ORDERED: LORazepam 0.5 MG TABLET PO ONE (11:30)
--- NOTE | 2019-03-31 12:02 | PN ---
Progress Note, Physician History of Present Illness: foleys blocked again hematuria - Current Medication List Current Medications: Active Medications Acetaminophen (Tylenol -) 650 mg PO Q6H PRN PRN Reason: FEVER Last Admin: 03/31/19 01:18 Dose: 650 mg Calcium/Vitamin D (Oscal 250 Mg+D -) 2 tab PO DAILY [facility] Last Admin: 03/31/19 10:31 Dose: 2 tab Carbidopa/Levodopa (Sinemet *Cr* 50/200 -) 1 combo PO TID [facility] Last Admin: 03/31/19 05:15 Dose: 1 combo Divalproex Sodium (Depakote -) 250 mg PO BID [facility] Last Admin: 03/31/19 10:31 Dose: 250 mg Sodium Chloride (Normal Saline -) 1,000 mls @ 125 mls/hr IV ASDIR [facility] Last Admin: 03/31/19 09:59 Dose: 125 mls/hr Piperacillin Sod/Tazobactam (Sod 3.375 gm/ Dextrose) 50 mls @ 100 mls/hr IVPB Q8H-IV [facility]; Protocol Last Admin: 03/31/19 10:02 Dose: 100 mls/hr Multivitamins/Minerals/Vitamin C (Tab-A-Vit -) 1 tab PO DAILY [facility] Last Admin: 03/31/19 10:30 Dose: 1 tab Pantoprazole Sodium (Protonix Iv) 40 mg IVPUSH DAILY [facility] Last Admin: 03/31/19 10:38 Dose: 40 mg Polyethylene Glycol (Miralax (For Daily Use) -) 17 gm PO DAILY [facility] Last Admin: 03/31/19 10:40 Dose: Not Given Quetiapine Fumarate (Seroquel -) 50 mg PO TID [facility] Last Admin: 03/31/19 05:15 Dose: 50 mg - Objective Vital Signs: Vital Signs Temperature 97.7 F 03/31/19 08:41 Pulse Rate 78 03/31/19 08:41 Respiratory Rate 18 03/31/19 08:41 Blood Pressure 93/64 03/31/19 08:41 O2 Sat by Pulse Oximetry (%) 97 03/30/19 21:00 Constitutional: Yes: No Distress, Calm Cardiovascular: Yes: S1, S2 Respiratory: Yes: Regular, CTA Bilaterally Gastrointestinal: Yes: Normal Bowel Sounds, Soft Genitourinary: Yes: Thao Present, Hematuria Musculoskeletal: Yes: WNL Extremities: Yes: Other Neurological: Yes: Alert Labs: CBC, BMP 03/28/19 08:40 03/28/19 08:40 INR, PTT INR 1.18 (0.83-1.09) H 03/14/19 10:00 Assessment/Plan Problem List - Problems (1) Bladder cancer Code(s): C67.9 - MALIGNANT NEOPLASM OF BLADDER, UNSPECIFIED (2) Fever Code(s): R50.9 - FEVER, UNSPECIFIED (3) Leukocytosis Code(s): D72.829 - ELEVATED WHITE BLOOD CELL COUNT, UNSPECIFIED (4) TBI (traumatic brain injury) Code(s): S06.9X9A - UNSP INTRACRANIAL INJURY W LOC OF UNSP DURATION, INIT (5) Hematuria Code(s): R31.9 - HEMATURIA, UNSPECIFIED Qualifiers: Hematuria type: gross Qualified Code(s): R31.0 - Gross hematuria uti gm negative bacteremia Assessment/Plan 58 y.o. female resident of a [facility] with PMH of traumatic brain injury and bladder CA on chemotherapy sent to ER for unresponsiveness and found to be febrile and have an elevated wbc Fever Leukocytosis AMS R/O UTI Hx of TBI Bladder CA on chemotherapy gm negative bacteremia plan patients foleys continues to get blocked urology to have a look at the patient
[2019-03-31 17:48] LABS: BASO % 0.8 % (0-2.0); EOS % 4.8 % (0-4.5); HEMATOCRIT 21.6 % (32.4-45.2); HEMOGLOBIN 7.1 GM/dL (10.7-15.3); LYMPH % 12.7 % (8-40); MCH 28.2 pg (25.7-33.7); MCHC 32.9 g/dl (32.0-36.0); MEAN CELL VOLUME 85.8 fl (80-96); MONO % 8.8 % (3.8-10.2); NEUT % 72.9 % (42.8-82.8); PLATELET COUNT 178 K/MM3 (134-434); RBC 2.52 M/mm3 (3.60-5.2); RDW 16.2 % (11.6-15.6); WHITE BLOOD COUNT 10.3 K/mm3 (4.0-10.0)
[2019-03-31 18:15] LABS: ALBUMIN 1.7 g/dl (3.4-5.0); ALK PHOS 50 U/L (45-117); ANION GAP 9 MMOL/L (8-16); BILIRUBIN,TOTAL 0.4 mg/dL (0.2-1); BLOOD UREA NITROGEN 10.4 mg/dL (7-18); CALCIUM 8.4 mg/dL (8.5-10.1); CHLORIDE 108 mmol/L (98-107); CO2 23 mmol/L (21-32); CREATININE 0.8 mg/dL (0.55-1.3); GLUCOSE,RANDOM 88 mg/dL (74-106); POTASSIUM 3.9 mmol/L (3.5-5.1); SGOT/AST 22 U/L (15-37); SGPT/ALT < 6 U/L (13-61); SODIUM 140 mmol/L (136-145); TOT PROT 4.8 g/dl (6.4-8.2)
[2019-04-01] MEDS ORDERED: PIPERACILLIN/TAZOBACTAM 3.375 GM VIAL IVPB ONE ×2 (00:11→08:48)
[2019-04-01] MEDS ORDERED: DEXTROSE 5%-WATER - 50 ML IVPB ONE ×2 (00:11→08:48)
[2019-04-01] MEDS: PIPERACILLIN/TAZOB 3.375 GM 3.375 GM in DEXTROSE 5%-WATER - 50 ML IVPB SCH ×2 (01:00→09:09)
[2019-04-01] MEDS: QUEtiapine FUMARATE 50 MG TABLET PO SCH ×2 (05:08→14:42)
[2019-04-01 07:25] LABS: BASO % 0.6 % (0-2.0); EOS % 9.6 % (0-4.5); HEMATOCRIT 28.6 % (32.4-45.2); HEMOGLOBIN 9.3 GM/dL (10.7-15.3); LYMPH % 11.5 % (8-40); MCH 28.2 pg (25.7-33.7); MCHC 32.4 g/dl (32.0-36.0); MEAN CELL VOLUME 87.1 fl (80-96); MONO % 7.6 % (3.8-10.2); NEUT % 70.7 % (42.8-82.8); PLATELET COUNT 185 K/MM3 (134-434); RBC 3.29 M/mm3 (3.60-5.2); RDW 15.4 % (11.6-15.6); WHITE BLOOD COUNT 13.7 K/mm3 (4.0-10.0)
[2019-04-01 08:19] LABS: ALK PHOS 60 U/L (45-117); ANION GAP 9 MMOL/L (8-16); BILIRUBIN,TOTAL 0.7 mg/dL (0.2-1); CALCIUM 8.9 mg/dL (8.5-10.1); CHLORIDE 107 mmol/L (98-107); CO2 23 mmol/L (21-32); CREATININE 0.8 mg/dL (0.55-1.3); GLUCOSE,RANDOM 77 mg/dL (74-106); POTASSIUM 4.3 mmol/L (3.5-5.1); SGOT/AST 24 U/L (15-37); SGPT/ALT < 6 U/L (13-61); SODIUM 138 mmol/L (136-145); TOT PROT 5.6 g/dl (6.4-8.2)
--- NOTE | 2019-04-01 09:00 | CON.PULM ---
Consult Consult Specialty:: PULM/CCM Referred by:: Hospitalist Reason for Consultation:: pleural effusions - History of Present Illness Chief Complaint: hematuria History of Present Illness: 58 F, bladder CA, TBI, seizure DO, and parkinsons. Admitted via the ER due to hematuria due to her bladder CA on 03/14/19. Found to be bacteremic and has been having recurrent fever despite ABX coverage. CT Abdomen/Pelvis performed which revealed small bilateral pleural effusions with associated compressive atelectasis. Reagan effusions do not appear loculated. Patient is seen resting in NAD on RA. She denies CP or SOB. She has minimal dry cough. No hemoptysis. She has required IVF resuscitation and is currently on 100cc/hr. 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: Other (TBI) Pulmonary: No: Asthma, Bronchitis, Cancer, COPD, O2 Dependent, Pneumonia, Previously Intubated, Pulmonary Embolus, Pulmonary Fibrosis, Sleep Apnea Renal/: Yes: Cancer (bladder on chemotherapy) - Past Surgical History Additional Surgical History: Unclear but has long vertical midline surgical scar - Alcohol/Substance Use Hx Alcohol Use: No - Smoking History Smoking history: Unknown if ever smoked Have you smoked in the past 12 months: No Aproximately how many cigarettes per day: 0 - Social History ADL: Support Services History of Recent Travel: No Home Medications - Allergies Allergies/Adverse Reactions: Allergies Allergy/AdvReac Type Severity Reaction Status Date / Time No Known Allergies Allergy Verified 02/24/19 19:39 - Home Medications Home Medications: Ambulatory Orders Calcium 250Mg/Vit-D 125 Units [Oscal 250 mg+D -] 1 combo PO BID 03/16/19 Carbidopa/Levodopa *Cr* 50/200 03/16/19 Divalproex Sodium [Depakote] 250 mg PO BID 03/16/19 Quetiapine Fumarate [Seroquel -] 50 mg PO TID 03/16/19 Ranitidine Oral Solution [Zantac Oral Solution -] 150 tab DAILY 03/16/19 Acetaminophen [Tylenol .Regular Strength -] 650 mg PO Q6H PRN tablet 03/24/19 Calcium 250Mg/Vit-D 125 Units [Oscal 250 mg+D -] 2 tab PO DAILY tab 03/24/19 Carbidopa/Levodopa *Cr* 50/200 [Sinemet *Cr* 50/200 -] 1 combo PO TID tablet.er 03/24/19 LORazepam [Ativan] 0.5 mg PO TID PRN #60 tablet MDD 1.5mg 03/24/19 Polyethylene Glycol 3350 [Miralax 119 gm Btl -] 17 gm PO DAILY #6 bottle Quetiapine Fumarate [Seroquel -] 50 mg PO TID tablet 03/24/19 Amox-Tr/K Cl [Augmentin 500-125mg Tablet -] 1 tab PO BID@0800,1730 #14 tablet Review of Systems - Review of Systems Constitutional: reports: Chills, Fever, Malaise. denies: Night Sweats Eyes: reports: No Symptoms HENT: reports: No Symptoms Neck: reports: No Symptoms Cardiovascular: reports: No Symptoms Respiratory: reports: No Symptoms. denies: Cough, Hemoptysis, Orthopnea, Snoring, SOB, SOB on Exertion, Wheezing Gastrointestinal: reports: No Symptoms Genitourinary: reports: Hematuria Breasts: reports: No Symptoms Reported Musculoskeletal: reports: No Symptoms Integumentary: reports: No Symptoms Neurological: reports: No Symptoms Endocrine: reports: No Symptoms Hematology/Lymphatic: reports: No Symptoms Psychiatric: reports: No Symptoms Physical Exam Vital Sings: Vital Signs Temperature 99.6 F 04/01/19 08:26 Pulse Rate 106 H 04/01/19 08:26 Respiratory Rate 18 04/01/19 08:26 Blood Pressure 131/78 04/01/19 08:26 O2 Sat by Pulse Oximetry (%) 97 03/31/19 21:00 Constitutional: Yes: No Distress, Thin Eyes: Yes: Conjunctiva Clear, EOM Intact HENT: Yes: Atraumatic, Normocephalic Neck: Yes: Supple, Trachea Midline Cardiovascular: Yes: Regular Rate and Rhythm Respiratory: Yes: CTA Bilaterally, Diminished. No: Rales, Rhonchi, SOB, SOB on Exertion, Stridor, Tachypnea, Wheezes ...Inspection: Yes: WNL ...Clubbing: No Gastrointestinal: Yes: Normal Bowel Sounds, Soft Renal/: Yes: Hematuria Musculoskeletal: Yes: WNL Extremities: Yes: WNL Edema: No Peripheral Pulses WNL: Yes Integumentary: Yes: WNL Neurological: Yes: WNL, Alert, Oriented ...Motor Strength: WNL Psychiatric: Yes: WNL, Alert, Oriented Labs: CBC, BMP 04/01/19 06:28 04/01/19 06:28 Imaging - Results Cat Scan: Report Reviewed, Image Reviewed Problem List - Problems (1) Pleural effusion Code(s): J90 - PLEURAL EFFUSION, NOT ELSEWHERE CLASSIFIED (2) Atelectasis of both lungs Code(s): J98.11 - ATELECTASIS (3) Anemia Code(s): D64.9 - ANEMIA, UNSPECIFIED (4) Bacteremia Code(s): R78.81 - BACTEREMIA (5) Bladder cancer Code(s): C67.9 - MALIGNANT NEOPLASM OF BLADDER, UNSPECIFIED (6) Fever Code(s): R50.9 - FEVER, UNSPECIFIED (7) Functional quadriplegia Code(s): R53.2 - FUNCTIONAL QUADRIPLEGIA (8) Parkinsons disease Code(s): G20 - PARKINSON'S DISEASE (9) Seizures Code(s): R56.9 - UNSPECIFIED CONVULSIONS (10) TBI (traumatic brain injury) Code(s): S06.9X9A - UNSP INTRACRANIAL INJURY W LOC OF UNSP DURATION, INIT (11) Hematuria Code(s): R31.9 - HEMATURIA, UNSPECIFIED Qualifiers: Hematuria type: gross Qualified Code(s): R31.0 - Gross hematuria Assessment/Plan IMP: Pleural effusions due to third spacing and supine position Do not suspect infectious effusions or empyema PLAN: Can continue IVF for now Need clear need for Lasix at this point Do not feel thoracentesis is indicated at this time ABX per ID Patient is comfortable on RA but can order supplemental O2 if needed Incentive Spirometry Appears arrangements are being made for transfer to tertiary care. Will follow closely if she remains admitted Thank you. Dr Clinton
[2019-04-01] MEDS: ACETAMINOPHEN 325 MG TABLET (FP) PO PRN (09:07)
[2019-04-01] MEDS: MULTIVITAMINS (DAILY MVI) TABLET (FP) PO SCH (09:09)
[2019-04-01] MEDS: DIVALPROEX SODIUM 250 MG TABLET E.C. PO SCH (09:10)
[2019-04-01] MEDS: CALCIUM 250MG/VIT-D 125 UNITS 1 COMBO TABLET PO SCH (09:10)
[2019-04-01] MEDS: PANTOPRAZOLE SODIUM 40 MG VIAL IVPUSH SCH (09:11)
--- NOTE | 2019-04-01 10:06 | PN ---
Physical Exam: SUBJECTIVE: Patient seen and examined at the bedside. Important phone numbers for consents: Julianna Adhikari or [phone]), HCP and Guardian/or Josiane Villed[place] (call to obtain any consents) OBJECTIVE: Patient accepted for transfer to [facility], and we are currently awaiting bed availability. She requires a higher level of care at this time and is an established patient at [facility]. Accepting physician: Dr. Munoz (medicine) please see my note dated 03/31/2019 for further details on the pending transfer. Patient is a 58 year old female with a significant past medical history of TBI, seizures, parkinsons and recent bladder cancer diagnosis (was mapped at [facility] but no RT yet started). Patient presents to the ED on 03/14/2019 from home after END USER CONSULTANT found patient to have worsening mental status. Patient found to have bacteremia on admission and was being treated IV antibiotics. Blood cultures are now negative. She continues to have fever despite Zosyn therapy and continues to have gross hematuria. She is s/p 1 unit of prbc for hmg/hct 7.1/21.6, now 9.3/28.6. imaging: abd pelvis ct with iv contrast: 1. bilateral pleural effusions. 2. mild splenomegaly. 3. moderaly severe right hydronephrosis and hydroureter with obstruction with a large bladder mass. 4. large exophytic bladder mass extending through the urinary bladder into the right hemipelvis. Vital Signs Period Temp Pulse Resp BP Sys/Morris Pulse Ox Last 24 Hr 98.7 F-102.8 F 85-106 18-20 100-131/62-78 97 GENERAL: The patient is awake, alert, anxious HEAD: Normal with no signs of trauma. EYES: PERRL, extraocular movements intact, sclera anicteric, conjunctiva clear. No ptosis. ENT: Ears normal, nares patent, oropharynx clear without exudates, moist mucous membranes. NECK: Trachea midline, full range of motion, supple. LUNGS: Breath sounds equal, clear to auscultation bilaterally, no wheezes HEART: Regular rate and rhythm ABDOMEN: Soft, nontender, normoactive bowel sounds, no guarding, old healed surgical scar EXTREMITIES: trace bilateral lower ext edema NEUROLOGICAL: awake, alert, anxious PSYCH: Normal mood, normal affect. SKIN: Warm, dry, normal turgor, no rashes or lesions noted Laboratory Results - last 24 hr 03/31/19 03/31/19 03/31/19 09:10 16:35 16:35 WBC 10.3 H RBC 2.52 L Hgb 7.1 L Hct 21.6 L D MCV 85.8 MCH 28.2 MCHC 32.9 RDW 16.2 H Plt Count 178 MPV 8.0 Absolute Neuts (auto) 7.5 Neutrophils % 72.9 Lymphocytes % 12.7 D Monocytes % 8.8 Eosinophils % 4.8 H Basophils % 0.8 Nucleated RBC % 0 Sodium 140 Potassium 3.9 Chloride 108 H Carbon Dioxide 23 Anion Gap 9 BUN 10.4 Creatinine 0.8 Est GFR (CKD-EPI)AfAm 93.53 Est GFR (CKD-EPI)NonAf 80.70 Random Glucose 88 Calcium 8.4 L Magnesium Total Bilirubin 0.4 AST 22 ALT < 6 L Alkaline Phosphatase 50 Total Protein 4.8 L Albumin 1.7 L Influenza A (Rapid) Negative Influenza B (Rapid) Negative Blood Type Antibody Screen Crossmatch 03/31/19 04/01/19 04/01/19 17:10 06:28 06:28 WBC 13.7 H RBC 3.29 L Hgb 9.3 L Hct 28.6 L D MCV 87.1 MCH 28.2 MCHC 32.4 RDW 15.4 Plt Count 185 MPV 8.0 Absolute Neuts (auto) 9.7 H Neutrophils % 70.7 Lymphocytes % 11.5 Monocytes % 7.6 Eosinophils % 9.6 H D Basophils % 0.6 Nucleated RBC % 0 Sodium 138 Potassium 4.3 Chloride 107 Carbon Dioxide 23 Anion Gap 9 BUN 13.0 Creatinine 0.8 Est GFR (CKD-EPI)AfAm 93.53 Est GFR (CKD-EPI)NonAf 80.70 Random Glucose 77 Calcium 8.9 Magnesium 2.0 Total Bilirubin 0.7 AST 24 ALT < 6 L Alkaline Phosphatase 60 Total Protein 5.6 L Albumin 2.0 L Influenza A (Rapid) Influenza B (Rapid) Blood Type O POSITIVE Antibody Screen Negative Crossmatch See Detail Active Medications Generic Name Dose Route Start Last Admin Trade Name Freq PRN Reason Stop Dose Admin Acetaminophen 650 mg 03/17/19 16:12 04/01/19 09:07 Tylenol - PO 650 mg Q6H PRN Administration FEVER Calcium/Vitamin D 2 tab 03/16/19 11:30 04/01/19 09:10 Oscal 250 Mg+D - PO 2 tab DAILY [facility] Administration Carbidopa/Levodopa 1 combo 03/16/19 14:00 04/01/19 05:08 Sinemet *Cr* 50/200 - PO 1 combo TID [facility] Administration Divalproex Sodium 250 mg 03/25/19 22:00 04/01/19 09:10 Depakote - PO 250 mg BID [facility] Administration Piperacillin Sod/Tazobactam 50 mls @ 100 mls/hr 03/27/19 20:30 04/01/19 09:09 Sod 3.375 gm/ Dextrose IVPB 100 mls/hr Q8H-IV [facility] Administration Protocol Sodium Chloride 1,000 mls @ 100 mls/hr 03/31/19 14:34 03/31/19 15:06 Normal Saline - IV 100 mls/hr ASDIR [facility] Administration Multivitamins/Minerals/Vitamin C 1 tab 03/16/19 11:30 04/01/19 09:09 Tab-A-Vit - PO 1 tab DAILY [facility] Administration Pantoprazole Sodium 40 mg 03/20/19 10:00 04/01/19 09:11 Protonix Iv IVPUSH 40 mg DAILY [facility] Administration Polyethylene Glycol 17 gm 03/18/19 17:15 03/31/19 10:40 Miralax (For Daily Use) - PO Not Given DAILY [facility] Quetiapine Fumarate 50 mg 03/16/19 14:00 04/01/19 05:08 Seroquel - PO 50 mg TID [facility] Administration ASSESSMENT/PLAN: Problem List - Problems (1) Hematuria Assessment/Plan: bean with gross hematuria, large bean inserted by urology. pelvic ultrasound revealed a 8x5cm vascular mass in the bladder. per urology, patient may need a TUR bladder tumor and filguration of bleeder. maintain eban and monitor output, noted to have clots on tubing but her general output in bag appears slightly clearer patient for transfer to [facility] abdomen pelvis as noted above Code(s): R31.9 - HEMATURIA, UNSPECIFIED Qualifiers: Hematuria type: gross Qualified Code(s): R31.0 - Gross hematuria (2) Bacteremia Assessment/Plan: on zosyn per ID for fevers ID following and notes appreciated. repeat blood cultures negative Code(s): R78.81 - BACTEREMIA (3) Fever Assessment/Plan: continues to have high grade fevers despite antibiotics. Code(s): R50.9 - FEVER, UNSPECIFIED (4) Bladder cancer Assessment/Plan: recent dx of bladder Cancer. received RT at [facility], but only a small initial dose. Was to start RT at [facility] and establish a schedule but has not been able to secondary to this hospitalization. Heme/onc consulted. Patient has only received one small dose of RT as outpatient. Has not received chemotherapy Patient for transfer to [facility] for possible initiation of radiation. Code(s): C67.9 - MALIGNANT NEOPLASM OF BLADDER, UNSPECIFIED (5) Leukocytosis Assessment/Plan: repeated blood cultures are negative Code(s): D72.829 - ELEVATED WHITE BLOOD CELL COUNT, UNSPECIFIED (6) TBI (traumatic brain injury) Assessment/Plan: supportive care Code(s): S06.9X9A - UNSP INTRACRANIAL INJURY W LOC OF UNSP DURATION, INIT (7) UTI (urinary tract infection) Assessment/Plan: repeat UC negative Code(s): N39.0 - URINARY TRACT INFECTION, SITE NOT SPECIFIED Qualifiers: Urinary tract infection type: site unspecified Hematuria presence: with hematuria Qualified Code(s): N39.0 - Urinary tract infection, site not specified; R31.9 - Hematuria, unspecified (8) Functional quadriplegia Assessment/Plan: requires complete assistance with adls and has contractures. unable to feed herself and needs assistances with turning and positioning turn and position q 2 to protect bony prominences Code(s): R53.2 - FUNCTIONAL QUADRIPLEGIA (9) Parkinsons disease Assessment/Plan: on levadopa TID per home records Code(s): G20 - PARKINSON'S DISEASE (10) Seizures Assessment/Plan: on depakote bid low valporic acid levels Code(s): R56.9 - UNSPECIFIED CONVULSIONS (11) Anemia Assessment/Plan: hmg/hct down trending. s/p 1 unit of prbc overnight. Code(s): D64.9 - ANEMIA, UNSPECIFIED (12) Acute blood loss anemia Assessment/Plan: s/p 2 unit of prbc repeat cbc Code(s): D62 - ACUTE POSTHEMORRHAGIC ANEMIA (13) Pleural effusion, bilateral Assessment/Plan: followed by pulmonary. no interventions recommended this time. Code(s): J90 - PLEURAL EFFUSION, NOT ELSEWHERE CLASSIFIED (14) Hydronephrosis, right Assessment/Plan: may need urological surgical intervention at [facility]. Code(s): N13.30 - UNSPECIFIED HYDRONEPHROSIS (15) Prophylactic measure Assessment/Plan: FEN Fluids: tolerating po Electrolytes: monitor & replete as needed Nutrition:soft diet, aspiration precautions DVT moderate risk, scds. Dispo Maintain as inpatient full code Code(s): Z29.9 - ENCOUNTER FOR PROPHYLACTIC MEASURES, UNSPECIFIED Visit type - Emergency Visit Emergency Visit: Yes ED Registration Date: 03/14/19 Care time: The patient presented to the Emergency Department on the above date and was hospitalized for further evaluation of their emergent condition. - New Patient This patient is new to me today: No - Critical Care Critical Care patient: No - Discharge Referral Referred to [facility] Med [facility] No
[2019-04-01] MEDS: POLYETHYLENE GLYCOL 3350 119 GM BTL PO SCH (10:21)
--- NOTE | 2019-04-01 11:05 | CONS ---
DATE OF CONSULTATION: 03/30/2019 REASON FOR CONSULTATION: Bladder cancer with hematuria. REFERRING PHYSICIAN: Yogesh Freed MD HISTORY OF PRESENT ILLNESS: Patient is a 58-year-old woman with a history of traumatic brain injury requiring total care who resides in a skilled nursing and was found to be unresponsive with altered mental status, transferred here for further workup. She was admitted with a fever, hematuria as well as urosepsis. She was recently diagnosed with bladder cancer according to the hospital chart and had radiation therapy planning at an outside hospital, possibly [facility] or another. She was to start palliative radiation therapy in the near future. She is being treated with antibiotics and has gross hematuria from the Thao catheter. We are asked to evaluate for further management. The ultrasound demonstrates a large bladder mass. PAST MEDICAL HISTORY: Traumatic brain injury as noted, seizure disorder, Parkinson disease. ALLERGIES: No known drug allergies. CURRENT MEDICATIONS: Piperacillin, tazobactam, Depakote, Seroquel, MiraLAX, Sinemet, multiple vitamin, Protonix, calcium/vitamin D. FAMILY HISTORY: Unknown. SOCIAL HISTORY: Resides in skilled nursing secondary to requiring total care. REVIEW OF SYSTEMS: Unobtainable. PHYSICAL EXAMINATION: General: female who is in no acute distress in the hospital bed. She is nonverbal. Neck: There is a healed tracheostomy site. No gross neck masses. Lungs: Poor inspiratory effort. Abdomen: Soft, nontender, nondistended without adenopathy in the inguinal regions. Thao draining sanguineous urine. Extremities: Arm and leg contractures with minimal spontaneous movement. RADIOLOGIC DATA: See HPI. LABORATORY DATA: WBC 12.5, hemoglobin 9.2, platelet count 179,000. Electrolytes within normal limits. BUN 14.7, creatinine 0.7, calcium 8.7. Liver function tests within normal limits. Albumin 2.1. Blood and urine cultures on admission positive for Escherichia coli. IMPRESSION: An unfortunate 58-year-old woman with history of brain injury and recent diagnosis of locally advanced bladder cancer associated with hematuria and UTI. RECOMMENDATIONS: She was seen by Urology who has recommended TURBT and fulguration to help control bleeding. Patient is scheduled to begin radiation therapy at another facility and may return when medically stable. Need to continue to monitor hemogram and hemodynamics. Continue supportive care. If she cannot have fulguration and hematuria worsens we will reevaluate to have radiation therapy inpatient. Thank you for the courtesy of this consultation. ENMANUEL VALDES M.D. [id number] MTDD
--- NOTE | 2019-04-01 11:49 | PN ---
Progress Note, Physician History of Present Illness: still spiking fevers still foleys getting blocked hematuria still - Current Medication List Current Medications: Active Medications Acetaminophen (Tylenol -) 650 mg PO Q6H PRN PRN Reason: FEVER Last Admin: 04/01/19 09:07 Dose: 650 mg Calcium/Vitamin D (Oscal 250 Mg+D -) 2 tab PO DAILY [facility] Last Admin: 04/01/19 09:10 Dose: 2 tab Carbidopa/Levodopa (Sinemet *Cr* 50/200 -) 1 combo PO TID [facility] Last Admin: 04/01/19 05:08 Dose: 1 combo Divalproex Sodium (Depakote -) 250 mg PO BID [facility] Last Admin: 04/01/19 09:10 Dose: 250 mg Piperacillin Sod/Tazobactam (Sod 3.375 gm/ Dextrose) 50 mls @ 100 mls/hr IVPB Q8H-IV [facility]; Protocol Last Admin: 04/01/19 09:09 Dose: 100 mls/hr Sodium Chloride (Normal Saline -) 1,000 mls @ 100 mls/hr IV ASDIR [facility] Last Admin: 03/31/19 15:06 Dose: 100 mls/hr Multivitamins/Minerals/Vitamin C (Tab-A-Vit -) 1 tab PO DAILY [facility] Last Admin: 04/01/19 09:09 Dose: 1 tab Pantoprazole Sodium (Protonix Iv) 40 mg IVPUSH DAILY [facility] Last Admin: 04/01/19 09:11 Dose: 40 mg Polyethylene Glycol (Miralax (For Daily Use) -) 17 gm PO DAILY [facility] Last Admin: 04/01/19 10:21 Dose: Not Given Quetiapine Fumarate (Seroquel -) 50 mg PO TID [facility] Last Admin: 04/01/19 05:08 Dose: 50 mg - Objective Vital Signs: Vital Signs Temperature 100.8 F H 04/01/19 09:30 Pulse Rate 106 H 04/01/19 08:26 Respiratory Rate 18 04/01/19 08:26 Blood Pressure 131/78 04/01/19 08:26 O2 Sat by Pulse Oximetry (%) 97 04/01/19 09:00 Constitutional: Yes: Calm, Other Cardiovascular: Yes: S1, S2 Respiratory: Yes: Regular, CTA Bilaterally Gastrointestinal: Yes: Normal Bowel Sounds, Soft Genitourinary: Yes: Thao Present, Hematuria Neurological: Yes: Alert Psychiatric: Yes: Other Labs: CBC, BMP 04/01/19 06:28 04/01/19 06:28 INR, PTT INR 1.18 (0.83-1.09) H 03/14/19 10:00 Assessment/Plan Problem List - Problems (1) Bladder cancer Code(s): C67.9 - MALIGNANT NEOPLASM OF BLADDER, UNSPECIFIED (2) Fever Code(s): R50.9 - FEVER, UNSPECIFIED (3) Leukocytosis Code(s): D72.829 - ELEVATED WHITE BLOOD CELL COUNT, UNSPECIFIED (4) TBI (traumatic brain injury) Code(s): S06.9X9A - UNSP INTRACRANIAL INJURY W LOC OF UNSP DURATION, INIT (5) Hematuria Code(s): R31.9 - HEMATURIA, UNSPECIFIED Qualifiers: Hematuria type: gross Qualified Code(s): R31.0 - Gross hematuria uti gm negative bacteremia Assessment/Plan 58 y.o. female resident of a [facility] with PMH of traumatic brain injury and bladder CA on chemotherapy sent to ER for unresponsiveness and found to be febrile and have an elevated wbc Fever Leukocytosis AMS R/O UTI Hx of TBI Bladder CA on chemotherapy gm negative bacteremia plan patients foleys continues to get blocked abx awaiting for transfer to tertiary [place]
[2019-04-01 14:07] VITALS: BP 112/63; TEMP 98.5
[2019-04-01 14:28] VITALS: PULSE 83
[2019-04-01] MEDS: SODIUM CHLORIDE 1,000 ML IV SCH (14:33)
--- NOTE | 2019-04-01 14:46 | DS ---
Physical Exam: SUBJECTIVE: Patient seen and examined at the bedside. for transfer to [facility] today. OBJECTIVE: important phone numbers: Meera Sarah RN at [employer] [phone] (this agency provides 16/09 home care for patient). Juliannaangela Adhikari or [phone]), HCP and Guardian/or Josiane Villeda - [facility] (call to obtain any consents) Patient continues to have fevers and gross hematuria despite antibiotics and irrigation of bean catheter. She has not progressed clinically in the last few days and at this time she requires a higher level of care. She has her oncologist and her radiation oncologist at [facility] and will be transferred to [facility] pending bed availability. She may need radiation therapy to be started for her bladder tumor. Urology at [facility] to see patient today for further recommendations. Discussed with her HCP Josiane Deutsch and HCP Julianna Adhikari ([phone]) and both agree to transfer to [facility]. They provided me with the names of Elsy Cardiollo doctors at [facility]: Dr. Jhonatan Arroyo (oncologist/ incinerator plant supervisor) and Dr. Diaz (radiation oncologist). Patient has also seen by a urologist in the community, Dr. Ethan Moulton. Contacted [facility] transfer center and discussed case with Dr. Munoz ( medicine) who is accepting patient. Face sheet and labs sent to [facility]. Reason for transfer: requires higher level of care for bladder tumor and possible inpatient radiation at [facility]. She is an established patient at [facility]. Accepting physician: Dr. Munoz (medicine) Patient is a 58 year old female with a significant past medical history of TBI, seizures, parkinsons and recent bladder cancer diagnosis (was mapped at [facility] but no RT yet started). Patient presents to the ED on 03/14/2019 from home after [employer] CAN LAB[employer]ER found patient to have worsening mental status. Patient found to have bacteremia on admission and was being treated IV antibiotics. Blood cultures are now negative. She continues to have fever despite Zosyn therapy and continues to have gross hematuria. imaging: abd pelvis ct with iv contrast: 1. bilateral pleural effusions. 2. mild splenomegaly. 3. moderaly severe right hydronephrosis and hydroureter with obstruction with a large bladder mass. 4. large exophytic bladder mass extending through the urinary bladder into the right hemipelvis. Vital Signs Period Temp Pulse Resp BP Sys/Morris Pulse Ox Last 24 Hr 98.5 F-102.7 F 83-106 18-20 100-131/62-78 97-97 PHYSICAL EXAM LABS Laboratory Results - last 24 hr 03/31/19 03/31/19 03/31/19 16:35 16:35 17:10 WBC 10.3 H RBC 2.52 L Hgb 7.1 L Hct 21.6 L D MCV 85.8 MCH 28.2 MCHC 32.9 RDW 16.2 H Plt Count 178 MPV 8.0 Absolute Neuts (auto) 7.5 Neutrophils % 72.9 Lymphocytes % 12.7 D Monocytes % 8.8 Eosinophils % 4.8 H Basophils % 0.8 Nucleated RBC % 0 Sodium 140 Potassium 3.9 Chloride 108 H Carbon Dioxide 23 Anion Gap 9 BUN 10.4 Creatinine 0.8 Est GFR (CKD-EPI)AfAm 93.53 Est GFR (CKD-EPI)NonAf 80.70 Random Glucose 88 Calcium 8.4 L Magnesium Total Bilirubin 0.4 AST 22 ALT < 6 L Alkaline Phosphatase 50 Total Protein 4.8 L Albumin 1.7 L Blood Type O POSITIVE Antibody Screen Negative Crossmatch See Detail 04/01/19 04/01/19 06:28 06:28 WBC 13.7 H RBC 3.29 L Hgb 9.3 L Hct 28.6 L D MCV 87.1 MCH 28.2 MCHC 32.4 RDW 15.4 Plt Count 185 MPV 8.0 Absolute Neuts (auto) 9.7 H Neutrophils % 70.7 Lymphocytes % 11.5 Monocytes % 7.6 Eosinophils % 9.6 H D Basophils % 0.6 Nucleated RBC % 0 Sodium 138 Potassium 4.3 Chloride 107 Carbon Dioxide 23 Anion Gap 9 BUN 13.0 Creatinine 0.8 Est GFR (CKD-EPI)AfAm 93.53 Est GFR (CKD-EPI)NonAf 80.70 Random Glucose 77 Calcium 8.9 Magnesium 2.0 Total Bilirubin 0.7 AST 24 ALT < 6 L Alkaline Phosphatase 60 Total Protein 5.6 L Albumin 2.0 L Blood Type Antibody Screen Crossmatch HOSPITAL COURSE: Date of Admission:03/14/19 Date of Discharge: 04/01/19 Minutes to complete discharge: 45 Discharge Summary Problems reviewed: Yes Reason For Visit: SEPSIS Current Active Problems Acute blood loss anemia (Acute) Anemia (Acute) Atelectasis of both lungs (Acute) Bacteremia (Acute) Bladder cancer (Acute) Fever (Acute) Functional quadriplegia (Acute) Hydronephrosis, right (Acute) Leukocytosis (Acute) Parkinsons disease (Acute) Pleural effusion (Acute) Pleural effusion, bilateral (Acute) Prophylactic measure (Acute) Seizures (Acute) TBI (traumatic brain injury) (Acute) Hospital Course: HOSPITAL COURSE: Date of Admission:03/14/19 Date of Discharge: 03/25/19 Problem List - Problems (1) TBI (traumatic brain injury) Assessment/Plan: TBI since Code(s): S06.9X9A - UNSP INTRACRANIAL INJURY W LOC OF UNSP DURATION, INIT (2) Bladder cancer Assessment/Plan: recent dx of bladder Ca Had radiation mapping but no treatments as of yet will resume care at [facility] on hi home follow up with /oncologist at home on removal of bean Code(s): C67.9 - MALIGNANT NEOPLASM OF BLADDER, UNSPECIFIED (3) Fever Assessment/Plan: afebrile, last spike 03/21 @ 1630 completed course of cefipime. To c/w augmentin x 7 days Bacteriemia and UTI (ecoli) repeat blood cultures with no growth to date, Ucx ngtd (4) Leukocytosis Assessment/Plan: stable afebrile Code(s): D72.829 - ELEVATED WHITE BLOOD CELL COUNT, UNSPECIFIED (5) Hematuria Assessment/Plan: urine madi color with some sediment seen by and no intervention at this time bean recently changed flush bean PRN continue to monitor f/u with [facility] as outpt Code(s): R31.9 - HEMATURIA, UNSPECIFIED Qualifiers: Hematuria type: gross Qualified Code(s): R31.0 - Gross hematuria (6) UTI (urinary tract infection) Assessment/Plan: c/w augmentin Code(s): N39.0 - URINARY TRACT INFECTION, SITE NOT SPECIFIED Qualifiers: Urinary tract infection type: site unspecified Hematuria presence: with hematuria Qualified Code(s): N39.0 - Urinary tract infection, site not specified; R31.9 - Hematuria, unspecified (7) Prophylactic measure Assessment/Plan: FEN Fluids: adequate PO intake Electrolytes: stable Nutrition:soft diet, aspiration precautions DVT no s/s of dvt Dispo diascharge to home with services in place Code(s): Z29.9 - ENCOUNTER FOR PROPHYLACTIC MEASURES, UNSPECIFIED (8) Functional quadriplegia Assessment/Plan: r/t TBI requires assistance with all ADLs turn and reposition q 2h c/w speciality mattress Code(s): R53.2 - FUNCTIONAL QUADRIPLEGIA Condition: Worsened - Instructions Diet, Activity, Other Instructions: DISCHARGE YOUR VISIT You came to the hospital because you had fevers and your home health aid could not wake you up. You were found to have an infection in your blood and was treated with antibiotics. The urologist saw you and a urine catheter was placed. Follow uo with your oncologist/ doctor on when it can be removed. MEDICATIONS Please continue to take your home medications as prescribed. There was no changes Continue taking: Oscol Sinemet Multivitamins Zantac Seroquel Depakote Miralax DIET Continue your home diet ADDITIONAL CARE Please make an appointment to see your primary care provider, Dr Fu 1 week from today. ADDITIONAL INFORMATION Please call 911 or come directly to the emergency department if you experience unusual headache, vision change, shortness of breath, chest pain, numbness, tingling, loss of alertness/awareness, loss of function, unusual bleeding or any alarming symptoms. Thank you for allowing me to care for you. Omar Hsieh, ACNP, [facility] [phone] Referrals: Varsha Fu MD [Staff Physician] - 1 Week Disposition: TRANSFER ACUTE CARE/OTHER HOSP - Home Medications Comprehensive Discharge Medication List: Ambulatory Orders Calcium 250Mg/Vit-D 125 Units [Oscal 250 mg+D -] 1 combo PO BID 03/16/19 Carbidopa/Levodopa *Cr* 50/200 03/16/19 Divalproex Sodium [Depakote] 250 mg PO BID 03/16/19 Quetiapine Fumarate [Seroquel -] 50 mg PO TID 03/16/19 Ranitidine Oral Solution [Zantac Oral Solution -] 150 tab DAILY 03/16/19 Acetaminophen [Tylenol .Regular Strength -] 650 mg PO Q6H PRN tablet 03/24/19 Calcium 250Mg/Vit-D 125 Units [Oscal 250 mg+D -] 2 tab PO DAILY tab 03/24/19 Carbidopa/Levodopa *Cr* 50/200 [Sinemet *Cr* 50/200 -] 1 combo PO TID tablet.er 03/24/19 LORazepam [Ativan] 0.5 mg PO TID PRN #60 tablet MDD 1.5mg 03/24/19 Polyethylene Glycol 3350 [Miralax 119 gm Btl -] 17 gm PO DAILY #6 bottle Quetiapine Fumarate [Seroquel -] 50 mg PO TID tablet 03/24/19 Amox-Tr/K Cl [Augmentin 500-125mg Tablet -] 1 tab PO BID@0800,1730 #14 tablet Problem List - Problems (1) Hematuria Assessment/Plan: bean with gross hematuria, large bean inserted by urology. pelvic ultrasound revealed a 8x5cm vascular mass in the bladder. per urology, patient may need a TUR bladder tumor and filguration of bleeder. maintain bean and monitor output, noted to have clots on tubing but her general output in bag appears slightly clearer patient for transfer to [facility] abdomen pelvis as noted above Code(s): R31.9 - HEMATURIA, UNSPECIFIED Qualifiers: Hematuria type: gross Qualified Code(s): R31.0 - Gross hematuria (2) Bacteremia Assessment/Plan: on zosyn per ID for fevers ID following and notes appreciated. repeat blood cultures negative Code(s): R78.81 - BACTEREMIA (3) Fever Assessment/Plan: continues to have high grade fevers despite antibiotics. Code(s): R50.9 - FEVER, UNSPECIFIED (4) Bladder cancer Assessment/Plan: recent dx of bladder Cancer. received RT at [facility], but only a small initial dose. Was to start RT at [facility] and establish a schedule but has not been able to secondary to this hospitalization. Heme/onc consulted. Patient has only received one small dose of RT as outpatient. Has not received chemotherapy Patient for transfer to [facility] for possible initiation of radiation. Code(s): C67.9 - MALIGNANT NEOPLASM OF BLADDER, UNSPECIFIED (5) Leukocytosis Assessment/Plan: repeated blood cultures are negative Code(s): D72.829 - ELEVATED WHITE BLOOD CELL COUNT, UNSPECIFIED (6) TBI (traumatic brain injury) Assessment/Plan: supportive care Code(s): S06.9X9A - UNSP INTRACRANIAL INJURY W LOC OF UNSP DURATION, INIT (7) UTI (urinary tract infection) Assessment/Plan: repeat UC negative Code(s): N39.0 - URINARY TRACT INFECTION, SITE NOT SPECIFIED Qualifiers: Urinary tract infection type: site unspecified Hematuria presence: with hematuria Qualified Code(s): N39.0 - Urinary tract infection, site not specified; R31.9 - Hematuria, unspecified (8) Functional quadriplegia Assessment/Plan: requires complete assistance with adls and has contractures. unable to feed herself and needs assistances with turning and positioning turn and position q 2 to protect bony prominences Code(s): R53.2 - FUNCTIONAL QUADRIPLEGIA (9) Parkinsons disease Assessment/Plan: on levadopa TID per home records Code(s): G20 - PARKINSON'S DISEASE (10) Seizures Assessment/Plan: on depakote bid low valporic acid levels Code(s): R56.9 - UNSPECIFIED CONVULSIONS (11) Anemia Assessment/Plan: hmg/hct down trending. s/p 1 unit of prbc overnight. Code(s): D64.9 - ANEMIA, UNSPECIFIED (12) Acute blood loss anemia Assessment/Plan: s/p 2 unit of prbc repeat cbc Code(s): D62 - ACUTE POSTHEMORRHAGIC ANEMIA (13) Prophylactic measure Assessment/Plan: FEN Fluids: tolerating po Electrolytes: monitor & replete as needed Nutrition:soft diet, aspiration precautions DVT moderate risk, scds. Dispo Maintain as inpatient full code Code(s): Z29.9 - ENCOUNTER FOR PROPHYLACTIC MEASURES, UNSPECIFIED (14) Pleural effusion, bilateral Assessment/Plan: followed by pulmonary. no interventions recommended this time. Code(s): J90 - PLEURAL EFFUSION, NOT ELSEWHERE CLASSIFIED (15) Hydronephrosis, right Assessment/Plan: may need urological surgical intervention at [facility]. Code(s): N13.30 - UNSPECIFIED HYDRONEPHROSIS This patient is new to me today: No Emergency Visit: Yes ED Registration Date: 03/14/19 Care time: The patient presented to the Emergency Department on the above date and was hospitalized for further evaluation of their emergent condition. Critical Care patient: No - Discharge Referral Referred to [facility] Med [facility].: No
[2019-04-01 15:24] VITALS: BMI 28.9
== END 2019-04-01 16:26 | disposition short-term general hospital (02) | DRG 686 ==
LOC: JER 09:27 → JERBED 10:56 → J7W 17:42
PROVIDERS: ADMIT Internal Medicine; ATTEND Nurse Practitioner Family
PROC: 30233N1 Transfusion of Nonautologous Red Blood Cells into Peripheral Vein, Percutaneous Approach (ICD-10-PCS; principal; 2019-03-31)
DX: C67.9 Malignant neoplasm of bladder, unspecified (principal); R53.2 Functional quadriplegia; N39.0 Urinary tract infection, site not specified; R78.81 Bacteremia; D62 Acute posthemorrhagic anemia; Z16.30 Resistance to unspecified antimicrobial drugs; N13.30 Unspecified hydronephrosis; R31.9 Hematuria, unspecified; R47.1 Dysarthria and anarthria; R50.9 Fever, unspecified; D72.829 Elevated white blood cell count, unspecified; R41.82 Altered mental status, unspecified; G20 Parkinson's disease; S06.9X0A Unspecified intracranial injury without loss of consciousness, initial encounter; Z29.9 Encounter for prophylactic measures, unspecified; X58.XXXA Exposure to other specified factors, initial encounter; B96.20 Unspecified Escherichia coli [E. coli] as the cause of diseases classified elsewhere; Y93.9 Activity, unspecified; Y92.9 Unspecified place or not applicable; Y99.9 Unspecified external cause status; R56.9 Unspecified convulsions
CPT/HCPCS: 36415; 36430; 36511; 71045-TC-FY; 74177-TC; 76856-TC; 80048; 80053; 80164; 81003; 82272; 82607; 82728; 82746; 82803; 83010; 83540; 83550; 83605; 83615; 83735; 84443; 84484; 85025; 85027; 85044; 85610; 85730; 86850; 86900; 86901; 86922; 87040; 87086; 87186; 87804; 87807; 87899; 93005; 93010; 97161-GP; 99285-25; J0131; J1644; J1756; J7030; P9038; P9058; Q9967

== ENCOUNTER 2019-05-11 21:32 | Inpatient (IN) | payer OTHER ==
--- NOTE | 2019-05-11 22:31 | PDOC ---
History of Present Illness - General Chief Complaint: Urinary Problem Stated Complaint: FEVER Time Seen by Provider: 05/11/19 22:16 - History of Present Illness Initial Comments: Re Foster is a 58yo woman with a PMH of TBI, seizures, Parkinson's, stage 3 bladder CA who presents from home with report of fever and foul-smelling urine at home. She is nonverbal and unable to provide additional information, but her home health aide reported that Ms Foster has been having fever and complaining of vaginal or suprapubic discomfort. The aide is not present at bedside but was contacted earlier by phone. Past History - Past Medical History Allergies/Adverse Reactions: Allergies Allergy/AdvReac Type Severity Reaction Status Date / Time No Known Allergies Allergy Verified 02/24/19 19:39 Home Medications: Ambulatory Orders Calcium 250Mg/Vit-D 125 Units [Oscal 250 mg+D -] 1 combo PO BID 03/16/19 Carbidopa/Levodopa *Cr* 50/200 03/16/19 Divalproex Sodium [Depakote] 250 mg PO BID 03/16/19 Quetiapine Fumarate [Seroquel -] 50 mg PO TID 03/16/19 Ranitidine Oral Solution [Zantac Oral Solution -] 150 tab DAILY 03/16/19 Acetaminophen [Tylenol .Regular Strength -] 650 mg PO Q6H PRN tablet 03/24/19 Calcium 250Mg/Vit-D 125 Units [Oscal 250 mg+D -] 2 tab PO DAILY tab 03/24/19 Carbidopa/Levodopa *Cr* 50/200 [Sinemet *Cr* 50/200 -] 1 combo PO TID tablet.er 03/24/19 LORazepam [Ativan] 0.5 mg PO TID PRN #60 tablet MDD 1.5mg 03/24/19 Polyethylene Glycol 3350 [Miralax 119 gm Btl -] 17 gm PO DAILY #6 bottle 02/25 11/13 Quetiapine Fumarate [Seroquel -] 50 mg PO TID tablet 03/24/19 Amox-Tr/K Cl [Augmentin 500-125mg Tablet -] 1 tab PO BID@0800,1730 #14 tablet 03/25/19 COPD: No - Surgical History Cardiac Surgery: No Gastric Stapling: No Neurologic Surgery: No - Reproductive History Cervical CA: Yes - Immunization History Immunization Up to Date: No - Psycho Social/Smoking Cessation Hx Smoking Status: No Smoking History: Unknown if ever smoked Have you smoked in the past 12 months: No Number of Cigarettes Smoked Daily: 0 Hx Alcohol Use: No Drug/Substance Use Hx: No Review of Systems - Review of Systems Comments:: Could not obtain, pt nonverbal *Physical Exam - Vital Signs Last Vital Signs Temp Pulse Resp BP Pulse Ox 99 F 98 H 19 120/76 98 05/11/19 21:58 05/11/19 21:58 05/11/19 21:58 05/11/19 21:58 05/11/19 21:58 - Physical Exam General: Comfortable, no acute distresss HEENT: Atraumatic, PERRL, EOMI, adentulous Cards: RRR, no murmur appreciated Pulm: Comfortable on room air, clear to auscultation bilaterally Abd: Soft, nontender, nondistended : Diaper in place Ext: Atraumatic. No LE edema. Extremities contracted. WWP. Skin: Normal color, no rashes or lesions Neuro: Awake, nonverbal, CN grossly intact, extremities contracted. Psych: Mood appropriate to situation ED Treatment Course - LABORATORY CBC & Chemistry Diagram: 05/11/19 23:20 05/11/19 23:20 Medical Decision Making - Medical Decision Making 05/11/19 22:30 Re Foster is a 58yo woman with a PMH of TBI, seizures, Parkinson's, stage 3 bladder CA who presents from home with report of fever and foul-smelling urine at home. - Report of fever though temp 99 in ED, possible urinary source. - Sepsis workup ordered - Thao catheter placement as pt is nonambulatory 05/12/19 01:10 - Thao catheter placed by me and Dr Mcdonough. Urine returned immediately, cloudy w/ purulent appearance - Labs reviewed. Notable for leukocytosis to 18. Cr 1.4 from baseline 0.8. Lactate 1.8 - Rectal temp 100.4F - IVF and abx ordered 05/12/19 04:32 - UA w/ large leuk esterase. Cell counts pending - Microblog sent for admission, waiting for call back 05/12/19 04:50 - UA w/ [id number] WBC, 225 RBC, 2127 bacteria, large leuk esterase - Sign out given to Dr Rojas. Will be admitted to med/surg on Dr Barfield's service Seen and discussed with Dr Ceasar Dumont PGY2 Discharge - Discharge Information Problems reviewed: Yes Clinical Impression/Diagnosis: Functional quadriplegia UTI (urinary tract infection) Qualifiers: Urinary tract infection type: acute cystitis Hematuria presence: without hematuria Qualified Code(s): N30.00 - Acute cystitis without hematuria Fever Qualifiers: Fever type: unspecified Qualified Code(s): R50.9 - Fever, unspecified Sepsis Qualifiers: Sepsis type: sepsis due to unspecified organism Sepsis acute organ dysfunction status: without acute organ dysfunction Qualified Code(s): A41.9 - Sepsis, unspecified organism Condition: Stable - Admission Yes - Follow up/Referral - Patient Discharge Instructions - Post Discharge Activity
--- NOTE | 2019-05-11 23:10 | PDOC ---
Documentation entered by Phoenix Hooker SCRIBE, acting as scribe for Terese Mcdonough MD. Terese Mcdonough MD: This documentation has been prepared by the rhettibJeff heller Angel, SCRIBE, under my direction and personally reviewed by me in its entirety. I confirm that the documentation accurately reflects all work, treatment, procedures, and medical decision making performed by me. Attending Attestation - Resident Resident Name: Saniya Dumont - ED Attending Attestation I have performed the following: I have examined & evaluated the patient, The case was reviewed & discussed with the resident, I agree w/resident's findings & plan, Exceptions are as noted - HPI HPI: 05/11/19 23:08 This 58-year-old female was brought in by ambulance from her home after the visiting nurse found her to be febrile. Past medical history significant for CVA, TBI, nonverbal and also functional quadriplegic for many years. 05/12/19 01:20 - Physicial Exam PE: 05/12/19 01:10 58-year-old female presents with fever Head normocephalic atraumatic Eyes xander lungs cta b/l cvs [id number] extremities contracted limbs skin stage 2 ulcer on left elbow abd flat neuro nonverbal,alert,functional quadriplegia 05/12/19 01:22 - Medical Decision Making 05/11/19 23:08 Past medical history significant for a stroke at the age of 17, TBI, at baseline she is a functional quadriplegic and nonverbal, stage III bladder cancer I did speak with sr. social media & mobile manager Josiane at [phone]. This patient has a full- time aide and goes to a day program. 05/11/19 23:10 Plan sepsis work-up including chest x-ray, UA UC, CBC, chemistries, blood cultures 05/12/19 01:42 Rectal temp equal to 100.4 05/12/19 01:55 CBC reviewed and there is a leukocytosis of 18,000 Hemoglobin is only 7.2, hematocrit equal to 22 BUN is 24 Troponin is 0.02 pt to be admited for fever.UTI Discharge - Discharge Information Problems reviewed: Yes Clinical Impression/Diagnosis: Functional quadriplegia UTI (urinary tract infection) Qualifiers: Urinary tract infection type: acute cystitis Hematuria presence: without hematuria Qualified Code(s): N30.00 - Acute cystitis without hematuria Fever Qualifiers: Fever type: unspecified Qualified Code(s): R50.9 - Fever, unspecified - Follow up/Referral - Patient Discharge Instructions - Post Discharge Activity
[2019-05-11 23:42] LABS: VENOUS PC02 45.4 mmHg (38-52); VENOUS PH 7.43 (7.31-7.41)
[2019-05-11 23:43] LABS: VENOUS PO2 < 49 mmHg (28-48)
[2019-05-11 23:44] LABS: BASO % 0.2 % (0-2.0); EOS % 0.9 % (0-4.5); HEMATOCRIT 22.9 % (32.4-45.2); HEMOGLOBIN 7.2 GM/dL (10.7-15.3); LYMPH % 9.2 % (8-40); MCH 25.4 pg (25.7-33.7); MCHC 31.3 g/dl (32.0-36.0); MEAN CELL VOLUME 81.1 fl (80-96); MEAN PLT VOLUME 7.1 fl (7.5-11.1); MONO % 12.5 % (3.8-10.2); NEUT % 77.2 % (42.8-82.8); PLATELET COUNT 216 K/MM3 (134-434); RBC 2.82 M/mm3 (3.60-5.2); RDW 16.6 % (11.6-15.6); WHITE BLOOD COUNT 18.1 K/mm3 (4.0-10.0)
[2019-05-11 23:54] LABS: ACTIVATED PTT 26.4 SECONDS (25.2-36.5)
[2019-05-12 00:03] LABS: INR 1.28 (0.83-1.09); PROTHROMBIN TIME (PATIENT) 15.1 SEC (9.7-13.0)
[2019-05-12 00:35] LABS: ALBUMIN 2.1 g/dl (3.4-5.0); ALK PHOS 99 U/L (45-117); ANION GAP 9 MMOL/L (8-16); BILIRUBIN,TOTAL 0.4 mg/dL (0.2-1); CALCIUM 10.2 mg/dL (8.5-10.1); CHLORIDE 98 mmol/L (98-107); CO2 28 mmol/L (21-32); CREATININE 1.4 mg/dL (0.55-1.3); GLUCOSE,RANDOM 90 mg/dL (74-106); SGOT/AST 17 U/L (15-37); SGPT/ALT < 6 U/L (13-61); SODIUM 134 mmol/L (136-145); TOT PROT 6.3 g/dl (6.4-8.2)
[2019-05-12] MEDS ORDERED: CEFTRIAXONE 1,000 MG in DEXTROSE 5%-WATER - 50 ML IVPB ONE (03:34)
[2019-05-12] MEDS ORDERED: ACETAMINOPHEN 1000 MG/100 ML VIAL (NON FORMULARY) IVPB ONE (03:34)
[2019-05-12] MEDS ORDERED: SODIUM CHLORIDE 0.9% 500 ML INFUS.BAG IV ONE (03:34)
[2019-05-12] MEDS ORDERED: CEFTRIAXONE 1 GM/50 ML BAG ONE (03:41)
[2019-05-12] MEDS ORDERED: ACETAMINOPHEN INJECTION 100 ML IVPB ONE (04:14)
[2019-05-12 04:25] LABS: PH,URINE 6.5 (5.0-8.0); URINE APPEARANCE TURBID; URINE BILIRUBIN NEGATIVE (NEGATIVE); URINE COLOR YELLOW; URINE GLUCOSE (UA) NEGATIVE (NEGATIVE); URINE KETONE NEGATIVE (NEGATIVE); URINE PROTEIN 100 (NEGATIVE)
[2019-05-12 04:26] LABS: URINE LEUK ESTERASE LARGE (NEGATIVE); URINE NITRITE NEGATIVE (NEGATIVE); URINE UROBILINOGEN 0.2 mg/dL (0.2-1.0)
[2019-05-12 04:27] LABS: URINE RBC 225 /uL (0-23.9)
[2019-05-12 04:28] LABS: EPI CELLS 28 /uL (0-25.1); HYALINE CASTS 630 /uL (0-3.1); URINE BACTERIA 2127 /uL (0-1359); URINE WBC 29687 /uL (0-25.8)
--- NOTE | 2019-05-12 04:44 | PN ---
Teaching Attending Note Name of Resident: Romain Rojas ATTENDING PHYSICIAN STATEMENT I saw and evaluated the patient. I reviewed the resident's note and discussed the case with the resident. I agree with the resident's findings and plan as documented. SUBJECTIVE: Patient is a 58 year old woman with a PMH of TBI, Seizures, Parkinson's and St age 3 bladder Cancer who presents from home with report of fever and foul- smelling urine. She is nonverbal and unable to provide additional information, but her home health aide reported that patient has been having fever and complaining of vaginal or suprapubic discomfort. She denies any cough, congestion, headache, chest pain, difficulty breathing, nausea, vomiting, change in bowel habits, hematuria, dysuria or dizziness. OBJECTIVE: Alert Vital Signs Period Temp Pulse Resp BP Sys/Morris Pulse Ox Last 24 Hr 99 F-100.1 F 98 19 120/76 98 HEENT: No Jaundice, eye redness or discharge, PERRLA. Normocephalic, atraumatic. External ears are normal; No nasal discharge. Neck: Supple, nontender. No palpable adenopathy or thyromegaly. No JVD Chest: Good effort. Clear to auscultation and percussion. Heart: Regular. No S3, rub or murmur Abdomen: Not distended, soft, nontender and no HSM. No rebound or guarding. Normal bowel sounds. Ext: Peripheral pulses intact. No leg edema. Limb contractures and finger deformities. Thao in place. Skin: Warm and dry. No petechiae, rash or ecchymosis. Neuro: Alert. Nonverbal. Limb contractures. Psych: Appropriate mood and affect. Home Medications Medication Instructions Recorded Calcium 250Mg/Vit-D 125 Units 1 combo PO BID 03/16/19 [Oscal 250 mg+D -] Carbidopa/Levodopa *Cr* 50/200 03/16/19 Divalproex Sodium [Depakote] 250 mg PO BID 03/16/19 Quetiapine Fumarate [Seroquel -] 50 mg PO TID 03/16/19 Ranitidine Oral Solution [Zantac 150 tab DAILY 03/16/19 Oral Solution -] Acetaminophen [Tylenol .Regular 650 mg PO Q6H PRN tablet 03/24/19 Strength -] Calcium 250Mg/Vit-D 125 Units 2 tab PO DAILY tab 03/24/19 [Oscal 250 mg+D -] Carbidopa/Levodopa *Cr* 50/200 1 combo PO TID tablet.er 03/24/19 [Sinemet *Cr* 50/200 -] LORazepam [Ativan] 0.5 mg PO TID PRN #60 tablet MDD 03/24/19 1.5mg Polyethylene Glycol 3350 [Miralax 17 gm PO DAILY #6 bottle 03/24/19 119 gm Btl -] Quetiapine Fumarate [Seroquel -] 50 mg PO TID tablet 03/24/19 Amox-Tr/K Cl [Augmentin 500-125mg 1 tab PO BID@0800,1730 #14 tablet 03/25/19 Tablet -] Abnormal Lab Results 05/11/19 05/11/19 05/11/19 01:52 23:20 23:20 WBC 18.1 H RBC 2.82 L Hgb 7.2 L Hct 22.9 L D MCH 25.4 L MCHC 31.3 L RDW 16.6 H MPV 7.1 L D Absolute Neuts (auto) 14.0 H Monocytes % 12.5 H PT with INR 15.10 H INR 1.28 H VBG pH POC VBG pO2 VBG HCO3 VBG O2 Sat (Maximo) VBG Base Excess Sodium BUN Creatinine Calcium ALT Total Protein Albumin Ur Specific [place] 1.008 L 05/11/19 05/11/19 23:20 23:20 WBC RBC Hgb Hct MCH MCHC RDW MPV Absolute Neuts (auto) Monocytes % PT with INR INR VBG pH 7.43 H POC VBG pO2 < 49 H VBG HCO3 29.4 H VBG O2 Sat (Maximo) 15.2 L VBG Base Excess 5.1 H Sodium 134 L BUN 24.0 H Creatinine 1.4 H Calcium 10.2 H ALT < 6 L Total Protein 6.3 L Albumin 2.1 L Ur Specific [place] ASSESSMENT AND PLAN: 1. Sepsis due to UTI - Sepsis work up done. Prior cultures grew E.Coli. Being treated with IV Ceftriaxone 1 gm q 24 hours. Will investigate mild hypercalcemia if it persists - may be iatrogenic (patient on Calcium&Vitamin D supplement) or partly due to malignancy. Hold Calcium/Vitamin D supplement. Continue IV NS according to sepsis and also to enhance calcium excretion. EKG shows NSR with rate of 81/minute and no significant ST-T wave changes. Will continue comprehensive care for all of patients comorbid conditions. 2. Hypoalbuminemia - Possibly due to combined effects of malnutrition and inflammation associated with comorbid chronic conditions. Will ensure adequate dietary protein intake and also consult gear nicker. 3. BRODERICK on CKD - Cause of BRODERICK unclear. Will hydrate gently, get kidney sonogram, phosphate and monitor urine output. Will consult nephrology and avoid nephrotoxic agents such as NSAIDS, aminoglycosides, contrast dyes and certain Alternative medicine products. 4. Anemia - Likely partly due to kidney failure. Will do basic anemia work up including serial stool guaiacs, reticulocyte count and iron studies. Once infection is under control, should get IV iron therapy and Procrit - to premept blood transfusion. 5. DVT prophylaxis - Lovenox 40 mg SQ q 24 hours. 6. Advance directives - Full code
--- NOTE | 2019-05-12 04:48 | HP ---
HISTORY OF PRESENT ILLNESS: This is a 58 y/o F with a PMHx of anoxic brain injury (per health aide), seizures, Parkinson's, Stage 3 bladder Cancer, who presents from home with report of fever and foul-smelling milky yellow colored urine. She is nonverbal and unable to provide additional information, but her home health aide reported that patient had been having fever and complaining of vaginal or suprapubic discomfort. Health aide denied any cough, congestion, headache, chest pain, difficulty breathing, nausea, vomiting, change in bowel habits, hematuria, dysuria or dizziness. ER course was notable for: (1)UA- 29,687 wbc's, 227 rbc's, casts- 630, bacteria-2127 (2)wbc- 18.1 (3)Ca- 10.1, Alb- 2.1 Recent Travel: none Social History: Smoking:none Alcohol:none Drugs: none Allergies No Known Allergies Allergy (Verified 02/24/19 19:39) HOME MEDICATIONS: Home Medications Medication Instructions Recorded Calcium 250Mg/Vit-D 125 Units 1 combo PO BID 03/16/19 [Oscal 250 mg+D -] Carbidopa/Levodopa *Cr* 50/200 03/16/19 Divalproex Sodium [Depakote] 250 mg PO BID 03/16/19 Quetiapine Fumarate [Seroquel -] 50 mg PO TID 03/16/19 Ranitidine Oral Solution [Zantac 150 tab DAILY 03/16/19 Oral Solution -] Acetaminophen [Tylenol .Regular 650 mg PO Q6H PRN tablet 03/24/19 Strength -] Calcium 250Mg/Vit-D 125 Units 2 tab PO DAILY tab 03/24/19 [Oscal 250 mg+D -] Carbidopa/Levodopa *Cr* 50/200 1 combo PO TID tablet.er 03/24/19 [Sinemet *Cr* 50/200 -] LORazepam [Ativan] 0.5 mg PO TID PRN #60 tablet MDD 03/24/19 1.5mg Polyethylene Glycol 3350 [Miralax 17 gm PO DAILY #6 bottle 03/24/19 119 gm Btl -] Quetiapine Fumarate [Seroquel -] 50 mg PO TID tablet 03/24/19 Amox-Tr/K Cl [Augmentin 500-125mg 1 tab PO BID@0800,1730 #14 tablet 03/25/19 Tablet -] PHYSICAL EXAMINATION Vital Signs - 24 hr 05/11/19 05/12/19 21:58 01:25 Temperature 99 F 100.1 F H Pulse Rate 98 H Respiratory 19 Rate Blood Pressure 120/76 O2 Sat by Pulse 98 Oximetry (%) GENERAL: Awake, lying in bed, nonverbal. Bean in place with milky colored urine LUNGS: Breath sounds equal, clear to auscultation bilaterally. No wheezes, and no crackles. No accessory muscle use. HEART: Regular rate and rhythm, normal S1 and S2 without murmur, rub or gallop. ABDOMEN: Soft, nontender, not distended, normoactive bowel sounds, no guarding, no rebound, no masses. No hepatomegaly or splenomegaly. UPPER EXTREMITIES: 2+ pulses, warm, well-perfused. No cyanosis. B/L UE'S contractures, finger deformities LOWER EXTREMITIES: 2+ pulses, warm, well-perfused. No calf tenderness. No peripheral edema. NEUROLOGICAL: Cranial nerves II-XII grossly intact. PSYCHIATRIC: nonverbal, awake SKIN: Warm, dry, normal turgor, no rashes or lesions noted, normal capillary refill. Laboratory Results - last 24 hr 05/11/19 05/11/19 05/11/19 01:52 23:20 23:20 WBC 18.1 H RBC 2.82 L Hgb 7.2 L Hct 22.9 L D MCV 81.1 D MCH 25.4 L MCHC 31.3 L RDW 16.6 H Plt Count 216 MPV 7.1 L D Absolute Neuts (auto) 14.0 H Neutrophils % 77.2 Lymphocytes % 9.2 Monocytes % 12.5 H Eosinophils % 0.9 D Basophils % 0.2 Nucleated RBC % 0 PT with INR 15.10 H INR 1.28 H PTT (Actin FS) 26.4 VBG pH POC VBG pCO2 POC VBG pO2 VBG HCO3 VBG O2 Sat (Maximo) VBG Base Excess Sodium Potassium Chloride Carbon Dioxide Anion Gap BUN Creatinine Est GFR (CKD-EPI)AfAm Est GFR (CKD-EPI)NonAf Random Glucose Lactic Acid Calcium Total Bilirubin AST ALT Alkaline Phosphatase Troponin I Total Protein Albumin Urine Color Yellow Urine Appearance Turbid Urine pH 6.5 Ur Specific [place] 1.008 L Urine Protein 100 Urine Glucose (UA) Negative Urine Ketones Negative Urine Blood Large Urine Nitrite Negative Urine Bilirubin Negative Urine Urobilinogen 0.2 Ur Leukocyte Esterase Large Urine WBC (Auto) 81088 Urine RBC (Auto) 225 Urine Casts (Auto) 630 U Epithel Cells (Auto) 28 Urine Bacteria (Auto) 212605/11/19 05/11/19 05/11/19 23:20 23:20 23:20 WBC RBC Hgb Hct MCV MCH MCHC RDW Plt Count MPV Absolute Neuts (auto) Neutrophils % Lymphocytes % Monocytes % Eosinophils % Basophils % Nucleated RBC % PT with INR INR PTT (Actin FS) VBG pH 7.43 H POC VBG pCO2 45.4 POC VBG pO2 < 49 H VBG HCO3 29.4 H VBG O2 Sat (Maximo) 15.2 L VBG Base Excess 5.1 H Sodium 134 L Potassium 4.0 Chloride 98 Carbon Dioxide 28 Anion Gap 9 BUN 24.0 H Creatinine 1.4 H Est GFR (CKD-EPI)AfAm 47.55 Est GFR (CKD-EPI)NonAf 41.02 Random Glucose 90 Lactic Acid 1.8 Calcium 10.2 H Total Bilirubin 0.4 AST 17 ALT < 6 L Alkaline Phosphatase 99 Troponin I < 0.02 Total Protein 6.3 L Albumin 2.1 L Urine Color Urine Appearance Urine pH Ur Specific [place] Urine Protein Urine Glucose (UA) Urine Ketones Urine Blood Urine Nitrite Urine Bilirubin Urine Urobilinogen Ur Leukocyte Esterase Urine WBC (Auto) Urine RBC (Auto) Urine Casts (Auto) U Epithel Cells (Auto) Urine Bacteria (Auto) ASSESSMENT/PLAN: This is a 58 y/o F with a PMHx of anoxic brain injury (per health aide), seizures, Parkinson's, Stage 3 bladder Cancer, who presents from home with report of fever and foul-smelling milky yellow colored urine. She is nonverbal and unable to provide additional information, but her home health aide reported that patient had been having fever and complaining of vaginal or suprapubic discomfort. Health aide denied any cough, congestion, headache, chest pain, difficulty breathing, nausea, vomiting, change in bowel habits, hematuria, dysuria or dizziness. #Sepsis 2/2 UTI - Sepsis work up done. Prior cultures grew barlow-sensitive E.Coli. - Continue IV NS 75/hr according to sepsis and also to enhance calcium excretion. - ceftriaxone daily - urine culture - bean placed #Bladder CA hx - uro consulted (Elizabeth) to assess status of CA, pt had chemo/radiation therapy at [facility] per chart review, set up by Uro. - miroscopic hematuria - hypercalcemia may be due to malignancy #BRODERICK on CKD - Likely prerenal 2/2 dehydration - renal consult (Dr. Joshi) - urine Na, Urine Cr, calculate Fena - renal sono - gentle hydration with NS 75/hr - avoid nephrotoxic agents like NSAIDS, aminoglycosides, contrast - Mg, Phos #Normocytic Anemia - likely anemia of chronic disease from CKD vs microscopic hematuria from bladder CA - baseline is around 7-9 - no signs of acute bleed other than microscopic hematuria which per ED is likely traumatic from bean placement - anemia w/u sent including Fe/TIBC, retic count, FOBT, ferritin - will hold off on IV venofer for now until infection has resolved given it can act as a substrate and bind to the bacteria if she becomes bacteremic. #Hypercalcemia - likely 2/2 Bladder CA although Calcium was not elevated in previous visits - normal ALP - vitamin D 25OH, ionized Ca, PTH - IV NS will aid with Rx of hypercalcemia #Hypoalbuminemia -Possibly due to combined effects of malnutrition and inflammation associated with comorbid chronic conditions. - Will ensure adequate dietary protein intake and also consult credit portfolio advisor. Diet: Soft diet, aspiration precautions, bedside swallow eval DVT ppx: Heparin 5K TID Visit type - Emergency Visit Emergency Visit: Yes ED Registration Date: 05/12/19 Care time: The patient presented to the Emergency Department on the above date and was hospitalized for further evaluation of their emergent condition. - New Patient This patient is new to me today: Yes Date on this admission: 05/12/19 - Critical Care Critical Care patient: No ATTENDING PHYSICIAN STATEMENT I saw and evaluated the patient. I reviewed the resident's note and discussed the case with the resident. I agree with the resident's findings and plan as documented. SUBJECTIVE: OBJECTIVE: ASSESSMENT AND PLAN:
[2019-05-12] MEDS ORDERED: SODIUM CHLORIDE 1,000 ML IV SCH ×2 (05:00→19:15)
[2019-05-12 05:48] LABS: BASO % 0.3 % (0-2.0); EOS % 0.7 % (0-4.5); LYMPH % 9.9 % (8-40); MCH 25.7 pg (25.7-33.7); MCHC 32.1 g/dl (32.0-36.0); MEAN PLT VOLUME 7.3 fl (7.5-11.1); MONO % 13.1 % (3.8-10.2); PLATELET COUNT 162 K/MM3 (134-434); RBC 2.26 M/mm3 (3.60-5.2); RDW 16.4 % (11.6-15.6); WHITE BLOOD COUNT 11.6 K/mm3 (4.0-10.0)
[2019-05-12 06:03] LABS: HEMOGLOBIN 5.8 GM/dL (10.7-15.3)
[2019-05-12 06:10] LABS: ALBUMIN 1.6 g/dl (3.4-5.0); ALK PHOS 77 U/L (45-117); ANION GAP 7 MMOL/L (8-16); BILIRUBIN,TOTAL 0.2 mg/dL (0.2-1); BLOOD UREA NITROGEN 22.4 mg/dL (7-18); CALCIUM 9.3 mg/dL (8.5-10.1); CHLORIDE 104 mmol/L (98-107); CO2 26 mmol/L (21-32); CREATININE 1.3 mg/dL (0.55-1.3); GLUCOSE,RANDOM 84 mg/dL (74-106); MAGNESIUM 1.8 mg/dL (1.8-2.4); PHOSPHOROUS 3.4 mg/dL (2.5-4.9); POTASSIUM 3.6 mmol/L (3.5-5.1); SGOT/AST 11 U/L (15-37); SGPT/ALT < 6 U/L (13-61); SODIUM 137 mmol/L (136-145); TOT PROT 4.9 g/dl (6.4-8.2)
[2019-05-12] MEDS: HEPARIN NA (PORCINE) 5,000 UNITS/ML 1ML VIAL SQ SCH ×2 (06:56→21:31)
[2019-05-12 08:49] LABS: BASO % 0.3 % (0-2.0); EOS % 0.8 % (0-4.5); HEMATOCRIT 19.4 % (32.4-45.2); LYMPH % 10.7 % (8-40); MCH 25.7 pg (25.7-33.7); MEAN CELL VOLUME 80.5 fl (80-96); MEAN PLT VOLUME 7.6 fl (7.5-11.1); NEUT % 75.2 % (42.8-82.8); PLATELET COUNT 171 K/MM3 (134-434); RBC 2.41 M/mm3 (3.60-5.2); RDW 16.5 % (11.6-15.6); WHITE BLOOD COUNT 12.6 K/mm3 (4.0-10.0)
[2019-05-12 09:18] LABS: IRON SERUM 11 ug/dL (50-175); TOTAL IRON BINDING CAPACITY 96 ug/dL (250-450)
[2019-05-12 09:29] LABS: HEMOGLOBIN 6.2 GM/dL (10.7-15.3)
--- NOTE | 2019-05-12 10:18 | EKG ---
Test Reason : Blood Pressure : / mmHG Vent. Rate : 081 BPM Atrial Rate : 081 BPM P-R Int : 132 ms QRS Dur : 070 ms QT Int : 356 ms P-R-T Axes : 062 035 025 degrees QTc Int : 413 ms NORMAL SINUS RHYTHM NORMAL ECG WHEN COMPARED WITH ECG OF 14-MAR-2019 11:21, NO SIGNIFICANT CHANGE WAS FOUND Confirmed by MD SMART PENG ([id number]) on 05/12/2019 10:18:07 AM Referred By: Confirmed By:ZARA SMART MD
[2019-05-12 11:40] LABS: LDH 134 U/L (84-246)
[2019-05-12 13:33] LABS: RETICULOCYTES 1.21 % (0.5-1.5)
--- NOTE | 2019-05-12 13:40 | PN ---
Physical Exam: SUBJECTIVE: Patient seen and examined in the morning. Patient admitted overnight for UTI and fever. Patient currently not verbalizing or communicating any pain. OBJECTIVE: Vital Signs Period Temp Pulse Resp BP Sys/Morris Pulse Ox Last 24 Hr 97.4 F-100.1 F 64-98 14-20 96-120/54-76 95-99 GENERAL: The patient was asleep, easily arousable. HEAD: Normal with no signs of trauma. EYES: Right eye closed, when open pupil is constricted and off center. Left eye has EOMI, and PERRL. NECK: Trachea midline, full range of motion, supple. LUNGS: CTAB HEART: S1 S2, no MRG ABDOMEN: Soft nontender. Non distended. Scar from suprapubic cather still in place RECTAL: Stool in rectum, no blood, no external hemorrhoids. EXTREMITIES: Left hand contracted. Peripheral pulses 2+ NEUROLOGICAL: Cranial Nerve II-XII intact. SKIN: Warm, dry, normal turgor, no rashes or lesions noted Laboratory Results - last 24 hr 05/11/19 05/11/19 05/11/19 01:52 23:20 23:20 WBC 18.1 H RBC 2.82 L Hgb 7.2 L Hct 22.9 L D MCV 81.1 D MCH 25.4 L MCHC 31.3 L RDW 16.6 H Plt Count 216 MPV 7.1 L D Absolute Neuts (auto) 14.0 H Neutrophils % 77.2 Lymphocytes % 9.2 Monocytes % 12.5 H Eosinophils % 0.9 D Basophils % 0.2 Nucleated RBC % 0 Retic Count PT with INR 15.10 H INR 1.28 H PTT (Actin FS) 26.4 VBG pH POC VBG pCO2 POC VBG pO2 VBG HCO3 VBG O2 Sat (Maximo) VBG Base Excess Sodium Potassium Chloride Carbon Dioxide Anion Gap BUN Creatinine Est GFR (CKD-EPI)AfAm Est GFR (CKD-EPI)NonAf Random Glucose Lactic Acid Calcium Phosphorus Magnesium Iron TIBC Iron Saturation Unsaturated IBC Total Bilirubin Ferritin AST ALT Alkaline Phosphatase LD Total Troponin I Total Protein Albumin Vitamin D Level Urine Color Yellow Urine Appearance Turbid Urine pH 6.5 Ur Specific [place] 1.008 L Urine Protein 100 Urine Glucose (UA) Negative Urine Ketones Negative Urine Blood Large Urine Nitrite Negative Urine Bilirubin Negative Urine Urobilinogen 0.2 Ur Leukocyte Esterase Large Urine WBC (Auto) 36849 Urine RBC (Auto) 225 Urine Casts (Auto) 630 U Epithel Cells (Auto) 28 Urine Bacteria (Auto) 2127 Blood Type Antibody Screen Crossmatch 05/11/19 05/11/19 05/11/19 23:20 23:20 23:20 WBC RBC Hgb Hct MCV MCH MCHC RDW Plt Count MPV Absolute Neuts (auto) Neutrophils % Lymphocytes % Monocytes % Eosinophils % Basophils % Nucleated RBC % Retic Count PT with INR INR PTT (Actin FS) VBG pH 7.43 H POC VBG pCO2 45.4 POC VBG pO2 < 49 H VBG HCO3 29.4 H VBG O2 Sat (Maximo) 15.2 L VBG Base Excess 5.1 H Sodium 134 L Potassium 4.0 Chloride 98 Carbon Dioxide 28 Anion Gap 9 BUN 24.0 H Creatinine 1.4 H Est GFR (CKD-EPI)AfAm 47.55 Est GFR (CKD-EPI)NonAf 41.02 Random Glucose 90 Lactic Acid 1.8 Calcium 10.2 H Phosphorus Magnesium Iron TIBC Iron Saturation Unsaturated IBC Total Bilirubin 0.4 Ferritin AST 17 ALT < 6 L Alkaline Phosphatase 99 LD Total Troponin I < 0.02 Total Protein 6.3 L Albumin 2.1 L Vitamin D Level Urine Color Urine Appearance Urine pH Ur Specific [place] Urine Protein Urine Glucose (UA) Urine Ketones Urine Blood Urine Nitrite Urine Bilirubin Urine Urobilinogen Ur Leukocyte Esterase Urine WBC (Auto) Urine RBC (Auto) Urine Casts (Auto) U Epithel Cells (Auto) Urine Bacteria (Auto) Blood Type Antibody Screen Crossmatch 05/12/19 05/12/19 05/12/19 05:35 05:35 05:35 WBC 11.6 H RBC 2.26 L Hgb 5.8 L* Hct 18.0 L D MCV 80.0 MCH 25.7 MCHC 32.1 RDW 16.4 H Plt Count 162 D MPV 7.3 L Absolute Neuts (auto) 8.8 H Neutrophils % 76.0 Lymphocytes % 9.9 Monocytes % 13.1 H Eosinophils % 0.7 Basophils % 0.3 Nucleated RBC % 0 Retic Count 1.21 D PT with INR INR PTT (Actin FS) VBG pH POC VBG pCO2 POC VBG pO2 VBG HCO3 VBG O2 Sat (Maximo) VBG Base Excess Sodium 137 Potassium 3.6 Chloride 104 Carbon Dioxide 26 Anion Gap 7 L BUN 22.4 H Creatinine 1.3 Est GFR (CKD-EPI)AfAm 52.00 Est GFR (CKD-EPI)NonAf 44.87 Random Glucose 84 Lactic Acid Calcium 9.3 Phosphorus 3.4 Magnesium 1.8 Iron 11 L TIBC 96 L Iron Saturation 11 L Unsaturated IBC 85 L Total Bilirubin 0.2 Ferritin 397.6 H AST 11 L ALT < 6 L Alkaline Phosphatase 77 LD Total 134 Troponin I Total Protein 4.9 L Albumin 1.6 L Vitamin D Level 31.4 Urine Color Urine Appearance Urine pH Ur Specific [place] Urine Protein Urine Glucose (UA) Urine Ketones Urine Blood Urine Nitrite Urine Bilirubin Urine Urobilinogen Ur Leukocyte Esterase Urine WBC (Auto) Urine RBC (Auto) Urine Casts (Auto) U Epithel Cells (Auto) Urine Bacteria (Auto) Blood Type Antibody Screen Crossmatch 05/12/19 05/12/19 07:33 07:33 WBC 12.6 H RBC 2.41 L Hgb 6.2 L* Hct 19.4 L MCV 80.5 MCH 25.7 MCHC 32.0 RDW 16.5 H Plt Count 171 MPV 7.6 Absolute Neuts (auto) 9.5 H Neutrophils % 75.2 Lymphocytes % 10.7 Monocytes % 13.0 H Eosinophils % 0.8 Basophils % 0.3 Nucleated RBC % 0 Retic Count PT with INR INR PTT (Actin FS) VBG pH POC VBG pCO2 POC VBG pO2 VBG HCO3 VBG O2 Sat (Maximo) VBG Base Excess Sodium Potassium Chloride Carbon Dioxide Anion Gap BUN Creatinine Est GFR (CKD-EPI)AfAm Est GFR (CKD-EPI)NonAf Random Glucose Lactic Acid Calcium Phosphorus Magnesium Iron TIBC Iron Saturation Unsaturated IBC Total Bilirubin Ferritin AST ALT Alkaline Phosphatase LD Total Troponin I Total Protein Albumin Vitamin D Level Urine Color Urine Appearance Urine pH Ur Specific [place] Urine Protein Urine Glucose (UA) Urine Ketones Urine Blood Urine Nitrite Urine Bilirubin Urine Urobilinogen Ur Leukocyte Esterase Urine WBC (Auto) Urine RBC (Auto) Urine Casts (Auto) U Epithel Cells (Auto) Urine Bacteria (Auto) Blood Type O POSITIVE Antibody Screen Negative Crossmatch See Detail Active Medications Generic Name Dose Route Start Last Admin Trade Name Freq PRN Reason Stop Dose Admin Carbidopa/Levodopa 1 combo 05/12/19 14:00 Sinemet *Cr* 50/200 - PO TID CHRISTIAN Divalproex Sodium 250 mg 05/12/19 22:00 Depakote - PO BID CHRISTIAN Famotidine 20 mg 05/13/19 10:00 Pepcid PO DAILY CHRISTIAN Heparin Sodium (Porcine) 5,000 unit 05/12/19 06:00 05/12/19 06:56 Heparin - SQ 5,000 unit TID CHRISTIAN Administration Sodium Chloride 1,000 mls @ 75 mls/hr 05/12/19 05:00 05/12/19 06:57 Normal Saline - IV 75 mls/hr ASDIR CHRISTIAN Administration Ceftriaxone Sodium 1 gm/ 50 mls @ 200 mls/hr 05/13/19 10:00 Dextrose IVPB DAILY CHRISTIAN Protocol Lorazepam 0.5 mg 05/12/19 13:33 Ativan - PO TID PRN ANXIETY Quetiapine Fumarate 50 mg 05/12/19 14:00 Seroquel - PO TID CHRISTIAN ASSESSMENT/PLAN: 58 F PMH anoxic brain injury, seizures, Parkinson's , Bladder Cancer (stage 3) presents with UTI. 1) Urinary Tract Infection - Patient had fever at home. - Tmax of 100.6 - U/A shows WBC 29,687/ Blood Large/ Bacteria 2127. - Ceftriaxone Daily - F/U Urine and Blood culture 2) Hx of bladder cancer - Thao placed - Patient had hematuria that resolved at time of discharge from [facility] (04/26/2019). - Has had low dose radiation therapy x1. - Urology consulted, appreciate recommendations - Spoke with RN Meera Sarah RN at [facility] [phone]. Patient has urinary stent in place after transfer to [facility]. She has had chronic UTI and episodes of hematuria. Patient is full code as per nursing records. - Will reach out to Josiane Villeda for further goals of care discussion [phone]. Full code. Legal guardian feels that patient will do better in a detention or [facility] upon discharge, does not feel home would be appropriate any longer. 3) BRODERICK on CKD - NS at 75 ml/hr after transfusion - Renal U/S ordered - Creatinine at baseline is 0.8. currently 1.3 - Nephrology consulted, appreciate recs 4) Anemia - Hgb drop to 5.8 - Ferritin 397, Iron 11, TIBC 96. - Likely component of anemia of chronic disease - 2 units PRBC ordered - Repeat CBC in PM - Stool Occult negative, done at bedside 5) Hypercalcemia - Corrected calcium of 11.2 - Could be 2/2 to cancer - Ionized calcium pending Diet: Soft diet, speech swallow eval DVT ppx: SCD Dispo: Monitor on Med/Surg Visit type - Emergency Visit Emergency Visit: Yes ED Registration Date: 05/12/19 Care time: The patient presented to the Emergency Department on the above date and was hospitalized for further evaluation of their emergent condition. - New Patient This patient is new to me today: Yes Date on this admission: 05/12/19 - Critical Care Critical Care patient: No ATTENDING PHYSICIAN STATEMENT I saw and evaluated the patient. I reviewed the resident's note and discussed the case with the resident. I agree with the resident's findings and plan as documented. SUBJECTIVE: OBJECTIVE: ASSESSMENT AND PLAN:
[2019-05-12] MEDS: DIVALPROEX SODIUM 250 MG TABLET E.C. PO SCH ×2 (14:19→22:48)
[2019-05-12] MEDS: QUEtiapine FUMARATE 50 MG TABLET PO SCH ×2 (14:22→21:30)
--- NOTE | 2019-05-12 14:23 | CONSULT ---
Consult Consult Specialty:: Nephrology Reason for Consultation:: broderick and hypercalcemia - History of Present Illness Chief Complaint: fever and uti History of Present Illness: Pt is a 58 year old female with pmhx of anoxic brain injury, parkinsons, stage 3 bladder cancer who presents with fever and foul-smelling urine. She was found to be in BRODERICK and found to be hypercalcemic. She is unable to give history. She had been having fevers and suprapubic discomfort. She denies fever or chills however she is not a great historian. She was found to have a UTI. - History Source History Provided By: Medical Record - Past Medical History CAREER CENTER DIRECTOR: Yes: Other (TBI) Renal/: Yes: Cancer (bladder on chemotherapy) ...: No - Alcohol/Substance Use Hx Alcohol Use: No - Smoking History Smoking history: Unknown if ever smoked Have you smoked in the past 12 months: No Aproximately how many cigarettes per day: 0 - Social History ADL: Support Services History of Recent Travel: No Home Medications - Allergies Allergies/Adverse Reactions: Allergies Allergy/AdvReac Type Severity Reaction Status Date / Time No Known Allergies Allergy Verified 02/24/19 19:39 - Home Medications Home Medications: Ambulatory Orders Divalproex Sodium [Depakote] 250 mg PO BID 03/16/19 Quetiapine Fumarate [Seroquel -] 50 mg PO TID 03/16/19 Ranitidine Oral Solution [Zantac Oral Solution -] 150 tab DAILY 03/16/19 Acetaminophen [Tylenol .Regular Strength -] 650 mg PO Q6H PRN tablet 03/24/19 Calcium 250Mg/Vit-D 125 Units [Oscal 250 mg+D -] 2 tab PO DAILY tab 03/24/19 Carbidopa/Levodopa *Cr* 50/200 [Sinemet *Cr* 50/200 -] 1 combo PO TID tablet.er 03/24/19 LORazepam [Ativan] 0.5 mg PO TID PRN #60 tablet MDD 1.5mg 03/24/19 Polyethylene Glycol 3350 [Miralax 119 gm Btl -] 17 gm PO DAILY #6 bottle 03/24/19 Family Medical History Family History: Unable to Obtain Review of Systems Unable to obtain ROS, reason: poor historian - Review of Systems Constitutional: reports: Malaise Eyes: reports: No Symptoms HENT: reports: No Symptoms Cardiovascular: reports: No Symptoms Genitourinary: reports: Other (foul smelling urine) Integumentary: reports: No Symptoms Endocrine: reports: No Symptoms Physical Exam Vital Signs: Vital Signs Temperature 97.8 F 05/12/19 13:28 Pulse Rate 75 05/12/19 13:28 Respiratory Rate 20 05/12/19 13:28 Blood Pressure 108/63 05/12/19 13:28 O2 Sat by Pulse Oximetry (%) 95 05/12/19 10:39 Constitutional: Yes: Calm Eyes: Yes: Conjunctiva Clear HENT: Yes: Atraumatic Cardiovascular: Yes: S1, S2 Respiratory: Yes: CTA Bilaterally Gastrointestinal: Yes: Soft Renal/: Yes: Thao Present Musculoskeletal: Yes: Muscle Weakness Edema: No Neurological: Yes: Pre-Existing Deficit Labs: CBC, BMP 05/12/19 07:33 05/12/19 05:35 Assessment/Plan Current Medications Generic Name Dose Route Start Last Admin Trade Name Freq PRN Reason Stop Dose Admin Carbidopa/Levodopa 1 combo 05/12/19 14:00 05/12/19 14:22 Sinemet *Cr* 50/200 - PO 1 combo TID CHRISTIAN Administration Divalproex Sodium 250 mg 05/12/19 22:00 05/12/19 14:19 Depakote - PO 250 mg BID CHRISTIAN Administration Famotidine 20 mg 05/13/19 10:00 Pepcid PO DAILY CHRISTIAN Heparin Sodium (Porcine) 5,000 unit 05/12/19 06:00 05/12/19 06:56 Heparin - SQ 5,000 unit TID CHRISTIAN Administration Sodium Chloride 1,000 mls @ 75 mls/hr 05/12/19 05:00 05/12/19 06:57 Normal Saline - IV 75 mls/hr ASDIR CHRISTIAN Administration Ceftriaxone Sodium 1 gm/ 50 mls @ 200 mls/hr 05/13/19 10:00 Dextrose IVPB DAILY CHRISTIAN Protocol Lorazepam 0.5 mg 05/12/19 13:33 Ativan - PO TID PRN ANXIETY Quetiapine Fumarate 50 mg 05/12/19 14:00 05/12/19 14:22 Seroquel - PO 50 mg TID CHRISTIAN Administration Microbiology Laboratory Tests 02/05/20 02/06/20 03/17/20 16:35 06:28 01:52 Hgb Sodium Potassium BUN Creatinine 0.8 0.8 Calcium Ionized Calcium Albumin Vitamin D Level PTH Intact Ur Specific [place] 1.008 L Urine Protein 100 Urine Blood Large Urine WBC (Auto) 87895 Urine Bacteria (Auto) 212605/11/19 05/11/19 05/12/19 23:20 23:20 05:35 Hgb 7.2 L 5.8 L* Sodium 134 L Potassium 4.0 BUN 24.0 H Creatinine 1.4 H Calcium 10.2 H Ionized Calcium Albumin Vitamin D Level PTH Intact Ur Specific [place] Urine Protein Urine Blood Urine WBC (Auto) Urine Bacteria (Auto) 05/12/19 05/12/19 05/12/19 05:35 05:35 05:35 Hgb Sodium 137 Potassium 3.6 BUN 22.4 H Creatinine 1.3 Calcium 9.3 Ionized Calcium Pending Albumin 1.6 L Vitamin D Level 31.4 PTH Intact Pending Ur Specific [place] Urine Protein Urine Blood Urine WBC (Auto) Urine Bacteria (Auto) 05/12/19 07:33 Hgb 6.2 L* Sodium Potassium BUN Creatinine Calcium Ionized Calcium Albumin Vitamin D Level PTH Intact Ur Specific [place] Urine Protein Urine Blood Urine WBC (Auto) Urine Bacteria (Auto) Impression 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 hypercalcemia 3. dehydration 4. hypercalcemia 5. uti 6. parkinsons Plan - renal function improving - calcium improving - cont fluids - repeat labs in am - follow pth - repeat cmp in am - repeat ua tomorrow -
--- NOTE | 2019-05-12 18:58 | PN ---
Teaching Attending Note Name of Resident: Jacque Feldman ATTENDING PHYSICIAN STATEMENT I saw and evaluated the patient. I reviewed the resident's note and discussed the case with the resident. I agree with the resident's findings and plan as documented. SUBJECTIVE: No fever or chills. she denies pain. denies SOB. limited communication due to her TBI No events OBJECTIVE: NAD, cachectic . MMM, pale. CV: RRR, no MRG Lungs: CTAB Ext: scars on L leg. Non pitting edema on legs. contracted hand and L elbow . Abd: soft, NT, old suprapubic scar. Skin : L elbow ulcer ( 1 cm ) clean with no discharge or surrounding erythema . no decubs on sacral area. Thao in with dark yellow urine with sediment in bag ASSESSMENT AND PLAN: Unfortunate 58 y/o lady with h/o TBI, Seizures, Parkinson's and Stage 3 bladder Cancer , chronic anemia, h/o hematuria , and recent admission for UTI and anemia. She presented with abd pain 1- UTI: - cont ceftriaxone - follow up urine cx - previous cx reviewed. 2- BRODERICK : likely prerenal , improved with hydration - resume IVF 3- ACute on chronic normocytic anemia. - h/o recurrent transfusions due to hematuria . - more history collected today : after dc form our institution last admission , she went to [facility], where she was treated for hematuria. at time of dc 04/25 she had no bleeding. also h/o radiation to bladder . No chemo or aggressive measures are to be done per her legal guardian - now acute drop , is not very clear. NO active bleeding. rectal by resident did was OB neg . - obtain LDH and Hapto - transfuse 2 units. 4- H/o PArkinson's : cont carbi/levo 5- h/o seizure: cont lamictal cont heparin sq
[2019-05-12] MEDS: POTASSIUM CHLORIDE 10 MEQ in SODIUM CHLORIDE 1,000 ML IVPB SCH (19:45)
--- NOTE | 2019-05-12 20:42 | CON.GU ---
Consult Consult Specialty:: Referred by:: Medicine Reason for Consultation:: bladder cancer - History of Present Illness Chief Complaint: bladder cancer History of Present Illness: non verbal patient from anoxic brain injury. She has a history of locally invasive bladder cancer. according to the chart she is under cancer care at [facility] or at [facility]. 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 - Past Medical History INTERLOCKER: Yes: Other (TBI) Renal/: Yes: Cancer (bladder on chemotherapy) ...: No - Alcohol/Substance Use Hx Alcohol Use: No - Smoking History Smoking history: Unknown if ever smoked Have you smoked in the past 12 months: No Aproximately how many cigarettes per day: 0 - Social History ADL: Support Services History of Recent Travel: No Home Medications - Allergies Allergies/Adverse Reactions: Allergies Allergy/AdvReac Type Severity Reaction Status Date / Time No Known Allergies Allergy Verified 02/24/19 19:39 - Home Medications Home Medications: Ambulatory Orders Divalproex Sodium [Depakote] 250 mg PO BID 03/16/19 Quetiapine Fumarate [Seroquel -] 50 mg PO TID 03/16/19 Ranitidine Oral Solution [Zantac Oral Solution -] 150 tab DAILY 03/16/19 Acetaminophen [Tylenol .Regular Strength -] 650 mg PO Q6H PRN tablet 03/24/19 Calcium 250Mg/Vit-D 125 Units [Oscal 250 mg+D -] 2 tab PO DAILY tab 03/24/19 Carbidopa/Levodopa *Cr* 50/200 [Sinemet *Cr* 50/200 -] 1 combo PO TID tablet.er 03/24/19 LORazepam [Ativan] 0.5 mg PO TID PRN #60 tablet MDD 1.5mg 03/24/19 Polyethylene Glycol 3350 [Miralax 119 gm Btl -] 17 gm PO DAILY #6 bottle 03/24/19 Physical Exam- Vital Signs: Vital Signs Temperature 97.8 F 05/12/19 13:28 Pulse Rate 75 05/12/19 13:28 Respiratory Rate 20 05/12/19 20:17 Blood Pressure 108/63 05/12/19 13:28 O2 Sat by Pulse Oximetry (%) 96 05/12/19 20:17 Labs: CBC, BMP 05/12/19 07:33 05/12/19 05:35 Problem List - Problems (1) Metastatic transitional cell carcinoma to bone Assessment/Plan: She is inoperable. recommend continued care with her current medical oncologist or consideration of hospice placement. Code(s): C79.51 - SECONDARY MALIGNANT NEOPLASM OF BONE
[2019-05-12 20:50] LABS: BASO % 0.4 % (0-2.0); EOS % 1.3 % (0-4.5); HEMATOCRIT 28.4 % (32.4-45.2); HEMOGLOBIN 9.2 GM/dL (10.7-15.3); LYMPH % 7.6 % (8-40); MCH 26.5 pg (25.7-33.7); MCHC 32.3 g/dl (32.0-36.0); MEAN CELL VOLUME 82.1 fl (80-96); MEAN PLT VOLUME 7.4 fl (7.5-11.1); MONO % 10.5 % (3.8-10.2); NEUT % 80.2 % (42.8-82.8); PLATELET COUNT 189 K/MM3 (134-434); RBC 3.47 M/mm3 (3.60-5.2); RDW 15.2 % (11.6-15.6); WHITE BLOOD COUNT 15.8 K/mm3 (4.0-10.0)
[2019-05-12] MEDS ORDERED: PT OWN MED DRAWER 7, Y5N ONE ×2 (21:02→22:46)
[2019-05-12] MEDS: LORazepam 0.5 MG TABLET PO PRN (21:36)
[2019-05-13] MEDS: POTASSIUM CHLORIDE 10 MEQ in SODIUM CHLORIDE 1,000 ML IVPB SCH ×2 (05:24→13:36)
[2019-05-13] MEDS: QUEtiapine FUMARATE 50 MG TABLET PO SCH ×3 (05:24→22:06)
[2019-05-13] MEDS: HEPARIN NA (PORCINE) 5,000 UNITS/ML 1ML VIAL SQ SCH ×2 (05:24→13:37)
[2019-05-13 08:42] LABS: BASO % 0.2 % (0-2.0); EOS % 1.1 % (0-4.5); HEMATOCRIT 25.1 % (32.4-45.2); HEMOGLOBIN 8.3 GM/dL (10.7-15.3); LYMPH % 8.1 % (8-40); MCH 26.7 pg (25.7-33.7); MEAN CELL VOLUME 80.9 fl (80-96); MEAN PLT VOLUME 7.5 fl (7.5-11.1); MONO % 10.9 % (3.8-10.2); NEUT % 79.7 % (42.8-82.8); PLATELET COUNT 190 K/MM3 (134-434); RDW 15.3 % (11.6-15.6); WHITE BLOOD COUNT 14.1 K/mm3 (4.0-10.0)
[2019-05-13] MEDS ORDERED: cefTRIAXone SODIUM 1 GM VIAL ONE (09:06)
[2019-05-13] MEDS ORDERED: DEXTROSE 5%-WATER - 50 ML IVPB ONE (09:06)
[2019-05-13] MEDS ORDERED: PT OWN MED DRAWER 7, Y5N ONE (09:07)
[2019-05-13 09:13] LABS: EPI CELLS >36 /uL (0-25.1); HYALINE CASTS 243 /uL (0-3.1); PH,URINE 6.5 (5.0-8.0); URINE APPEARANCE TURBID; URINE BILIRUBIN NEGATIVE (NEGATIVE); URINE COLOR ORANGE; URINE GLUCOSE (UA) NEGATIVE (NEGATIVE); URINE KETONE NEGATIVE (NEGATIVE); URINE LEUK ESTERASE 3+ (NEGATIVE); URINE NITRITE NEGATIVE (NEGATIVE); URINE PROTEIN 2+ (NEGATIVE); URINE UROBILINOGEN 0.2 mg/dL (0.2-1.0); URINE WBC 20959 /uL (0-25.8)
[2019-05-13] MEDS: DIVALPROEX SODIUM 250 MG TABLET E.C. PO SCH ×2 (09:13→22:06)
[2019-05-13] MEDS: CEFTRIAXONE 1 GM in DEXTROSE 5%-WATER - 50 ML IVPB SCH (09:13)
[2019-05-13] MEDS: FAMOTIDINE 20 MG TABLET PO SCH (09:13)
[2019-05-13 09:21] LABS: ALBUMIN 1.6 g/dl (3.4-5.0); ALK PHOS 90 U/L (45-117); ANION GAP 7 MMOL/L (8-16); BILIRUBIN,TOTAL 0.5 mg/dL (0.2-1); BLOOD UREA NITROGEN 21.1 mg/dL (7-18); CALCIUM 8.8 mg/dL (8.5-10.1); CHLORIDE 111 mmol/L (98-107); CO2 26 mmol/L (21-32); GLUCOSE,RANDOM 74 mg/dL (74-106); POTASSIUM 3.4 mmol/L (3.5-5.1); SGOT/AST 15 U/L (15-37); SGPT/ALT < 6 U/L (13-61); SODIUM 144 mmol/L (136-145); TOT PROT 5.3 g/dl (6.4-8.2)
[2019-05-13 10:00] LABS: URINE RBC 2868.6 /uL (0-23.9)
[2019-05-13] MEDS ORDERED: FAMOTIDINE 40 MG/5 ML ORAL SUSPENSION PO SCH (10:00)
[2019-05-13 10:01] LABS: URINE BACTERIA 494.1 /uL (0-1359); YEAST NON SEEN (NEGATIVE)
--- NOTE | 2019-05-13 10:47 | CONSULT ---
Admitting History and Physical - Primary Care Physician PCP: Zeinab Singer - Admission History of Present Illness: per emr 58 y/o lady with h/o TBI, Seizures, Parkinson's and Stage 3 bladder Cancer , chronic anemia, h/o hematuria , and recent admission for UTI and anemia. She p resented with abd pain with dx of UTI Selected Entries 05/11/19 05/12/19 05/12/19 21:58 01:25 04:48 Breakfast Lunch Supper Temperature 99 F 100.1 F H 98.6 F 05/12/19 05/12/19 05/12/19 07:05 09:36 10:39 Breakfast 75% Lunch Supper Temperature 97.4 F L 98.9 F 05/12/19 05/12/19 05/13/19 13:28 17:00 04:21 Breakfast Lunch 50% 50% Supper 75% Temperature 97.8 F 98.4 F 98.4 F 05/13/19 08:00 Breakfast Lunch Supper Temperature 98.1 F Laboratory Tests 05/11/19 05/12/19 05/13/19 23:20 05:35 07:55 WBC 18.1 H 11.6 H 14.1 H On soft diet, thin liquids. 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) Renal/: Yes: Cancer (bladder on chemotherapy) ...: No - Smoking History Smoking history: Unknown if ever smoked Have you smoked in the past 12 months: No Aproximately how many cigarettes per day: 0 - Alcohol/Substance Use Hx Alcohol Use: No - Social History ADL: Support Services History of Recent Travel: No History - Admission Reason For Visit: FEVER, URINARY TRACT INFECTION, ANEMIA, - Diagnostics X-ray: Report Reviewed (cxr (-)) - General Mental Status: Awake and Alert, Able to Follow Commands, Forgetful, Vague, Confused () Attention: Intact Ability to Follow Directions: Good Head/Neck Control: Fair - Hearing Hearing: Functional Hearing: Normal Speech Evaluation - Communication Primary Language: SPANISH Communication: Yes: Dysarthria Oral Expression Ability: Yes: Moderate Impairment - Speech Production Dysarthria: Yes: Ataxic Able to Make Needs Known: Yes: Moderately Impaired Intelligibility: Yes: Moderately Impaired - Speech Characteristics Voice Loudness: Excessive Variation Voice Pitch: Yes: Pitch Breaks Voice Phonatory-based Quality: Yes: Normal Speech Pattern: Impaired Speech Clarity: < 50% Nasal Resonance: Normal Articulation: Yes: Imprecise Rate of Speech: Too Fast - Language/Auditory Comprehension Follows: Yes: 1 Stage Simple Commands Observation: Able to respond to yes/no queries: Yes, Yes/No Confusion: Yes (inconsistent, not always reliable), Comprehends Conversational Speech: Yes - Language/Verbal Expression Functional Communication Status: Yes: Moderately Impaired - Swallow Evaluation/Bedside Assessment Current Nutritional Intake: Soft, Thin Liquids Oral Secretions: Yes: WFL Dentition: Yes: Edentulous (lower), Dental Appliance Upper Lingual Speed of Movement: Reduced Lingual Movement Strgth Against Opposition: Reduced Laryngeal Movement: Labored,delay initiation Rate of Intake: WFL Bolus Size: WFL Labial Seal: WFL Chewing: Impaired (but seems functional with smaller, soft boluses) Oral Prep Time: Increased Pocketing: Present Bilaterally (needs time to clear) Coughing/Throat Clear: No Change in Voice: No Recommendations - Speech Evaluation, Impression/Plan Impression: Baseline Ataxic Dysarthria. Mastication with reduced coordination and limited dentition. Seems fairly functional with smaller boluses and softer foods. - Dysphagia Impressions/Plan Swallowing Skills: Impaired Dysphagia Impressions: Mild Impairment, Risk of Aspiration *Silent aspiration: cannot be R/O at bedside Dysphagia Treatment Plan: Small Bites, Chin Tuck/Down, Clear Pocket Food, Trial Feedings, Safe Rate, 1/2 tsp. at a time, Elevate HOB during feed - Recommendations Diet Consistency: Regular (soft, easy to chew. Small bites, ZGive pt time to chew and clear her mouth) Liquids: Thin Liquids Supplement: Ensure, Magic Cup, Ensure Pudding
[2019-05-13] MEDS ORDERED: POTASSIUM CHLORIDE TABS 20 MEQ TABLET.ER (FP) PO ONE (12:40)
--- NOTE | 2019-05-13 12:44 | PN ---
Progress Note, Physician History of Present Illness: Pt seen and examine at bedside. She appears comfortable. - Current Medication List Current Medications: Active Medications Carbidopa/Levodopa (Sinemet *Cr* 50/200 -) 1 combo PO TID [facility] Last Admin: 05/13/19 05:24 Dose: 1 combo Documented by: Divalproex Sodium (Depakote -) 250 mg PO BID [facility] Last Admin: 05/13/19 09:13 Dose: 250 mg Documented by: Famotidine (Pepcid -) 20 mg PO DAILY [facility] Last Admin: 05/13/19 09:13 Dose: 20 mg Documented by: Heparin Sodium (Porcine) (Heparin -) 5,000 unit SQ TID [facility] Last Admin: 05/13/19 05:24 Dose: 5,000 unit Documented by: Ceftriaxone Sodium 1 gm/ (Dextrose) 50 mls @ 200 mls/hr IVPB DAILY [facility]; Protocol Last Admin: 05/13/19 09:13 Dose: 200 mls/hr Documented by: Potassium Chloride 10 meq/ (Sodium Chloride) 1,005 mls @ 83 mls/hr IVPB Q12H [facility] Last Admin: 05/13/19 05:24 Dose: Not Given Documented by: Sodium Chloride (Normal Saline -) 1,000 mls @ 42 mls/hr IV ASDIR [facility] Last Admin: 05/12/19 22:48 Dose: Not Given Documented by: Lorazepam (Ativan -) 0.5 mg PO TID PRN PRN Reason: ANXIETY Last Admin: 05/12/19 21:36 Dose: 0.5 mg Documented by: Quetiapine Fumarate (Seroquel -) 50 mg PO TID [facility] Last Admin: 05/13/19 05:24 Dose: 50 mg Documented by: - Objective Vital Signs: Vital Signs Temperature 98.1 F 05/13/19 08:00 Pulse Rate 84 05/13/19 08:00 Respiratory Rate 20 05/13/19 08:00 Blood Pressure 92/51 L 05/13/19 08:00 O2 Sat by Pulse Oximetry (%) 96 05/12/19 20:17 Constitutional: Yes: Calm Eyes: Yes: Conjunctiva Clear HENT: Yes: Atraumatic Neck: Yes: Supple Cardiovascular: Yes: S1, S2 Respiratory: Yes: CTA Bilaterally Gastrointestinal: Yes: Normal Bowel Sounds, Soft Genitourinary: Yes: Thao Present Musculoskeletal: Yes: Muscle Weakness Edema: No Neurological: Yes: Pre-Existing Deficit Labs: CBC, BMP 05/13/19 07:55 05/13/19 07:55 INR, PTT INR 1.28 (0.83-1.09) H 05/11/19 23:20 Assessment/Plan Current Medications Generic Name Dose Route Start Last Admin Trade Name Freq PRN Reason Stop Dose Admin Carbidopa/Levodopa 1 combo 05/12/19 14:00 05/13/19 05:24 Sinemet *Cr* 50/200 - PO 1 combo TID [facility] Administration Divalproex Sodium 250 mg 05/12/19 22:00 05/13/19 09:13 Depakote - PO 250 mg BID [facility] Administration Famotidine 20 mg 05/13/19 10:00 05/13/19 09:13 Pepcid - PO 20 mg DAILY [facility] Administration Heparin Sodium (Porcine) 5,000 unit 05/12/19 06:00 05/13/19 05:24 Heparin - SQ 5,000 unit TID [facility] Administration Ceftriaxone Sodium 1 gm/ 50 mls @ 200 mls/hr 05/13/19 10:00 05/13/19 09:13 Dextrose IVPB 200 mls/hr DAILY [facility] Administration Protocol Potassium Chloride 10 meq/ 1,005 mls @ 83 mls/hr 05/12/19 14:45 05/13/19 05:24 Sodium Chloride IVPB Not Given Q12H [facility]IAN Sodium Chloride 1,000 mls @ 42 mls/hr 05/12/19 19:15 05/12/19 22:48 Normal Saline - IV Not Given ASDIR [facility] Lorazepam 0.5 mg 05/12/19 13:33 05/12/19 21:36 Ativan - PO 0.5 mg TID PRN Administration ANXIETY Potassium Chloride 40 meq 05/13/19 12:40 K-Dur - PO 05/13/19 12:41 ONCE ONE Quetiapine Fumarate 50 mg 05/12/19 14:00 05/13/19 05:24 Seroquel - PO 50 mg TID [facility] Administration Laboratory Tests 05/12/19 05/13/19 05:35 07:55 Calcium 8.8 PTH Intact 9 L Impression 1. BRODERICK baseline hat presser 0.8 2. hypercalcemia 3. dehydration 4. hypercalcemia 5. uti 6. parkinsons Plan - renal function continues to improved - repeat labs in am - replace potassium - can decrease rate of fluids - repeat ua - pth is appropriately low
--- NOTE | 2019-05-13 13:11 | PN ---
Physical Exam: SUBJECTIVE:Patient seen and examined in the morning. Patient admitted overnight for UTI and fever. Patient says she wants to go home. Denies any chest pain, shortness of breath, abdominal pain, nausea, vomiting, diarrhea. OBJECTIVE: Vital Signs Period Temp Pulse Resp BP Sys/Morris Pulse Ox Last 24 Hr 97.8 F-98.4 F 75-90 18-20 92-108/51-67 96 GENERAL: The patient was asleep, easily arousable. HEAD: Normal with no signs of trauma. EYES: Right eye closed, when open pupil is constricted and off center. Left eye has EOMI, and PERRL. NECK: Trachea midline, full range of motion, supple. LUNGS: CTAB HEART: S1 S2, no MRG ABDOMEN: Soft nontender. Non distended. Scar from suprapubic cather still in place EXTREMITIES: Left hand contracted. Peripheral pulses 2+ NEUROLOGICAL: Cranial Nerve II-XII intact. SKIN: Warm, dry, normal turgor, no rashes or lesions noted Laboratory Results - last 24 hr 05/12/19 05/12/19 05/12/19 05:35 05:35 05:35 WBC RBC Hgb Hct MCV MCH MCHC RDW Plt Count MPV Absolute Neuts (auto) Neutrophils % Lymphocytes % Monocytes % Eosinophils % Basophils % Nucleated RBC % Retic Count 1.21 D Haptoglobin 209 Sodium Potassium Chloride Carbon Dioxide Anion Gap BUN Creatinine Est GFR (CKD-EPI)AfAm Est GFR (CKD-EPI)NonAf Random Glucose Calcium Total Bilirubin AST ALT Alkaline Phosphatase Total Protein Albumin PTH Intact 9 L Urine Color Urine Appearance Urine pH Ur Specific [place] Urine Protein Urine Glucose (UA) Urine Ketones Urine Blood Urine Nitrite Urine Bilirubin Urine Urobilinogen Ur Leukocyte Esterase Urine WBC (Auto) Urine RBC (Auto) Urine Casts (Auto) U Pathogenic Cast Auto U Epithel Cells (Auto) Urine Bacteria (Auto) Urine Yeast (Auto) Ur Random Sodium Blood Type Antibody Screen Crossmatch 05/12/19 05/12/19 05/12/19 06:00 07:33 20:30 WBC 15.8 H RBC 3.47 L Hgb 9.2 L Hct 28.4 L D MCV 82.1 MCH 26.5 MCHC 32.3 RDW 15.2 Plt Count 189 MPV 7.4 L Absolute Neuts (auto) 12.6 H Neutrophils % 80.2 Lymphocytes % 7.6 L D Monocytes % 10.5 H Eosinophils % 1.3 Basophils % 0.4 Nucleated RBC % 0 Retic Count Haptoglobin Sodium Potassium Chloride Carbon Dioxide Anion Gap BUN Creatinine Est GFR (CKD-EPI)AfAm Est GFR (CKD-EPI)NonAf Random Glucose Calcium Total Bilirubin AST ALT Alkaline Phosphatase Total Protein Albumin PTH Intact Urine Color Urine Appearance Urine pH Ur Specific [place] Urine Protein Urine Glucose (UA) Urine Ketones Urine Blood Urine Nitrite Urine Bilirubin Urine Urobilinogen Ur Leukocyte Esterase Urine WBC (Auto) Urine RBC (Auto) Urine Casts (Auto) U Pathogenic Cast Auto U Epithel Cells (Auto) Urine Bacteria (Auto) Urine Yeast (Auto) Ur Random Sodium 59 Blood Type O POSITIVE Antibody Screen Negative Crossmatch See Detail 05/13/19 05/13/19 05/13/19 06:00 07:55 07:55 WBC 14.1 H RBC 3.10 L Hgb 8.3 L Hct 25.1 L MCV 80.9 MCH 26.7 MCHC 33.0 RDW 15.3 Plt Count 190 MPV 7.5 Absolute Neuts (auto) 11.3 H Neutrophils % 79.7 Lymphocytes % 8.1 Monocytes % 10.9 H Eosinophils % 1.1 Basophils % 0.2 Nucleated RBC % 0 Retic Count Haptoglobin Sodium 144 Potassium 3.4 L Chloride 111 H Carbon Dioxide 26 Anion Gap 7 L BUN 21.1 H Creatinine 1.0 Est GFR (CKD-EPI)AfAm 71.41 Est GFR (CKD-EPI)NonAf 61.62 Random Glucose 74 Calcium 8.8 Total Bilirubin 0.5 AST 15 ALT < 6 L Alkaline Phosphatase 90 Total Protein 5.3 L Albumin 1.6 L PTH Intact Urine Color [place] Urine Appearance Turbid Urine pH 6.5 Ur Specific [place] 1.007 L Urine Protein 2+ H Urine Glucose (UA) Negative Urine Ketones Negative Urine Blood 3+ H Urine Nitrite Negative Urine Bilirubin Negative Urine Urobilinogen 0.2 Ur Leukocyte Esterase 3+ H Urine WBC (Auto) 61667 Urine RBC (Auto) 2868.6 Urine Casts (Auto) 243 U Pathogenic Cast Auto Non seen U Epithel Cells (Auto) >36 Urine Bacteria (Auto) 494.1 Urine Yeast (Auto) Non seen Ur Random Sodium Blood Type Antibody Screen Crossmatch Active Medications Generic Name Dose Route Start Last Admin Trade Name Freq PRN Reason Stop Dose Admin Carbidopa/Levodopa 1 combo 05/12/19 14:00 05/13/19 05:24 Sinemet *Cr* 50/200 - PO 1 combo TID [facility] Administration Divalproex Sodium 250 mg 05/12/19 22:00 05/13/19 09:13 Depakote - PO 250 mg BID [facility] Administration Famotidine 20 mg 05/13/19 10:00 05/13/19 09:13 Pepcid - PO 20 mg DAILY [facility] Administration Heparin Sodium (Porcine) 5,000 unit 05/12/19 06:00 05/13/19 05:24 Heparin - SQ 5,000 unit TID [facility] Administration Ceftriaxone Sodium 1 gm/ 50 mls @ 200 mls/hr 05/13/19 10:00 05/13/19 09:13 Dextrose IVPB 200 mls/hr DAILY [facility] Administration Protocol Potassium Chloride 10 meq/ 1,005 mls @ 42 mls/hr 05/13/19 12:44 Sodium Chloride IVPB Q24H [facility] Lorazepam 0.5 mg 05/12/19 13:33 05/12/19 21:36 Ativan - PO 0.5 mg TID PRN Administration ANXIETY Quetiapine Fumarate 50 mg 05/12/19 14:00 05/13/19 05:24 Seroquel - PO 50 mg TID [facility] Administration ASSESSMENT/PLAN: 58 F PMH anoxic brain injury, seizures, Parkinson's , Bladder Cancer (stage 3) presents with UTI. 1) Urinary Tract Infection - Patient had fever at home. - Tmax of 100.6 - U/A shows WBC 29,687/ Blood Large/ Bacteria 2127. - Ceftriaxone Daily - F/U Urine and Blood culture 2) Hx of bladder cancer - Thao placed - Patient had hematuria that resolved at time of discharge from [facility] (04/26/2019). - Has had low dose radiation therapy x1. - Urology consulted, appreciate recommendations- Patient is not candidate for surgical intervention. - Spoke with RN Meera Sarah RN at [facility] [phone]. Patient has urinary stent in place after transfer to [facility]. She has had chronic UTI and episodes of hematuria. Patient is full code as per nursing records. - Spoke with Josiane Villeda for further goals of care discussion [phone]. Full code. Legal guardian feels that patient will do better in a fpc or [place] upon discharge, does not feel home would be appropriate any longer. Palliative care consulted in order to discuss [facility] care goals. 3) BRODERICK on CKD - NS at 42 ml/hr after transfusion - Renal U/S ordered - Creatinine at baseline is 0.8. 1.0 - Nephrology consulted, appreciate recs 4) Anemia - Hgb drop to 8.3 today, was up to 9.2 yesterday. - Ferritin 397, Iron 11, TIBC 96. - Likely component of anemia of chronic disease - 2 units PRBC ordered - Stool Occult negative, done at bedside 5) Hypercalcemia - Corrected calcium of 11.2 - Could be 2/2 to cancer - Ionized calcium pending Diet: Soft diet, speech swallow eval DVT ppx: SCD Dispo: Monitor on Med/Surg Visit type - Emergency Visit Emergency Visit: Yes ED Registration Date: 05/12/19 Care time: The patient presented to the Emergency Department on the above date and was hospitalized for further evaluation of their emergent condition. - New Patient This patient is new to me today: No - Critical Care Critical Care patient: No ATTENDING PHYSICIAN STATEMENT I saw and evaluated the patient. I reviewed the resident's note and discussed the case with the resident. I agree with the resident's findings and plan as documented. SUBJECTIVE: OBJECTIVE: ASSESSMENT AND PLAN:
[2019-05-13 15:48] VITALS: BMI 19.6
--- NOTE | 2019-05-13 16:54 | PN ---
Teaching Attending Note Name of Resident: Jacque Feldman ATTENDING PHYSICIAN STATEMENT I saw and evaluated the patient. I reviewed the resident's note and discussed the case with the resident. I agree with the resident's findings and plan as documented. SUBJECTIVE: No fever or chills. No pain . denies SOB. limited communication . thirsty OBJECTIVE: OBJECTIVE: NAD, cachectic. MMM, pale. CV: RRR, no MRG Lungs: CTAB Ext: scars on L leg. Non pitting edema on legs. contracted hand and L elbow . Abd: soft, NT, old suprapubic scar. Thao in with pink urine in bag and clots in tube ASSESSMENT AND PLAN: Unfortunate 58 y/o lady with h/o TBI, Seizures, Parkinson's and Stage 3 bladder Cancer , chronic anemia, h/o hematuria , and recent admission for UTI and anemia. She presented with abd pain 1- UTI: - cont ceftriaxone day 2 - urine cx was contaminated, will repeat 2- BRODERICK : likely prerenal , improved with hydration - cont IVF 3- Acute on chronic normocytic anemia.likely due to hematuria. no evidence of GI bleed or hemolyais s/p transfusion cont to monitor HB 4- Hypercalcemia: likely due to supplements - hold ca and Vit D - PTH noted - calcium level improved 5- H/o PArkinson's : cont carbi/levo 6- h/o seizure: cont lamictal DC heparin sq due to hematuiria. add SCds
[2019-05-13] MEDS: SODIUM CHLORIDE 1,000 ML IV SCH (19:06)
[2019-05-14] MEDS: QUEtiapine FUMARATE 50 MG TABLET PO SCH ×3 (06:55→21:55)
[2019-05-14 08:05] LABS: BASO % 0.3 % (0-2.0); EOS % 1.8 % (0-4.5); HEMATOCRIT 25.9 % (32.4-45.2); HEMOGLOBIN 8.4 GM/dL (10.7-15.3); LYMPH % 11.6 % (8-40); MCH 26.4 pg (25.7-33.7); MCHC 32.4 g/dl (32.0-36.0); MEAN CELL VOLUME 81.5 fl (80-96); MEAN PLT VOLUME 7.4 fl (7.5-11.1); MONO % 11.5 % (3.8-10.2); NEUT % 74.8 % (42.8-82.8); PLATELET COUNT 180 K/MM3 (134-434); RBC 3.18 M/mm3 (3.60-5.2); RDW 15.9 % (11.6-15.6); WHITE BLOOD COUNT 12.5 K/mm3 (4.0-10.0)
[2019-05-14 08:24] LABS: CALCIUM 8.4 mg/dL (8.5-10.1); CREATININE 0.8 mg/dL (0.55-1.3); POTASSIUM 3.9 mmol/L (3.5-5.1)
[2019-05-14] MEDS ORDERED: PT OWN MED DRAWER 7, Y5N ONE (09:23)
[2019-05-14] MEDS ORDERED: DEXTROSE 5%-WATER - 50 ML IVPB ONE (09:24)
[2019-05-14] MEDS ORDERED: cefTRIAXone SODIUM 1 GM VIAL ONE (09:24)
[2019-05-14] MEDS: FAMOTIDINE 20 MG TABLET PO SCH (09:29)
[2019-05-14] MEDS: DIVALPROEX SODIUM 250 MG TABLET E.C. PO SCH ×2 (09:29→21:55)
[2019-05-14] MEDS: CEFTRIAXONE 1 GM in DEXTROSE 5%-WATER - 50 ML IVPB SCH (09:29)
--- NOTE | 2019-05-14 10:30 | PN ---
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 at a time, Elevate HOB during feed - Recommendations Diet Consistency: Regular (soft, easy to chew. Small bites, ZGive pt time to chew and clear her mouth) Liquids: Thin Liquids Supplement: Ensure, Magic Cup, Ensure Pudding
--- NOTE | 2019-05-14 14:34 | PN ---
Progress Note, Physician History of Present Illness: Pt seen and examined at bedside. She appears comfortable. - Current Medication List Current Medications: Active Medications Carbidopa/Levodopa (Sinemet *Cr* 50/200 -) 1 combo PO TID [facility] Last Admin: 05/14/19 14:18 Dose: 1 combo Documented by: Divalproex Sodium (Depakote -) 250 mg PO BID [facility] Last Admin: 05/14/19 09:29 Dose: 250 mg Documented by: Famotidine (Pepcid -) 20 mg PO DAILY [facility] Last Admin: 05/14/19 09:29 Dose: 20 mg Documented by: Ceftriaxone Sodium 1 gm/ (Dextrose) 50 mls @ 200 mls/hr IVPB DAILY [facility]; Protocol Last Admin: 05/14/19 09:29 Dose: 200 mls/hr Documented by: Potassium Chloride 10 meq/ (Sodium Chloride) 1,005 mls @ 42 mls/hr IVPB Q24H [facility] Last Admin: 05/13/19 13:36 Dose: 42 mls/hr Documented by: Sodium Chloride (Normal Saline -) 1,000 mls @ 42 mls/hr IV ASDIR [facility] Last Admin: 05/13/19 19:06 Dose: 42 mls/hr Documented by: Lorazepam (Ativan -) 0.5 mg PO TID PRN PRN Reason: ANXIETY Last Admin: 05/12/19 21:36 Dose: 0.5 mg Documented by: Quetiapine Fumarate (Seroquel -) 50 mg PO TID [facility] Last Admin: 05/14/19 14:18 Dose: 50 mg Documented by: - Objective Vital Signs: Vital Signs Temperature 98.3 F 05/14/19 14:24 Pulse Rate 90 05/14/19 14:24 Respiratory Rate 20 05/14/19 14:24 Blood Pressure 107/62 05/14/19 14:24 O2 Sat by Pulse Oximetry (%) 96 05/13/19 21:00 Constitutional: Yes: Calm Eyes: Yes: Conjunctiva Clear HENT: Yes: Atraumatic Neck: Yes: Supple Cardiovascular: Yes: S1, S2 Respiratory: Yes: CTA Bilaterally Gastrointestinal: Yes: Normal Bowel Sounds, Soft Genitourinary: Yes: WNL Musculoskeletal: Yes: Muscle Weakness Edema: No Neurological: Yes: Pre-Existing Deficit Labs: CBC, BMP 05/14/19 07:25 05/14/19 07:25 INR, PTT INR 1.28 (0.83-1.09) H 05/11/19 23:20 Assessment/Plan Current Medications Generic Name Dose Route Start Last Admin Trade Name Freq PRN Reason Stop Dose Admin Carbidopa/Levodopa 1 combo 05/12/19 14:00 05/14/19 14:18 Sinemet *Cr* 50/200 - PO 1 combo TID [facility] Administration Divalproex Sodium 250 mg 05/12/19 22:00 05/14/19 09:29 Depakote - PO 250 mg BID [facility] Administration Famotidine 20 mg 05/13/19 10:00 05/14/19 09:29 Pepcid - PO 20 mg DAILY [facility] Administration Ceftriaxone Sodium 1 gm/ 50 mls @ 200 mls/hr 05/13/19 10:00 05/14/19 09:29 Dextrose IVPB 200 mls/hr DAILY [facility] Administration Protocol Potassium Chloride 10 meq/ 1,005 mls @ 42 mls/hr 05/13/19 12:44 05/13/19 13:36 Sodium Chloride IVPB 42 mls/hr Q24H [facility] Administration Sodium Chloride 1,000 mls @ 42 mls/hr 05/13/19 17:00 05/13/19 19:06 Normal Saline - IV 42 mls/hr ASDIR [facility] Administration Lorazepam 0.5 mg 05/12/19 13:33 05/12/19 21:36 Ativan - PO 0.5 mg TID PRN Administration ANXIETY Quetiapine Fumarate 50 mg 05/12/19 14:00 05/14/19 14:18 Seroquel - PO 50 mg TID [facility] Administration Impression 1. BRODERICK baseline suspender maker 0.8 2. hypercalcemia 3. dehydration 4. hypercalcemia 5. uti 6. parkinsons Plan - calcium stable - encourage po intake - can observe off of fluids - cont abx - pth is appropriately low - will follow prn
--- NOTE | 2019-05-14 15:00 | PN ---
Teaching Attending Note Name of Resident: Jacque Feldman ATTENDING PHYSICIAN STATEMENT I saw and evaluated the patient. I reviewed the resident's note and discussed the case with the resident. I agree with the resident's findings and plan as documented. SUBJECTIVE: no pain , no SOB . thirsty OBJECTIVE: NAD, cachectic. MMM, pale. CV: RRR, no MRG Lungs: CTAB Ext: scars on L leg. Non pitting edema on legs. contracted hand and L elbow .L elbow ulcer < 1 cm . with slough, no surrounding erythema Abd: soft, NT, old suprapubic scar. Thao in with pink urine in bag and clear urine in tube ASSESSMENT AND PLAN: Unfortunate 58 y/o lady with h/o TBI, Seizures, Parkinson's and Stage 3 bladder Cancer , chronic anemia, h/o hematuria , and recent admission for UTI and anemia. She presented with abd pain 1- UTI: - cont ceftriaxone day 3 - urine cx pending 2- BRODERICK: likely prerenal , improved with hydration - dc IVF 3- Acute on chronic normocytic anemia. likely due to hematuria. no evidence of GI bleed or hemolyais s/p transfusion cont to monitor HB 4- Hypercalcemia: likely due to supplements - cont to hold ca and Vit D - PTH noted - calcium level improved 5- H/o PArkinson's: cont carbi/levo 6- h/o seizure: cont lamictal SCds
--- NOTE | 2019-05-14 17:46 | PN ---
Physical Exam: SUBJECTIVE: Patient seen and examined in the morning. No acute events overnight. Denies any chest pain, shortness of breath, abdominal pain, nausea, vomiting, diarrhea. OBJECTIVE: Vital Signs Period Temp Pulse Resp BP Sys/Morris Pulse Ox Last 24 Hr 98 F-98.3 F 9-90 99-107/58-69 96 GENERAL: The patient was asleep, easily arousable. HEAD: Normal with no signs of trauma. EYES: Right eye closed, when open pupil is constricted and off center. Left eye has EOMI, and PERRL. NECK: Trachea midline, full range of motion, supple. LUNGS: CTAB HEART: S1 S2, no MRG ABDOMEN: Soft nontender. Non distended. Scar from suprapubic cather still in place EXTREMITIES: Left hand contracted. Peripheral pulses 2+ NEUROLOGICAL: Cranial Nerve II-XII intact. SKIN: Non weeping wound on the right elbow. Dressing in place. Laboratory Results - last 24 hr 05/14/19 05/14/19 07:25 07:25 WBC 12.5 H RBC 3.18 L Hgb 8.4 L Hct 25.9 L MCV 81.5 MCH 26.4 MCHC 32.4 RDW 15.9 H Plt Count 180 MPV 7.4 L Absolute Neuts (auto) 9.4 H Neutrophils % 74.8 Lymphocytes % 11.6 D Monocytes % 11.5 H Eosinophils % 1.8 Basophils % 0.3 Nucleated RBC % 0 Sodium 145 Potassium 3.9 Chloride 111 H Carbon Dioxide 27 Anion Gap 7 L BUN 16.0 Creatinine 0.8 Est GFR (CKD-EPI)AfAm 93.53 Est GFR (CKD-EPI)NonAf 80.70 Random Glucose 82 Calcium 8.4 L Active Medications Generic Name Dose Route Start Last Admin Trade Name Freq PRN Reason Stop Dose Admin Carbidopa/Levodopa 1 combo 05/12/19 14:00 05/14/19 14:18 Sinemet *Cr* 50/200 - PO 1 combo TID CHRISTIAN Administration Divalproex Sodium 250 mg 05/12/19 22:00 05/14/19 09:29 Depakote - PO 250 mg BID CHRISTIAN Administration Famotidine 20 mg 05/13/19 10:00 05/14/19 09:29 Pepcid - PO 20 mg DAILY CHRISTIAN Administration Ceftriaxone Sodium 1 gm/ 50 mls @ 200 mls/hr 05/13/19 10:00 05/14/19 09:29 Dextrose IVPB 200 mls/hr DAILY CHRISTIAN Administration Protocol Potassium Chloride 10 meq/ 1,005 mls @ 42 mls/hr 05/13/19 12:44 05/13/19 13:36 Sodium Chloride IVPB 42 mls/hr Q24H CHRISTIAN Administration Sodium Chloride 1,000 mls @ 42 mls/hr 05/13/19 17:00 05/13/19 19:06 Normal Saline - IV 42 mls/hr ASDIR CHRISTIAN Administration Lorazepam 0.5 mg 05/12/19 13:33 05/12/19 21:36 Ativan - PO 0.5 mg TID PRN Administration ANXIETY Quetiapine Fumarate 50 mg 05/12/19 14:00 05/14/19 14:18 Seroquel - PO 50 mg TID CHRISTIAN Administration ASSESSMENT/PLAN: 58 F PMH anoxic brain injury, seizures, Parkinson's , Bladder Cancer (stage 3) presents with UTI. 1) Urinary Tract Infection - Tmax of 100.6 on admission. Afebrile in hospital. - U/A shows 3+ LE and Blood. - Ceftriaxone Daily - F/U Urine and Blood culture 2) Hx of bladder cancer - Thao placed - Patient had hematuria that resolved at time of discharge from [facility] (04/26/2019). - Has had low dose radiation therapy x1. - Urology consulted, appreciate recommendations- Patient is not candidate for surgical intervention. - Spoke with RN Meera Sarah RN at [facility] [phone]. Patient has urinary stent in place after transfer to [facility]. She has had chronic UTI and episodes of hematuria. Patient is full code as per nursing records. - Spoke with Josiane Villeda for further goals of care discussion [phone]. Full code. - Application to [facility] pending 3) BRODERICK on CKD - Renal U/S negative - Resolved - Nephrology consulted, appreciate recs 4) Anemia - Hgb drop to 8.3 today, was up to 9.2 yesterday. - Ferritin 397, Iron 11, TIBC 96. - Likely component of anemia of chronic disease - 2 units PRBC ordered - Stool Occult negative, done at bedside 5) Hypercalcemia - Corrected calcium of 11.2 on admission. - Calcium is now stable. - Could be 2/2 to cancer Diet: Soft diet DVT ppx: SCD Dispo: D/C pending [facility] Visit type - Emergency Visit Emergency Visit: Yes ED Registration Date: 05/12/19 Care time: The patient presented to the Emergency Department on the above date and was hospitalized for further evaluation of their emergent condition. - New Patient This patient is new to me today: No - Critical Care Critical Care patient: No ATTENDING PHYSICIAN STATEMENT I saw and evaluated the patient. I reviewed the resident's note and discussed the case with the resident. I agree with the resident's findings and plan as documented. SUBJECTIVE: OBJECTIVE: ASSESSMENT AND PLAN:
[2019-05-14] MEDS: SODIUM CHLORIDE 1,000 ML IV SCH (21:55)
[2019-05-15] MEDS: POTASSIUM CHLORIDE 10 MEQ in SODIUM CHLORIDE 1,000 ML IVPB SCH ×2 (04:30→13:00)
[2019-05-15 08:18] LABS: BASO % 0.5 % (0-2.0); EOS % 2.6 % (0-4.5); HEMATOCRIT 26.3 % (32.4-45.2); HEMOGLOBIN 8.4 GM/dL (10.7-15.3); LYMPH % 10.5 % (8-40); MCH 26.4 pg (25.7-33.7); MCHC 31.9 g/dl (32.0-36.0); MEAN CELL VOLUME 82.8 fl (80-96); MEAN PLT VOLUME 7.4 fl (7.5-11.1); MONO % 11.4 % (3.8-10.2); PLATELET COUNT 159 K/MM3 (134-434); RBC 3.17 M/mm3 (3.60-5.2); RDW 16.2 % (11.6-15.6); WHITE BLOOD COUNT 12.8 K/mm3 (4.0-10.0)
[2019-05-15 08:35] LABS: BLOOD UREA NITROGEN 12.6 mg/dL (7-18); CALCIUM 8.2 mg/dL (8.5-10.1); CREATININE 0.7 mg/dL (0.55-1.3); POTASSIUM 3.6 mmol/L (3.5-5.1)
[2019-05-15] MEDS ORDERED: DEXTROSE 50%-WATER - 25 GM/50 ML VIAL IVPUSH PRN (08:58)
--- NOTE | 2019-05-15 08:58 | PN ---
Physical Exam: SUBJECTIVE: Patient seen and examined at bed enoc e, no acute events over night , no fever or chills, still with pinkish urine but improved ,denies any abdominal pain N/V.D/C. OBJECTIVE: Vital Signs Period Temp Pulse Resp BP Sys/Morris Pulse Ox Last 24 Hr 98 F-98.3 F 9- 99-120/61-73 96 GENERAL: Awake alert, functional quardiplesia , non verbal HEAD: NC/AT ENT: dry mucous membrane NECK: Supple, LUNGS: CTA B/L, no crackles no wheezing no accessory muscle use. HEART: RRR,, normal s1, s2, murmur no M/R/G ABDOMEN: Soft, ND, NT, +BS 4 Q, no CVA Tenderness, surgic scar upper abdomen , LOWER EXTREMITIES: no edema, +2DP pulse, Upper ext with toes defromity and small ilcer on left elbow NEUROLOGICAL: No focal deficit. non verbal PSYCHIATRIC: Cooperative. SKIN: Warm, dry,left elbow ulcer less than coin wheeping Laboratory Results - last 24 hr 05/15/19 05/15/19 07:15 07:15 WBC 12.8 H RBC 3.17 L Hgb 8.4 L Hct 26.3 L MCV 82.8 MCH 26.4 MCHC 31.9 L RDW 16.2 H Plt Count 159 MPV 7.4 L Absolute Neuts (auto) 9.6 H Neutrophils % 75.0 Lymphocytes % 10.5 Monocytes % 11.4 H Eosinophils % 2.6 Basophils % 0.5 Nucleated RBC % 0 Sodium 142 Potassium 3.6 Chloride 108 H Carbon Dioxide 27 Anion Gap 7 L BUN 12.6 Creatinine 0.7 Est GFR (CKD-EPI)AfAm 109.91 Est GFR (CKD-EPI)NonAf 94.84 Random Glucose 73 L Calcium 8.2 L Active Medications Generic Name Dose Route Start Last Admin Trade Name Freq PRN Reason Stop Dose Admin Carbidopa/Levodopa 1 combo 05/12/19 14:00 05/14/19 21:55 Sinemet *Cr* 50/200 - PO 1 combo TID CHRISTIAN Administration Divalproex Sodium 250 mg 05/12/19 22:00 05/14/19 21:55 Depakote - PO 250 mg BID CHRISTIAN Administration Famotidine 20 mg 05/13/19 10:00 05/14/19 09:29 Pepcid - PO 20 mg DAILY CHRISTIAN Administration Ceftriaxone Sodium 1 gm/ 50 mls @ 200 mls/hr 05/13/19 10:00 05/14/19 09:29 Dextrose IVPB 200 mls/hr DAILY CHRISTIAN Administration Protocol Potassium Chloride 10 meq/ 1,005 mls @ 42 mls/hr 05/13/19 12:44 05/15/19 04:30 Sodium Chloride IVPB Not Given Q24H CHRISTIAN Sodium Chloride 1,000 mls @ 42 mls/hr 05/13/19 17:00 05/14/19 21:55 Normal Saline - IV 42 mls/hr ASDIR CHRISTIAN Administration Lorazepam 0.5 mg 05/12/19 13:33 05/12/19 21:36 Ativan - PO 0.5 mg TID PRN Administration ANXIETY Quetiapine Fumarate 50 mg 05/12/19 14:00 05/14/19 21:55 Seroquel - PO 50 mg TID CHRISTIAN Administration CBC, BMP 05/15/19 07:15 05/15/19 07:15 ASSESSMENT/PLAN: 58 F PMH anoxic brain injury, seizures, Parkinson's , Bladder Cancer (stage 3) presents with UTI. # Urinary Tract Infection, afebrile cont ceftrixone day 3, can switch to Augmentin upon dc. # Hx of bladder cancer with hematuria , S/P radiation X1 * bean in place , hematuria improving, monitor H/H * Urology consulted, appreciate recommendations- Patient is not candidate for surgical intervention. * Application to [facility] pending # BRODERICK likely pre renal resolved # Mild fatty infiltrate on liver follow up out pt # Acute on chronic normocytic normo chromic Anemia mixed picture anemia if chronic disease and acute blood loss from hematuria * H/H 8.4 , stable cont to monitor * Ferritin 397, Iron 11, TIBC 96. * S.P 2 units PRBCS # Hypercalcemia, resolved * Corrected calcium of 11.2 on admission. * Calcium is now stable. * Could be 2/2 to cancer vs supplement #Diet: Soft diet #DVT ppx: SCD Dispo: D/C pending [facility] authorization Visit type - Emergency Visit Emergency Visit: Yes ED Registration Date: 05/12/19 Care time: The patient presented to the Emergency Department on the above date and was hospitalized for further evaluation of their emergent condition. - New Patient This patient is new to me today: No - Critical Care Critical Care patient: No - Discharge Referral Referred to [facility] Med P.C.: No ATTENDING PHYSICIAN STATEMENT I saw and evaluated the patient. I reviewed the resident's note and discussed the case with the resident. I agree with the resident's findings and plan as documented. SUBJECTIVE: OBJECTIVE: ASSESSMENT AND PLAN:
[2019-05-15] MEDS ORDERED: DEXTROSE 5%-WATER - 50 ML IVPB ONE (09:23)
[2019-05-15] MEDS ORDERED: cefTRIAXone SODIUM 1 GM VIAL ONE (09:23)
[2019-05-15] MEDS: CEFTRIAXONE 1 GM in DEXTROSE 5%-WATER - 50 ML IVPB SCH (09:30)
[2019-05-15] MEDS: FAMOTIDINE 20 MG TABLET PO SCH (09:34)
[2019-05-15] MEDS: DIVALPROEX SODIUM 250 MG TABLET E.C. PO SCH ×2 (09:34→21:54)
[2019-05-15 10:23] LABS: ANISOCYTOSIS 1+; MACROCYTOSIS 0; OVALOCYTE 1+; PLATELET ESTIMATE DECREASED
[2019-05-15] MEDS: QUEtiapine FUMARATE 50 MG TABLET PO SCH ×2 (13:13→21:54)
--- NOTE | 2019-05-15 16:16 | PN ---
Teaching Attending Note Name of Resident: Trenton Esparza ATTENDING PHYSICIAN STATEMENT I saw and evaluated the patient. I reviewed the resident's note and discussed the case with the resident. I agree with the resident's findings and plan as documented. SUBJECTIVE: No fever or chills. no pain , no SOB OBJECTIVE: NAD, cachectic. MMM, pale. CV: RRR, no MRG Lungs: CTAB Ext: scars on L leg. No edema . contracted hand and L elbow. L elbow ulcer < 1 cm no discharge . with slough, no surrounding erythema Abd: soft, NT, old suprapubic scar. Thao in with light pink urine in bag and clear urine in tube ASSESSMENT AND PLAN: Unfortunate 58 y/o lady with h/o TBI, Seizures, Parkinson's and Stage 3 bladder Cancer , chronic anemia, h/o hematuria , and recent admission for UTI and anemia. She presented with abd pain 1- UTI: - cont ceftriaxone day 4. - urine cx pending ( non lactose fermenting GNR). follwo final 2- BRODERICK: likely prerenal, improved with hydration 3- Acute on chronic normocytic anemia. likely due to hematuria. no evidence of GI bleed or hemolyais s/p transfusion cont to monitor HB 4- Hypercalcemia: likely due to supplements - cont to hold ca and Vit D - PTH noted - calcium level improved ( Nl corrected ca ) 5- H/o PArkinson's: cont carbi/levo 6- h/o seizure: cont lamictal SCds [facility] application pending
[2019-05-15] MEDS ORDERED: PT OWN MED DRAWER 7, Y5N ONE (21:49)
[2019-05-16] MEDS: QUEtiapine FUMARATE 50 MG TABLET PO SCH ×4 (06:36→21:41)
[2019-05-16] MEDS ORDERED: PT OWN MED DRAWER 7, Y5N ONE (08:58)
[2019-05-16] MEDS ORDERED: DEXTROSE 5%-WATER - 50 ML IVPB ONE (08:58)
[2019-05-16] MEDS ORDERED: cefTRIAXone SODIUM 1 GM VIAL ONE (08:58)
[2019-05-16] MEDS: CEFTRIAXONE 1 GM in DEXTROSE 5%-WATER - 50 ML IVPB SCH (09:04)
[2019-05-16] MEDS: DIVALPROEX SODIUM 250 MG TABLET E.C. PO SCH ×2 (09:05→21:41)
[2019-05-16] MEDS: FAMOTIDINE 20 MG TABLET PO SCH (09:05)
[2019-05-16] MEDS: SODIUM CHLORIDE 1,000 ML IV SCH (09:06)
[2019-05-16 11:58] LABS: BASO % 0.2 % (0-2.0); EOS % 2.8 % (0-4.5); HEMOGLOBIN 8.6 GM/dL (10.7-15.3); LYMPH % 9.8 % (8-40); MCH 26.5 pg (25.7-33.7); MCHC 31.9 g/dl (32.0-36.0); MEAN CELL VOLUME 83.1 fl (80-96); MEAN PLT VOLUME 7.3 fl (7.5-11.1); MONO % 10.1 % (3.8-10.2); NEUT % 77.1 % (42.8-82.8); PLATELET COUNT 145 K/MM3 (134-434); RBC 3.25 M/mm3 (3.60-5.2); RDW 16.1 % (11.6-15.6); WHITE BLOOD COUNT 15.5 K/mm3 (4.0-10.0)
[2019-05-16 12:56] LABS: ALBUMIN 1.6 g/dl (3.4-5.0); ALK PHOS 97 U/L (45-117); ANION GAP 7 MMOL/L (8-16); BILIRUBIN,TOTAL 0.4 mg/dL (0.2-1); BLOOD UREA NITROGEN 12.4 mg/dL (7-18); CALCIUM 8.1 mg/dL (8.5-10.1); CHLORIDE 106 mmol/L (98-107); CO2 28 mmol/L (21-32); CREATININE 0.7 mg/dL (0.55-1.3); GLUCOSE,RANDOM 89 mg/dL (74-106); POTASSIUM 3.9 mmol/L (3.5-5.1); SGOT/AST 18 U/L (15-37); SGPT/ALT < 6 U/L (13-61); SODIUM 141 mmol/L (136-145); TOT PROT 5.5 g/dl (6.4-8.2)
[2019-05-16] MEDS: POTASSIUM CHLORIDE 10 MEQ in SODIUM CHLORIDE 1,000 ML IVPB SCH (13:15)
--- NOTE | 2019-05-16 13:33 | PN ---
Physical Exam: SUBJECTIVE: Patient seen and examined at bed side , no acute events over night , asking to go home , yellow urine , hematuria resolved , urine cx with Acinabacter will switch antibiotics to levaquin , pending SNF placement as [facility] can not take her unless she is DNR/DNI. OBJECTIVE: Vital Signs Period Temp Pulse Resp BP Sys/Morris Pulse Ox Last 24 Hr 97.9 F-100.9 F 87-93 18-20 103-114/57-86 94-94 GENERAL: Awake alert, functional quardiplesia , non verbal HEAD: NC/AT ENT: dry mucous membrane NECK: Supple, LUNGS: CTA B/L, no crackles no wheezing no accessory muscle use. HEART: RRR,, normal s1, s2, murmur no M/R/G ABDOMEN: Soft, ND, NT, +BS 4 Q, no CVA Tenderness, surgic scar upper abdomen , LOWER EXTREMITIES: no edema, +2DP pulse, Upper ext with toes defromity and small ilcer on left elbow NEUROLOGICAL: No focal deficit. non verbal PSYCHIATRIC: Cooperative. SKIN: Warm, dry,left elbow ulcer less than coin wheeping Laboratory Results - last 24 hr 05/12/19 05/15/19 05/16/19 07:33 16:34 11:25 WBC 15.5 H RBC 3.25 L Hgb 8.6 L Hct 27.0 L MCV 83.1 MCH 26.5 MCHC 31.9 L RDW 16.1 H Plt Count 145 MPV 7.3 L Absolute Neuts (auto) 11.9 H Neutrophils % 77.1 Lymphocytes % 9.8 Monocytes % 10.1 Eosinophils % 2.8 Basophils % 0.2 Nucleated RBC % 0 Sodium Potassium Chloride Carbon Dioxide Anion Gap BUN Creatinine Est GFR (CKD-EPI)AfAm Est GFR (CKD-EPI)NonAf POC Glucometer 103 Random Glucose Calcium Total Bilirubin AST ALT Alkaline Phosphatase Total Protein Albumin Blood Type O POSITIVE Antibody Screen Negative Crossmatch See Detail 05/16/19 05/16/19 11:25 11:52 WBC RBC Hgb Hct MCV MCH MCHC RDW Plt Count MPV Absolute Neuts (auto) Neutrophils % Lymphocytes % Monocytes % Eosinophils % Basophils % Nucleated RBC % Sodium 141 Potassium 3.9 Chloride 106 Carbon Dioxide 28 Anion Gap 7 L BUN 12.4 Creatinine 0.7 Est GFR (CKD-EPI)AfAm 109.91 Est GFR (CKD-EPI)NonAf 94.84 POC Glucometer 114 Random Glucose 89 Calcium 8.1 L Total Bilirubin 0.4 AST 18 ALT < 6 L Alkaline Phosphatase 97 Total Protein 5.5 L Albumin 1.6 L Blood Type Antibody Screen Crossmatch Active Medications Generic Name Dose Route Start Last Admin Trade Name Freq PRN Reason Stop Dose Admin Carbidopa/Levodopa 1 combo 05/12/19 14:00 05/16/19 13:15 Sinemet *Cr* 50/200 - PO 1 combo TID CHRISTIAN Administration Dextrose 25 gm 05/15/19 08:58 D50w (Vial) - IVPUSH PRN PRN HYPOGLYCEMIA Divalproex Sodium 250 mg 05/12/19 22:00 05/16/19 09:05 Depakote - PO 250 mg BID CHRISTIAN Administration Famotidine 20 mg 05/13/19 10:00 05/16/19 09:05 Pepcid - PO 20 mg DAILY CHRISTIAN Administration Ceftriaxone Sodium 1 gm/ 50 mls @ 200 mls/hr 05/13/19 10:00 05/16/19 09:04 Dextrose IVPB 200 mls/hr DAILY CHRISTINA Administration Protocol Potassium Chloride 10 meq/ 1,005 mls @ 42 mls/hr 05/13/19 12:44 05/16/19 13:15 Sodium Chloride IVPB Not Given Q24H CHRISTIAN Sodium Chloride 1,000 mls @ 42 mls/hr 05/13/19 17:00 05/16/19 09:06 Normal Saline - IV 42 mls/hr ASDIR CHRISTIAN Administration Levofloxacin 500 mg in 100 mls @ 100 mls/hr 05/16/19 11:30 05/16/19 11:49 Levaquin 500 Mg Premixed Ivpb - IVPB 100 mls/hr DAILY CHRISTIAN Administration Protocol Lorazepam 0.5 mg 05/12/19 13:33 05/12/19 21:36 Ativan - PO 0.5 mg TID PRN Administration ANXIETY Quetiapine Fumarate 50 mg 05/12/19 14:00 05/16/19 13:15 Seroquel - PO 50 mg TID CHRISTIAN Administration ASSESSMENT/PLAN: 58 F PMH anoxic brain injury, seizures, Parkinson's , Bladder Cancer (stage 3) presents with UTI. # Urinary Tract Infection, a febrile conmpleted 3 days of ceftrixone switcan switch to Levaquin 500 per urine cx and sensitivity growing Acinabacter # Hx of bladder cancer with hematuria , S/P radiation X1 , resolved * bean in place , hematuriaresolved , monitor H/H * Urology consulted, appreciate recommendations- Patient is not candidate for surgical intervention. * Pending SNF placement # BRODERICK likely pre renal resolved # Mild fatty infiltrate on liver follow up out pt # Acute on chronic normocytic normo chromic Anemia mixed picture anemia if chronic disease and acute blood loss from hematuria * H/H 8.4 , stable cont to monitor * Ferritin 397, Iron 11, TIBC 96. * S.P 2 units PRBCS # Hypercalcemia, resolved * Corrected calcium of 11.2 on admission. * Calcium is now stable. * Could be 2/2 to cancer vs supplement #Diet: Soft diet #DVT ppx: SCD Dispo: D/C pending SNF placement Visit type - Emergency Visit Emergency Visit: Yes ED Registration Date: 05/12/19 Care time: The patient presented to the Emergency Department on the above date and was hospitalized for further evaluation of their emergent condition. - New Patient This patient is new to me today: No - Critical Care Critical Care patient: No ATTENDING PHYSICIAN STATEMENT I saw and evaluated the patient. I reviewed the resident's note and discussed the case with the resident. I agree with the resident's findings and plan as documented. SUBJECTIVE: OBJECTIVE: ASSESSMENT AND PLAN:
--- NOTE | 2019-05-16 17:51 | PN ---
Progress Note (short form) - Note Progress Note: Subjective: no fever or chills. No VELASQUEZ . No N/V . feels tired today Objective: NAD, cachectic. MMM, pale. CV: RRR, no MRG Lungs: CTAB Ext: scars on L leg. No edema . contracted hand and L elbow. L elbow ulcer < 1 cm no discharge . with slough, no surrounding erythema Abd: soft, NT, old suprapubic scar. Thao in with yellow urine in bag and clear urine in tube ASSESSMENT AND PLAN: Unfortunate 58 y/o lady with h/o TBI, Seizures, Parkinson's and Stage 3 bladder Cancer , chronic anemia, h/o hematuria , and recent admission for UTI and anemia. She presented with abd pain 1- UTI: - dc ceftriaxone and start levaquin (cx with acinetobacter). 2- BRODERICK: likely prerenal, improved with hydration 3- Acute on chronic normocytic anemia. likely due to hematuria. no evidence of GI bleed or hemolyais s/p transfusion cont to monitor HB 4- Hypercalcemia: likely due to supplements - cont to hold ca and Vit D 5- H/o PArkinson's: cont carbi/levo 6- h/o seizure: cont lamictal SCds will d/w palliative care and SW in am . Visit type - Emergency Visit Emergency Visit: Yes ED Registration Date: 05/12/19 Care time: The patient presented to the Emergency Department on the above date and was hospitalized for further evaluation of their emergent condition. - New Patient This patient is new to me today: No - Critical Care Critical Care patient: No
[2019-05-17] MEDS: LORazepam 0.5 MG TABLET PO PRN (01:43)
[2019-05-17] MEDS: SODIUM CHLORIDE 1,000 ML IV SCH ×2 (01:47→01:48)
[2019-05-17] MEDS ORDERED: SODIUM CHLORIDE 250 ML IV STA (05:22)
[2019-05-17] MEDS ORDERED: ACETAMINOPHEN 325 MG TABLET (FP) PO PRN (05:24)
[2019-05-17] MEDS ORDERED: ACETAMINOPHEN 325 MG TABLET (FP) ONE (05:28)
[2019-05-17] MEDS: QUEtiapine FUMARATE 50 MG TABLET PO SCH (05:32)
[2019-05-17] MEDS ORDERED: SODIUM CHLORIDE 500 ML IV STA ×2 (08:30→11:51)
[2019-05-17] MEDS ORDERED: SODIUM CHLORIDE 1,000 ML IV SCH ×2 (09:18→15:47)
[2019-05-17] MEDS ORDERED: PT OWN MED DRAWER 7, Y5N ONE (09:24)
[2019-05-17] MEDS: DIVALPROEX SODIUM 250 MG TABLET E.C. PO SCH (09:32)
[2019-05-17] MEDS: FAMOTIDINE 20 MG TABLET PO SCH (09:33)
[2019-05-17 10:05] LABS: BASO % 0.3 % (0-2.0); HEMATOCRIT 26.5 % (32.4-45.2); HEMOGLOBIN 8.4 GM/dL (10.7-15.3); LYMPH % 10.9 % (8-40); MCH 26.7 pg (25.7-33.7); MCHC 31.7 g/dl (32.0-36.0); MEAN PLT VOLUME 7.4 fl (7.5-11.1); MONO % 10.8 % (3.8-10.2); PLATELET COUNT 108 K/MM3 (134-434); RBC 3.15 M/mm3 (3.60-5.2); RDW 16.5 % (11.6-15.6); WHITE BLOOD COUNT 14.3 K/mm3 (4.0-10.0)
--- NOTE | 2019-05-17 10:21 | PN ---
Progress Note, SACK FILLER - Note Progress Note: Selected Entries 05/14/19 05/14/19 00:00 09:51 Breakfast 75% Temperature 98.2 F Laboratory Tests 05/11/19 05/12/19 05/13/19 23:20 05:35 07:55 WBC 18.1 H 11.6 H 14.1 H 05/14/19 07:25 WBC 12.5 H Selected Entries 05/16/19 05/16/19 05/16/19 03:00 07:00 09:35 Breakfast Lunch Supper Temperature 97.9 F 97.9 F 99.5 F 05/16/19 05/16/19 05/16/19 13:54 18:30 23:00 Breakfast 75% 75% Lunch 50% 50% Supper 75% 75% Temperature 99.3 F 98.7 F 05/17/19 05/17/19 05:42 07:04 Breakfast Lunch Supper Temperature 100.8 F H 98 F Laboratory Tests 05/15/19 05/16/19 05/17/19 07:15 11:25 09:30 WBC 12.8 H 15.5 H 14.3 H Swallowing Skills: Impaired Dysphagia Impressions: Mild Impairment, Risk of Aspiration *Silent aspiration: cannot be R/O at bedside Dysphagia Treatment Plan: Small Bites, Chin Tuck/Down, Clear Pocket Food, Trial Feedings, Safe Rate, 1/2 tsp. at a time, Elevate HOB during feed - Recommendations Diet Consistency: Regular (soft, easy to chew. Small bites, ZGive pt time to chew and clear her mouth) Liquids: Thin Liquids Supplement: Ensure, Magic Cup, Ensure Pudding Concur with Palliative care. Considering [place]
[2019-05-17 10:39] LABS: BLOOD UREA NITROGEN 11.8 mg/dL (7-18); CALCIUM 8.2 mg/dL (8.5-10.1); CREATININE 0.7 mg/dL (0.55-1.3); MAGNESIUM 1.5 mg/dL (1.8-2.4); POTASSIUM 3.7 mmol/L (3.5-5.1)
[2019-05-17 15:21] VITALS: BP 92/58; PULSE 86; TEMP 99.6
[2019-05-17] MEDS ORDERED: MAGNESIUM SULF 50% (8.12 MEQ/2 ML-1 GM VIAL) IVPB ONE (15:49)
--- NOTE | 2019-05-17 15:52 | PN ---
Progress Note, Physician History of Present Illness: Pt appears comfortable. Tolerating diet. - Current Medication List Current Medications: Active Medications Acetaminophen (Tylenol -) 650 mg PO Q6H PRN PRN Reason: Fever Or Pain Last Admin: 05/17/19 05:32 Dose: 650 mg Documented by: Carbidopa/Levodopa (Sinemet *Cr* 50/200 -) 1 combo PO TID [facility] Last Admin: 05/17/19 05:32 Dose: 1 combo Documented by: Dextrose (D50w (Vial) -) 25 gm IVPUSH PRN PRN PRN Reason: HYPOGLYCEMIA Divalproex Sodium (Depakote -) 250 mg PO BID [facility] Last Admin: 05/17/19 09:32 Dose: 250 mg Documented by: Famotidine (Pepcid -) 20 mg PO DAILY [facility] Last Admin: 05/17/19 09:33 Dose: 20 mg Documented by: Levofloxacin (Levaquin 500 Mg Premixed Ivpb -) 500 mg in 100 mls @ 100 mls/hr IVPB DAILY [facility]; Protocol Last Admin: 05/17/19 10:59 Dose: 100 mls/hr Documented by: Sodium Chloride (Normal Saline -) 1,000 mls @ 100 mls/hr IV ASDIR CHRISTIAN Lorazepam (Ativan -) 0.5 mg PO TID PRN PRN Reason: ANXIETY Last Admin: 05/17/19 01:43 Dose: 0.5 mg Documented by: Quetiapine Fumarate (Seroquel -) 50 mg PO TID [facility] Last Admin: 05/17/19 05:32 Dose: 50 mg Documented by: - Objective Vital Signs: Vital Signs Temperature 99.6 F 05/17/19 15:14 Pulse Rate 86 05/17/19 15:14 Respiratory Rate 20 05/17/19 15:14 Blood Pressure 92/58 L 05/17/19 15:14 O2 Sat by Pulse Oximetry (%) 97 05/16/19 21:00 Constitutional: Yes: Calm Eyes: Yes: Conjunctiva Clear Cardiovascular: Yes: S1, S2 Respiratory: Yes: CTA Bilaterally Gastrointestinal: Yes: Soft Genitourinary: Yes: Incontinence Musculoskeletal: Yes: Muscle Weakness Edema: No Neurological: Yes: Pre-Existing Deficit Labs: CBC, BMP 05/17/19 09:30 05/17/19 09:30 INR, PTT INR 1.28 (0.83-1.09) H 05/11/19 23:20 Assessment/Plan Current Medications Generic Name Dose Route Start Last Admin Trade Name Freq PRN Reason Stop Dose Admin Acetaminophen 650 mg 05/17/19 05:24 05/17/19 05:32 Tylenol - PO 650 mg Q6H PRN Administration Fever Or Pain Carbidopa/Levodopa 1 combo 05/12/19 14:00 05/17/19 05:32 Sinemet *Cr* 50/200 - PO 1 combo TID CHRISTIAN Administration Dextrose 25 gm 05/15/19 08:58 D50w (Vial) - IVPUSH PRN PRN HYPOGLYCEMIA Divalproex Sodium 250 mg 05/12/19 22:00 05/17/19 09:32 Depakote - PO 250 mg BID CHRISTIAN Administration Famotidine 20 mg 05/13/19 10:00 05/17/19 09:33 Pepcid - PO 20 mg DAILY CHRISTIAN Administration Levofloxacin 500 mg in 100 mls @ 100 mls/hr 05/16/19 11:30 05/17/19 10:59 Levaquin 500 Mg Premixed Ivpb - IVPB 100 mls/hr DAILY CHRISTIAN Administration Protocol Sodium Chloride 1,000 mls @ 100 mls/hr 05/17/19 15:47 Normal Saline - IV ASDIR CHRISTIAN Lorazepam 0.5 mg 05/12/19 13:33 05/17/19 01:43 Ativan - PO 0.5 mg TID PRN Administration ANXIETY Magnesium Sulfate 2 gm 05/17/19 15:49 Magnesium Sulfate IVPB 05/17/19 15:50 ONCE ONE Quetiapine Fumarate 50 mg 05/12/19 14:00 05/17/19 05:32 Seroquel - PO 50 mg TID CHRISTIAN Administration Impression 1. BRODERICK baseline blockman 0.8 2. hypercalcemia 3. dehydration 4. hypercalcemia 5. uti 6. parkinsons Plan - replace mag - lytes stable - encourage po intake - calcium improved - saline ordered for hypotension
--- NOTE | 2019-05-17 17:18 | PN ---
Teaching Attending Note Name of Resident: Jacque Feldman ATTENDING PHYSICIAN STATEMENT I saw and evaluated the patient. I reviewed the resident's note and discussed the case with the resident. I agree with the resident's findings and plan as documented. SUBJECTIVE: cont to have fever. tired. events noted for hypotension last night OBJECTIVE: NAD, cachectic. MMM, pale. looks ill and tired . not cooperative with exam CV: RRR, no MRG Lungs: CTAB Ext: No edema. contracted hand and L elbow . Abd: soft, NT, old suprapubic scar. Thao in with yellow urine in bag and clear urine in tube ASSESSMENT AND PLAN: Unfortunate 58 y/o lady with h/o TBI, Seizures, Parkinson's and Stage 3 bladder Cancer , chronic anemia, h/o hematuria , and recent admission for UTI and anemia. She presented with abd pain 1-sepsis due to UTI: - cont levaquin day 04/05 - bolus of IVF this am , and IVF increased 2- BRODERICK: likely prerenal, improved with hydration 3- Acute on chronic normocytic anemia. likely due to hematuria. no evidence of GI bleed or hemolyais s/p transfusion 4- Hypercalcemia: likely due to supplements - cont to hold ca and Vit D 5- H/o PArkinson's: cont carbi/levo 6- h/o seizure: cont lamictal She was accepted to [facility]. SW conversation with legal guardian . will transfer there on IV abx.
--- NOTE | 2019-05-17 17:23 | DS ---
Physical Exam: SUBJECTIVE: Patient seen and examined in the morning. Patient had temperature of 100.8 overnight, cultures were sent and IV tylenol was given. Patient has no complaints of chest pain, shortness of breath, or abdominal pain. OBJECTIVE: Vital Signs Period Temp Pulse Resp BP Sys/Morris Pulse Ox Last 24 Hr 98 F-100.8 F 84-93 18-20 80-108/48-67 97 PHYSICAL EXAM GENERAL: The patient was asleep, easily arousable. HEAD: Normal with no signs of trauma. EYES: Right eye closed, when open pupil is constricted and off center. Left eye has EOMI, and PERRL. NECK: Trachea midline, full range of motion, supple. LUNGS: CTAB HEART: S1 S2, no MRG ABDOMEN: Soft nontender. Non distended. Scar from suprapubic cather still in place EXTREMITIES: Left hand contracted. Peripheral pulses 2+ NEUROLOGICAL: Cranial Nerve II-XII intact. SKIN: Non weeping wound on the right elbow. Dressing in place. LABS Laboratory Results - last 24 hr CBC, BMP 05/17/19 09:30 05/17/19 09:30 Microbiology 05/11/19 23:20 Blood - Peripheral Venous Blood Culture - Final NO GROWTH AFTER 5 DAYS INCUBATION 05/11/19 23:20 Blood - Peripheral Venous Blood Culture - Final NO GROWTH AFTER 5 DAYS INCUBATION 05/13/19 16:20 Urine - Urine Thao Urine Culture - Final Acinetobacter Baumannii/Haemol 05/11/19 01:52 Urine - Urine - Catheterized Urine Culture - Final Contaminated: Please Repeat HOSPITAL COURSE: Date of Admission:05/12/19 Date of Discharge: 05/17/19 58 F PMH anoxic brain injury, seizures, Parkinson's , Bladder Cancer (stage 3) presents with UTI. She was also noted to have a hemoglobin drop to 5.8. We transfused her with 2 units of PRBC and her hemoglobin has stabilized. We initially treated her with ceftriaxone; her urine culture showed infection with actinobacter that is sensitive to levofloxacin. She is currently being treated with levofloxacin 500 mg IV, daily. She has completed 2 days of levofloxacin therapy. She is also on NS @ 100 ml/hr. She is using SCD's for DVT prophylaxis due to her initial hematuria, which has resolved. She was transferred to [facility] for continued care. Please continue the following medications: Levofloxacin 500 mg, IV, Daily. Continue for additional 8 days. Normal Saline @ 100 ml/hr. Ativan 0.5 mg, by mouth, up to three times daily as needed. Depakote 250 mg, by mouth, twice a day. Pepcid 20 mg, by mouth daily. Sinemet 1 tablet three times a day. Seroquel 50 mg, three times a day. Her HCP is Josiane Villeda and her contact number: [phone]. Her PCP is Dr. Varsha Fu. 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 Foster was admitted to the hospital because of a urinary tract infection. She was also noted to have a hemoglobin drop to 5.8. We transfused her with 2 units of PRBC and her hemoglobin has stabilized. We initially treated her with ceftriaxone; her urine culture showed infection with actinobacter that is sensitive to levofloxacin. She is currently being treated with levofloxacin 500 mg IV, daily. She has completed 2 days of levofloxacin therapy. She is also on NS @ 100 ml/hr. She is using SCD's for DVT prophylaxis due to her initial hematuria, which has resolved. Please continue the following medications: Levofloxacin 500 mg, IV, Daily. Continue for additional 8 days. Normal Saline @ 100 ml/hr. Ativan 0.5 mg, by mouth, up to three times daily as needed. Depakote 250 mg, by mouth, twice a day. Pepcid 20 mg, by mouth daily. Sinemet 1 tablet three times a day. Seroquel 50 mg, three times a day. Her HCP is Josiane Vlileda and her contact number: [phone]. Her PCP is Dr. Varsha Fu. Disposition: TRANSFER ACUTE CARE/OTHER HOSP - Home Medications Comprehensive Discharge Medication List: Ambulatory Orders Divalproex Sodium [Depakote] 250 mg PO BID 03/16/19 Quetiapine Fumarate [Seroquel -] 50 mg PO TID 03/16/19 Ranitidine Oral Solution [Zantac Oral Solution -] 150 tab DAILY 03/16/19 Acetaminophen [Tylenol .Regular Strength -] 650 mg PO Q6H PRN tablet 03/24/19 Carbidopa/Levodopa *Cr* 50/200 [Sinemet *Cr* 50/200 -] 1 combo PO TID tablet.er 03/24/19 LORazepam [Ativan] 0.5 mg PO TID PRN #60 tablet MDD 1.5mg 03/24/19 Polyethylene Glycol 3350 [Miralax 119 gm Btl -] 17 gm PO DAILY #6 bottle 03/24/19 levoFLOXacin 500 MG IVPB [Levaquin 500 mg Premixed Ivpb -] 500 mg IVPB DAILY #8 bag 05/17/19 This patient is new to me today: No Emergency Visit: Yes ED Registration Date: 05/12/19 Care time: The patient presented to the Emergency Department on the above date and was hospitalized for further evaluation of their emergent condition. Critical Care patient: No - Discharge Referral Referred to [facility] Med P.C.: No ATTENDING PHYSICIAN STATEMENT I saw and evaluated the patient. I reviewed the resident's note and discussed the case with the resident. I agree with the resident's findings and plan as documented. SUBJECTIVE: OBJECTIVE: ASSESSMENT AND PLAN:
== END 2019-05-17 18:31 | disposition short-term general hospital (02) | DRG 871 ==
LOC: JER 21:32 → JERBED 05-12 04:52 → J6S 05-12 06:28
PROVIDERS: ADMIT Internal Medicine; ATTEND Internal Medicine
DX: A41.59 Other Gram-negative sepsis (principal); R53.2 Functional quadriplegia; N39.0 Urinary tract infection, site not specified; N17.9 Acute kidney failure, unspecified; D62 Acute posthemorrhagic anemia; E46 Unspecified protein-calorie malnutrition; C79.51 Secondary malignant neoplasm of bone; Z68.1 Body mass index [BMI] 19.9 or less, adult; R71.0 Precipitous drop in hematocrit; A41.89 Other specified sepsis; E83.52 Hypercalcemia; G20 Parkinson's disease; C67.9 Malignant neoplasm of bladder, unspecified; R56.9 Unspecified convulsions; D64.9 Anemia, unspecified; E88.09 Other disorders of plasma-protein metabolism, not elsewhere classified; N18.9 Chronic kidney disease, unspecified; D63.8 Anemia in other chronic diseases classified elsewhere; E86.0 Dehydration; R31.9 Hematuria, unspecified
CPT/HCPCS: 36415; 36430; 36511; 71045-TC-FY; 76775-TC; 80048; 80053; 81003; 82306; 82330; 82728; 82803; 82962; 83010; 83540; 83550; 83605; 83615; 83735; 83970; 84100; 84300; 84484; 85025; 85044; 85610; 85730; 86850; 86900; 86901; 86922; 87040; 87086; 87186; 93005; 93010; 97161-GP; 99285-25; J0131; J1644; J7030; P9038; P9058